=== PATIENT | male | born 1955 | race Caucasian/White ===

== ENCOUNTER 2022-04-21 16:40 | Inpatient (IN) | payer BC, SELFPAY ==
--- NOTE | 2022-04-21 | ECG_ITS ---
Test Reason : MED CLEARANCE Blood Pressure : / mmHG Vent. Rate : 074 BPM Atrial Rate : 074 BPM P-R Int : 168 ms QRS Dur : 128 ms QT Int : 386 ms P-R-T Axes : 016 -28 -36 degrees QTc Int : 428 ms Normal sinus rhythm Right bundle branch block Minimal voltage criteria for LVH, may be normal variant ( R in aVL ) Inferior infarct , age undetermined T wave abnormality, consider lateral ischemia Abnormal ECG No previous ECGs available Referred By: Dayan Dutta Electronically Signed By:LAURA HENRIQUEZ MD
[2022-04-21 16:56] VITALS: BP 140/90; PULSE 80
--- NOTE | 2022-04-21 16:56 | ED.PSYCH ---
HPI - Psych General Chief Complaint: Psychiatric Symptoms Stated Complaint: VOLUNTARY PSYCH EVAL Time Seen by Provider: 04/21/22 16:45 Source: patient Mode of arrival: EMS Limitations: no limitations History of Present Illness HPI Narrative: Patient is a 67 year old tapia with a H oh depression ,COVID and BPH, who presented to the ED with worsening depression associated with suicidal thoughts with no plans. He reports seeing a therapist in [facility].He was brought on by EMS to the ED for psychiatric evaluation. MD complaint: suicidal ideation and feels depressed Onset (ago): week(s) (couple) Duration: getting worse History of same: Yes Relieving factors: none Exacerbating factors: other (brought on by COVID worse with life stressors) Context: significant life stressor Associated psychiatric symptoms: depression and suicidal ideation Associated symptoms: denies other symptoms Treatments prior to arrival: none If self harm: admits thoughts of self harm Related Data Home Medications Medication Instructions Recorded Confirmed tamsulosin 0.4 mg capsule 1 cap PO DAILY 04/21/22 04/21/22 Allergies Allergy/AdvReac Type Severity Reaction Status Date / Time Penicillins Allergy Unknown Unknown Verified 04/21/22 16:56 Review of Systems Review of Systems: Constitutional : No Fever, No Chills ENT/Mouth : No Ear Pain, No Nasal Congestion, No sore throat Eyes: No Eye Pain, No Swelling, No Redness Cardiovascular : No Chest Pain, No SOB Respiratory : No Cough, No Sputum, No Dyspnea Gastrointestinal : No Nausea, No Vomiting, No Diarrhea, No Hematochezia, No Melena Genitourinary : No Dysuria, No Urinary Frequency, No Hematuria Musculoskeletal : No Myalgias Skin : No Skin Lesions, No rash Neuro : No Weakness, No Numbness, No Paresthesias, No Dizziness, No Headache Psych : positive Anxiety, positive Depression, positive SI no HI Heme/Lymph: No Lymphadenopathy Endocrine : No Polyuria, No Polydipsia All other systems reviewed and are negative [facility] Past Medical History Attestation statement: The following information was validated with the patient. Medical History BPH (benign prostatic hyperplasia) HTN (hypertension) Surgical History (Updated 04/21/22 @ 17:51 by Gilma Luevano) History of hernia repair Social History Social History (Updated 10/25/22 @ 17:09 by JAZMYN Holcomb Alcohol intake: never Patient Tobacco Use Status: Never used Tobacco Use of substances other than those prescribed or required for medical reasons: No Advance Directives: No Advance Directives Information Provided: No Guardian: No Physical Exam Vital Signs: Vital Signs: Last Vital Signs Temp 98.1 F 04/22/22 00:48 Pulse 74 04/22/22 00:48 Resp 16 04/22/22 00:48 BP 169/97 H 04/22/22 00:48 Pulse Ox 95 04/22/22 00:48 O2 Del Method 04/22/22 00:48 BMI result Body Mass Index 32.5 Appearance: Alert. Oriented X3. No acute distress. Calm and cooperative, walks with a cane Eyes: Pupils equal, round and reactive to light. ENT: Pharynx normal. Neck: Normal inspection. Neck supple. CVS: Normal heart rate and rhythm. Pulses normal. Respiratory: No respiratory distress. Breath sounds normal. Abdomen: Soft and nontender. Skin: Skin warm and dry. Normal skin color. Normal skin turgor. Extremities: No lower extremity edema. Neuro: Oriented X 3. No motor deficit. No sensory deficit. CN2-12 intact Course Course Course Narrative: Physician observation started at 551pm. Patient placed in physician observation because the patient needed more time for BHN to assess the need for psych admission. At the time observation was started the patient's vitals were stable, patient is alert and oriented, Neuro: nonfocal, CV RRR, Lungs clear reassess by CARE team in AM MDM - Psych MDM Narrative Medical decision making narrative: 67 yo male with hx of HTN, BPH, recent bout with COVID - life stressors now comes in voluntarily worsening depression and SI has no medical complaints requesting psychiatric evaluation. Labs and CARE consult ordered. Lab Data Result diagrams: 04/21/22 17:49 04/21/22 17:49 Labs: Lab Results 04/21/22 04/21/22 04/21/22 Range/Units 17:18 17:18 17:49 WBC 8.5 (4.8-10.8) X10*3/uL RBC 5.20 (4.60-5.80) X10*6/uL Hgb 16.1 (14.0-18.0) g/dl Hct 48.2 (42.0-52.0) % MCV 92.7 (80.0-98.0) fL MCH 31.0 (27.0-33.0) pg MCHC 33.4 (31.0-36.0) g/dl RDW 13.0 (11.0-16.0) % Plt Count 260 (160-400) X10*3/uL MPV 10.7 (9.4-12.4) fL Immature Gran % (Auto) 0.4 (0.0-0.4) % Neut % (Auto) 69.8 (45-73) % Lymph % (Auto) 20.0 (20-40) % [place] % (Auto) 8.5 (2-11) % Eos % (Auto) 0.8 (0-4) % Baso % (Auto) 0.5 (0-2) % Lymph # (Auto) 1.7 (1.2-4.9) X10*3/uL [place] # (Auto) 0.7 (0.1-1.2) X10*3/uL Eos # (Auto) 0.1 (0.0-0.4) X10*3/uL Baso # (Auto) 0.0 (0.0-0.2) X10*3/uL Abs Immat Gran (auto) 0.03 (0.00-0.03) X10*3/uL Absolute Neuts (auto) 6.0 (2.0-8.3) x10*3/uL Absolute Nucleated RBC 0.000 (0.0-0.012) X10*3/uL Nucleated RBC % (auto) 0.0 (0.0-0.2) /100WBC Sodium (135-145) mmol/L Potassium (3.3-5.1) mmol/L Chloride (96-108) mmol/L Carbon Dioxide (22-29) mmol/L Anion Gap (12-20) BUN (9-16) mg/dL Creatinine (0.5-1.4) mg/dL Estim Creat Clear Calc Estimated GFR Random Glucose (60-115) mg/dL Calcium (8.4-10.2) mg/dL Magnesium (1.6-2.6) mg/dL Total Bilirubin (0.0-1.0) mg/dL Direct Bilirubin (0.0-0.5) mg/dL AST (5-37) U/L ALT (0-40) U/L Alkaline Phosphatase (39-117) U/L Total Protein (6.5-8.0) g/dL Albumin (3.5-5.0) g/dL Urine Opiates Screen Not Detected (Not Detect) Urine Fentanyl Screen Not Detected (Not Detect) Ur Barbiturates Screen Not Detected (Not Detect) Ur Phencyclidine Scrn Not Detected (Not Detect) Ur Amphetamines Screen Not Detected (Not Detect) U Benzodiazepines Scrn Not Detected (Not Detect) Urine Cocaine Screen Not Detected (Not Detect) U Marijuana (THC) Screen Not Detected (Not Detect) Ethyl Alcohol mg/dL COVID-19 (JESSE) Negative (Negative) COVID-19 Clin Com See Note 04/21/22 Range/Units 17:49 WBC (4.8-10.8) X10*3/uL RBC (4.60-5.80) X10*6/uL Hgb (14.0-18.0) g/dl Hct (42.0-52.0) % MCV (80.0-98.0) fL MCH (27.0-33.0) pg MCHC (31.0-36.0) g/dl RDW (11.0-16.0) % Plt Count (160-400) X10*3/uL MPV (9.4-12.4) fL Immature Gran % (Auto) (0.0-0.4) % Neut % (Auto) (45-73) % Lymph % (Auto) (20-40) % [place] % (Auto) (2-11) % Eos % (Auto) (0-4) % Baso % (Auto) (0-2) % Lymph # (Auto) (1.2-4.9) X10*3/uL [place] # (Auto) (0.1-1.2) X10*3/uL Eos # (Auto) (0.0-0.4) X10*3/uL Baso # (Auto) (0.0-0.2) X10*3/uL Abs Immat Gran (auto) (0.00-0.03) X10*3/uL Absolute Neuts (auto) (2.0-8.3) x10*3/uL Absolute Nucleated RBC (0.0-0.012) X10*3/uL Nucleated RBC % (auto) (0.0-0.2) /100WBC Sodium 142 (135-145) mmol/L Potassium 3.9 (3.3-5.1) mmol/L Chloride 107 (96-108) mmol/L Carbon Dioxide 22 (22-29) mmol/L Anion Gap 17 (12-20) BUN 18 H (9-16) mg/dL Creatinine 0.87 (0.5-1.4) mg/dL Estim Creat Clear Calc 93.3 Estimated GFR > 60 Random Glucose 122 H (60-115) mg/dL Calcium 9.5 (8.4-10.2) mg/dL Magnesium 2.2 (1.6-2.6) mg/dL Total Bilirubin 0.9 (0.0-1.0) mg/dL Direct Bilirubin 0.4 (0.0-0.5) mg/dL AST 24 (5-37) U/L ALT 22 (0-40) U/L Alkaline Phosphatase 53 (39-117) U/L Total Protein 7.8 (6.5-8.0) g/dL Albumin 4.3 (3.5-5.0) g/dL Urine Opiates Screen (Not Detect) Urine Fentanyl Screen (Not Detect) Ur Barbiturates Screen (Not Detect) Ur Phencyclidine Scrn (Not Detect) Ur Amphetamines Screen (Not Detect) U Benzodiazepines Scrn (Not Detect) Urine Cocaine Screen (Not Detect) U Marijuana (THC) Screen (Not Detect) Ethyl Alcohol < 10 mg/dL COVID-19 (JESSE) (Negative) COVID-19 Clin Com Discharge Plan Discharge Clinical Impression: Depression Qualifiers: Depression Type: unspecified Qualified Code(s): F32.A - Depression, unspecified Patient Disposition: Still a Patient Prescriptions: No Action tamsulosin 0.4 mg capsule 1 cap PO DAILY
[2022-04-21 17:41] LABS: COVID-19 Test Negative (Negative); IDNOW Serial# 16C4AD1C
[2022-04-21 17:44] VITALS: BP 185/107; PULSE 78; RESP 18; TEMP 36.3; O2SAT 95; BMI 32.5
[2022-04-21 17:49] VITALS: RESP 18
[2022-04-21 17:50] LABS: Amphetamine Screen Urine Not Detected (Not Detect); Barbiturates, Urine Not Detected (Not Detect); Benzodiazepines Screen Urine Not Detected (Not Detect); Cannabinoid Screen Urine Not Detected (Not Detect); Cocaine Screen Urine Not Detected (Not Detect); Fentanyl, urine Not Detected (Not Detect); Opiate Screen Urine Not Detected (Not Detect); Phencyclidine Screen Urine Not Detected (Not Detect)
[2022-04-21 17:54] LABS: MANUAL DIFF FLAG NO
[2022-04-21 18:04] VITALS: BP 142/86; PULSE 86; O2SAT 96
[2022-04-21 18:13] LABS: Alanine Aminotransferase 22 U/L (0-40); Albumin Level 4.3 g/dL (3.5-5.0); Alkaline Phosphatase 53 U/L (39-117); Anion Gap 17 (12-20); Aspartate Amino Transferase 24 U/L (5-37); Bilirubin Direct 0.4 mg/dL (0.0-0.5); Bilirubin Total 0.9 mg/dL (0.0-1.0); Blood Urea Nitrogen 18 mg/dL (9-16); Calcium 9.5 mg/dL (8.4-10.2); Carbon Dioxide 22 mmol/L (22-29); Chloride 107 mmol/L (96-108); Creatinine Clr Calc Pharmacy 93.3; Estimated Glomerular Filt Rate > 60; Ethanol < 10 mg/dL; Glucose Random 122 mg/dL (60-115); Magnesium 2.2 mg/dL (1.6-2.6); Potassium 3.9 mmol/L (3.3-5.1); Sodium 142 mmol/L (135-145); Total Protein 7.8 g/dL (6.5-8.0)
[2022-04-21 18:14] LABS: Basophils Percent Auto 0.5 % (0-2); Eosinophils Absolute Auto 0.1 X10*3/uL (0.0-0.4); Eosinophils Percent Auto 0.8 % (0-4); Hematocrit 48.2 % (42.0-52.0); Hemoglobin 16.1 g/dl (14.0-18.0); Imm Gran Abs Auto 0.03 X10*3/uL (0.00-0.03); Imm Gran Pct Auto 0.4 % (0.0-0.4); Lymphocytes Absolute Auto 1.7 X10*3/uL (1.2-4.9); Mean Corpuscular HGB Conc 33.4 g/dl (31.0-36.0); Mean Corpuscular Volume 92.7 fL (80.0-98.0); Mean Platelet Volume 10.7 fL (9.4-12.4); Monocytes Absolute Auto 0.7 X10*3/uL (0.1-1.2); Monocytes Percent Auto 8.5 % (2-11); Neutrophils Percent Auto 69.8 % (45-73); Platelet Count 260 X10*3/uL (160-400); White Blood Count 8.5 X10*3/uL (4.8-10.8)
--- OUTSIDE RECORDS SUMMARY | 2022-04-21 21:47 | XMS_ITS | Continuity of Care Document ---
:1955 Author Organization [facility] Address [address] [place] [address]- Care Team Providers Name Role Phone Jude Lam MD Primary Care Physician Unavailable Encounter [facility] [place] Date(s): 12/17/20 - 02/02/[address] [address]- Attending Physician: Cesario Correa MD Admitting Physician: Cesario Correa MD Referring Physician: Cesario Correa MD Allergies, Adverse Reactions, Alerts Substance Reaction Severity Status penicillin Active Hay Active Medications Flomax 0.4 mg oral capsule 0.4 mg, 1, capsule, By Mouth, Daily, Refills 0, Maintenance, 12/09/20 14:41:00 EDT, Partial fill upon patient request if the prescription is for a schedule II opioid drug. Start Date: 12/09/20 Status: OrderedVitamin B12 1000 mcg oral tablet 1 tablet = 1,000 mcg, By Mouth, Daily, 0 Refills, Maintenance, 12/09/20 14:41:00 EDT, Partial fill upon patient request if the prescription is for a schedule II opioid drug. Start Date: 12/09/20 Status: Ordered Social History Social History Type Response Smoking Status Never (less than 100 in life time) entered on: 12/09/20 Sex
--- OUTSIDE RECORDS SUMMARY | 2022-04-21 21:47 | XMS_ITS | Continuity of Care Document ---
:1955 Author Organization [facility] Address [address] [place] [id number]- Care Team Providers Name Role Phone Genaro MARY, Jude Primary Care Physician Unavailable Encounter [facility] Date(s): 12/10/20 - 01/09/[address] [place] [id number] Allergies, Adverse Reactions, Alerts Substance Reaction Severity [...]
--- OUTSIDE RECORDS SUMMARY | 2022-04-21 21:47 | XMS_ITS | Continuity of Care Document ---
:1955 Author Organization [facility] Address Unavailable , Care Team Providers Name Role Phone Genaro MARY, Jude Primary Care Physician Unavailable Encounter [facility] [place] Date(s): 02/04/21 - 03/06/21 [facility] Allergies, Adverse Reactions, Alerts Substance Reaction Severity [...]
--- OUTSIDE RECORDS SUMMARY | 2022-04-21 21:47 | XMS_ITS | Continuity of Care Document ---
:1955 Author Organization [facility] Address [address] [place] [address]- Care Team Providers Name Role Phone Jude Lam MD Primary Care Physician Unavailable Encounter [facility] [place] Date(s): 02/08/21 - 04/01/[address] [address]- Attending Physician: Cesario Correa MD Admitting Physician: [...]
--- OUTSIDE RECORDS SUMMARY | 2022-04-21 21:47 | XMS_ITS | Continuity of Care Document ---
:1955 Author Organization [facility] Address [address] [place] [address] Drive [address] [place] [address]- Care Team Providers Name Role Phone Genaro MARY, Jude Primary Care Physician Unavailable Encounter [facility] [place] Date(s): 12/09/20 - 12/16/[address] [place] [id number] Attending Physician: Cesario Correa MD Referring Physician: Kinza Truong Allergies, Adverse Reactions, Alerts Substance Reaction Severity [...] opioid drug. Start Date: 12/09/20 Status: Ordered Vital Signs Most recent to oldest [Reference Range]: 1 Height 180 cm (12/09/20 2:34 PM) Weight 103.2 kg (12/09/20 2:34 PM) Pulse Rate [55-90 bpm] 76 bpm (12/09/20 2:34 PM) Body Mass Index [18.5-24.99] 31.85 *>HHI* (12/09/20 2:34 PM) Blood Pressure [90-138/55-84 mm Hg] 164/101 mm Hg *H* (12/09/20 2:34 PM) Temperature [96.8-100.4 DegF] 98.4 DegF (12/09/20 2:34 PM) Blood pressure sites Arm, left (12/09/20 2:34 PM) Temperature Route Temporal (12/09/20 2:34 PM) Dry Weight 103.2 kg (12/09/20 2:34 PM) Weight Obtained Via Standing scale (12/09/20 2:34 PM) Social History Social History Type Response Smoking Status Never (less than 100 in life time) entered on: 12/09/20 Sex
--- OUTSIDE RECORDS SUMMARY | 2022-04-21 21:47 | XMS_ITS | Continuity of Care Document ---
:1955 Author Organization [facility] Address [address] [place] [address]- Care Team Providers Name Role Phone Genaro MARY, Jude Primary Care Physician Unavailable Encounter [facility] Date(s): 12/09/20 - 01/08/[address] [place] [id number]- Attending Physician: Negra Kirkland Admitting Physician: Negra Kirkland Referring Physician: Negra Kirkland Allergies, Adverse Reactions, Alerts Substance Reaction Severity [...]
--- OUTSIDE RECORDS SUMMARY | 2022-04-21 21:47 | XMS_ITS | Continuity of Care Document ---
:1955 Author Organization [facility] Address [address], [address] [place] [address]- Care Team Providers Name Role Phone Jude Lam MD Primary Care Physician Unavailable Encounter 01/07/21 - 01/23/21 [facility] [address], [address] [place] [address]- Attending Physician: Cesario Correa MD Admitting Physician: [...]
--- NOTE | 2022-04-21 22:03 | MHC.CARE ---
CARE team completed evaluation. Plan is for inpt psychiatric admission. Section 12a is in chart. Psychiatry will need to see pt in the morning to determine if he is a candidate for an involuntary admission.
[2022-04-22 00:48] VITALS: BP 169/97; PULSE 74; RESP 16; TEMP 36.7; O2SAT 95
[2022-04-22] MEDS: Melatonin 3 MG TABLET 6 MG PO (02:05)
[2022-04-22] MEDS: LORazepam 1 MG TABLET 2 MG PO (04:45)
--- NOTE | 2022-04-22 06:19 | PC.NURSE ---
Patient is resting quietly but did not whole overnight shift, Melatonin 6 mg PO at 0245 and Ativan 2 mg PO at 0445 administered as ordered with little to no effect, disposition per care team section 12 inpatient bed search, pending psych consult, medication compliant, behavior appropriate and non concerning, will continue to monitor.
[2022-04-22] MEDS: Tamsulosin HCL 0.4 MG CAPSULE PO (08:33)
--- NOTE | 2022-04-22 13:02 | HO.PSYADMNOT ---
HPI Date of Service: 04/22/22 Chief Complaint: Mood Sources of Information: patient interviewed, chart reviewed and crisis/core team assessment reviewed HPI Subjective Notes: Rodriguez Warning (given and understood.) and Conditional Voluntary Narrative: Mr. Saeed is a 67 year old male with hx of MDD versus Bipolar type 2 Disorder. Pt called 911 and was brought to [facility] due to reports of suicidal ideation with varying plans including praying that God stops my heart, freezing in cold ren. Utox is negative. On the unit, pt reports he has been depressed since December of this year after UTI. Pt endorses symptoms of anhedonia, low energy, waking up every morning feels like a huge task. 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 Pt denied any intent to hurt himself but did feel hopeless. He denies hx of VH/AH. He reports last episode of depression was in 2018. He has one previous inpatient admission for depression in 2000. He denies hx of suicide attempts. He reports some increase in energy, no hx of grandiose delusions. Some hx of impulsive buying expensive art. He reports differential dx has been bipolar 2 versus unipolar depression. He reports in the past he has been on combination of effexor and lithium with good effects. He reports he stopped lithium due to tremors. Past Psychiatric History: Inpt: 2000 [facility] OP: none Past trials: wellbutrin (activating), lithium (tremors but effective), effexor Medical Evaluation Reviewed: Yes [facility] Medical History (Updated 04/24/22 @ 12:08 by Shannan Perkins) BPH (benign prostatic hyperplasia) HTN (hypertension) Surgical History (Updated 04/21/22 @ 17:51 by Gilma Luevano) History of hernia repair Family History: none Social History: Lives alone. since 2000. 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 Has 2 adult children not in the area. Substance History: none Trauma History: denies Diagnostics Vital Signs (24Hr): Vital Signs - 24 hr 04/21/22 17:44 04/21/22 17:49 04/21/22 18:04 Temperature 97.3 F Pulse Rate 78 86 Respiratory Rate 18 18 Blood Pressure 185/107 H 142/86 H Pulse Oximetry 95 96 Oxygen Delivery Method Room Air Room Air 04/22/22 00:48 Temperature 98.1 F Pulse Rate 74 Respiratory Rate 16 Blood Pressure 169/97 H Pulse Oximetry 95 Oxygen Delivery Method Room Air BMI result Body Mass Index 32.5 Labs Results: 04/21/22 17:49 04/23/22 07:58 Labs: Laboratory Results - last 48 hr 04/21/22 04/21/22 04/21/22 17:18 17:18 17:49 WBC 8.5 RBC 5.20 Hgb 16.1 Hct 48.2 MCV 92.7 MCH 31.0 MCHC 33.4 RDW 13.0 Plt Count 260 MPV 10.7 Immature Gran % (Auto) 0.4 Neut % (Auto) 69.8 Lymph % (Auto) 20.0 [place] % (Auto) 8.5 Eos % (Auto) 0.8 Baso % (Auto) 0.5 Lymph # (Auto) 1.7 [place] # (Auto) 0.7 Eos # (Auto) 0.1 Baso # (Auto) 0.0 Abs Immat Gran (auto) 0.03 Absolute Neuts (auto) 6.0 Absolute Nucleated RBC 0.000 Nucleated RBC % (auto) 0.0 Sodium Potassium Chloride Carbon Dioxide Anion Gap BUN Creatinine Estim Creat Clear Calc Estimated GFR Random Glucose Calcium Magnesium Total Bilirubin Direct Bilirubin AST ALT Alkaline Phosphatase Total Protein Albumin Urine Opiates Screen Not Detected Urine Fentanyl Screen Not Detected Ur Barbiturates Screen Not Detected Ur Phencyclidine Scrn Not Detected Ur Amphetamines Screen Not Detected U Benzodiazepines Scrn Not Detected Urine Cocaine Screen Not Detected U Marijuana (THC) Screen Not Detected Ethyl Alcohol COVID-19 (JESSE) Negative COVID-19 Clin Com See Note 04/21/22 17:49 WBC RBC Hgb Hct MCV MCH MCHC RDW Plt Count MPV Immature Gran % (Auto) Neut % (Auto) Lymph % (Auto) [place] % (Auto) Eos % (Auto) Baso % (Auto) Lymph # (Auto) [place] # (Auto) Eos # (Auto) Baso # (Auto) Abs Immat Gran (auto) Absolute Neuts (auto) Absolute Nucleated RBC Nucleated RBC % (auto) Sodium 142 Potassium 3.9 Chloride 107 Carbon Dioxide 22 Anion Gap 17 BUN 18 H Creatinine 0.87 Estim Creat Clear Calc 93.3 Estimated GFR > 60 Random Glucose 122 H Calcium 9.5 Magnesium 2.2 Total Bilirubin 0.9 Direct Bilirubin 0.4 AST 24 ALT 22 Alkaline Phosphatase 53 Total Protein 7.8 Albumin 4.3 Urine Opiates Screen Urine Fentanyl Screen Ur Barbiturates Screen Ur Phencyclidine Scrn Ur Amphetamines Screen U Benzodiazepines Scrn Urine Cocaine Screen U Marijuana (THC) Screen Ethyl Alcohol < 10 COVID-19 (JESSE) COVID-19 Clin Com Meds/Allergies Meds Home Medications Medication Instructions Recorded Confirmed Type tamsulosin 0.4 mg capsule 1 cap PO DAILY 04/21/22 04/21/22 History Allergies Allergies Allergy/AdvReac Type Severity Reaction Status Date / Time Penicillins Allergy Unknown Unknown Verified 04/21/22 16:56 Mental Status Exam Mental Status Exam Narrative: Appearance: casually groomed, fair hygiene in NAD Behavior:cooperative psychomotor: no retardation or agitation noted Speech:clear, normal rate/rhythm/volume, spontaneous Thought process: linear Thought content: no s/s of psychosis, no energy or motivation Mood: numbed Affect: blunted SI:passive HI:none VH/AH:none Delusions: none Insight/judgment:fair x 2. Memory/cog: alert, oriented x 3. grossly intact to conversational testing but not formally tested. Assessment & Plan Assessment & Plan (1) Bipolar II disorder major depressive with melancholic features: Status: Acute Code(s): F31.81 - Bipolar II disorder Plan Mr. Saeed is a 67 year-old male with hx of MDD versus Bipolar type 2. Self presented to [facility] ED due to increase depression, consisting of anhedonia, low enery, poor sleep, poor appetite. passive SI. Not currently in psychiatric treatment but hx of good response to effexor and lithium. We discussed risks, benefits and alternative treatment options. PLAN 1. Admit to S1, 15 minutes checks. CV 2. Start lithium 150mg po qhs, effexor 37.5mg po daily 3. obtain collaterla information 4. aftercare planning. Patient educated on: diagnosis Reason for continued inpatient stay Substantial Risk for: harm to self
[2022-04-22] MEDS: Venlafaxine HCl ER 37.5 MG CAP.ER.24H PO (13:36)
--- NOTE | 2022-04-22 15:46 | PC.NURSE ---
nurse to nurse given to s1 nurse
[2022-04-22 16:53] VITALS: BMI 34.4
--- NOTE | 2022-04-22 17:28 | PC.ADMIT ---
Patient admitted to unit from ED via at 1615 on CV with diagnosis of Major Depressive Disorder with HX of suicidal ideation and planning but no attempts. Prior psych admissions in 2000 and 2017. Current episode started in December 2021 and has worsened since testing positive for Covid April 03, 2022. Patient has been experiencing suicidal ideation, fatigue, insomnia, accompanied by feelings of helplessness, hopelessness and worthlessness. Froylan HI/AVH.Endorses anxiety/Depression 12/05. Patient presents as pleasant and cooperative. Patient engaged in admission process. Patient has PMH of BPH controlled with medication. Patient oriented to unit. 3 day notice signed.
[2022-04-22 18:00] VITALS: BP 136/77; PULSE 95; RESP 18; TEMP 36.3; O2SAT 93
[2022-04-22] MEDS: Lithium Carbonate 300 MG TABLET 150 MG PO (20:07)
[2022-04-22] MEDS: traZODone HCL 50 MG TABLET PO (21:09)
[2022-04-23 07:00] VITALS: BMI 34.6
[2022-04-23 08:26] VITALS: BP 148/79; PULSE 70; RESP 14; TEMP 36.3; O2SAT 93
[2022-04-23] MEDS: Venlafaxine HCl ER 37.5 MG CAP.ER.24H PO (08:27)
[2022-04-23] MEDS: Tamsulosin HCL 0.4 MG CAPSULE PO (08:27)
[2022-04-23 08:29] LABS: Alanine Aminotransferase 22 U/L (0-40); Alkaline Phosphatase 50 U/L (39-117); Anion Gap 17 (12-20); Aspartate Amino Transferase 22 U/L (5-37); Bilirubin Total 0.9 mg/dL (0.0-1.0); Blood Urea Nitrogen 27 mg/dL (9-16); Calcium 9.7 mg/dL (8.4-10.2); Carbon Dioxide 23 mmol/L (22-29); Chloride 106 mmol/L (96-108); Cholesterol 182 mg/dL; Creatinine Clr Calc Pharmacy 82.7; Estimated Glomerular Filt Rate > 60; Glucose Fasting 101 mg/dL (60-99); HDL Cholesterol 40 mg/dL; LDL Cholesterol Calculated 115 mg/dl; Sodium 142 mmol/L (135-145); Total Protein 7.3 g/dL (6.5-8.0); Triglycerides 136 mg/dL
--- NOTE | 2022-04-23 12:29 | P.PNPSI_ITS ---
Subjective Subjective Date of Service: 04/23/22 Reason For Visit: Mood Subjective Notes: Conditional Voluntary Interim History: Pt reports feeling less overwhelmed, less passive SI. However, describes mood as numbed. He denies any intent to harm himself. He is worried about being out of work for too long. 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 He reports good sleep. Feels unit is too quiet. No VH/AH. Tolerating medications. Medication Compliance: Yes Side effects from medications: No Review of Systems Review of Systems Constitutional : No Fever, No Chills ENT/Mouth : No Ear Pain, No Nasal Congestion, No sore throat Eyes: No Eye Pain, No Swelling, No Redness Cardiovascular : No Chest Pain, No SOB Respiratory : No Cough, No Sputum, No Dyspnea Gastrointestinal : No Nausea, No Vomiting, No Diarrhea, No Hematochezia, No Melena Genitourinary : No Dysuria, No Urinary Frequency, No Hematuria Musculoskeletal : No Myalgias Skin : No Skin Lesions, No rash Neuro : No Weakness, No Numbness, No Paresthesias, No Dizziness, No Headache Psych : positive Anxiety, positive Depression, positive SI no HI Heme/Lymph: No Lymphadenopathy Endocrine : No Polyuria, No Polydipsia All other systems reviewed and are negative Yes all other systems are reviewed and are negative Mental Status Exam Mental Status Exam Narrative: Appearance: casually groomed, fair hygiene in NAD Behavior:cooperative psychomotor: no retardation or agitation noted Speech:clear, normal rate/rhythm/volume, spontaneous Thought process: linear Thought content: no s/s of psychosis, no energy or motivation Mood: numbed Affect: blunted SI:passive HI:none VH/AH:none Delusions: none Insight/judgment:fair x 2. Memory/cog: alert, oriented x 3. grossly intact to conversational testing but not formally tested. Diagnostics Vital Signs (24Hr): Vital Signs - 24 hr 04/23/22 20:00 04/24/22 08:00 Temperature 97.9 F 97.5 F Pulse Rate 87 71 Respiratory Rate 16 18 Blood Pressure 137/75 150/84 H Pulse Oximetry 93 94 Oxygen Delivery Method Room Air Room Air BMI result Body Mass Index 34.6 Labs Results: 04/21/22 17:49 04/23/22 07:58 Labs: Laboratory Results - last 48 hr 04/23/22 07:58 Sodium 142 Potassium 4.0 Chloride 106 Carbon Dioxide 23 Anion Gap 17 BUN 27 H Creatinine 1.01 Estim Creat Clear Calc 82.7 Estimated GFR > 60 Fasting Glucose 101 H Calcium 9.7 Total Bilirubin 0.9 AST 22 ALT 22 Alkaline Phosphatase 50 Total Protein 7.3 Albumin 4.0 Triglycerides 136 Cholesterol 182 LDL Cholesterol, Calc 115 HDL Cholesterol 40 Medications Medications Current Medications Acetaminophen (Acetaminophen 325 Mg Tablet) 650 mg PO Q6H PRN PRN Reason: Headache/Pain Mild Scale (1-3) Al Hydroxide/Mg Hydroxide (Magnesium Hydrox/Alum Hydrox 30 Ml Oral.Susp) 30 ml PO Q6H PRN PRN Reason: Heartburn/Nausea Hydroxyzine HCl (Hydroxyzine Hcl 25 Mg Tablet) 25 mg PO Q6H PRN PRN Reason: Anxiety [place] Carbonate ([place] Carbonate 300 Mg Tablet) 150 mg PO BEDTIME [facility] Last Admin: 04/23/22 20:01 Dose: 150 mg Magnesium Hydroxide (Milk Of Magnesia 30 Ml Oral.Susp) 30 ml PO DAILY PRN PRN Reason: Constipation Tamsulosin HCl (Tamsulosin Hcl 0.4 Mg Capsule) 0.4 mg PO DAILY [facility] Last Admin: 04/24/22 08:03 Dose: 0.4 mg Trazodone HCl (Trazodone Hcl 50 Mg Tablet) 50 mg PO BEDTIME PRN PRN Reason: Insomnia Last Admin: 04/23/22 19:48 Dose: 50 mg Venlafaxine HCl (Venlafaxine Hcl Er 75 Mg Cap.Er.24h) 75 mg PO DAILY [facility] Last Admin: 04/24/22 08:03 Dose: 75 mg Allergies Allergies Allergy/AdvReac Type Severity Reaction Status Date / Time Penicillins Allergy Unknown Unknown Verified 04/21/22 16:56 Assessment & Plan Assessment & Plan (1) Bipolar II disorder major depressive with melancholic features: Status: Acute Code(s): F31.81 - Bipolar II disorder Plan Mr. Saeed is a 67 year-old male with hx of MDD versus Bipolar type 2. Self presented to [facility] due to increase depression, consisting of anhedonia, low enery, poor sleep, poor appetite. passive SI. Not currently in psychiatric treat ment but hx of good response to effexor and lithium. We discussed risks, benefits and alternative treatment options. PLAN 1. Admit to S1, 15 minutes checks. CV 2. Start lithium 150mg po qhs, effexor 37.5mg po daily 3. obtain collaterla information 4. aftercare planning. 04/23 increase effexor in 2 days to 75mg po daily. continue lithium I spent minutes with the patient and/or on the patient floor today, greater than?50% of which was spent counseling/coordinating care. Reason for contiued inpatient stay Substantial Risk for: harm to self
[2022-04-23] MEDS: traZODone HCL 50 MG TABLET PO (19:48)
[2022-04-23 20:00] VITALS: BP 137/75; PULSE 87; RESP 16; TEMP 36.6; O2SAT 93
[2022-04-23] MEDS: Lithium Carbonate 300 MG TABLET 150 MG PO (20:01)
[2022-04-24 08:00] VITALS: BP 150/84; PULSE 71; RESP 18; TEMP 36.4; O2SAT 94
[2022-04-24] MEDS: Venlafaxine HCl ER 75 MG CAP.ER.24H PO (08:03)
[2022-04-24] MEDS: Tamsulosin HCL 0.4 MG CAPSULE PO (08:03)
--- NOTE | 2022-04-24 15:05 | P.PNPSI_ITS ---
Subjective Subjective Date of Service: 04/24/22 Reason For Visit: Mood Subjective Notes: Conditional Voluntary and 3 Day Interim History: Pt reports feeling anxious, less intermittent suicidal thoughts but continues to have them. He reports last night feeling very restless and ruminative, affecting his ability to fall asleep. He reports eating well. He has been visible on the unit and has attended some groups. No side effects with medications, we discussed starting low dose clonazepam for anxiety. 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 Medication Compliance: Yes Side effects from medications: No Review of Systems Review of Systems Constitutional : No Fever, No Chills ENT/Mouth : No Ear Pain, No Nasal Congestion, No sore throat Eyes: No Eye Pain, No Swelling, No Redness Cardiovascular : No Chest Pain, No SOB Respiratory : No Cough, No Sputum, No Dyspnea Gastrointestinal : No Nausea, No Vomiting, No Diarrhea, No Hematochezia, No Melena Genitourinary : No Dysuria, No Urinary Frequency, No Hematuria Musculoskeletal : No Myalgias Skin : No Skin Lesions, No rash Neuro : No Weakness, No Numbness, No Paresthesias, No Dizziness, No Headache Psych : positive Anxiety, positive Depression, positive SI no HI Heme/Lymph: No Lymphadenopathy Endocrine : No Polyuria, No Polydipsia All other systems reviewed and are negative Yes all other systems are reviewed and are negative Mental Status Exam Mental Status Exam Narrative: Appearance: casually groomed, fair hygiene in NAD Behavior:cooperative psychomotor: no retardation or agitation noted Speech:clear, normal rate/rhythm/volume, spontaneous Thought process: linear Thought content: no s/s of psychosis, no energy or motivation Mood: numbed Affect: blunted SI:passive HI:none VH/AH:none Delusions: none Insight/judgment:fair x 2. Memory/cog: alert, oriented x 3. grossly intact to conversational testing but not formally tested. Diagnostics Vital Signs (24Hr): Vital Signs - 24 hr 04/23/22 20:00 04/24/22 08:00 Temperature 97.9 F 97.5 F Pulse Rate 87 71 Respiratory Rate 16 18 Blood Pressure 137/75 150/84 H Pulse Oximetry 93 94 Oxygen Delivery Method Room Air Room Air BMI result Body Mass Index 34.6 Labs Results: 04/21/22 17:49 04/25/22 17:31 Labs: Laboratory Results - last 48 hr 04/23/22 07:58 Sodium 142 Potassium 4.0 Chloride 106 Carbon Dioxide 23 Anion Gap 17 BUN 27 H Creatinine 1.01 Estim Creat Clear Calc 82.7 Estimated GFR > 60 Fasting Glucose 101 H Calcium 9.7 Total Bilirubin 0.9 AST 22 ALT 22 Alkaline Phosphatase 50 Total Protein 7.3 Albumin 4.0 Triglycerides 136 Cholesterol 182 LDL Cholesterol, Calc 115 HDL Cholesterol 40 Medications Medications Current Medications Acetaminophen (Acetaminophen 325 Mg Tablet) 650 mg PO Q6H PRN PRN Reason: Headache/Pain Mild Scale (1-3) Al Hydroxide/Mg Hydroxide (Magnesium Hydrox/Alum Hydrox 30 Ml Oral.Susp) 30 ml PO Q6H PRN PRN Reason: Heartburn/Nausea Clonazepam (Clonazepam 0.5 Mg Tablet) 0.5 mg PO BID [facility] Clonazepam (Clonazepam 0.5 Mg Tablet) 0.5 mg PO ONCE ONE Stop: 04/24/22 15:01 Hydroxyzine HCl (Hydroxyzine Hcl 25 Mg Tablet) 25 mg PO Q6H PRN PRN Reason: Anxiety [place] Carbonate (Imbler Carbonate 300 Mg Tablet) 150 mg PO BEDTIME [facility] Last Admin: 04/23/22 20:01 Dose: 150 mg Magnesium Hydroxide (Milk Of Magnesia 30 Ml Oral.Susp) 30 ml PO DAILY PRN PRN Reason: Constipation Tamsulosin HCl (Tamsulosin Hcl 0.4 Mg Capsule) 0.4 mg PO DAILY [facility] Last Admin: 04/24/22 08:03 Dose: 0.4 mg Trazodone HCl (Trazodone Hcl 50 Mg Tablet) 50 mg PO BEDTIME PRN PRN Reason: Insomnia Last Admin: 04/23/22 19:48 Dose: 50 mg Venlafaxine HCl (Venlafaxine Hcl Er 75 Mg Cap.Er.24h) 75 mg PO DAILY [facility] Last Admin: 04/24/22 08:03 Dose: 75 mg Allergies Allergies Allergy/AdvReac Type Severity Reaction Status Date / Time Penicillins Allergy Unknown Unknown Verified 04/21/22 16:56 Assessment & Plan Assessment & Plan (1) Bipolar II disorder major depressive with melancholic features: Status: Acute Code(s): F31.81 - Bipolar II disorder Plan Mr. Saeed is a 67 year-old male with hx of MDD versus Bipolar type 2. Self presented to [facility] due to increase depression, consisting of anhedonia, low enery, poor sleep, poor appetite. passive SI. Not currently in psychiatric treatment but hx of good response to effexor and lithium. We discussed risks, benefits and alternative treatment options. PLAN 1. Admit to S1, 15 minutes checks. CV 2. Start lithium 150mg po qhs, effexor 37.5mg po daily 3. obtain collaterla information 4. aftercare planning. 04/23 increase effexor in 2 days to 75mg po daily. continue lithium 04/24 continue effexor 75mg po daily, lithium 150mg po qhs. add clonazepam 0.5mg po BID. I spent minutes with the patient and/or on the patient floor today, greater than?50% of which was spent counseling/coordinating care. Reason for contiued inpatient stay Substantial Risk for: harm to self
[2022-04-24 20:00] VITALS: BP 180/94; PULSE 76; RESP 16; TEMP 36.1; O2SAT 96
[2022-04-24] MEDS: traZODone HCL 50 MG TABLET PO (20:32)
[2022-04-24] MEDS: clonazePAM 0.5 MG TABLET PO (20:32)
[2022-04-24] MEDS: Lithium Carbonate 300 MG TABLET 150 MG PO (20:32)
[2022-04-25 06:00] VITALS: BP 131/60; PULSE 65; RESP 17; TEMP 36.8; O2SAT 96
[2022-04-25] MEDS: Venlafaxine HCl ER 75 MG CAP.ER.24H PO (08:40)
[2022-04-25] MEDS: Tamsulosin HCL 0.4 MG CAPSULE PO (08:40)
[2022-04-25] MEDS: clonazePAM 0.5 MG TABLET PO ×2 (08:41→20:35)
--- NOTE | 2022-04-25 12:18 | P.PNPSI_ITS ---
Subjective Subjective Date of Service: 04/25/22 Reason For Visit: Mood Subjective Notes: Conditional Voluntary Interim History: Pt focused on discharge tomorrow. Pt reports less intermittent suicidal thoughts but continues to have them. Pt reports he slept better last night with clonazepam. Pt denies any plan or intent to harm himself and thinks he is ready for discharge tomorrow. Denies any side effects with medications. Medication Compliance: Yes Review of Systems Review of Systems Constitutional : No Fever, No Chills ENT/Mouth : No Ear Pain, No Nasal Congestion, No sore throat Eyes: No Eye Pain, No Swelling, No Redness Cardiovascular : No Chest Pain, No SOB Respiratory : No Cough, No Sputum, No Dyspnea Gastrointestinal : No Nausea, No Vomiting, No Diarrhea, No Hematochezia, No Melena Genitourinary : No Dysuria, No Urinary Frequency, No Hematuria Musculoskeletal : No Myalgias Skin : No Skin Lesions, No rash Neuro : No Weakness, No Numbness, No Paresthesias, No Dizziness, No Headache Psych : positive Anxiety, positive Depression, positive SI no HI Heme/Lymph: No Lymphadenopathy Endocrine : No Polyuria, No Polydipsia All other systems reviewed and are negative Yes all other systems are reviewed and are negative Mental Status Exam Mental Status Exam Narrative: Appearance: casually groomed, fair hygiene in NAD Behavior:cooperative psychomotor: no retardation or agitation noted Speech:clear, normal rate/rhythm/volume, spontaneous Thought process: linear Thought content: no s/s of psychosis, no energy or motivation Mood: numbed Affect: blunted SI:passive HI:none VH/AH:none Delusions: none Insight/judgment:fair x 2. Memory/cog: alert, oriented x 3. grossly intact to conversational testing but not formally tested. Diagnostics Vital Signs (24Hr): Vital Signs - 24 hr 04/25/22 20:00 Temperature 97.5 F Pulse Rate 70 Respiratory Rate 16 Blood Pressure 125/61 Pulse Oximetry 96 Oxygen Delivery Method Room Air BMI result Body Mass Index 34.6 Labs Results: 04/21/22 17:49 04/25/22 17:31 Labs: Laboratory Results - last 48 hr 04/25/22 04/25/22 17:31 17:31 Sodium 140 Potassium 4.1 Chloride 104 Carbon Dioxide 22 Anion Gap 18 BUN 25 H Creatinine 0.95 Estim Creat Clear Calc 88.2 Estimated GFR > 60 Random Glucose 124 H Calcium 9.9 TSH 1.13 Pegram 0.08 L Medications Medications Current Medications Acetaminophen (Acetaminophen 325 Mg Tablet) 650 mg PO Q6H PRN PRN Reason: Headache/Pain Mild Scale (1-3) Al Hydroxide/Mg Hydroxide (Magnesium Hydrox/Alum Hydrox 30 Ml Oral.Susp) 30 ml PO Q6H PRN PRN Reason: Heartburn/Nausea Clonazepam (Clonazepam 0.5 Mg Tablet) 0.5 mg PO BID [facility] Last Admin: 04/26/22 08:55 Dose: 0.5 mg Hydroxyzine HCl (Hydroxyzine Hcl 25 Mg Tablet) 25 mg PO Q6H PRN PRN Reason: Anxiety [place] Carbonate ([place] Carbonate 300 Mg Tablet) 150 mg PO BEDTIME [facility] Last Admin: 04/25/22 20:35 Dose: 150 mg Magnesium Hydroxide (Milk Of Magnesia 30 Ml Oral.Susp) 30 ml PO DAILY PRN PRN Reason: Constipation Tamsulosin HCl (Tamsulosin Hcl 0.4 Mg Capsule) 0.4 mg PO DAILY [facility] Last Admin: 04/26/22 08:55 Dose: 0.4 mg Trazodone HCl (Trazodone Hcl 50 Mg Tablet) 50 mg PO BEDTIME PRN PRN Reason: Insomnia Last Admin: 04/25/22 20:35 Dose: 50 mg Venlafaxine HCl (Venlafaxine Hcl Er 75 Mg Cap.Er.24h) 75 mg PO DAILY [facility] Last Admin: 04/26/22 08:55 Dose: 75 mg Allergies Allergies Allergy/AdvReac Type Severity Reaction Status Date / Time Penicillins Allergy Unknown Unknown Verified 04/21/22 16:56 Assessment & Plan Assessment & Plan (1) Bipolar II disorder major depressive with melancholic features: Status: Acute Code(s): F31.81 - Bipolar II disorder Plan Mr. Saeed is a 67 year-old male with hx of MDD versus Bipolar type 2. Self presented to [facility] ED due to increase depression, consisting of anhedonia, low enery, poor sleep, poor appetite. passive SI. Not currently in psychiatric treatment but hx of good response to effexor and lithium. We discussed risks, benefits and alternative treatment options. PLAN 1. Admit to S1, 15 minutes checks. CV 2. Start lithium 150mg po qhs, effexor 37.5mg po daily 3. obtain collaterla information 4. aftercare planning. 04/23 increase effexor in 2 days to 75mg po daily. continue lithium 04/24 continue effexor 75mg po daily, lithium 150mg po qhs. add clonazepam 0.5mg po BID. 04/25 continue tx. I spent minutes with the patient and/or on the patient floor today, greater than?50% of which was spent counseling/coordinating care. Reason for contiued inpatient stay Substantial Risk for: harm to self
[2022-04-25 17:49] LABS: Lithium 0.08 mmol/L (0.60-1.20)
[2022-04-25 17:55] LABS: Anion Gap 18 (12-20); Blood Urea Nitrogen 25 mg/dL (9-16); Calcium 9.9 mg/dL (8.4-10.2); Carbon Dioxide 22 mmol/L (22-29); Chloride 104 mmol/L (96-108); Creatinine Clr Calc Pharmacy 88.2; Estimated Glomerular Filt Rate > 60; Glucose Random 124 mg/dL (60-115); Potassium 4.1 mmol/L (3.3-5.1); Sodium 140 mmol/L (135-145)
[2022-04-25 18:17] LABS: TSH reflex Free T4 1.13 uIU/mL (0.32-4.0)
[2022-04-25 20:00] VITALS: BP 125/61; PULSE 70; RESP 16; TEMP 36.4; O2SAT 96
[2022-04-25] MEDS: Lithium Carbonate 300 MG TABLET 150 MG PO (20:35)
[2022-04-25] MEDS: traZODone HCL 50 MG TABLET PO (20:35)
[2022-04-26 06:00] VITALS: BP 135/69; PULSE 62; RESP 16; TEMP 36.5; O2SAT 93
[2022-04-26] MEDS: Tamsulosin HCL 0.4 MG CAPSULE PO (08:55)
[2022-04-26] MEDS: Venlafaxine HCl ER 75 MG CAP.ER.24H PO (08:55)
[2022-04-26] MEDS: clonazePAM 0.5 MG TABLET PO ×2 (08:55→20:53)
--- NOTE | 2022-04-26 10:23 | P.PNPSI_ITS ---
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 Pt reports I'm not a good person, he refers to guilt related to sexual thoughts but he does not elaborate. He reports he does not want to talk with anyone. He reports he feels like a failure and that his depression is his fault. He reports suicidal ideation. This sign writer letterer or painter discussed with pt that he is not ready to be discharged and that risk of harm to self is high and concerning at this point. He has several risk facts- some modifiable others not- including being older white male, feeling of guilt, failure, severe depression, suicidal ideation. Review of Systems Review of Systems Constitutional : No Fever, No Chills ENT/Mouth : No Ear Pain, No Nasal Congestion, No sore throat Eyes: No Eye Pain, No Swelling, No Redness Cardiovascular : No Chest Pain, No SOB Respiratory : No Cough, No Sputum, No Dyspnea Gastrointestinal : No Nausea, No Vomiting, No Diarrhea, No Hematochezia, No Melena Genitourinary : No Dysuria, No Urinary Frequency, No Hematuria Musculoskeletal : No Myalgias Skin : No Skin Lesions, No rash Neuro : No Weakness, No Numbness, No Paresthesias, No Dizziness, No Headache Psych : positive Anxiety, positive Depression, positive SI no HI Heme/Lymph: No Lymphadenopathy Endocrine : No Polyuria, No Polydipsia All other systems reviewed and are negative Yes all other systems are reviewed and are negative Mental Status Exam Mental Status Exam Narrative: Appearance: casually groomed, fair hygiene in NAD Behavior:cooperative psychomotor: no retardation or agitation noted Speech:clear, normal rate/rhythm/volume, spontaneous Thought process: linear Thought content: no s/s of psychosis, no energy or motivation Mood: numbed Affect: blunted SI:passive HI:none VH/AH:none Delusions: none Insight/judgment:fair x 2. Memory/cog: alert, oriented x 3. grossly intact to conversational testing but not formally tested. Diagnostics Vital Signs (24Hr): Vital Signs - 24 hr 04/26/22 18:00 Temperature 98.6 F Pulse Rate 64 Respiratory Rate 18 Blood Pressure 134/76 Pulse Oximetry 96 Oxygen Delivery Method Room Air BMI result Body Mass Index 34.6 Labs Results: 04/21/22 17:49 04/25/22 17:31 Labs: Laboratory Results - last 48 hr 04/25/22 04/25/22 17:31 17:31 Sodium 140 Potassium 4.1 Chloride 104 Carbon Dioxide 22 Anion Gap 18 BUN 25 H Creatinine 0.95 Estim Creat Clear Calc 88.2 Estimated GFR > 60 Random Glucose 124 H Calcium 9.9 TSH 1.13 [place] 0.08 L Medications Medications Current Medications Acetaminophen (Acetaminophen 325 Mg Tablet) 650 mg PO Q6H PRN PRN Reason: Headache/Pain Mild Scale (1-3) Al Hydroxide/Mg Hydroxide (Magnesium Hydrox/Alum Hydrox 30 Ml Oral.Susp) 30 ml PO Q6H PRN PRN Reason: Heartburn/Nausea Clonazepam (Clonazepam 0.5 Mg Tablet) 0.5 mg PO BID [facility] Last Admin: 04/26/22 20:53 Dose: 0.5 mg Hydroxyzine HCl (Hydroxyzine Hcl 25 Mg Tablet) 25 mg PO Q6H PRN PRN Reason: Anxiety [place] Carbonate ([place] Carbonate 300 Mg Tablet) 300 mg PO BEDTIME [facility] Last Admin: 04/26/22 20:53 Dose: 300 mg Magnesium Hydroxide (Milk Of Magnesia 30 Ml Oral.Susp) 30 ml PO DAILY PRN PRN Reason: Constipation Last Admin: 04/26/22 15:35 Dose: 30 ml Tamsulosin HCl (Tamsulosin Hcl 0.4 Mg Capsule) 0.4 mg PO DAILY [facility] Last Admin: 04/26/22 08:55 Dose: 0.4 mg Trazodone HCl (Trazodone Hcl 50 Mg Tablet) 50 mg PO BEDTIME PRN PRN Reason: Insomnia Last Admin: 04/26/22 20:53 Dose: 50 mg Venlafaxine HCl (Venlafaxine Hcl Er 75 Mg Cap.Er.24h) 75 mg PO DAILY [facility] Last Admin: 04/26/22 08:55 Dose: 75 mg Allergies Allergies Allergy/AdvReac Type Severity Reaction Status Date / Time Penicillins Allergy Unknown Unknown Verified 04/21/22 16:56 Assessment & Plan Assessment & Plan (1) Bipolar II disorder major depressive with melancholic features: Status: Acute Code(s): F31.81 - Bipolar II disorder Plan Mr. Saeed is a 67 year-old male with hx of MDD versus Bipolar type 2. Self presented to [facility] ED due to increase depression, consisting of anhedonia, low enery, poor sleep, poor appetite. passive SI. Not currently in psychiatric treatment but hx of good response to effexor and lithium. We discussed risks, benefits and alternative treatment options. PLAN 1. Admit to S1, 15 minutes checks. CV 2. Start lithium 150mg po qhs, effexor 37.5mg po daily 3. obtain collaterla information 4. aftercare planning. 04/23 increase effexor in 2 days to 75mg po daily. continue lithium 04/24 continue effexor 75mg po daily, lithium 150mg po qhs. add clonazepam 0.5mg po BID. 04/25 continue tx. 04/26 continue tx. pt at high risk of harm to self if discharge today. Do not think he will be ready for discharge tomorrow when 3 day is up and do worry about high risk of suicide if discharge tomorrow. will discuss with pt tomorrow but pt if he is not willing to retract 3 day, may file for commitment. I spent _25 minutes with the patient and/or on the patient floor today, greater than?50% of which was spent counseling/coordinating care. Reason for contiued inpatient stay Substantial Risk for: harm to self
[2022-04-26] MEDS: Milk of Magnesia 30 ML ORAL.SUSP PO (15:35)
[2022-04-26 18:00] VITALS: BP 134/76; PULSE 64; RESP 18; TEMP 37; O2SAT 96
[2022-04-26] MEDS: Lithium Carbonate 300 MG TABLET PO (20:53)
[2022-04-26] MEDS: traZODone HCL 50 MG TABLET PO (20:53)
[2022-04-27 06:00] VITALS: BP 126/68; PULSE 70; RESP 16; TEMP 36.4; O2SAT 94
[2022-04-27] MEDS: clonazePAM 0.5 MG TABLET PO ×2 (11:04→20:31)
[2022-04-27] MEDS: Venlafaxine HCl ER 75 MG CAP.ER.24H PO (11:05)
[2022-04-27] MEDS: Tamsulosin HCL 0.4 MG CAPSULE PO (11:05)
--- NOTE | 2022-04-27 14:43 | HO.PSYCHPN ---
Subjective Subjective Date of Service: 04/27/22 Reason For Visit: Mood Subjective Notes: Conditional Voluntary Interim History: Pt reports feeling a little bit better. He states he took shower and talked with friend and adult children. Pt continues to report that he feels like a failure, difficulty starting his day, overwhelmed by what is waiting for him at work. Pt talks about failures in past relationships and sense of loneliness. Pt continues to endorse suicidal ideation. Per nursing, more visible today, reading on his own. Medication Compliance: Yes Side effects from medications: No Review of Systems Review of Systems Constitutional : No Fever, No Chills ENT/Mouth : No Ear Pain, No Nasal Congestion, No sore throat Eyes: No Eye Pain, No Swelling, No Redness Cardiovascular : No Chest Pain, No SOB Respiratory : No Cough, No Sputum, No Dyspnea Gastrointestinal : No Nausea, No Vomiting, No Diarrhea, No Hematochezia, No Melena Genitourinary : No Dysuria, No Urinary Frequency, No Hematuria Musculoskeletal : No Myalgias Skin : No Skin Lesions, No rash Neuro : No Weakness, No Numbness, No Paresthesias, No Dizziness, No Headache Psych : positive Anxiety, positive Depression, positive SI no HI Heme/Lymph: No Lymphadenopathy Endocrine : No Polyuria, No Polydipsia All other systems reviewed and are negative Yes all other systems are reviewed and are negative Mental Status Exam Mental Status Exam Narrative: Appearance: casually groomed, fair hygiene in NAD Behavior:cooperative psychomotor: no retardation or agitation noted Speech:clear, normal rate/rhythm/volume, spontaneous Thought process: linear Thought content: no s/s of psychosis, no energy or motivation Mood: numbed Affect: blunted SI:passive HI:none VH/AH:none Delusions: none Insight/judgment:fair x 2. Memory/cog: alert, oriented x 3. grossly intact to conversational testing but not formally tested. Diagnostics Vital Signs (24Hr): Vital Signs - 24 hr 04/27/22 20:00 Temperature 97.5 F Pulse Rate 75 Respiratory Rate 18 Blood Pressure 124/66 Pulse Oximetry 93 Oxygen Delivery Method Room Air BMI result Body Mass Index 34.6 Labs Results: 04/21/22 17:49 04/25/22 17:31 Medications Medications Current Medications Acetaminophen (Acetaminophen 325 Mg Tablet) 650 mg PO Q6H PRN PRN Reason: Headache/Pain Mild Scale (1-3) Al Hydroxide/Mg Hydroxide (Magnesium Hydrox/Alum Hydrox 30 Ml Oral.Susp) 30 ml PO Q6H PRN PRN Reason: Heartburn/Nausea Clonazepam (Clonazepam 0.5 Mg Tablet) 0.5 mg PO BID [facility] Last Admin: 04/27/22 20:31 Dose: 0.5 mg Hydroxyzine HCl (Hydroxyzine Hcl 25 Mg Tablet) 25 mg PO Q6H PRN PRN Reason: Anxiety [place] Carbonate ([place] Carbonate 300 Mg Tablet) 300 mg PO BEDTIME [facility] Last Admin: 04/27/22 20:31 Dose: 300 mg Magnesium Hydroxide (Milk Of Magnesia 30 Ml Oral.Susp) 30 ml PO DAILY PRN PRN Reason: Constipation Last Admin: 04/26/22 15:35 Dose: 30 ml Tamsulosin HCl (Tamsulosin Hcl 0.4 Mg Capsule) 0.4 mg PO DAILY [facility] Last Admin: 04/27/22 11:05 Dose: 0.4 mg Trazodone HCl (Trazodone Hcl 50 Mg Tablet) 50 mg PO BEDTIME PRN PRN Reason: Insomnia Last Admin: 04/27/22 20:31 Dose: 50 mg Venlafaxine HCl (Venlafaxine Hcl Er 75 Mg Cap.Er.24h) 75 mg PO DAILY [facility] Last Admin: 04/27/22 11:05 Dose: 75 mg Allergies Allergies Allergy/AdvReac Type Severity Reaction Status Date / Time Penicillins Allergy Unknown Unknown Verified 04/21/22 16:56 Assessment & Plan Assessment & Plan (1) Bipolar II disorder major depressive with melancholic features: Status: Acute Code(s): F31.81 - Bipolar II disorder Plan Mr. Saeed is a 67 year-old male with hx of MDD versus Bipolar type 2. Self presented to [facility] ED due to increase depression, consisting of anhedonia, low enery, poor sleep, poor appetite. passive SI. Not currently in psychiatric treatment but hx of good response to effexor and lithium. We discussed risks, benefits and alternative treatment options. PLAN 1. Admit to S1, 15 minutes checks. CV 2. Start lithium 150mg po qhs, effexor 37.5mg po daily 3. obtain [facility] information 4. aftercare planning. 04/23 increase effexor in 2 days to 75mg po daily. continue lithium 04/24 continue effexor 75mg po daily, lithium 150mg po qhs. add clonazepam 0.5mg po BID. 04/25 continue tx. 04/26 continue tx. pt at high risk of harm to self if discharge today. Do not think he will be ready for discharge tomorrow when 3 day is up and do worry about high risk of suicide if discharge tomorrow. will discuss with pt tomorrow but pt if he is not willing to retract 3 day, may file for commitment. 04/27 pt retract 3 day, still hesitant about receiving treatment and whether he will get better but states family and friends are encouraging to stay until feeling better. Multiple risk factors, white, older male, , may lose job, hopeless, significant feelings of guilt, failure, anhedonia. I spent minutes with the patient and/or on the patient floor today, greater than?50% of which was spent counseling/coordinating care. Reason for contiued inpatient stay Substantial Risk for: harm to self
[2022-04-27 20:00] VITALS: BP 124/66; PULSE 75; RESP 18; TEMP 36.4; O2SAT 93
[2022-04-27] MEDS: traZODone HCL 50 MG TABLET PO (20:31)
[2022-04-27] MEDS: Lithium Carbonate 300 MG TABLET PO (20:31)
[2022-04-28] MEDS: Tamsulosin HCL 0.4 MG CAPSULE PO (08:56)
[2022-04-28] MEDS: clonazePAM 0.5 MG TABLET PO ×2 (08:56→21:42)
[2022-04-28] MEDS: Venlafaxine HCl ER 75 MG CAP.ER.24H PO (08:56)
--- NOTE | 2022-04-28 15:20 | HO.PSYCHPN ---
Subjective Subjective Date of Service: 04/28/22 Reason For Visit: Mood Subjective Notes: Conditional Voluntary Interim History: Pt although reports increase energy, continues to report feeling like a failure, guilt, overwhelmed by idea of potentially losing his job. All signs of profound depression. He continues to report suicidal ideation, not convinced that there is much left for him to live for. He feels lonely, isolated, fooling others about about his true identity, feeling like a bad person. not worth of sympathy or love. Medication Compliance: Yes Side effects from medications: No Review of Systems Review of Systems Constitutional : No Fever, No Chills ENT/Mouth : No Ear Pain, No Nasal Congestion, No sore throat Eyes: No Eye Pain, No Swelling, No Redness Cardiovascular : No Chest Pain, No SOB Respiratory : No Cough, No Sputum, No Dyspnea Gastrointestinal : No Nausea, No Vomiting, No Diarrhea, No Hematochezia, No Melena Genitourinary : No Dysuria, No Urinary Frequency, No Hematuria Musculoskeletal : No Myalgias Skin : No Skin Lesions, No rash Neuro : No Weakness, No Numbness, No Paresthesias, No Dizziness, No Headache Psych : positive Anxiety, positive Depression, positive SI no HI Heme/Lymph: No Lymphadenopathy Endocrine : No Polyuria, No Polydipsia All other systems reviewed and are negative Yes all other systems are reviewed and are negative Mental Status Exam Mental Status Exam Narrative: Appearance: casually groomed, fair hygiene in NAD Behavior:cooperative psychomotor: no retardation or agitation noted Speech:clear, normal rate/rhythm/volume, spontaneous Thought process: linear Thought content: no s/s of psychosis, no energy or motivation Mood: numbed Affect: blunted SI:passive HI:none VH/AH:none Delusions: none Insight/judgment:fair x 2. Memory/cog: alert, oriented x 3. grossly intact to conversational testing but not formally tested. Diagnostics Vital Signs (24Hr): Vital Signs - 24 hr 04/28/22 18:00 04/28/22 23:07 Temperature 97.6 F 97.7 F Pulse Rate 63 67 Respiratory Rate 16 17 Blood Pressure 137/82 122/63 Pulse Oximetry 92 92 Oxygen Delivery Method Room Air Room Air BMI result Body Mass Index 34.6 Labs Results: 04/21/22 17:49 04/25/22 17:31 Medications Medications Current Medications Acetaminophen (Acetaminophen 325 Mg Tablet) 650 mg PO Q6H PRN PRN Reason: Headache/Pain Mild Scale (1-3) Al Hydroxide/Mg Hydroxide (Magnesium Hydrox/Alum Hydrox 30 Ml Oral.Susp) 30 ml PO Q6H PRN PRN Reason: Heartburn/Nausea Clonazepam (Clonazepam 0.5 Mg Tablet) 0.5 mg PO BID [facility] Last Admin: 04/28/22 21:42 Dose: 0.5 mg Hydroxyzine HCl (Hydroxyzine Hcl 25 Mg Tablet) 25 mg PO Q6H PRN PRN Reason: Anxiety [place] Carbonate ([place] Carbonate 300 Mg Tablet) 300 mg PO BEDTIME [facility] Last Admin: 04/28/22 21:42 Dose: 300 mg Magnesium Hydroxide (Milk Of Magnesia 30 Ml Oral.Susp) 30 ml PO DAILY PRN PRN Reason: Constipation Last Admin: 04/26/22 15:35 Dose: 30 ml Tamsulosin HCl (Tamsulosin Hcl 0.4 Mg Capsule) 0.4 mg PO DAILY [facility] Last Admin: 04/28/22 08:56 Dose: 0.4 mg Trazodone HCl (Trazodone Hcl 50 Mg Tablet) 50 mg PO BEDTIME PRN PRN Reason: Insomnia Last Admin: 04/27/22 20:31 Dose: 50 mg Venlafaxine HCl (Venlafaxine Hcl Er 75 Mg Cap.Er.24h) 75 mg PO DAILY [facility] Last Admin: 04/28/22 08:56 Dose: 75 mg Allergies Allergies Allergy/AdvReac Type Severity Reaction Status Date / Time Penicillins Allergy Unknown Unknown Verified 04/21/22 16:56 Assessment & Plan Assessment & Plan (1) Bipolar II disorder major depressive with melancholic features: Status: Acute Code(s): F31.81 - Bipolar II disorder Plan Mr. Saeed is a 67 year-old male with hx of MDD versus Bipolar type 2. Self presented to [facility] due to increase depression, consisting of anhedonia, low enery, poor sleep, poor appetite. passive SI. Not currently in psychiatric treatment but hx of good response to effexor and lithium. We discussed risks, benefits and alternative treatment options. PLAN 1. Admit to S1, 15 minutes checks. CV 2. Start lithium 150mg po qhs, effexor 37.5mg po daily 3. obtain [facility] information 4. aftercare planning. 04/23 increase effexor in 2 days to 75mg po daily. continue lithium 04/24 continue effexor 75mg po daily, lithium 150mg po qhs. add clonazepam 0.5mg po BID. 04/25 continue tx. 04/26 continue tx. pt at high risk of harm to self if discharge today. Do not think he will be ready for discharge tomorrow when 3 day is up and do worry about high risk of suicide if discharge tomorrow. will discuss with pt tomorrow but pt if he is not willing to retract 3 day, may file for commitment. 04/27 pt retract 3 day, still hesitant about receiving treatment and whether he will get better but states family and friends are encouraging to stay until feeling better. Multiple risk factors, white, older male, , may lose job, hopeless, significant feelings of guilt, failure, anhedonia. 04/28 continue current meds, will continue to titrate lithium. I spent minutes with the patient and/or on the patient floor today, greater than?50% of which was spent counseling/coordinating care. Reason for contiued inpatient stay Substantial Risk for: harm to self
[2022-04-28 18:00] VITALS: BP 137/82; PULSE 63; RESP 16; TEMP 36.4; O2SAT 92
[2022-04-28] MEDS: Lithium Carbonate 300 MG TABLET PO (21:42)
[2022-04-28 23:07] VITALS: BP 122/63; PULSE 67; RESP 17; TEMP 36.5; O2SAT 92
[2022-04-29 06:00] VITALS: BP 142/80; PULSE 74; RESP 16; TEMP 36.7; O2SAT 94
[2022-04-29] MEDS: clonazePAM 0.5 MG TABLET PO (08:55)
[2022-04-29] MEDS: Tamsulosin HCL 0.4 MG CAPSULE PO (08:55)
[2022-04-29] MEDS: Venlafaxine HCl ER 75 MG CAP.ER.24H PO (08:55)
--- NOTE | 2022-04-29 10:32 | P.PNPSI_ITS ---
Subjective Subjective Date of Service: 04/29/22 Reason For Visit: Mood Subjective Notes: Conditional Voluntary Interim History: Pt reports having racing thoughts. 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 Pt endorses feeling guilt, shame, feeling of worthlessness. Pt reports less interm ittent suicidal ideation as he comes to realization he can't keep secrets anymore. Per nursing, pt slept through the night. He has attended some groups. Medication Compliance: Yes Side effects from medications: No Attending Groups: Intermittent Review of Systems Review of Systems Constitutional : No Fever, No Chills ENT/Mouth : No Ear Pain, No Nasal Congestion, No sore throat Eyes: No Eye Pain, No Swelling, No Redness Cardiovascular : No Chest Pain, No SOB Respiratory : No Cough, No Sputum, No Dyspnea Gastrointestinal : No Nausea, No Vomiting, No Diarrhea, No Hematochezia, No Melena Genitourinary : No Dysuria, No Urinary Frequency, No Hematuria Musculoskeletal : No Myalgias Skin : No Skin Lesions, No rash Neuro : No Weakness, No Numbness, No Paresthesias, No Dizziness, No Headache Psych : positive Anxiety, positive Depression, positive SI no HI Heme/Lymph: No Lymphadenopathy Endocrine : No Polyuria, No Polydipsia All other systems reviewed and are negative Yes all other systems are reviewed and are negative Mental Status Exam Mental Status Exam Narrative: Appearance: casually groomed, fair hygiene in NAD Behavior:cooperative psychomotor: no retardation or agitation noted Speech:clear, normal rate/rhythm/volume, spontaneous Thought process: linear Thought content: no s/s of psychosis, no energy or motivation Mood: numbed Affect: blunted SI:passive HI:none VH/AH:none Delusions: none Insight/judgment:fair x 2. Memory/cog: alert, oriented x 3. grossly intact to conversational testing but not formally tested. Diagnostics Vital Signs (24Hr): Vital Signs - 24 hr 04/30/22 06:00 04/30/22 18:00 Temperature 97.2 F 98.2 F Pulse Rate 81 71 Respiratory Rate 15 18 Blood Pressure 167/92 H 123/63 Pulse Oximetry 93 94 Oxygen Delivery Method Room Air Room Air BMI result Body Mass Index 35.0 Labs Results: 04/21/22 17:49 04/25/22 17:31 Medications Medications Current Medications Acetaminophen (Acetaminophen 325 Mg Tablet) 650 mg PO Q6H PRN PRN Reason: Headache/Pain Mild Scale (1-3) Al Hydroxide/Mg Hydroxide (Magnesium Hydrox/Alum Hydrox 30 Ml Oral.Susp) 30 ml PO Q6H PRN PRN Reason: Heartburn/Nausea Clonazepam (Clonazepam 0.5 Mg Tablet) 0.5 mg PO BEDTIME [facility] Last Admin: 04/30/22 20:28 Dose: 0.5 mg Hydroxyzine HCl (Hydroxyzine Hcl 25 Mg Tablet) 25 mg PO Q6H PRN PRN Reason: Anxiety [place] Carbonate ([place] Carbonate 300 Mg Tablet) 300 mg PO BID [facility] Last Admin: 04/30/22 20:29 Dose: 300 mg Magnesium Hydroxide (Milk Of Magnesia 30 Ml Oral.Susp) 30 ml PO DAILY PRN PRN Reason: Constipation Last Admin: 04/29/22 21:32 Dose: 30 ml Senna/Docusate Sodium (Sennosides/Docusate Sodium Tablet) 2 tab PO BEDTIME [facility] Last Admin: 04/30/22 20:29 Dose: 2 tab Tamsulosin HCl (Tamsulosin Hcl 0.4 Mg Capsule) 0.4 mg PO DAILY [facility] Last Admin: 04/30/22 09:08 Dose: 0.4 mg Trazodone HCl (Trazodone Hcl 50 Mg Tablet) 50 mg PO BEDTIME PRN PRN Reason: Insomnia Last Admin: 04/29/22 21:32 Dose: 50 mg Venlafaxine HCl (Venlafaxine Hcl Er 37.5 Mg Cap.Er.24h) 112.5 mg PO DAILY [facility] Allergies Allergies Allergy/AdvReac Type Severity Reaction Status Date / Time Penicillins Allergy Unknown Unknown Verified 04/21/22 16:56 Assessment & Plan Assessment & Plan (1) Bipolar II disorder major depressive with melancholic features: Status: Acute Code(s): F31.81 - Bipolar II disorder Plan Mr. Saeed is a 67 year-old male with hx of MDD versus Bipolar type 2. Self presented to [facility] due to increase depression, consisting of anhedonia, low enery, poor sleep, poor appetite. passive SI. Not currently in psychiatric treatment but hx of good response to effexor and lithium. We discussed risks, benefits and alternative treatment options. PLAN 1. Admit to S1, 15 minutes checks. CV 2. Start lithium 150mg po qhs, effexor 37.5mg po daily [facility]. [facility] 4. aftercare planning. 04/23 increase effexor in 2 days to 75mg po daily. continue lithium 04/24 continue effexor 75mg po daily, lithium 150mg po qhs. add clonazepam 0.5mg po BID. 04/25 continue tx. 04/26 continue tx. pt at high risk of harm to self if discharge today. Do not think he will be ready for discharge tomorrow when 3 day is up and do worry about high risk of suicide if discharge tomorrow. will discuss with pt tomorrow but pt if he is not willing to retract 3 day, may file for commitment. 04/27 pt retract 3 day, still hesitant about receiving treatment and whether he will get better but states family and friends are encouraging to stay until feeling better. Multiple risk factors, white, older male, , may lose job, hopeless, significant feelings of guilt, failure, anhedonia. 04/28 continue current meds, will continue to titrate lithium. 04/29 continue tx. I spent minutes with the patient and/or on the patient floor today, greater than?50% of which was spent counseling/coordinating care. Reason for contiued inpatient stay Substantial Risk for: harm to self and inability to function
[2022-04-29 18:00] VITALS: BP 124/55; PULSE 66; RESP 18; TEMP 36.6; O2SAT 95
[2022-04-29] MEDS: Lithium Carbonate 300 MG TABLET PO (21:23)
[2022-04-29] MEDS: traZODone HCL 50 MG TABLET PO (21:32)
[2022-04-29] MEDS: Milk of Magnesia 30 ML ORAL.SUSP PO (21:32)
--- NOTE | 2022-04-30 04:54 | PC.NURSE ---
Klonopin 0.5 mg not given pt. already sound asleep.
[2022-04-30 06:00] VITALS: BP 167/92; PULSE 81; RESP 15; TEMP 36.2; O2SAT 93
[2022-04-30 07:00] VITALS: BMI 35.0
[2022-04-30] MEDS: Tamsulosin HCL 0.4 MG CAPSULE PO (09:08)
[2022-04-30] MEDS: Venlafaxine HCl ER 75 MG CAP.ER.24H PO (09:08)
--- NOTE | 2022-04-30 13:37 | P.PNPSI_ITS ---
Subjective Subjective Date of Service: 04/30/22 Reason For Visit: Mood Subjective Notes: Conditional Voluntary Interim History: Pt reports feeling a little bit better, less restless but still ambivalent about being discharge and not completely feeling overwhelmed by daily tasks, which is what happens when severely depressed. He reports intermittent suicidal ideation, less than prior day. He reports sleeping well. No behavioral concerns. Pt visible on the unit, social with select peers. Medication Compliance: Yes Side effects from medications: No Review of Systems Review of Systems Constitutional : No Fever, No Chills ENT/Mouth : No Ear Pain, No Nasal Congestion, No sore throat Eyes: No Eye Pain, No Swelling, No Redness Cardiovascular : No Chest Pain, No SOB Respiratory : No Cough, No Sputum, No Dyspnea Gastrointestinal : No Nausea, No Vomiting, No Diarrhea, No Hematochezia, No Melena Genitourinary : No Dysuria, No Urinary Frequency, No Hematuria Musculoskeletal : No Myalgias Skin : No Skin Lesions, No rash Neuro : No Weakness, No Numbness, No Paresthesias, No Dizziness, No Headache Psych : positive Anxiety, positive Depression, positive SI no HI Heme/Lymph: No Lymphadenopathy Endocrine : No Polyuria, No Polydipsia All other systems reviewed and are negative Yes all other systems are reviewed and are negative Mental Status Exam Mental Status Exam Narrative: Appearance: casually groomed, fair hygiene in NAD Behavior:cooperative psychomotor: no retardation or agitation noted Speech:clear, normal rate/rhythm/volume, spontaneous Thought process: linear Thought content: no s/s of psychosis, no energy or motivation, some shame Mood: a little bit better Affect: blunted SI:passive HI:none VH/AH:none Delusions: none Insight/judgment:fair x 2. Memory/cog: alert, oriented x 3. grossly intact to conversational testing but not formally tested. Diagnostics Vital Signs (24Hr): Vital Signs - 24 hr 04/30/22 06:00 04/30/22 18:00 Temperature 97.2 F 98.2 F Pulse Rate 81 71 Respiratory Rate 15 18 Blood Pressure 167/92 H 123/63 Pulse Oximetry 93 94 Oxygen Delivery Method Room Air Room Air BMI result Body Mass Index 35.0 Labs Results: 04/21/22 17:49 04/25/22 17:31 Medications Medications Current Medications Acetaminophen (Acetaminophen 325 Mg Tablet) 650 mg PO Q6H PRN PRN Reason: Headache/Pain Mild Scale (1-3) Al Hydroxide/Mg Hydroxide (Magnesium Hydrox/Alum Hydrox 30 Ml Oral.Susp) 30 ml PO Q6H PRN PRN Reason: Heartburn/Nausea Clonazepam (Clonazepam 0.5 Mg Tablet) 0.5 mg PO BEDTIME [facility] Last Admin: 04/30/22 20:28 Dose: 0.5 mg Hydroxyzine HCl (Hydroxyzine Hcl 25 Mg Tablet) 25 mg PO Q6H PRN PRN Reason: Anxiety [place] Carbonate ([place] Carbonate 300 Mg Tablet) 300 mg PO BID [facility] Last Admin: 04/30/22 20:29 Dose: 300 mg Magnesium Hydroxide (Milk Of Magnesia 30 Ml Oral.Susp) 30 ml PO DAILY PRN PRN Reason: Constipation Last Admin: 04/29/22 21:32 Dose: 30 ml Senna/Docusate Sodium (Sennosides/Docusate Sodium Tablet) 2 tab PO BEDTIME [facility] Last Admin: 04/30/22 20:29 Dose: 2 tab Tamsulosin HCl (Tamsulosin Hcl 0.4 Mg Capsule) 0.4 mg PO DAILY [facility] Last Admin: 04/30/22 09:08 Dose: 0.4 mg Trazodone HCl (Trazodone Hcl 50 Mg Tablet) 50 mg PO BEDTIME PRN PRN Reason: Insomnia Last Admin: 04/29/22 21:32 Dose: 50 mg Venlafaxine HCl (Venlafaxine Hcl Er 37.5 Mg Cap.Er.24h) 112.5 mg PO DAILY [facility] Allergies Allergies Allergy/AdvReac Type Severity Reaction Status Date / Time Penicillins Allergy Unknown Unknown Verified 04/21/22 16:56 Assessment & Plan Assessment & Plan (1) Bipolar II disorder major depressive with melancholic features: Status: Acute Code(s): F31.81 - Bipolar II disorder Plan Mr. Saeed is a 67 year-old male with hx of MDD versus Bipolar type 2. Self presented to [facility] due to increase depression, consisting of anhedonia, low enery, poor sleep, poor appetite. passive SI. Not currently in psychiatric treatment but hx of good response to effexor and lithium. We discussed risks, benefits and alternative treatment options. PLAN 1. Admit to S1, 15 minutes checks. CV 2. Start lithium 150mg po qhs, effexor 37.5mg po daily 3. obtain [facility] information 4. aftercare planning. 04/23 increase effexor in 2 days to 75mg po daily. continue lithium 04/24 continue effexor 75mg po daily, lithium 150mg po qhs. add clonazepam 0.5mg po BID. 04/25 continue tx. 04/26 continue tx. pt at high risk of harm to self if discharge today. Do not think he will be ready for discharge tomorrow when 3 day is up and do worry about high risk of suicide if discharge tomorrow. will discuss with pt tomorrow but pt if he is not willing to retract 3 day, may file for commitment. 04/27 pt retract 3 day, still hesitant about receiving treatment and whether he will get better but states family and friends are encouraging to stay until feeling better. Multiple risk factors, white, older male, , may lose job, hopeless, significant feelings of guilt, failure, anhedonia. 04/28 continue current meds, will continue to titrate lithium. 04/29 continue tx. 04/30 Increase lithium to 300mg po BID, increase Effexor 112.5mg po daily. I spent minutes with the patient and/or on the patient floor today, greater than?50% of which was spent counseling/coordinating care. Reason for contiued inpatient stay Substantial Risk for: harm to self
[2022-04-30 18:00] VITALS: BP 123/63; PULSE 71; RESP 18; TEMP 36.8; O2SAT 94
[2022-04-30] MEDS: clonazePAM 0.5 MG TABLET PO (20:28)
[2022-04-30] MEDS: Sennosides/Docusate Sodium TABLET 2 TAB PO (20:29)
[2022-04-30] MEDS: Lithium Carbonate 300 MG TABLET PO (20:29)
[2022-05-01 08:00] VITALS: BP 165/96; PULSE 75; RESP 16; O2SAT 93
[2022-05-01] MEDS: Lithium Carbonate 300 MG TABLET PO ×2 (08:41→20:23)
[2022-05-01] MEDS: Tamsulosin HCL 0.4 MG CAPSULE PO (08:41)
[2022-05-01] MEDS: Venlafaxine HCl ER 37.5 MG CAP.ER.24H 112.5 MG PO (08:41)
--- NOTE | 2022-05-01 13:27 | HO.PSYCHPN ---
Subjective Subjective Date of Service: 05/01/22 Reason For Visit: Mood Subjective Notes: Conditional Voluntary Interim History: The nursing staff reported the patient has stated that he is not anxious or depressed. He slept 8 hours even though that he claims that he is not depressed he has seeing with hypoactivity, flat affect and he looks detached. On interview, he stated he is doing much better. Yesterday Effexor was increased. His affect is brighter and he advocated for a faster discharge. We will continue with same treatment Mental Status Exam Mental Status Exam Patient Appearance: Well Grooomed Patient Orientation: Person and Situation Level of Consciousness: Awake Patient Behavior: Cooperative Mood Description: Withdrawn Affect Description: Depressed Patient Cognition Impaired: No Ability to Follow Directions: Good Speech Pattern: Clear Hallucinations: None Delusions: Not Present Thought Process: Linear and Evasive Thought Content: positive for Ward Judgement: Fair Diagnostics Vital Signs (24Hr): Vital Signs - 24 hr 04/30/22 18:00 05/01/22 08:00 Temperature 98.2 F Pulse Rate 71 75 Respiratory Rate 18 16 Blood Pressure 123/63 165/96 H Pulse Oximetry 94 93 Oxygen Delivery Method Room Air Room Air BMI result Body Mass Index 35.0 Labs Results: 04/21/22 17:49 04/25/22 17:31 Medications Medications Current Medications Acetaminophen (Acetaminophen 325 Mg Tablet) 650 mg PO Q6H PRN PRN Reason: Headache/Pain Mild Scale (1-3) Al Hydroxide/Mg Hydroxide (Magnesium Hydrox/Alum Hydrox 30 Ml Oral.Susp) 30 ml PO Q6H PRN PRN Reason: Heartburn/Nausea Clonazepam (Clonazepam 0.5 Mg Tablet) 0.5 mg PO BEDTIME REPLACED BY [facility] Last Admin: 04/30/22 20:28 Dose: 0.5 mg Hydroxyzine HCl (Hydroxyzine Hcl 25 Mg Tablet) 25 mg PO Q6H PRN PRN Reason: Anxiety [place] Carbonate ([place] Carbonate 300 Mg Tablet) 300 mg PO BID REPLACED BY [facility] Last Admin: 05/01/22 08:41 Dose: 300 mg Magnesium Hydroxide (Milk Of Magnesia 30 Ml Oral.Susp) 30 ml PO DAILY PRN PRN Reason: Constipation Last Admin: 04/29/22 21:32 Dose: 30 ml Senna/Docusate Sodium (Sennosides/Docusate Sodium Tablet) 2 tab PO BEDTIME REPLACED BY [facility] Last Admin: 04/30/22 20:29 Dose: 2 tab Tamsulosin HCl (Tamsulosin Hcl 0.4 Mg Capsule) 0.4 mg PO DAILY REPLACED BY [facility] Last Admin: 05/01/22 08:41 Dose: 0.4 mg Trazodone HCl (Trazodone Hcl 50 Mg Tablet) 50 mg PO BEDTIME PRN PRN Reason: Insomnia Last Admin: 04/29/22 21:32 Dose: 50 mg Venlafaxine HCl (Venlafaxine Hcl Er 37.5 Mg Cap.Er.24h) 112.5 mg PO DAILY REPLACED BY [facility] Last Admin: 05/01/22 08:41 Dose: 112.5 mg Allergies Allergies Allergy/AdvReac Type Severity Reaction Status Date / Time Penicillins Allergy Unknown Unknown Verified 04/21/22 16:56 Assessment & Plan Assessment & Plan (1) Bipolar II disorder major depressive with melancholic features: Status: Acute Code(s): F31.81 - Bipolar II disorder Plan Mr. Saeed is a 67 year-old male with hx of MDD versus Bipolar type 2. Self presented to [facility] ED due to increase depression, consisting of anhedonia, low enery, poor sleep, poor appetite. passive SI. Not currently in psychiatric treatment but hx of good response to effexor and lithium. We discussed risks, benefits and alternative treatment options. PLAN 1. Admit to S1, 15 minutes checks. CV 2. Start lithium 150mg po qhs, effexor 37.5mg po daily 3. obtain collaterla information 4. aftercare planning. 04/23 increase effexor in 2 days to 75mg po daily. continue lithium 04/24 continue effexor 75mg po daily, lithium 150mg po qhs. add clonazepam 0.5mg po BID. 04/25 continue tx. 04/26 continue tx. pt at high risk of harm to self if discharge today. Do not think he will be ready for discharge tomorrow when 3 day is up and do worry about high risk of suicide if discharge tomorrow. will discuss with pt tomorrow but pt if he is not willing to retract 3 day, may file for commitment. 04/27 pt retract 3 day, still hesitant about receiving treatment and whether he will get better but states family and friends are encouraging to stay until feeling better. Multiple risk factors, white, older male, , may lose job, hopeless, significant feelings of guilt, failure, anhedonia. 04/28 continue current meds, will continue to titrate lithium. 04/29 continue tx. 04/30 Increase lithium to 300mg po BID, increase Effexor 112.5mg po daily. 05/01 continue with same treatment LITH ordered for Wednesday I spent ___20___ minutes with the patient and/or on the patient floor today, greater than?50% of which was spent counseling/coordinating care. Reason for contiued inpatient stay Substantial Risk for: inability to function, rapid decompensation and med/psych decompensation
[2022-05-01 18:00] VITALS: BP 135/62; PULSE 70; RESP 18; TEMP 36.7; O2SAT 93
[2022-05-01] MEDS: Sennosides/Docusate Sodium TABLET 2 TAB PO (20:23)
[2022-05-01] MEDS: clonazePAM 0.5 MG TABLET PO (20:23)
[2022-05-02 06:00] VITALS: BP 134/66; PULSE 62; RESP 14; TEMP 36.2; O2SAT 95
[2022-05-02] MEDS: Tamsulosin HCL 0.4 MG CAPSULE PO (08:26)
[2022-05-02] MEDS: Venlafaxine HCl ER 37.5 MG CAP.ER.24H 112.5 MG PO (08:26)
[2022-05-02] MEDS: Lithium Carbonate 300 MG TABLET PO ×2 (08:26→19:43)
--- NOTE | 2022-05-02 11:49 | P.PNPSI_ITS ---
Subjective Subjective Date of Service: 05/02/22 Reason For Visit: Mood Interim History: The nursing staff reported the patient has stated that he is not anxious or depressed. He slept 8 hours. He continues to present with depressed mood and hypoactivity, flat affect and he looks detached. On interview, he stated he is doing much better. Tolerating the Effexor increase. His affect is brighter and he advocates for a faster discharge. Medication Compliance: Yes Side effects from medications: No Review of Systems Acute medical concerns: No Medical Review of Systems: unchanged Review of Systems Review of Systems Constitutional : No Fever, No Chills ENT/Mouth : No Ear Pain, No Nasal Congestion, No sore throat Eyes: No Eye Pain, No Swelling, No Redness Cardiovascular : No Chest Pain, No SOB Respiratory : No Cough, No Sputum, No Dyspnea Gastrointestinal : No Nausea, No Vomiting, No Diarrhea, No Hematochezia, No Melena Genitourinary : No Dysuria, No Urinary Frequency, No Hematuria Musculoskeletal : No Myalgias Skin : No Skin Lesions, No rash Neuro : No Weakness, No Numbness, No Paresthesias, No Dizziness, No Headache Psych : positive Anxiety, positive Depression, positive SI no HI Heme/Lymph: No Lymphadenopathy Endocrine : No Polyuria, No Polydipsia All other systems reviewed and are negative Yes all other systems are reviewed and are negative Mental Status Exam Mental Status Exam Narrative: Appearance: casually groomed, fair hygiene in NAD Behavior:cooperative psychomotor: no retardation or agitation noted Speech:clear, normal rate/rhythm/volume, spontaneous Thought process: linear Thought content: no s/s of psychosis, no energy or motivation, some shame Mood: a little bit better Affect: blunted SI:passive HI:none VH/AH:none Delusions: none Insight/judgment:fair x 2. Memory/cog: alert, oriented x 3. grossly intact to conversational testing but not formally tested. Patient Appearance: Well Grooomed Patient Orientation: Person and Situation Level of Consciousness: Awake Patient Behavior: Cooperative Mood Description: Withdrawn Affect Description: Depressed Patient Cognition Impaired: No Ability to Follow Directions: Good Speech Pattern: Clear Diagnostics Vital Signs (24Hr): Vital Signs - 24 hr 05/01/22 18:00 05/02/22 06:00 Temperature 98.1 F 97.1 F Pulse Rate 70 62 Respiratory Rate 18 14 Blood Pressure 135/62 134/66 Pulse Oximetry 93 95 Oxygen Delivery Method Room Air Room Air BMI result Body Mass Index 35.0 Labs Results: 04/21/22 17:49 04/25/22 17:31 Medications Medications Current Medications Acetaminophen (Acetaminophen 325 Mg Tablet) 650 mg PO Q6H PRN PRN Reason: Headache/Pain Mild Scale (1-3) Al Hydroxide/Mg Hydroxide (Magnesium Hydrox/Alum Hydrox 30 Ml Oral.Susp) 30 ml PO Q6H PRN PRN Reason: Heartburn/Nausea Clonazepam (Clonazepam 0.5 Mg Tablet) 0.5 mg PO BEDTIME [facility] Last Admin: 05/01/22 20:23 Dose: 0.5 mg Hydroxyzine HCl (Hydroxyzine Hcl 25 Mg Tablet) 25 mg PO Q6H PRN PRN Reason: Anxiety [place] Carbonate ([place] Carbonate 300 Mg Tablet) 300 mg PO BID [facility] Last Admin: 05/02/22 08:26 Dose: 300 mg Magnesium Hydroxide (Milk Of Magnesia 30 Ml Oral.Susp) 30 ml PO DAILY PRN PRN Reason: Constipation Last Admin: 04/29/22 21:32 Dose: 30 ml Senna/Docusate Sodium (Sennosides/Docusate Sodium Tablet) 2 tab PO BEDTIME [facility] Last Admin: 05/01/22 20:23 Dose: 2 tab Tamsulosin HCl (Tamsulosin Hcl 0.4 Mg Capsule) 0.4 mg PO DAILY [facility] Last Admin: 05/02/22 08:26 Dose: 0.4 mg Trazodone HCl (Trazodone Hcl 50 Mg Tablet) 50 mg PO BEDTIME PRN PRN Reason: Insomnia Last Admin: 04/29/22 21:32 Dose: 50 mg Venlafaxine HCl (Venlafaxine Hcl Er 37.5 Mg Cap.Er.24h) 112.5 mg PO DAILY [facility] Last Admin: 05/02/22 08:26 Dose: 112.5 mg Allergies Allergies Allergy/AdvReac Type Severity Reaction Status Date / Time Penicillins Allergy Unknown Unknown Verified 04/21/22 16:56 Assessment & Plan Assessment & Plan (1) Bipolar II disorder major depressive with melancholic features: Status: Acute Code(s): F31.81 - Bipolar II disorder Plan Mr. Saeed is a 67 year-old male with hx of MDD versus Bipolar type 2. Self presented to [facility] ED due to increase depression, consisting of anhedonia, low enery, poor sleep, poor appetite. passive SI. Not currently in psychiatric treatment but hx of good response to effexor and lithium. We discussed risks, benefits and alternative treatment options. PLAN 1. Admit to S1, 15 minutes checks. CV 2. Start lithium 150mg po qhs, effexor 37.5mg po daily 3. obtain collaterla information 4. aftercare planning. 04/23 increase effexor in 2 days to 75mg po daily. continue lithium 04/24 continue effexor 75mg po daily, lithium 150mg po qhs. add clonazepam 0.5mg po BID. 04/25 continue tx. 04/26 continue tx. pt at high risk of harm to self if discharge today. Do not think he will be ready for discharge tomorrow when 3 day is up and do worry about high risk of suicide if discharge tomorrow. will discuss with pt tomorrow but pt if he is not willing to retract 3 day, may file for commitment. 04/27 pt retract 3 day, still hesitant about receiving treatment and whether he will get better but states family and friends are encouraging to stay until feeling better. Multiple risk factors, white, older male, , may lose job, hopeless, significant feelings of guilt, failure, anhedonia. 04/28 continue current meds, will continue to titrate lithium. 04/29 continue tx. 04/30 Increase lithium to 300mg po BID, increase Effexor 112.5mg po daily. 05/01 continue with same treatment LITH ordered for Wednesday 05/02 Continue with current treatment plan I spent _10 minutes with the patient and/or on the patient floor today, greater than?50% of which was spent counseling/coordinating care. Reason for contiued inpatient stay Substantial Risk for: harm to self, inability to function and rapid decompensation
[2022-05-02 18:00] VITALS: BP 128/71; PULSE 86; RESP 16; TEMP 36.8; O2SAT 92
[2022-05-02] MEDS: Sennosides/Docusate Sodium TABLET 2 TAB PO (19:43)
[2022-05-02] MEDS: clonazePAM 0.5 MG TABLET PO (19:43)
[2022-05-03 06:00] VITALS: BP 144/90; PULSE 77; RESP 18; TEMP 36.9; O2SAT 94
[2022-05-03] MEDS: Lithium Carbonate 300 MG TABLET PO ×2 (08:25→20:10)
[2022-05-03] MEDS: Venlafaxine HCl ER 37.5 MG CAP.ER.24H 112.5 MG PO (08:25)
[2022-05-03] MEDS: Tamsulosin HCL 0.4 MG CAPSULE PO (08:25)
--- NOTE | 2022-05-03 16:09 | P.PNPSI_ITS ---
Subjective Subjective Date of Service: 05/03/22 Reason For Visit: Mood Interim History: patient denies depressed mood and denies anxiety. He slept 8 hours. He continues to present with depressed depression, low energy, flat affect and he looks detached. States he is feeling better. His friends are calling him on phone and being supportive. He is reading in his room. he advocates for a faster discharge. Medication Compliance: Yes Side effects from medications: No Attending Groups: Yes Review of Systems Acute medical concerns: No Medical Review of Systems: unchanged Review of Systems Review of Systems Constitutional : No Fever, No Chills ENT/Mouth : No Ear Pain, No Nasal Congestion, No sore throat Eyes: No Eye Pain, No Swelling, No Redness Cardiovascular : No Chest Pain, No SOB Respiratory : No Cough, No Sputum, No Dyspnea Gastrointestinal : No Nausea, No Vomiting, No Diarrhea, No Hematochezia, No Melena Genitourinary : No Dysuria, No Urinary Frequency, No Hematuria Musculoskeletal : No Myalgias Skin : No Skin Lesions, No rash Neuro : No Weakness, No Numbness, No Paresthesias, No Dizziness, No Headache Psych : positive Anxiety, positive Depression, positive SI no HI Heme/Lymph: No Lymphadenopathy Endocrine : No Polyuria, No Polydipsia All other systems reviewed and are negative Yes all other systems are reviewed and are negative Mental Status Exam Mental Status Exam Narrative: Appearance: casually groomed, fair hygiene in NAD Behavior:cooperative psychomotor: no retardation or agitation noted Speech:clear, normal rate/rhythm/volume, spontaneous Thought process: linear Thought content: no s/s of psychosis, no energy or motivation, some shame Mood: a little bit better Affect: blunted SI:passive HI:none VH/AH:none Delusions: none Insight/judgment:fair x 2. Memory/cog: alert, oriented x 3. grossly intact to conversational testing but not formally tested. Patient Appearance: Well Grooomed Patient Orientation: Person and Situation Level of Consciousness: Awake Patient Behavior: Cooperative Mood Description: Withdrawn Affect Description: Depressed Patient Cognition Impaired: No Ability to Follow Directions: Good Speech Pattern: Clear Diagnostics Vital Signs (24Hr): Vital Signs - 24 hr 05/02/22 18:00 05/03/22 06:00 Temperature 98.3 F 98.4 F Pulse Rate 86 77 Respiratory Rate 16 18 Blood Pressure 128/71 144/90 H Pulse Oximetry 92 94 Oxygen Delivery Method Room Air Room Air BMI result Body Mass Index 35.0 Labs Results: 04/21/22 17:49 04/25/22 17:31 Medications Medications Current Medications Acetaminophen (Acetaminophen 325 Mg Tablet) 650 mg PO Q6H PRN PRN Reason: Headache/Pain Mild Scale (1-3) Al Hydroxide/Mg Hydroxide (Magnesium Hydrox/Alum Hydrox 30 Ml Oral.Susp) 30 ml PO Q6H PRN PRN Reason: Heartburn/Nausea Clonazepam (Clonazepam 0.5 Mg Tablet) 0.5 mg PO BEDTIME [facility] Last Admin: 05/02/22 19:43 Dose: 0.5 mg Hydroxyzine HCl (Hydroxyzine Hcl 25 Mg Tablet) 25 mg PO Q6H PRN PRN Reason: Anxiety [place] Carbonate ([place] Carbonate 300 Mg Tablet) 300 mg PO BID [facility] Last Admin: 05/03/22 08:25 Dose: 300 mg Magnesium Hydroxide (Milk Of Magnesia 30 Ml Oral.Susp) 30 ml PO DAILY PRN PRN Reason: Constipation Last Admin: 04/29/22 21:32 Dose: 30 ml Senna/Docusate Sodium (Sennosides/Docusate Sodium Tablet) 2 tab PO BEDTIME [facility] Last Admin: 05/02/22 19:43 Dose: 2 tab Tamsulosin HCl (Tamsulosin Hcl 0.4 Mg Capsule) 0.4 mg PO DAILY [facility] Last Admin: 05/03/22 08:25 Dose: 0.4 mg Trazodone HCl (Trazodone Hcl 50 Mg Tablet) 50 mg PO BEDTIME PRN PRN Reason: Insomnia Last Admin: 04/29/22 21:32 Dose: 50 mg Venlafaxine HCl (Venlafaxine Hcl Er 37.5 Mg Cap.Er.24h) 112.5 mg PO DAILY [facility] Last Admin: 05/03/22 08:25 Dose: 112.5 mg Allergies Allergies Allergy/AdvReac Type Severity Reaction Status Date / Time Penicillins Allergy Unknown Unknown Verified 04/21/22 16:56 Assessment & Plan Assessment & Plan (1) Bipolar II disorder major depressive with melancholic features: Status: Acute Code(s): F31.81 - Bipolar II disorder Plan Mr. Saeed is a 67 year-old male with hx of MDD versus Bipolar type 2. Self presented to [facility] due to increase depression, consisting of anhedonia, low enery, poor sleep, poor appetite. passive SI. Not currently in psychiatric tr eatment but hx of good response to effexor and lithium. We discussed risks, benefits and alternative treatment options. PLAN 1. Admit to S1, 15 minutes checks. CV 2. Start lithium 150mg po qhs, effexor 37.5mg po daily 3. obtain collaterla information 4. aftercare planning. 04/23 increase effexor in 2 days to 75mg po daily. continue lithium 04/24 continue effexor 75mg po daily, lithium 150mg po qhs. add clonazepam 0.5mg po BID. 04/25 continue tx. 04/26 continue tx. pt at high risk of harm to self if discharge today. Do not think he will be ready for discharge tomorrow when 3 day is up and do worry about high risk of suicide if discharge tomorrow. will discuss with pt tomorrow but pt if he is not willing to retract 3 day, may file for commitment. 04/27 pt retract 3 day, still hesitant about receiving treatment and whether he will get better but states family and friends are encouraging to stay until feeling better. Multiple risk factors, white, older male, , may lose job, hopeless, significant feelings of guilt, failure, anhedonia. 04/28 continue current meds, will continue to titrate lithium. 04/29 continue tx. 04/30 Increase lithium to 300mg po BID, increase Effexor 112.5mg po daily. 05/01 continue with same treatment LITH ordered for Wednesday 05/02 Continue with current treatment plan 05/03 Continue with current treatment plan I spent ____10__ minutes with the patient and/or on the patient floor today, greater than?50% of which was spent counseling/coordinating care. Reason for contiued inpatient stay Substantial Risk for: harm to self and rapid decompensation
[2022-05-03 18:00] VITALS: BP 122/60; PULSE 84; RESP 16; TEMP 36.4; O2SAT 94
[2022-05-03] MEDS: clonazePAM 0.5 MG TABLET PO (20:11)
[2022-05-03] MEDS: Sennosides/Docusate Sodium TABLET 2 TAB PO (20:11)
[2022-05-04 06:00] VITALS: BP 130/68; PULSE 82; RESP 14; TEMP 36.8; O2SAT 96
[2022-05-04] MEDS: Venlafaxine HCl ER 37.5 MG CAP.ER.24H 112.5 MG PO (08:41)
[2022-05-04] MEDS: Tamsulosin HCL 0.4 MG CAPSULE PO (08:42)
[2022-05-04] MEDS: Lithium Carbonate 300 MG TABLET PO ×2 (08:42→20:30)
[2022-05-04 08:57] LABS: Anion Gap 15 (12-20); Blood Urea Nitrogen 19 mg/dL (9-16); Calcium 9.5 mg/dL (8.4-10.2); Carbon Dioxide 23 mmol/L (22-29); Chloride 104 mmol/L (96-108); Creatinine Clr Calc Pharmacy 95.8; Estimated Glomerular Filt Rate > 60; Glucose Random 101 mg/dL (60-115); Potassium 4.2 mmol/L (3.3-5.1); Sodium 138 mmol/L (135-145)
[2022-05-04 09:19] LABS: TSH reflex Free T4 2.04 uIU/mL (0.32-4.0)
--- NOTE | 2022-05-04 11:25 | P.PNPSI_ITS ---
Subjective Subjective Date of Service: 05/04/22 Reason For Visit: Mood Subjective Notes: Conditional Voluntary Interim History: The nursing staff reported the patient has been pleasant, cooperative cheerful at times, he states that he is safe in the community and in the unit. He slept well. On interview the patient denies side effects with increased of Effexor he feels able to be in the community safely no suicidal ideation. His lithium level is 0.4 today. We discussed discharge planning and he agreed to be discharged tomorrow. Mental Status Exam Mental Status Exam Patient Appearance: Well Grooomed Patient Orientation: Person and Situation Level of Consciousness: Awake Patient Behavior: Cooperative Mood Description: Appropriate Affect Description: Constricted Patient Cognition Impaired: No Ability to Follow Directions: Good Speech Pattern: Clear Hallucinations: None Delusions: Not Present Thought Process: Linear Thought Content: positive for Circumstantial Judgement: Fair Diagnostics Vital Signs (24Hr): Vital Signs - 24 hr 05/03/22 18:00 Temperature 97.5 F Pulse Rate 84 Respiratory Rate 16 Blood Pressure 122/60 Pulse Oximetry 94 Oxygen Delivery Method Room Air BMI result Body Mass Index 35.0 Labs Results: 04/21/22 17:49 05/04/22 08:25 Labs: Laboratory Results - last 48 hr 05/04/22 05/04/22 05/04/22 08:25 08:25 08:25 Sodium 138 Potassium 4.2 Chloride 104 Carbon Dioxide 23 Anion Gap 15 BUN 19 H Creatinine 0.88 Estim Creat Clear Calc 95.8 Estimated GFR > 60 Random Glucose 101 Calcium 9.5 TSH Cancelled 2.04 [place] 0.40 L Medications Medications Current Medications Acetaminophen (Acetaminophen 325 Mg Tablet) 650 mg PO Q6H PRN PRN Reason: Headache/Pain Mild Scale (1-3) Al Hydroxide/Mg Hydroxide (Magnesium Hydrox/Alum Hydrox 30 Ml Oral.Susp) 30 ml PO Q6H PRN PRN Reason: Heartburn/Nausea Clonazepam (Clonazepam 0.5 Mg Tablet) 0.5 mg PO BEDTIME [facility] Last Admin: 05/03/22 20:11 Dose: 0.5 mg Hydroxyzine HCl (Hydroxyzine Hcl 25 Mg Tablet) 25 mg PO Q6H PRN PRN Reason: Anxiety [place] Carbonate ([place] Carbonate 300 Mg Tablet) 300 mg PO BID [facility] Last Admin: 05/04/22 08:42 Dose: 300 mg Magnesium Hydroxide (Milk Of Magnesia 30 Ml Oral.Susp) 30 ml PO DAILY PRN PRN Reason: Constipation Last Admin: 04/29/22 21:32 Dose: 30 ml Senna/Docusate Sodium (Sennosides/Docusate Sodium Tablet) 2 tab PO BEDTIME [facility] Last Admin: 05/03/22 20:11 Dose: 2 tab Tamsulosin HCl (Tamsulosin Hcl 0.4 Mg Capsule) 0.4 mg PO DAILY [facility] Last Admin: 05/04/22 08:42 Dose: 0.4 mg Trazodone HCl (Trazodone Hcl 50 Mg Tablet) 50 mg PO BEDTIME PRN PRN Reason: Insomnia Last Admin: 04/29/22 21:32 Dose: 50 mg Venlafaxine HCl (Venlafaxine Hcl Er 37.5 Mg Cap.Er.24h) 112.5 mg PO DAILY [facility] Last Admin: 05/04/22 08:41 Dose: 112.5 mg Allergies Allergies Allergy/AdvReac Type Severity Reaction Status Date / Time Penicillins Allergy Unknown Unknown Verified 04/21/22 16:56 Assessment & Plan Assessment & Plan (1) Bipolar II disorder major depressive with melancholic features: Status: Acute Code(s): F31.81 - Bipolar II disorder Plan Mr. Saeed is a 67 year-old male with hx of MDD versus Bipolar type 2. Self presented to [facility] due to increase depression, consisting of anhedonia, low e felicia, poor sleep, poor appetite. passive SI. Not currently in psychiatric treatment but hx of good response to effexor and lithium. We discussed risks, benefits and alternative treatment options. PLAN 1. Continue with same treatment. 2. Start discharge planning for tomorrow. I spent __20____ minutes with the patient and/or on the patient floor today, greater than?50% of which was spent counseling/coordinating care. Reason for contiued inpatient stay Substantial Risk for: inability to function, rapid decompensation and med/psych decompensation
[2022-05-04 20:00] VITALS: BP 107/62; PULSE 65; RESP 16; TEMP 36.6; O2SAT 95
[2022-05-04] MEDS: Sennosides/Docusate Sodium TABLET 2 TAB PO (20:29)
[2022-05-04] MEDS: traZODone HCL 50 MG TABLET PO (20:29)
[2022-05-04] MEDS: clonazePAM 0.5 MG TABLET PO (20:30)
--- NOTE | 2022-05-05 08:19 | PM.PSYDC ---
DS: Providers Provider Date of Service: 05/05/22 Date of admission: 04/22/22 15:29 Date of discharge: 05/05/22 Primary care physician: DIMITRI Duckworth DS: Diagnosis Discharge Diagnosis (1) Bipolar II disorder major depressive with melancholic features: Status: Acute DS: Medications Discharge Medications Home Medications: Home Medications Medication Instructions Recorded Confirmed tamsulosin 0.4 mg capsule 1 cap PO DAILY 04/21/22 04/21/22 Mental Status Exam Mental Status Exam Patient Appearance: Well Grooomed and Appropriate Patient Orientation: Person, Place, Time and Situation Level of Consciousness: Awake Patient Behavior: Cooperative Mood Description: Calm Affect Description: Constricted Patient Cognition Impaired: No Ability to Follow Directions: Good Speech Pattern: Clear Memory Description: Intact Hallucinations: None Delusions: Not Present Thought Process: Goal Oriented and Linear Thought Content: positive for Intact Judgement: Fair Data Data Completed and Pending Completed studies during hospitalization [Text1]: 05/04/22 05/04/22 05/04/22 08:25 08:25 08:25 Sodium 138 Potassium 4.2 Chloride 104 Carbon Dioxide 23 Anion Gap 15 BUN 19 H Creatinine 0.88 Estim Creat Clear Calc 95.8 Estimated GFR > 60 Random Glucose 101 Calcium 9.5 TSH Cancelled 2.04 [place] 0.40 L DS: Summary Hospital Course Hospital Course: The patient is a 67 year old male with a past history of bipolar type II who presented himself to the ED for exacerbation of depressive symptoms since December that worsened to the point that he had suicidal thoughts. See HPI of the admission note for further details. He was initially admitted for psychiatric stabilization. He initially signed a CV and a 3 day letter that later was recanted. He was re-started on [place] titrated up to 600 mg a day and a slow titration of Effexor was started up to 117.mg/day. Initially, the patient was very dysphoric with lack of energy, anhedonia and passive suicidal thoughts. But slowly, his mood improved. He was able to participate on groups, he was future oriented and he was able to contract for safety. Since there were no safety concerns, discharge planning was discussed. Time spent discussing smoking cessation with patient: 3 to 10 minutes Status at Discharge Functional status at discharge: independent ambulation Overall status at discharge: patient is back to baseline Time Spent with Patient Time attestation: Total time spent providing and/or coordinating discharge services: Time spent: Less than 30 minutes Discharge Plan Discharge Anticipated Discharge Date/Time: 05/05/22 08:24 Patient Disposition: Home, Self-Care Discharge Diagnosis: Bipolar type II Referrals: Alfonso Lee [facility] @ [facility] [Other] - 05/09/22 8:00 am (In home visit scheduled for ) Joanshaunna Salguero [facility] [Other] - 05/12/22 11:00 am (Appointment scheduled for Thursday, May 12, 2022 @ 11 AM. IN-HOME visit. ) Kinza Fierro PA [Primary Care Provider] - 05/14/22 8:30 am (Appointment scheduled with Dr. Keaton Hickey on , 05/14/22 @ 8:30 AM.) Discharge Medications: New venlafaxine 37.5 mg Capsule,Extended Release 24hr 112.5 mg PO DAILY 30 Days Qty: 90 0RF trazodone 50 mg Tablet 50 mg PO BEDTIME PRN (Reason: Insomnia) 30 Days Qty: 30 0RF clonazepam 0.5 mg Tablet 0.5 mg PO BEDTIME 30 Days Qty: 30 0RF sennosides-docusate sodium [Senna Plus] 8.6-50 mg Tablet 2 tab PO BEDTIME 30 Days Qty: 60 0RF lithium carbonate 300 mg Tablet 300 mg PO BID 30 Days Qty: 60 0RF Continued tamsulosin 0.4 mg capsule 1 cap PO DAILY 30 Days Qty: 30 0RF Discharge Orders: Discharge Order (Routine); Ordered 05/05/22 Ordered By: Oren Charles Diet: Advance to usual diet Activity on Discharge: As tolerated Stand Alone Forms: Patient Portal Discharge page Care Plan Goals: Care Plan goals achieved in this admission. Health Concerns: Continue treatment by primary care physician as an outpatient Plan of Treatment: Continue treatment as an outpatient Assessment: Elderly male With a past history of bipolar type 2 who was admitted for exacerbation of depression with suicidal ideation. Restarted on lithium and added Effexor titrated up to 117.5 mg to target depression with for improvement. At this moment the patient is safe to be discharged in the facility since he is able to contract for safety and his depression has improved
[2022-05-05] MEDS: Tamsulosin HCL 0.4 MG CAPSULE PO (08:35)
[2022-05-05] MEDS: Lithium Carbonate 300 MG TABLET PO (08:35)
[2022-05-05] MEDS: Venlafaxine HCl ER 37.5 MG CAP.ER.24H 112.5 MG PO (08:35)
--- NOTE | 2022-05-05 11:32 | PC.NURSE ---
Pt reported he is ready for discharge, denies SI; HI; AH;VH. Pt states he feels safe with discharge plan. Pt walked off the unit with all belongings. Discharge paperwork reviewed with patient. Pt left unit at 11:11am.
== END 2022-05-05 11:11 | disposition home or self-care (01) | DRG 753 ==
LOC: HO.ED 21:45 → HO.PGERI 04-22 15:34
PROVIDERS: Social Worker; Admitting Provider Psychiatry & Neurology Psychiatry; Emergency Provider Emergency Medicine; PCP Physician Assistant; Visit Provider Psychiatry & Neurology Psychiatry
DX: F31.81 Bipolar II disorder (principal); R45.851 Suicidal ideations; I10 Essential (primary) hypertension; N40.0 Benign prostatic hyperplasia without lower urinary tract symptoms; Z20.822 Contact with and (suspected) exposure to COVID-19; Z23 Encounter for immunization; Z88.0 Allergy status to penicillin; Z79.899 Other long term (current) drug therapy
CPT/HCPCS: 36415; 80048; 80053; 80061; 80076; 80178; 80307; 82077; 83735; 84443; 85025; 87635; 90686; 93005; 99285

== ENCOUNTER 2022-11-03 18:19 | Inpatient (IN) | payer BC, SELFPAY ==
[2022-11-03] VITALS (8 sets, daily range): BP systolic 95–141; BP diastolic 50–70; PULSE 96–161; RESP 25–30; TEMP 37.1–37.6; O2SAT 91–98; BMI 37.3
--- NOTE | ~2022-11-03 | US_ITS ---
EXAMINATION: US RETROPERITONEAL LIMITED (RENAL ONLY) CLINICAL INFORMATION: Acute kidney injury. COMPARISON: None available. TECHNIQUE: Renal ultrasound FINDINGS: RIGHT KIDNEY: 12.8 x 6.3 x 7.6 cm (SAG x AP x TRV). The kidney is normal in size, contour, and echogenicity. Renal cortical thickness is normal. No calculi or focal solid parenchymal lesions. There is fullness of the right upper collecting system/possible mild hydronephrosis. There is a simple appearing 1.7 x 1.1 x 1.6 cm lateral mid pole cyst for which follow-up is not recommended. LEFT KIDNEY: 12.1 x 7.2 x 6.4 cm (SAG x AP x TRV). Within the upper pole there is an exophytic simple appearing cyst measuring 5.1 x 2.5 x 2.6 cm in size. Within the lateral midpole there is a simple appearing cyst measuring 2.2 x 2.2 x 1.8 cm in size. No follow-up is recommended for the cysts. Renal cortical thickness is normal. Within the upper to midpole there is a 1.1 x 0.5 x 0.4 cm nonobstructing calculus. No hydronephrosis. US/US renal BI IMPRESSION: Appearance of mild right hydronephrosis and obstructive uropathy cannot be excluded on the right. Bilateral simple appearing renal cysts Left nephrolithiasis.
--- NOTE | ~2022-11-03 | XR_ITS ---
EXAMINATION: XR CHEST CLINICAL INFORMATION: Hypoxia COMPARISON: 11/05/2022 TECHNIQUE: Frontal view of the chest was obtained. FINDINGS: Normal symmetric lung volumes. No parenchymal consolidation. No pleural effusion. No pneumothorax. Cardiomediastinal silhouette and pulmonary vascularity are within normal limits. No acute osseous abnormalities. XR/XR chest 1V IMPRESSION: No acute findings.
--- NOTE | ~2022-11-03 | CT_ITS ---
EXAMINATION: CT HEAD WITHOUT CONTRAST (STROKE PROTOCOL) CLINICAL INFORMATION: Stroke protocol. Left-sided weakness. History of atrial fibrillation. COMPARISON: None available. TECHNIQUE: Contiguous axial imaging was performed from the skull base to vertex without intravenous administration of contrast. This CT examination was performed using dose optimization techniques as appropriate, variously including the following: *Automated exposure control *Adjustment of mA and/or kV according to patient size (this includes techniques or standardized protocols for targeted exams where dose is matched to indication/reason for exam; i.e. extremities or head) *Use of iterative reconstruction technique DLP: 877 mGy-cm FINDINGS: Exam is limited due to motion artifact, particularly in the posterior fossa. There is no evidence for an extra-axial collection. There is no evidence for intra-axial or extra-axial hemorrhage. The ventricles and extra-axial CSF spaces are appropriate. There is nonspecific periventricular white matter disease. There may be a small bilateral basal ganglia lacunar infarcts. No old exams are available for comparison and these are age indeterminate. Findings could be better evaluated with MRI if clinically indicated. No mass or mass effect. Review of bone windows is normal. Visualized paranasal sinuses, mastoid air cells and middle ears are clear. CT/CT head for stroke IMPRESSION: Limited exam due to motion artifact. Nonspecific periventricular white matter disease. Question bilateral basal ganglia lacunar infarcts. No old exams available for comparison and these are age indeterminate. This could be better evaluated with MRI if clinically indicated. This critical result was discussed with Dr. Aguillon at 1856 hours on 11/03/2022. It was ascertained that the content and urgency of the report was understood at the time of direct communication.
--- NOTE | ~2022-11-03 | CT_ITS ---
EXAMINATION: CT ANGIOGRAM HEAD CT ANGIOGRAM NECK CLINICAL INFORMATION: Reason for Exam l sided weakness with at fib COMPARISON: Earlier same day noncontrast head CT TECHNIQUE: Initial noncontrast assembler wet wash imaging of the head and neck was performed. Comparison is made with noncontrast head CT from earlier today. Test bolus sequences followed by intravenous administration 70 mL of Omnipaque 350. Helical imaging was performed in the axial plane from the aortic arch to the skull vertex. Delayed postcontrast imaging of the head was also performed. The data was processed at the senior cytotechnologist's workstation for generation of MIP sequences. Angled MIPs and volume rendered reformatted images were also generated at an offline 3D workstation. Stenoses are assessed in accordance with NASCET criteria unless otherwise indicated. DLP: 1854.87 mGy-cm This CT examination was performed using dose optimization techniques as appropriate, variously including the following: *Automated exposure control. *Adjustment of mA and/or kV according to patient size (this includes techniques or standardized protocols for targeted exams where dose is matched to indication/reason for exam; i.e. extremities or head). *Use of iterative reconstruction technique. FINDINGS: CT Head: There is no evidence of acute intracranial hemorrhage or edematous territorial infarction. Scattered hypoattenuation in the periventricular and deep white matter are consistent with moderate microangiopathy. Age-indeterminate hypodensities involving the basal ganglia. Olivarez-white matter differentiation is preserved. The ventricles are normal in size and configuration. No evidence for obstructive hydrocephalus. No abnormal mass effect or midline shift. No extra-axial fluid collections. No pathologic intra-axial enhancement or regional oligemia. No acute soft tissue or osseous abnormalities. The mastoid air cells and paranasal sinuses are clear. CT Neck: The thyroid gland and remaining cervical soft tissues are within normal limits. 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 Mild degenerative changes of the cervical spine. CT Upper Chest: The visualized lung apices and upper mediastinum are within normal limits. Coronary artery calcifications. Neck CTA: Aortic Arch: Normal contour and caliber. Classic 3 vessel branching pattern of the aortic arch. Great Vessel Origins: No significant stenosis of the branch origins. Right Common Carotid Artery: No focal stenosis or occlusion. Cervical Right Internal Carotid Artery: Mild calcific atherosclerotic disease of the carotid bulb and proximal internal carotid artery without flow-limiting stenosis. Left Common Carotid Artery: No focal stenosis or occlusion. Cervical Left Internal Carotid Artery: Calcific atherosclerotic disease of the carotid bulb and proximal internal carotid artery causing less than 50% stenosis. Cervical Right Vertebral Artery: No focal stenosis or occlusion. Cervical Left Vertebral Artery: Dominant. No focal stenosis or occlusion. Brain CTA: Intracranial Internal Carotid Arteries: Calcific atherosclerotic disease of the intracranial internal carotid arteries without occlusion or flow-limiting stenosis. Right Anterior Cerebral Artery: Normal A1 segment. Normal opacification of the distal XI segments. Left Anterior Cerebral Artery: Normal A1 segment. Normal opacification of the distal XI segments. Anterior Communicating Artery: Normal. Right Middle Cerebral Artery: Normal M1 segment of the MCA without focal stenosis or occlusion. Normal arborization of the distal segments. Left Middle Cerebral Artery: Normal M1 segment of the MCA without focal stenosis or occlusion. Normal arborization of the distal segments. Right Vertebral Artery: Normal V4 segment. Left Vertebral Artery: Normal V4 segment. Basilar Artery: Normal without focal stenosis or occlusion. Mild basilar artery dolichoectasia. Normal appearance of the proximal superior cerebellar arteries. Right Posterior Cerebral Artery: Normal P1 segment. Normal opacification of the distal TROUBLE CLERK segments. Left Posterior Cerebral Artery: Normal P1 segment. Normal opacification of the distal TROUBLE CLERK segments. Normal opacification of the superior sagittal, straight, transverse, and sigmoid sinuses. CT/CT angio head neck stroke IMPRESSION: No arterial high grade stenosis or large vessel occlusion in the head or neck. Above impression was communicated to Dr. Aguillon on 11/03/2022 7:26 PM
--- NOTE | ~2022-11-03 | XR_ITS ---
EXAMINATION: XR CHEST CLINICAL INFORMATION: CVA COMPARISON: None available. TECHNIQUE: Frontal view of the chest was obtained. FINDINGS: The lung volumes are low. The cardiac and mediastinal contours are normal. The lungs are clear. No pleural effusion or pneumothorax. There are degenerative changes of the spine. XR/XR chest 1V IMPRESSION: Low lung volumes. No evidence for acute disease in the chest.
--- NOTE | ~2022-11-03 | MR_ITS ---
EXAMINATION: MR LUMBAR SPINE WITHOUT AND WITH CONTRAST CLINICAL INFORMATION: Bacteremia, evaluate for discitis osteomyelitis COMPARISON: None. TECHNIQUE: MRI of the lumbar spine was obtained using routine sequences before and after intravenous administration of 10 mL Gadavist. FINDINGS: Motion degraded examination. Normal lumbar lordosis is preserved. No significant spondylolisthesis. Vertebral body heights are maintained. There is no suspicious enhancing osseous lesion. Multilevel intraosseous hemangiomas are seen. Multilevel disc desiccation with mild lower thoracic disc height loss and scattered intervertebral disc mineralization. Multilevel anterior osteophytic spurring, notably at L1-L2 where there are mixed type I/II Modic endplate changes and marginal enhancement anteriorly associated with a right ventral disc osteophyte with likely degenerative/inflammatory enhancing edema-like signal in the adjacent right prevertebral soft tissues. No findings to suggest discitis-osteomyelitis. Level by level detail as follows: L1-L2: Broad-based right paracentral disc protrusion and mild bilateral facet arthrosis. No spinal canal or neural foraminal stenosis. L2-L3: Mild bilateral facet arthrosis. No spinal canal or neural foraminal stenosis. L3-L4: Trace annular disc bulge and mild bilateral facet arthrosis. No spinal canal or neural foraminal stenosis. L4-L5: Trace annular disc bulge with advanced hypertrophic facet arthrosis ligamentum flavum thickening, small left joint effusion, and degenerative/inflammatory synovial enhancement associated with the left facet joint. No spinal canal stenosis. Mild bilateral neural foraminal encroachment. L5-S1: Left eccentric osteophytic ridging and advanced bilateral facet arthrosis with osseous fusion across the right facet joint. No spinal canal stenosis. Mild bilateral neural foraminal stenosis with contact along the extraforaminal L5 nerve roots. The conus medullaris terminates at the level of L2. The distal spinal cord and cauda equina nerve roots appear normal. No abnormal intramedullary or leptomeningeal enhancement No epidural fluid collection, hematoma, or mass. There is mild fatty atrophy of the paraspinal musculature. Exophytic left upper pole renal cyst and nonspecific bilateral perinephric fat stranding. Degenerative osseous spurring ventral left greater than right sacroiliac joints. The abdominal aorta is normal in caliber. MR/MR lumbar spine wo/w con IMPRESSION: 1. No evidence of discitis-osteomyelitis or epidural abscess. 2. Mixed type I/II Modic endplate changes and marginal enhancement associated with a right ventral disc osteophyte anteriorly at L1-L2 with degenerative/inflammatory enhancing edema in the adjacent right prevertebral soft tissues. 3. Multilevel lumbar spondylosis without evidence of high-grade spinal canal or neural foraminal stenosis. Advanced facet arthrosis at L4-L5 and with associated degenerative/inflammatory synovial enhancement on the left at L4-L5.
--- NOTE | ~2022-11-03 | XR_ITS ---
EXAMINATION: XR CHEST CLINICAL INFORMATION: Shortness breath COMPARISON: 11/03/2022 TECHNIQUE: AP portable view of the chest was obtained. FINDINGS: The cardiopericardial silhouette appears be upper limits of normal in size. No airspace edema is identified. No definite interstitial edema is seen. No pneumothorax or pleural effusion. XR/XR chest 1V IMPRESSION: No acute disease.
--- NOTE | 2022-11-03 18:26 | ECG_ITS ---
Test Reason : TACHY Blood Pressure : / mmHG Vent. Rate : 165 BPM Atrial Rate : 000 BPM P-R Int : 000 ms QRS Dur : 094 ms QT Int : 306 ms P-R-T Axes : 000 012 102 degrees QTc Int : 506 ms Atrial fibrillation with rapid ventricular response with premature ventricular or aberrantly conducted complexes Incomplete right bundle branch block Inferior infarct (cited on or before 21-APR-2022) T wave abnormality, consider anterolateral ischemia Abnormal ECG When compared with ECG of 21-APR-2022 19:53, Atrial fibrillation has replaced Sinus rhythm Vent. rate has increased BY 91 BPM Referred By: Gerald Vasquez Electronically Signed By:GERRI ALCAZAR
--- NOTE | 2022-11-03 18:29 | ED.AMS ---
HPI - Altered Mental Status General Chief Complaint: Altered Mental Status Stated Complaint: AMS Time Seen by Provider: 11/03/22 18:26 Source: patient Mode of arrival: EMS History of Present Illness HPI narrative: Patient history of bipolar disorder was found on the ground last well-known time was 11:00. Patient was apparently in good health had few drinks 2 nights ago while watching TV went to bed felt nauseated vomited once and had low back went to sleep and he was doing well next day today as 11:00 o'clock he texted his friend to go to doctor's office for routine appointment. friend came found him on the floor patient complaining of chills earlier. Patient said that had a mechanical fall tripped and fell and having weakness in the legs was not able to get up from the floor, no loss of consciousness no vomiting No chest pain or palpitation no shortness of breath Related Data Home Medications Medication Instructions Recorded Confirmed lamotrigine 25 mg tablet 50 mg PO DAILY 11/03/22 11/03/22 venlafaxine 75 mg capsule,extended 225 mg PO DAILY 11/03/22 11/03/22 release 24 hr Allergies Allergy/AdvReac Type Severity Reaction Status Date / Time Penicillins Allergy Unknown Unknown Verified 04/21/22 16:56 Review of Systems Review of Systems: Yes all other systems are reviewed and are negative [facility] Past Medical History Medical History Bipolar II disorder major depressive with melancholic features BPH (benign prostatic hyperplasia) HTN (hypertension) Lacunar infarction Surgical History History of hernia repair Social History Social History Household Members: None Housing: Apartment Do you presently have visiting nurse or other home services: No Alcohol intake: never Patient Tobacco Use Status: Never used Tobacco Smoked in Last 30 Days: No Use of substances other than those prescribed or required for medical reasons: No Advance Directives: No Advance Directives Information Provided: Yes service: No Sexual orientation: Straight/Heterosexual Physical Exam ED Vital Signs: Vital Signs - 24 hr 11/03/22 19:14 11/03/22 19:36 11/03/22 20:02 Temperature 99.7 F Pulse Rate 161 H 140 H 125 H Respiratory Rate 30 H 26 H Blood Pressure 124/69 118/63 131/50 L Pulse Oximetry 91 L 92 Oxygen Delivery Method Room Air Room Air 11/03/22 20:17 Temperature Pulse Rate 118 H Respiratory Rate Blood Pressure 95/54 L Pulse Oximetry 92 Oxygen Delivery Method Room Air BMI result Body Mass Index 37.3 Appearance: Alert. Oriented X3. No acute distress. Eyes: PERRLA, No Nystagmus ENT: Pharynx normal. Oral Mucosa dry Neck: Normal inspection. Neck supple. CVS: Tachycardic heart rate in the 170s Pulses normal. Respiratory: No respiratory distress. Equal air entry bilateral, no wheezing/rales/rhonchi Abdomen: Soft and nontender. Bowel sounds are present, no mass palpable, no CVA tenderness Skin: Skin warm and dry. Normal skin color. Normal skin turgor. Extremities: No lower extremity edema. No calf tenderness Neuro: Oriented X 3. No motor deficit. No sensory deficit.No cerebellar signs , cranial nerves II-XII intact NIH Stroke Scale Internal: Initial- Upon Arrival Level of Consciousness: Alert Level of Consciousness Questions: Answers both questions correctly Level of Consciousness Commands: Performs both tasks correctly Best Gaze: Normal Visual: No visual loss Facial Palsy: Normal Motor Arm (Right): No drift Motor Arm (Left): No drift Motor Leg (Right): No drift Motor Leg (Left): No drift Limb Ataxia: Absent Sensory: Normal Best Language: No aphasia Dysarthia: Normal Extinction and Inattention: No abnormality Score: 0 Medications Administered Generic Name Dose Route Start Last Admin Trade Name Freq PRN Reason Stop Dose Admin Sodium Chloride 1,000 mls @ 80 mls/hr 11/03/22 22:30 11/04/22 00:15 Ns IVCONT 80 mls/hr .[id number] EFFIE Administration Sodium Chloride 3 ml 11/04/22 00:00 11/04/22 00:17 0.9 % Sodium Chloride Flush 3 Ml Syringe IVFLUSH Not Given QSHIFT EFFIE Discontinued Medications Generic Name Dose Route Start Last Admin Trade Name Freq PRN Reason Stop Dose Admin Diltiazem HCl 20 mg 11/03/22 19:20 11/03/22 19:24 Diltiazem Hcl 50 Mg/10 Ml Vial IVPUSH 11/03/22 19:21 20 mg STAT STA Administration Diltiazem HCl 20 mg 11/03/22 19:41 11/03/22 19:43 Diltiazem Hcl 50 Mg/10 Ml Vial IVPUSH 11/03/22 19:42 20 mg STAT STA Administration Diltiazem HCl 30 mg 11/03/22 22:29 11/03/22 23:02 Diltiazem Hcl 30 Mg Tablet PO 11/03/22 22:30 Not Given ONCE ONE Protocol Sodium Chloride 1,000 mls @ 999 mls/hr 11/03/22 19:09 11/04/22 00:00 Ns IV 11/03/22 20:09 Infused .Q1H1M ONE Infusion Sodium Chloride 1,000 mls @ 999 mls/hr 11/03/22 19:33 11/03/22 23:02 Ns IV 11/03/22 20:33 Infused .Q1H1M ONE Infusion Sodium Chloride 1,000 mls @ 999 mls/hr 11/03/22 20:20 11/03/22 23:02 Ns IV 11/03/22 21:20 Infused .Q1H1M ONE Infusion Ceftriaxone Sodium 1 gm/ 50 mls @ 100 mls/hr 11/03/22 20:43 11/03/22 21:30 Sodium Chloride IV 11/03/22 21:12 Infused ONCE ONE Infusion Iohexol 100 ml 11/03/22 19:08 11/03/22 19:08 Iohexol 350 Mg/Ml 100 Ml Infus..Btl IV 11/03/22 19:09 70 ml ONCE ONE Administration Potassium Bicarbonate 25 meq 11/03/22 20:50 11/03/22 21:05 Potassium Bicarbonate/Cit Ac 25 Meq Tablet.Eff PO 11/03/22 20:51 25 meq ONCE ONE Administration Potassium Chloride 40 meq 11/03/22 21:46 11/03/22 23:00 Potassium Chloride Packet 20 Meq Packet PO 11/03/22 21:47 40 meq ONCE ONE Administration Sodium Bicarbonate 50 meq 11/03/22 20:44 11/03/22 20:52 Sodium Bicarbonate 8.4% 50 Meq/50 Ml Syringe IVPUSH 11/03/22 20:45 50 meq ONCE ONE Administration Medical Decision Making Medical Decision Making MDM Narrative: Patient 67 years old history of bipolar disorder came with increased weakness new onset atrial fibrillation noticed to have rhabdomyolysis and VINEET also noticed to have bandemia with UTI patient received IV fluids, IV Rocephin IV Cardizem heart rate control patient to medical service Differential Diagnosis Acute CVA/VINEET/acute OR/atrial fibrillation Consult Healthcare Provider Management of the patient was discussed with: Hospitalist Lab Data [facility] Lab Attestation statement: I reviewed the patient's lab results. 11/03/22 19:30 11/03/22 19:30 Labs: Lab Results 11/03/22 11/03/22 11/03/22 Range/Units 19:18 19:19 19:30 WBC 8.7 (4.8-10.8) X10*3/uL RBC 4.81 (4.60-5.80) X10*6/uL Hgb 15.2 (14.0-18.0) g/dl Hct 43.8 (42.0-52.0) % MCV 91.1 (80.0-98.0) fL MCH 31.6 (27.0-33.0) pg MCHC 34.7 (31.0-36.0) g/dl RDW 13.3 (11.0-16.0) % Plt Count 93 L D (160-400) X10*3/uL MPV 11.3 (9.4-12.4) fL Immature Gran % (Auto) Cancelled Neut % (Auto) Cancelled Lymph % (Auto) Cancelled [place] % (Auto) Cancelled Eos % (Auto) Cancelled Baso % (Auto) Cancelled Lymph # (Auto) Cancelled [place] # (Auto) Cancelled Eos # (Auto) Cancelled Baso # (Auto) Cancelled Abs Immat Gran (auto) Cancelled Absolute Neuts (auto) Cancelled Absolute Nucleated RBC 0.000 (0.0-0.012) X10*3/uL Nucleated RBC % (auto) 0.0 (0.0-0.2) /100WBC Neutrophils % (Manual) 77 H (45-73) % Band Neutrophils % 16 H (3-5) % Lymphocytes % (Manual) 4 L (20-40) % Monocytes % (Manual) 3 (2-11) % Abs Neuts (Manual) 8.1 (2.0-8.3) X10*3/uL Lymphocytes # (Manual) 0.3 L (1.2-4.9) X10*3/uL Monocytes # (Manual) 0.3 (0.1-1.2) X10*3/uL Toxic Vacuolation PRESENT Platelet Estimate DECREASED (NORMAL) Plt Morphology Comment NOTED RBC Morphology NOTED Acanthocytes (Spur) 1+ (0-2) /OIF PT (10.0-13.1) SEC Whole Blood PT 11.8 (11.1-13.5) sec INR (0.9-1.1) Whole Blood INR 1.0 (0.9-1.1) APTT (26.0-36.4) SEC Sodium (135-145) mmol/L Potassium (3.3-5.1) mmol/L Chloride (96-108) mmol/L Carbon Dioxide (22-29) mmol/L Anion Gap (12-20) BUN (9-16) mg/dL Creatinine (0.5-1.4) mg/dL Estim Creat Clear Calc Estimated GFR POC Glucose 112 (60-115) mg/dL Random Glucose (60-115) mg/dL Lactic Acid (0.5-2.0) mmol/L Calcium (8.4-10.2) mg/dL Magnesium (1.6-2.6) mg/dL Total Bilirubin (0.0-1.0) mg/dL Direct Bilirubin (0.0-0.5) mg/dL AST (5-37) U/L ALT (0-40) U/L Alkaline Phosphatase (39-117) U/L Total Creatine Kinase (38-174) U/L Troponin I High Sens (<3.5-35.0) ng/L B-Natriuretic Peptide (<100) pg/mL Total Protein (6.5-8.0) g/dL Albumin (3.5-5.0) g/dL Lipase (8-78) U/L TSH (0.32-4.0) uIU/mL Ethyl Alcohol mg/dL 11/03/22 11/03/22 11/03/22 Range/Units 19:30 19:30 19:30 WBC (4.8-10.8) X10*3/uL RBC (4.60-5.80) X10*6/uL Hgb (14.0-18.0) g/dl Hct (42.0-52.0) % MCV (80.0-98.0) fL MCH (27.0-33.0) pg MCHC (31.0-36.0) g/dl RDW (11.0-16.0) % Plt Count (160-400) X10*3/uL MPV (9.4-12.4) fL Immature Gran % (Auto) Neut % (Auto) Lymph % (Auto) [place] % (Auto) Eos % (Auto) Baso % (Auto) Lymph # (Auto) [place] # (Auto) Eos # (Auto) Baso # (Auto) Abs Immat Gran (auto) Absolute Neuts (auto) Absolute Nucleated RBC (0.0-0.012) X10*3/uL Nucleated RBC % (auto) (0.0-0.2) /100WBC Neutrophils % (Manual) (45-73) % Band Neutrophils % (3-5) % Lymphocytes % (Manual) (20-40) % Monocytes % (Manual) (2-11) % Abs Neuts (Manual) (2.0-8.3) X10*3/uL Lymphocytes # (Manual) (1.2-4.9) X10*3/uL Monocytes # (Manual) (0.1-1.2) X10*3/uL Toxic Vacuolation Platelet Estimate (NORMAL) Plt Morphology Comment RBC Morphology Acanthocytes (Spur) /OIF PT 11.4 (10.0-13.1) SEC Whole Blood PT (11.1-13.5) sec INR 1.0 (0.9-1.1) Whole Blood INR (0.9-1.1) APTT 26.8 (26.0-36.4) SEC Sodium 136 (135-145) mmol/L Potassium 3.1 L D (3.3-5.1) mmol/L Chloride 109 H (96-108) mmol/L Carbon Dioxide 15 L (22-29) mmol/L Anion Gap 15 (12-20) BUN 70 H (9-16) mg/dL Creatinine 3.51 H (0.5-1.4) mg/dL Estim Creat Clear Calc 25.5 Estimated GFR 17 POC Glucose (60-115) mg/dL Random Glucose 89 (60-115) mg/dL Lactic Acid (0.5-2.0) mmol/L Calcium 8.6 D (8.4-10.2) mg/dL Magnesium 2.1 (1.6-2.6) mg/dL Total Bilirubin 1.6 H (0.0-1.0) mg/dL Direct Bilirubin 0.6 H (0.0-0.5) mg/dL AST 303 H (5-37) U/L ALT 87 H (0-40) U/L Alkaline Phosphatase 43 (39-117) U/L Total Creatine Kinase 23709 H (38-174) U/L Troponin I High Sens 103.8 H* (<3.5-35.0) ng/L B-Natriuretic Peptide (<100) pg/mL Total Protein 5.9 L (6.5-8.0) g/dL Albumin 3.0 L (3.5-5.0) g/dL Lipase 13 (8-78) U/L TSH 1.14 (0.32-4.0) uIU/mL Ethyl Alcohol < 10 mg/dL 11/03/22 11/03/22 Range/Units 19:30 19:30 WBC (4.8-10.8) X10*3/uL RBC (4.60-5.80) X10*6/uL Hgb (14.0-18.0) g/dl Hct (42.0-52.0) % MCV (80.0-98.0) fL MCH (27.0-33.0) pg MCHC (31.0-36.0) g/dl RDW (11.0-16.0) % Plt Count (160-400) X10*3/uL MPV (9.4-12.4) fL Immature Gran % (Auto) Neut % (Auto) Lymph % (Auto) [place] % (Auto) Eos % (Auto) Baso % (Auto) Lymph # (Auto) [place] # (Auto) Eos # (Auto) Baso # (Auto) Abs Immat Gran (auto) Absolute Neuts (auto) Absolute Nucleated RBC (0.0-0.012) X10*3/uL Nucleated RBC % (auto) (0.0-0.2) /100WBC Neutrophils % (Manual) (45-73) % Band Neutrophils % (3-5) % Lymphocytes % (Manual) (20-40) % Monocytes % (Manual) (2-11) % Abs Neuts (Manual) (2.0-8.3) X10*3/uL Lymphocytes # (Manual) (1.2-4.9) X10*3/uL Monocytes # (Manual) (0.1-1.2) X10*3/uL Toxic Vacuolation Platelet Estimate (NORMAL) Plt Morphology Comment RBC Morphology Acanthocytes (Spur) /OIF PT (10.0-13.1) SEC Whole Blood PT (11.1-13.5) sec INR (0.9-1.1) Whole Blood INR (0.9-1.1) APTT (26.0-36.4) SEC Sodium (135-145) mmol/L Potassium (3.3-5.1) mmol/L Chloride (96-108) mmol/L Carbon Dioxide (22-29) mmol/L Anion Gap (12-20) BUN (9-16) mg/dL Creatinine (0.5-1.4) mg/dL Estim Creat Clear Calc Estimated GFR POC Glucose (60-115) mg/dL Random Glucose (60-115) mg/dL Lactic Acid 1.7 (0.5-2.0) mmol/L Calcium (8.4-10.2) mg/dL Magnesium (1.6-2.6) mg/dL Total Bilirubin (0.0-1.0) mg/dL Direct Bilirubin (0.0-0.5) mg/dL AST (5-37) U/L ALT (0-40) U/L Alkaline Phosphatase (39-117) U/L Total Creatine Kinase (38-174) U/L Troponin I High Sens (<3.5-35.0) ng/L B-Natriuretic Peptide 191 H (<100) pg/mL Total Protein (6.5-8.0) g/dL Albumin (3.5-5.0) g/dL Lipase (8-78) U/L TSH (0.32-4.0) uIU/mL Ethyl Alcohol mg/dL Independent Interpretation I performed an independent interpretation of an: EKG Interpretation: Atrial fibrillation with ventricular rate 160 with right bundle-branch block no acute ischemic changes Critical Care Time Critical Care Time Critical Care Time: Yes Total Critical Care Time: 55 Attestation: The patient was critically ill with a high probability of imminent or life threatening deterioration. I spent greater than 60 minutes of discontinuous time evaluating the patient,delivering critical care at the bedside, discussing and evaluating pertinent data with consultants. Critical care time does not include time spent performing separately billable procedures or teaching. Total time spent performing critical care was 55 minutes. Discharge Plan Discharge Clinical Impression: Atrial fibrillation with RVR, Rhabdomyolysis, VINEET (acute kidney injury), Altered mental status Patient Disposition: Admitted As Inpatient Interventions: Admission Worksheet (ED) Last Done: 11/04/22 00:25 Discharge Date/Time: 11/04/22 00:26
[2022-11-03] MEDS: iohexoL 350 MG/ML 100 ML INFUS..BTL IV (19:08)
[2022-11-03] MEDS: 0.9 % Sodium Chloride 1,000 ML 999 ML IV ×3 (19:23→20:32)
[2022-11-03] MEDS: dilTIAZem HCL 50 MG/10 ML VIAL 20 MG IVPUSH ×2 (19:24→19:43)
[2022-11-03 19:27] LABS: Glucose, Whole Blood 112 mg/dL (60-115)
[2022-11-03 19:27] LABS: Prothrombin Time Whole Bld POC 11.8 sec (11.1-13.5)
[2022-11-03 19:48] LABS: Prothrombin Time 11.4 SEC (10.0-13.1)
[2022-11-03 19:50] LABS: Hematocrit 43.8 % (42.0-52.0); Hemoglobin 15.2 g/dl (14.0-18.0); Mean Corpuscular HGB Conc 34.7 g/dl (31.0-36.0); Mean Corpuscular Hemoglobin 31.6 pg (27.0-33.0); Mean Corpuscular Volume 91.1 fL (80.0-98.0); Mean Platelet Volume 11.3 fL (9.4-12.4); Red Blood Count 4.81 X10*6/uL (4.60-5.80); Red Cell Distribution Width 13.3 % (11.0-16.0); White Blood Count 8.7 X10*3/uL (4.8-10.8)
[2022-11-03 19:51] LABS: Partial Thromboplastin Time 26.8 SEC (26.0-36.4)
[2022-11-03 19:53] LABS: Platelet Count 93 X10*3/uL (160-400)
[2022-11-03 19:56] LABS: Lactic Acid 1.7 mmol/L (0.5-2.0)
--- NOTE | 2022-11-03 20:00 | PC.NURSE ---
this rn assumed care of pt @ 1900. pt brought to bed from CTplaced on dry8gyul monitor found to have HR in 160s . dr vasquez made aware. 20 G iv placed in R AC as well as L hand. dr vasquez at bedside. blood work obtained and sent down to lab. ekg obtained. pt changed out of soiled clothing. pt medicated according to aug.
[2022-11-03 20:09] LABS: Anion Gap 15 (12-20); Blood Urea Nitrogen 70 mg/dL (9-16); Calcium 8.6 mg/dL (8.4-10.2); Carbon Dioxide 15 mmol/L (22-29); Chloride 109 mmol/L (96-108); Creatinine Clr Calc Pharmacy 25.5; Estimated Glomerular Filt Rate 17; Glucose Random 89 mg/dL (60-115); Magnesium 2.1 mg/dL (1.6-2.6); Potassium 3.1 mmol/L (3.3-5.1); Sodium 136 mmol/L (135-145); Troponin-I High Sensitivity 103.8 ng/L (<3.5-35.0)
[2022-11-03 20:20] LABS: Alanine Aminotransferase 87 U/L (0-40); Alkaline Phosphatase 43 U/L (39-117); Aspartate Amino Transferase 303 U/L (5-37); Bilirubin Direct 0.6 mg/dL (0.0-0.5); Bilirubin Total 1.6 mg/dL (0.0-1.0); Ethanol < 10 mg/dL; Lipase 13 U/L (8-78); Total Protein 5.9 g/dL (6.5-8.0)
[2022-11-03 20:26] LABS: Neutrophils Percent Manual 77 % (45-73)
[2022-11-03 20:29] LABS: Acanthocytes 1+ (0-2) /OIF; Lymphocytes Absolute Manual 0.3 X10*3/uL (1.2-4.9); Lymphocytes Percent Manual 4 % (20-40); Monocytes Absolute Manual 0.3 X10*3/uL (0.1-1.2); Monocytes Percent Manual 3 % (2-11); Neutrophils Absolute Manual 8.1 X10*3/uL (2.0-8.3)
[2022-11-03 20:30] LABS: Platelet Estimate DECREASED (NORMAL); RBC Morphology NOTED
[2022-11-03 20:32] LABS: Platelet Morphology Comment NOTED
[2022-11-03 20:33] LABS: Thyroid Stimulating Hormone 1.14 uIU/mL (0.32-4.0)
[2022-11-03 20:34] LABS: Stroke Lab Use COMPLETE; Toxic Vacuolation PRESENT
[2022-11-03 20:39] LABS: Band Neutrophils Percent 16 % (3-5)
[2022-11-03 20:42] LABS: B Type Natriuretic Peptide 191 pg/mL (<100)
[2022-11-03] MEDS: Sodium Bicarbonate 8.4% 50 MEQ/50 ML SYRINGE IVPUSH (20:52)
[2022-11-03] MEDS: cefTRIAXone sodium 1 GM in 0.9 % Sodium Chloride 50 ML IV (20:52)
[2022-11-03] MEDS: Potassium Bicarbonate/Cit AC 25 MEQ TABLET.EFF PO (21:05)
--- NOTE | 2022-11-03 21:36 | PHA.MEDREC ---
Pharmacy Consult ? Medication Reconciliation Pharmacy has completed the medication reconciliation.
--- NOTE | 2022-11-03 21:46 | PC.NURSE ---
this rn at pt bedside. pt noted to have Bilateral expitory wheezing. jennifer mays made aware at this time. no new orders placed
--- NOTE | 2022-11-03 21:53 | PM.IMHP ---
History of Present Illness Date of Service: 11/03/22 <DIMITRI Ron - Last Filed: 11/03/22 22:52> Attending physician on admission: Anson Rodriguez <DIMITRI Ron - Last Filed: 11/03/22 22:52> Chief Complaint: fall <DIMITRI Ron - Last Filed: 11/03/22 22:52> 67-year-old male with history of bipolar disorder and borderline hypertension presents to the ED via EMS after sustaining a mechanical fall earlier today. The patient is A&Ox3, but does seem somewhat tangential at times. The patient states that he tripped and fell to the ground and denies any head strike or loss of consciousness. His states that he was experiencing bilateral lower extremity weakness and was unable to raise himself from the ground so he remained on the floor for about 4 hours. He states he was conscious the whole time. His friend arrived at his apartment to take him to a doctor's appointment and found him on the ground and called EMS. The patient denies any prodrome leading up to the fall including palpitations, lightheadedness, chest pain. He has had shortness of breath ongoing for several days. No fevers, chills, cough, sore throat, sick contacts, abd pain, n/v/d, lightheadedness, palpitations, or chest pain. On arrival, patient tachycardic to 161, tachypneic to 30, temperature 99.7 degrees, oximetry 91%. Blood pressure is soft but no hypotension. Patient received 2 pushes 20mg IV diltiazem with improvement in HR to 118. EKG shows AFib with RVR and PVCs or aberrantly conducted complexes, rate [address] segment changes. No leukocytosis, but with 16% bandemia. PLT 93. Creatinine 3.51, BUN 70. Sodium 136, potassium 3.1, chloride 109, CO2 15, anion gap 15. Total bilirubin 1.6, direct bilirubin 0.6, AST 303, ALT 87, [place] [address]. Initial troponin 103.8, repeat pending. BNP 191. Head CT limited due to motion artifact but showing nonspecific periventricular white matter disease and questionable bilateral basal ganglia lacunar infarcts, age indeterminate. Head/neck CTA negative for any LVO. CXR negative for any acute cardiopulmonary abnormality. In the ED, treated with 1 amp of sodium bicarb, diltiazem as above, 1 g IV ceftriaxone, and 3 L IV NS. <DIMITRI Ron - Last Filed: 11/03/22 22:52> Review of Systems Review of Systems: General: No fevers, malaise, unintentional weight loss HEENT: No blurred vision, diplopia. No sore throat, nasal congestion, rhinorrhea, sinus pain, ear pain Cardiovascular: No chest pain, palpitations, or leg edema Respiratory: +sob. No wheezing, cough GI: No abdominal pain, nausea, vomiting, diarrhea, constipation, melena, hematochezia : No dysuria, hematuria, increased urinary frequency, decreased urinary output MSK: No myalgia, back pain. +bilateral leg pain Neuro: No headaches, paresthesias. +ble weakness Skin: No rashes or lesions <DIMITRI Ron - Last Filed: 11/03/22 22:52> [facility] Medical History: Medical History Bipolar II disorder major depressive with melancholic features BPH (benign prostatic hyperplasia) HTN (hypertension) Lacunar infarction <DIMITRI Ron - Last Filed: 11/03/22 22:52> Surgical History: Surgical History History of hernia repair <DIMITRI Ron - Last Filed: 11/03/22 22:52> Social History: Social History Household Members: None Housing: Apartment Do you presently have visiting nurse or other home services: No Alcohol intake: never Patient Tobacco Use Status: Never used Tobacco Smoked in Last 30 Days: No Use of substances other than those prescribed or required for medical reasons: No Advance Directives: No Advance Directives Information Provided: Yes service: No Sexual orientation: Straight/Heterosexual <DIMITRI Ron Last Filed: 11/03/22 22:52> Meds Allergies/Adverse reactions: Allergies Allergy/AdvReac Type Severity Reaction Status Date / Time Penicillins Allergy Unknown Unknown Verified 04/21/22 16:56 <DIMITRI Ron - Last Filed: 11/03/22 22:52> Active Medications: Current Medications Acetaminophen (Acetaminophen 325 Mg Tablet) 650 mg PO Q6H PRN PRN Reason: Pain, Mild (Pain Scale 1-3) Enoxaparin Sodium (Enoxaparin Sodium 30 Mg/0.3 Ml Syringe) 30 mg SUBCUT Q24H EFFIE Levalbuterol HCl (Levalbuterol Hcl 1.25 Mg/3 Ml Vial.Neb) 1.25 mg INHALE Q3H PRN PRN Reason: Wheezing Melatonin (Melatonin 3 Mg Tablet) 6 mg PO BEDTIME PRN PRN Reason: Insomnia Ondansetron HCl (Ondansetron Hcl 4 Mg/2 Ml Vial) 4 mg IVPUSH Q8H PRN PRN Reason: Nausea and Vomiting Sodium Chloride (0.9 % Sodium Chloride Flush 3 Ml Syringe) 3 ml IVFLUSH QSHIFT EFFIE <DIMITRI Ron Last Filed: 11/03/22 22:52> Home medications: Home Medications Medication Instructions Recorded Confirmed Last Taken Type lamotrigine 25 mg tablet 50 mg PO DAILY 11/03/22 11/03/22 11/03/22 History venlafaxine 75 mg capsule,extended 225 mg PO DAILY 11/03/22 11/03/22 11/03/22 History release 24 hr <DIMITRI Ron - Last Filed: 11/03/22 22:52> Physical Exam Vital Signs and Narrative: Vital Signs: Last Vital Signs Temp 99.7 F 11/03/22 19:14 Pulse 118 H 11/03/22 20:17 Resp 26 H 11/03/22 20:02 BP 95/54 L 11/03/22 20:17 Pulse Ox 92 11/03/22 20:17 O2 Del Method Room Air 11/03/22 20:17 BMI result Body Mass Index 37.3 <DIMITRI Ron Last Filed: 11/03/22 22:52> Constitutional - Awake and Alert, No apparent distress Eyes - PERRLA, EOMI Cardiovascular - S1S2, irregularly irregular tachycardic, No edema Respiratory - Normal lung expansion, Normal respiratory effort, No respiratory distress, CTA bilaterally Gastrointestinal - NT / ND; +BS; No rebound or guarding Extremities - no calf tenderness bilaterally, no swelling Musculoskeletal - Normal inspection, normal ROM. Extremities nontender to palpation Skin - Warm/Dry Neurological - Alert & oriented x3, CN II-XII in tact, 5/5 strength BUE and BLE Psychological - Appropriate affect <DIMITRI Ron - Last Filed: 11/03/22 22:52> Results Labs CBC and Chem 7: 11/03/22 19:30 11/03/22 19:30 <DIMITRI Ron - Last Filed: 11/03/22 22:52> Labs: Laboratory Results - last 24 hr 11/03/22 11/03/22 11/03/22 19:18 19:19 19:30 MCV 91.1 MCH 31.6 MCHC 34.7 RDW 13.3 Plt Count 93 L D MPV 11.3 Immature Gran % (Auto) Cancelled Neut % (Auto) Cancelled Lymph % (Auto) Cancelled [place] % (Auto) Cancelled Eos % (Auto) Cancelled Baso % (Auto) Cancelled Lymph # (Auto) Cancelled [place] # (Auto) Cancelled Eos # (Auto) Cancelled Baso # (Auto) Cancelled Abs Immat Gran (auto) Cancelled Absolute Neuts (auto) Cancelled Absolute Nucleated RBC 0.000 Nucleated RBC % (auto) 0.0 Neutrophils % (Manual) 77 H Band Neutrophils % 16 H Lymphocytes % (Manual) 4 L Monocytes % (Manual) 3 Abs Neuts (Manual) 8.1 Lymphocytes # (Manual) 0.3 L Monocytes # (Manual) 0.3 Toxic Vacuolation PRESENT Platelet Estimate DECREASED Plt Morphology Comment NOTED RBC Morphology NOTED Acanthocytes (Spur) 1+ (0-2) PT Whole Blood PT 11.8 INR Whole Blood INR 1.0 APTT Anion Gap Estim Creat Clear Calc Estimated GFR POC Glucose 112 Random Glucose Lactic Acid Calcium Magnesium Total Bilirubin Direct Bilirubin AST ALT Alkaline Phosphatase Total Creatine Kinase Troponin I High Sens B-Natriuretic Peptide Total Protein Albumin Lipase TSH Ethyl Alcohol 11/03/22 11/03/22 11/03/22 19:30 19:30 19:30 MCV MCH MCHC RDW Plt Count MPV Immature Gran % (Auto) Neut % (Auto) Lymph % (Auto) [place] % (Auto) Eos % (Auto) Baso % (Auto) Lymph # (Auto) [place] # (Auto) Eos # (Auto) Baso # (Auto) Abs Immat Gran (auto) Absolute Neuts (auto) Absolute Nucleated RBC Nucleated RBC % (auto) Neutrophils % (Manual) Band Neutrophils % Lymphocytes % (Manual) Monocytes % (Manual) Abs Neuts (Manual) Lymphocytes # (Manual) Monocytes # (Manual) Toxic Vacuolation Platelet Estimate Plt Morphology Comment RBC Morphology Acanthocytes (Spur) PT 11.4 Whole Blood PT INR 1.0 Whole Blood INR APTT 26.8 Anion Gap 15 Estim Creat Clear Calc 25.5 Estimated GFR 17 POC Glucose Random Glucose 89 Lactic Acid Calcium 8.6 D Magnesium 2.1 Total Bilirubin 1.6 H Direct Bilirubin 0.6 H AST 303 H ALT 87 H Alkaline Phosphatase 43 Total Creatine Kinase 17885 H Troponin I High Sens 103.8 H* B-Natriuretic Peptide Total Protein 5.9 L Albumin 3.0 L Lipase 13 TSH 1.14 Ethyl Alcohol < 10 11/03/22 11/03/22 19:30 19:30 MCV MCH MCHC RDW Plt Count MPV Immature Gran % (Auto) Neut % (Auto) Lymph % (Auto) [place] % (Auto) Eos % (Auto) Baso % (Auto) Lymph # (Auto) [place] # (Auto) Eos # (Auto) Baso # (Auto) Abs Immat Gran (auto) Absolute Neuts (auto) Absolute Nucleated RBC Nucleated RBC % (auto) Neutrophils % (Manual) Band Neutrophils % Lymphocytes % (Manual) Monocytes % (Manual) Abs Neuts (Manual) Lymphocytes # (Manual) Monocytes # (Manual) Toxic Vacuolation Platelet Estimate Plt Morphology Comment RBC Morphology Acanthocytes (Spur) PT Whole Blood PT INR Whole Blood INR APTT Anion Gap Estim Creat Clear Calc Estimated GFR POC Glucose Random Glucose Lactic Acid 1.7 Calcium Magnesium Total Bilirubin Direct Bilirubin AST ALT Alkaline Phosphatase Total Creatine Kinase Troponin I High Sens B-Natriuretic Peptide 191 H Total Protein Albumin Lipase TSH Ethyl Alcohol <DIMITRI Ron - Last Filed: 11/03/22 22:52> Imaging Radiologist's Impressions: Impressions Head CT 11/03/22 18:42 IMPRESSION: Limited exam due to motion artifact. Nonspecific periventricular white matter disease. Question bilateral basal ganglia lacunar infarcts. No old exams available for comparison and these are age indeterminate. This could be better evaluated with MRI if clinically indicated. This critical result was discussed with Dr. Aguillon at 1856 hours on 11/03/2022. It was ascertained that the content and urgency of the report was understood at the time of direct communication. Head/Neck CTA 11/03/22 19:11 IMPRESSION: No arterial high grade stenosis or large vessel occlusion in the head or neck. Above impression was communicated to Dr. Aguillon on 11/03/2022 7:26 PM Chest X-Ray 11/03/22 19:44 IMPRESSION: Low lung volumes. No evidence for acute disease in the chest. <DIMITRI Ron - Last Filed: 11/03/22 22:52> Assessment and Plan (1) Rhabdomyolysis: Status: Acute <DIMITRI Ron - Last Filed: 11/03/22 22:52> (2) Atrial fibrillation: Status: Acute <DIMITRI Ron - Last Filed: 11/03/22 22:52> (3) VINEET (acute kidney injury): Status: Acute <DIMITRI Ron - Last Filed: 11/03/22 22:52> 67-year-old male with history of bipolar disorder and borderline hypertension admitted for rhabdomyolysis with VINEET, new onset atrial fibrillation with RVR, and UTI with bandemia # acute rhabdomyolysis -following mechanical fall without head injury or loss of consciousness. Patient on the floor for 4 hours unable to get up due to bilateral lower extremity weakness -CK >37485 -Given 3L IVF in ED. Continue gentle IVF given new onset afib with RVR -Follow CK #Acute UTI with severe sepsis -with bandemia, tachypneic, tachycardic, VINEET, thombocytopenia. Lactic acid normal. No hypotension -IV ceftriaxone x 5 days (initiated 11/03) -Follow UC, BC #New onset atrial fibrillation with RVR -likely related to acut UTI -Given 2 pushes IV dilt in ED -Discussed with Dr. Rodriguez. diltiazem 30mg PO x1 ordered -apprecaite cardiology assistance -echo ordered -[id number] score 3. Hold on eliquis at this time given thrombocytopenia. Defer to cardiology -Cardiac diet -Admit to telemetry #VINEET -related to rhabdomyolysis/hypovolemia -continue IVF -Follow BMP #Acute metabolic acidosis -due to above -Continue IVF #elevated trop w st segment changes -no chest pain -Initial trop 103, repeat pending -likely related to demand ischemia -Initial EKG with ST segment changes with motion artifact. Discussed with Dr. Rodriguez. Repeat EKG am -Echo pending -Appreciate cardiology assistance #Hypokalemia- due to hypovolemia -K3.1 -Give 1 amp potassium bicarb in ED. Addl 40mew PO KCl given -Follow BMP #acute thombocytopenia -in the setting of infection -follow plt's #Elevated LFTs -likely related to infection #Lacunar infarcts, age indeterminate- noted on head ct -low suspicion for acute CVA, no focal deficits -hold on antiplatelet therapy in the setting of above -MRI brain outpt #bipolar disorder -continue lamictal, hold venlafaxine in setting of transaminitis DVT prophylaxis- scp's full code Patient requires inpatient stay at least 2 midnights for management acute rhabdomyolysis with VINEET, UTI, and new onset atrial fibrillation with RVR requiring IV fluid resuscitation, IV antibiotics, close cardiac monitoring, and expert consultation <DIMITRI Ron - Last Filed: 11/03/22 22:52> 67-year-old male with history of bipolar disorder and borderline hypertension admitted for rhabdomyolysis with VINEET, new onset atrial fibrillation with RVR, and UTI with bandemia # acute rhabdomyolysis -following mechanical fall without head injury or loss of consciousness. Patient on the floor for 4 hours unable to get up due to bilateral lower extremity weakness -CK >91635 -Given 3L IVF in ED. Continue IVF -Follow CK #Acute UTI with severe sepsis -with bandemia, tachypneic, tachycardic, VINEET, thombocytopenia. Lactic acid normal. No hypotension -IV ceftriaxone x 5 days (initiated 11/03) -Follow UC, BC #New onset atrial fibrillation with RVR -likely related to acut UTI -Given 2 pushes IV dilt in ED -Diltiazem 30mg PO x1 ordered -apprecaite cardiology assistance -echo ordered -[id number] score 3. Defer to cardiology -Cardiac diet -Admit to telemetry #VINEET -related to rhabdomyolysis/hypovolemia -continue IVF -Follow BMP #Acute metabolic acidosis -due to above -Continue IVF #elevated trop w st segment changes -no chest pain -Initial trop 103, repeat pending -likely related to demand ischemia -Initial EKG with ST segment changes with motion artifact. Discussed with Dr. Rodriguez. Repeat EKG am -Echo pending -Appreciate cardiology assistance #Hypokalemia- due to hypovolemia -K3.1 -Give 1 amp potassium bicarb in ED. Addl 40mew PO KCl given -Follow BMP #acute thombocytopenia -in the setting of infection -follow plt's #Elevated LFTs -likely related to infection #Lacunar infarcts, age indeterminate- noted on head ct -low suspicion for acute CVA, no focal deficits -hold on antiplatelet therapy in the setting of above -MRI brain outpt #bipolar disorder -continue lamictal, hold venlafaxine in setting of transaminitis DVT prophylaxis- scp's full code Patient requires inpatient stay at least 2 midnights for management acute rhabdomyolysis with VINEET, UTI, and new onset atrial fibrillation with RVR requiring IV fluid resuscitation, IV antibiotics, close cardiac monitoring, and expert consultation <Anson Rodriguez MD - Last Filed: 11/04/22 01:32> Time Spent With Patient Time: Total time managing care of this patient today ____ minutes. <DIMITRI Ron - Last Filed: 11/03/22 22:52> Quality Stroke Does the patient have a stroke diagnosis?: No <DIMITRI Ron - Last Filed: 11/03/22 22:52> VTE Prior VTE?: No <DIMITRI Ron - Last Filed: 11/03/22 22:52> VTE Risk Level:: Medical - moderate - high <DIMITRI Rno - Last Filed: 11/03/22 22:52> VTE Device Contraindication: Treatment Not Indicated <DIMITRI Ron - Last Filed: 11/03/22 22:52> VTE Drug Contraindication: N/A - Med Ordered <DIMITRI Ron - Last Filed: 11/03/22 22:52>
--- NOTE | 2022-11-03 22:22 | PC.NURSE ---
straight catheter placed according to JUAN orders. pt tolerated well. 125 output immediately. urine sample obtained and sent down to lab. straight catheter removed. pt tolerated well
[2022-11-03 22:30] LABS: Appearance Urine Turbid; Color Urine Dark Yellow; Glucose Urine UA Negative (Negative); Leukocyte Esterase Urine Moderate (2+) (Negative); Nitrite Urine Negative (Negative); PH 5.5 (5.0-9.0); Specific Gravity - Urine >= 1.030 (1.005-1.025); UMIC TRIGGER UACC YES; Urine Blood Large (3+) (Negative); Urine Ketones Trace mg/dL (Negative); Urine Protein 100 (2+) mg/dL (Neg-Trace)
[2022-11-03 22:43] LABS: Amphetamine Screen Urine Not Detected (Not Detect); Barbiturates, Urine Not Detected (Not Detect); Benzodiazepines Screen Urine Not Detected (Not Detect); Cannabinoid Screen Urine Not Detected (Not Detect); Cocaine Screen Urine Not Detected (Not Detect); Fentanyl, urine Not Detected (Not Detect); Opiate Screen Urine Not Detected (Not Detect); Phencyclidine Screen Urine Not Detected (Not Detect)
[2022-11-03 22:44] LABS: Bacteria Urine 1+ (None Seen); Hyaline Casts Urine >20 /LPF (0-2); RBC Urine >20 /HPF (0-2); UACC Culture Trigger YES; WBC Urine 21-50 /HPF (0-5)
[2022-11-03 22:52] LABS: Troponin-I High Sensitivity 109.3 ng/L (<3.5-35.0)
--- NOTE | 2022-11-03 22:56 | PC.NURSE ---
this rn attempted to medicate pt according to aug. HR 127 BP 100/57. this rn made dr griffith aware. per dr griffith hold po diltiazem at this time.
[2022-11-03] MEDS: Potassium Chloride Packet 20 MEQ PACKET 40 MEQ PO (23:00)
[2022-11-04] VITALS (9 sets, daily range): BP systolic 97–184; BP diastolic 60–83; PULSE 89–120; RESP 18–25; TEMP 36.6–37.3; O2SAT 91–97; BMI 37.6
[2022-11-04] MEDS: 0.9 % Sodium Chloride 1,000 ML 80 ML IVCONT (00:15)
[2022-11-04] MEDS: levalbuterol HCL 1.25 MG/3 ML VIAL.NEB INHALE (02:18)
[2022-11-04] MEDS: dilTIAZem HCL 30 MG TABLET PO (02:45)
[2022-11-04 03:24] LABS: Glucose, Whole Blood 102 mg/dL (60-115)
[2022-11-04] MEDS: dilTIAZem HCL 50 MG/10 ML VIAL 20 MG IVPUSH (03:59)
[2022-11-04] MEDS: Metoprolol Tartrate 5 MG/5 ML VIAL IVPUSH (05:16)
--- NOTE | 2022-11-04 07:00 | CA_ITS ---
Transthoracic Echocardiogram Patient (Last, First, Middle): Prateek Saeed, Gender: Male Date of : 1955 Age: 67 Procedure Date: 11/04/2022 Procedure Type: Transthoracic Echocardiogram Location: [facility] [place] Height: 177.8 cm Weight: 118.84 kg BSA: 2.34 m2 Heart Rate: 107 bpm BP: 97 / 67 mmHg Truck Sales Representative: [email or web address] Referring MD: Marito Puckett MD Symptoms: Afib Study Quality: Fair/Contrast ECG Rhythm: Atrial Fibrillation Conclusions: - The left ventricular systolic function is normal. The visually estimated ejection fraction is between 55-60%. - No obvious valvular pathology seen on this study. Findings Procedure Information Contrast agent, definity, is being given per protocol without apparent complications. Left Ventricle Normal left ventricular cavity size. There is mildly increased left ventricular wall thickness. The left ventricular systolic function is normal. The visually estimated ejection fraction is between 55-60%. There is no evidence of regional wall motion abnormalities. Diastolic function is indeterminate on the basis of available data. Right Ventricle Normal right ventricular cavity size. There is mildly decreased right ventricular systolic function. Atria The left atrium is mildly dilated. The right atrium is normal in size. Aortic Valve There is a normal trileaflet aortic valve. There is no aortic valve stenosis. There is no aortic valve regurgitation. Mitral Valve The mitral valve appears normal. There is trace mitral valve regurgitation. There is no mitral valve stenosis. Pulmonic Valve The pulmonic valve is likely normal. Tricuspid Valve There is trace tricuspid valve regurgitation. There is no evidence of pulmonary hypertension. Great Vessels The asc aorta is normal in size. Venous The inferior vena cava was not well visualized. The inferior vena cava is normal in size. Pericardium/Pleural There is no evidence of pericardial effusion. Prior Study Comparison No prior study available for comparison. Recommendations, Care & Conclusions No obvious valvular pathology seen on this study. Measurements 2D Linear Measurements IVSd: 1.21 0.6-0.9/0.6-1.0 cm LVIDd: 4.63 3.9-5.3/4.2-5.9 cm LVIDd Index: 1.98 2.4-3.2/2.2-3.1 cm/m2 LVIDs: 3.07 2.0-3.6 cm LVPWd: 1.16 0.7-1.1 cm LA Diam: 4.30 2.7-3.8/3.0-4.0 cm LAIDs Index: 1.84 1.5-2.3 cm/m2 LV Mass: 253.50 67-162/88-224 g LV Mass Index: 108.33 43-95/49-115 g/m2 LVOT Diam: 2.10 3.0+(-)1.3 cm 2D Systolic Function EF 4C: 49.80 >55% EF 2C: 66.20 >55% EF BiP: 58.10 >55% Mitral Valve MV Pk E: 0.88 MV Decel Time: 154.00 E'Lateral: 13.10 E'Medial: 9.46 E/E' Med: 9.30 E/E' Lat: 6.70 PHT: 45.00 MVA PHT: 4.89 Decel Glenn: 5.81 Aortic Valve AoV Pk Lucas: 1.19 AoV Mn Lucas: 0.92 AoV VTI: 0.20 AoV Pk Grad: 6.00 Aov Mn Grad: 4.00 JIM Cont.VTI: 2.05 LVOT LVOT Pk Lucas: 0.70 LVOT Mn Lucas: 0.51 LVOT VTI: 0.12 LVOT Pk Grad: 2.00 LVOT Mn Grad: 1.00 LVOT Diam: 2.10 LVOT Area: 3.46 Diastolic Function MV Pk E: 0.88 E'Medial: 9.46 E/E' Med: 9.30 E' Laterial: 13.10 E/E' Lat: 6.70 Right Ventricle TAPSE (mm): 13.50 TVS' Lucas: 10.00 Tricuspid Valve TR Pk Lucas: 1.72 TR Pk Grad: 12.00 Great Vessels Aorta Sinus of Valsalva: 4.20 2.0-3.5 cm Ao Asc: 3.60 2.1-3.4 cm Pulmonary Valve PV Pk Lucas: 0.69 Peak PV Grad: 2.00 Updated in Other Vendor System with Status of Final Zack Castillo MD electronically signed on 11/04/2022 3:13:07 PM with status of Final
[2022-11-04 07:08] LABS: Hematocrit 42.3 % (42.0-52.0); Hemoglobin 14.5 g/dl (14.0-18.0); Mean Corpuscular HGB Conc 34.3 g/dl (31.0-36.0); Mean Corpuscular Hemoglobin 30.8 pg (27.0-33.0); Mean Corpuscular Volume 89.8 fL (80.0-98.0); Mean Platelet Volume 12.3 fL (9.4-12.4); Red Blood Count 4.71 X10*6/uL (4.60-5.80); Red Cell Distribution Width 13.6 % (11.0-16.0)
[2022-11-04 07:19] LABS: Platelet Count 91 X10*3/uL (160-400)
[2022-11-04 07:29] LABS: B Type Natriuretic Peptide 260 pg/mL (<100); Troponin-I High Sensitivity 85.2 ng/L (<3.5-35.0)
[2022-11-04 07:43] LABS: Alanine Aminotransferase 87 U/L (0-40); Albumin Level 2.9 g/dL (3.5-5.0); Alkaline Phosphatase 41 U/L (39-117); Anion Gap 15 (12-20); Aspartate Amino Transferase 257 U/L (5-37); Bilirubin Direct 0.6 mg/dL (0.0-0.5); Bilirubin Total 1.4 mg/dL (0.0-1.0); Blood Urea Nitrogen 76 mg/dL (9-16); Calcium 8.3 mg/dL (8.4-10.2); Carbon Dioxide 17 mmol/L (22-29); Chloride 111 mmol/L (96-108); Creatinine Clr Calc Pharmacy 22.5; Estimated Glomerular Filt Rate 15; Glucose Random 118 mg/dL (60-115); Potassium 3.9 mmol/L (3.3-5.1); Sodium 139 mmol/L (135-145); Total Protein 5.8 g/dL (6.5-8.0)
[2022-11-04 08:42] LABS: Magnesium 1.9 mg/dL (1.6-2.6)
[2022-11-04 08:43] LABS: Band Neutrophils Percent 22 % (3-5); Lymphocytes Absolute Manual 0.4 X10*3/uL (1.2-4.9); Lymphocytes Percent Manual 4 % (20-40); Monocytes Absolute Manual 0.7 X10*3/uL (0.1-1.2); Monocytes Percent Manual 7 % (2-11); Neutrophils Absolute Manual 8.9 X10*3/uL (2.0-8.3); Neutrophils Percent Manual 67 % (45-73)
[2022-11-04 08:44] LABS: Burr Cells 1+ (0-2) /OIF; Platelet Estimate DECREASED (NORMAL); Platelet Morphology Comment NORMAL; RBC Morphology NOTED
[2022-11-04 08:45] LABS: Dohle Bodies PRESENT
--- NOTE | 2022-11-04 08:55 | MHC.CM.PN ---
CM met with Patient at bedside. Patient lives alone in an apartment and uses a cane to assist with mobility. Patient has a visiting technical sales advisor/Joan Salguero (once/month)and a Therapist in [facility]; home/resume said services is the goal and CM has initiated and will follow for dc planning.Patient has received Pfizer/CovPBC Lasers vax x4 and his PCP/PA is Kinza Fierro.
[2022-11-04] MEDS: lamoTRIgine 25 MG TABLET 50 MG PO (08:57)
[2022-11-04] MEDS: 0.9 % Sodium Chloride Flush 3 ML SYRINGE IVFLUSH ×2 (08:57→20:00)
[2022-11-04] MEDS: dilTIAZem HCL 125 MG in 0.9 % Sodium Chloride 100 ML 10 MG IVCONT (09:03)
--- NOTE | 2022-11-04 09:10 | PHA.PROG ---
Admission Date/Time: November 03, 2022 21:46 Indication: BACTEREMIA Weight in k kg Adjusted body weight in Kg: [place] body weight in Kg: Obesity Dosing Indication % IBW: Serum Creatinine - Last 168 Hours 11/03/22 11/04/22 19:30 06:30 Creatinine 3.51 H 4.00 H* Estimated CrCl and GFR - Last 168 Hours 11/03/22 11/04/22 19:30 06:30 Estim Creat Clear Calc 25.5 22.5 Estimated GFR 17 15 Vancomycin Loading Dose: 1500 MG Current Vancomycin Dosing Regimen: 500 MG Q24H Vancomycin Monitoring using AUC goal of 400 - 600 range with trough as surrogate marker: AUC 512, TROUGH 17.8 Date and Time for next Vancomycin Level to be drawn 11/06 @0800: Pharmacist Comments on Vancomycin Plan: Vancomycin dosing will take advantage of [employer] as a clinical decision support tool that uses Bayesian modeling to calculate individual patient's pharmacokinetic parameters and forecast the patient's drug concentration time course with the target goal AUC 24 range of 400 - 600 mg/L/hr.
--- NOTE | 2022-11-04 09:38 | P.CONCA_ITS ---
History of Present Illness History of Present Illness Date of Service: 11/04/22 Chief complaint: Altered menation Narrative: This is a cardiology consultation regarding atrial fibrillation. Seen and examined patient and also reviewed the documentation. Patient listed to have bipolar disorder, borderline hypertension. Apparently he has been feeling very weak and somehow went down on the floor. He thinks he probably fell. However, could not get up. Then remained on the floor for a few hours. Then a friend arrived and it seems that patient was then discovered leading to being brought up to the ER and admitted. In this context, found to be in atrial fibrillation rapid rate. Patient himself does not feel any clear palpitations. He denies any previous history of cardiac problems like coronary disease myocardial infarction. Main complaint is just generally weak and tired. Review of Systems Review of Systems: Yes all other systems are reviewed and are negative Constitutional: Constitutional: Reports as per HPI, Reports no additional c onstitutional complaints, Reports fatigue and Reports lethargy Eyes: Eyes: Reports as per HPI and Denies no additional eye complaints ENT: Denies system reviewed and no additional complaints, except as documented and Reports as per HPI Cardiovascular: Cardiovascular: Reports as per HPI, Reports no additional cardiovascular complaints, Denies acrocyanosis, Denies cool extremities, Denies chest pain, Denies leg edema, Denies lightheadedness, Denies palpitations and Denies dyspnea Respiratory: Respiratory: Reports as per HPI, Denies no additional respiratory complaints and Denies dyspnea Gastrointestinal: Gastrointestinal: Reports as per HPI and Denies no additional gastrointestinal complaints Genitourinary: Genitourinary: Reports no additional male genitourinary complaints and Reports as per HPI Musculoskeletal: Musculoskeletal: Reports no additional musculoskeletal complaints and Reports as per HPI Integumentary/Breasts: Skin/Breast: Reports system reviewed and no additional complaints, except as docu Neurologic: Reports system reviewed and no additional complaints, except as documented and Reports as per HPI Psychiatric: Psychiatric: Reports no additional psychiatric complaints and Reports as per HPI Endocrine: Endocrine: Reports no additional endocrine complaints, Reports as per HPI, Reports fatigue and Denies palpitations Hematologic/Lymphatic: Hematologic/Lymphatic: Reports no additional hematologic/lymphatic complaints and Reports as per HPI Allergic/Immunologic: Allergic/Immunologic: Reports no additional allergic/i mmunologic complaints and Reports as per HPI [facility] Past Medical History Medical History Bipolar II disorder major depressive with melancholic features BPH (benign prostatic hyperplasia) HTN (hypertension) Lacunar infarction Family History Pertinent family history: No significant family history pertinent to the current admission. Surgical History Surgical History History of hernia repair Social History Social History Household Members: None Housing: Apartment Do you presently have visiting nurse or other home services: Yes Alcohol intake: never Patient Tobacco Use Status: Never used Tobacco Smoked in Last 30 Days: No e-Cigarette/Vaping Use: Never Used Second Hand Smoke Exposure: No Use of substances other than those prescribed or required for medical reasons: No Have you been hit, kicked, punched, or otherwise hurt by someone within the past year? If so, by whom?: No Do you feel safe in your current relationship?: No Current Relationship Is there a partner from a previous relationship who is making you feel unsafe no w?: No Are you made to feel afraid or neglected: No Advance Directives: No Advance Directives Information Provided: Yes Do you have thoughts of harming others: None Do you have a plan to hurt others: No Plan Recently lost weight without trying: No Nutrition Risks: No Nutritional Risk service: No Current occupational status: other Sexual orientation: Straight/Heterosexual Meds Allergies Allergy/AdvReac Type Severity Reaction Status Date / Time Penicillins Allergy Unknown Unknown Verified 04/21/22 16:56 Active Medications: Current Medications Acetaminophen (Acetaminophen 325 Mg Tablet) 650 mg PO Q6H PRN PRN Reason: Pain, Mild (Pain Scale 1-3) Sodium Chloride (Ns) 1,000 mls @ 150 mls/hr IVCONT .Q6H40M EFFIE Last Infusion: 11/04/22 09:29 Dose: 150 mls/hr Ceftriaxone Sodium 1 gm/ (Sodium Chloride) 50 mls @ 100 mls/hr IV Q24H EFFIE Diltiazem HCl 125 mg/ Sodium (Chloride) 125 mls @ 0 mls/hr IVCONT .Q0M EFFIE; Protocol Last Admin: 11/04/22 09:03 Dose: 10 mg/hr, 10 mls/hr Vancomycin HCl 1,500 mg/ (Sodium Chloride) 500 mls @ 333.333 mls/hr IV ONCE ONE Stop: 11/04/22 11:29 Vancomycin HCl 500 mg/ Sodium (Chloride) 110 mls @ 110 mls/hr IV Q24H [facility] Lamotrigine (Lamotrigine 25 Mg Tablet) 50 mg PO DAILY [facility] Last Admin: 11/04/22 08:57 Dose: 50 mg Levalbuterol HCl (Levalbuterol Hcl 1.25 Mg/3 Ml Vial.Neb) 1.25 mg INHALE Q3H PRN PRN Reason: Wheezing Last Admin: 11/04/22 02:18 Dose: 1.25 mg Melatonin (Melatonin 3 Mg Tablet) 6 mg PO BEDTIME PRN PRN Reason: Insomnia Ondansetron HCl (Ondansetron Hcl 4 Mg/2 Ml Vial) 4 mg IVPUSH Q8H PRN PRN Reason: Nausea and Vomiting Pharmacy Consult (Consult Rx Vancomycin Dosing) 1 each MISCELLANE DAILY PRN PRN Reason: Consult order Sodium Chloride (0.9 % Sodium Chloride Flush 3 Ml Syringe) [facility] Last Admin: 11/04/22 08:57 Dose: 3 ml Home Medications Medication Instructions Recorded Confirmed Last Taken Type lamotrigine 25 mg tablet 50 mg PO DAILY 11/03/22 11/03/22 11/03/22 History venlafaxine 75 mg capsule,extended 225 mg PO DAILY 11/03/22 11/03/22 11/03/22 History release 24 hr Physical Exam Vital Signs: Vital Signs: Last Vital Signs Temp 98.2 F 11/04/22 07:34 Pulse 104 H 11/04/22 07:34 Resp 20 11/04/22 07:34 BP 97/67 11/04/22 07:34 Pulse Ox 91 L 11/04/22 07:34 O2 Del Method Room Air 11/04/22 07:34 BMI result Body Mass Index 37.6 Const: General: comfortable and no acute distress Orientation/consciousness: patient oriented x3 HEENT: Other: Unremarkable Head: Yes normal to inspection Neck: Neck: Yes normal visual inspection Chest: Chest palpation & inspection: normal inspection of the chest Resp: Auscultation: rales Cardio: Palpation: normal PMI Heart sounds: S1 normal heart sound present, S2 normal heart sound present, no gallops, no murmurs and no rubs GI: Palpation (GI): Soft to palpation Back/Spine/Pelvis: Other: unremarkable Skin: General skin exam: no rashes or lesions noted Neuro: General: patient oriented x3 Extrem: General: Yes normal to inspection Psych: Mental Status: mental status grossly normal Objective Labs and Meds 11/04/22 06:30 11/04/22 06:30 Lab results: Laboratory Results - last 24 hr 11/03/22 11/03/22 11/03/22 19:18 19:19 19:30 WBC 8.7 RBC 4.81 Hgb 15.2 Hct 43.8 MCV 91.1 MCH 31.6 MCHC 34.7 RDW 13.3 Plt Count 93 L D MPV 11.3 Immature Gran % (Auto) Cancelled Neut % (Auto) Cancelled Lymph % (Auto) Cancelled [place] % (Auto) Cancelled Eos % (Auto) Cancelled Baso % (Auto) Cancelled Lymph # (Auto) Cancelled [place] # (Auto) Cancelled Eos # (Auto) Cancelled Baso # (Auto) Cancelled Abs Immat Gran (auto) Cancelled Absolute Neuts (auto) Cancelled Absolute Nucleated RBC 0.000 Nucleated RBC % (auto) 0.0 Neutrophils % (Manual) 77 H Band Neutrophils % 16 H Lymphocytes % (Manual) 4 L Monocytes % (Manual) 3 Abs Neuts (Manual) 8.1 Lymphocytes # (Manual) 0.3 L Monocytes # (Manual) 0.3 Toxic Vacuolation PRESENT Dohle Bodies Platelet Estimate DECREASED Plt Morphology Comment NOTED RBC Morphology NOTED [place] Cells Acanthocytes (Spur) 1+ (0-2) PT Whole Blood PT 11.8 INR Whole Blood INR 1.0 APTT Sodium Potassium Chloride Carbon Dioxide Anion Gap BUN Creatinine Estim Creat Clear Calc Estimated GFR POC Glucose 112 Random Glucose Lactic Acid Calcium Magnesium Total Bilirubin Direct Bilirubin AST ALT Alkaline Phosphatase Total Creatine Kinase Troponin I High Sens B-Natriuretic Peptide Total Protein Albumin Lipase TSH Urine Color Urine Appearance Urine pH Ur Specific [place] Urine Protein Urine Glucose (UA) Urine Ketones Urine Blood Urine Nitrite Ur Leukocyte Esterase Urine RBC Urine WBC Ur Squamous Epith Cells Urine Bacteria Hyaline Casts Urine Opiates Screen Urine Fentanyl Screen Ur Barbiturates Screen Ur Phencyclidine Scrn Ur Amphetamines Screen U Benzodiazepines Scrn Urine Cocaine Screen U Marijuana (THC) Screen Ethyl Alcohol 11/03/22 11/03/22 11/03/22 19:30 19:30 19:30 WBC RBC Hgb Hct MCV MCH MCHC RDW Plt Count MPV Immature Gran % (Auto) Neut % (Auto) Lymph % (Auto) [place] % (Auto) Eos % (Auto) Baso % (Auto) Lymph # (Auto) Mill[place] # (Auto) Eos # (Auto) Baso # (Auto) Abs Immat Gran (auto) Absolute Neuts (auto) Absolute Nucleated RBC Nucleated RBC % (auto) Neutrophils % (Manual) Band Neutrophils % Lymphocytes % (Manual) Monocytes % (Manual) Abs Neuts (Manual) Lymphocytes # (Manual) Monocytes # (Manual) Toxic Vacuolation Dohle Bodies Platelet Estimate Plt Morphology Comment RBC Morphology Chyna Cells Acanthocytes (Spur) PT 11.4 Whole Blood PT INR 1.0 Whole Blood INR APTT 26.8 Sodium 136 Potassium 3.1 L D Chloride 109 H Carbon Dioxide 15 L Anion Gap 15 BUN 70 H Creatinine 3.51 H Estim Creat Clear Calc 25.5 Estimated GFR 17 POC Glucose Random Glucose 89 Lactic Acid Calcium 8.6 D Magnesium 2.1 Total Bilirubin 1.6 H Direct Bilirubin 0.6 H AST 303 H ALT 87 H Alkaline Phosphatase 43 Total Creatine Kinase 41298 H Troponin I High Sens 103.8 H* B-Natriuretic Peptide Total Protein 5.9 L Albumin 3.0 L Lipase 13 TSH 1.14 Urine Color Urine Appearance Urine pH Ur Specific [place] Urine Protein Urine Glucose (UA) Urine Ketones Urine Blood Urine Nitrite Ur Leukocyte Esterase Urine RBC Urine WBC Ur Squamous Epith Cells Urine Bacteria Hyaline Casts Urine Opiates Screen Urine Fentanyl Screen Ur Barbiturates Screen Ur Phencyclidine Scrn Ur Amphetamines Screen U Benzodiazepines Scrn Urine Cocaine Screen U Marijuana (THC) Screen Ethyl Alcohol < 10 11/03/22 11/03/22 11/03/22 19:30 19:30 22:22 WBC RBC Hgb Hct MCV MCH MCHC RDW Plt Count MPV Immature Gran % (Auto) Neut % (Auto) Lymph % (Auto) [place] % (Auto) Eos % (Auto) Baso % (Auto) Lymph # (Auto) Millard # (Auto) Eos # (Auto) Baso # (Auto) Abs Immat Gran (auto) Absolute Neuts (auto) Absolute Nucleated RBC Nucleated RBC % (auto) Neutrophils % (Manual) Band Neutrophils % Lymphocytes % (Manual) Monocytes % (Manual) Abs Neuts (Manual) Lymphocytes # (Manual) Monocytes # (Manual) Toxic Vacuolation Dohle Bodies Platelet Estimate Plt Morphology Comment RBC Morphology [place] Cells Acanthocytes (Spur) PT Whole Blood PT INR Whole Blood INR APTT Sodium Potassium Chloride Carbon Dioxide Anion Gap BUN Creatinine Estim Creat Clear Calc Estimated GFR POC Glucose Random Glucose Lactic Acid 1.7 Calcium Magnesium Total Bilirubin Direct Bilirubin AST ALT Alkaline Phosphatase Total Creatine Kinase Troponin I High Sens B-Natriuretic Peptide 191 H Total Protein Albumin Lipase TSH Urine Color Dark Yellow Urine Appearance Turbid Urine pH 5.5 Ur Specific [place] >= 1.030 H Urine Protein 100 (2+) H Urine Glucose (UA) Negative Urine Ketones Trace Urine Blood Large (3+) H Urine Nitrite Negative Ur Leukocyte Esterase Moderate (2+) H Urine RBC >20 H Urine WBC 21-50 H Ur Squamous Epith Cells 11-20 Urine Bacteria 1+ Hyaline Casts >20 Urine Opiates Screen Urine Fentanyl Screen Ur Barbiturates Screen Ur Phencyclidine Scrn Ur Amphetamines Screen U Benzodiazepines Scrn Urine Cocaine Screen U Marijuana (THC) Screen Ethyl Alcohol 11/03/22 11/03/22 11/04/22 22:22 22:25 03:20 WBC RBC Hgb Hct MCV MCH MCHC RDW Plt Count MPV Immature Gran % (Auto) Neut % (Auto) Lymph % (Auto) [place] % (Auto) Eos % (Auto) Baso % (Auto) Lymph # (Auto) Mill[place] # (Auto) Eos # (Auto) Baso # (Auto) Abs Immat Gran (auto) Absolute Neuts (auto) Absolute Nucleated RBC Nucleated RBC % (auto) Neutrophils % (Manual) Band Neutrophils % Lymphocytes % (Manual) Monocytes % (Manual) Abs Neuts (Manual) Lymphocytes # (Manual) Monocytes # (Manual) Toxic Vacuolation Dohle Bodies Platelet Estimate Plt Morphology Comment RBC Morphology Chyna Cells Acanthocytes (Spur) PT Whole Blood PT INR Whole Blood INR APTT Sodium Potassium Chloride Carbon Dioxide Anion Gap BUN Creatinine Estim Creat Clear Calc Estimated GFR POC Glucose 102 Random Glucose Lactic Acid Calcium Magnesium Total Bilirubin Direct Bilirubin AST ALT Alkaline Phosphatase Total Creatine Kinase Troponin I High Sens 109.3 H* B-Natriuretic Peptide Total Protein Albumin Lipase TSH Urine Color Urine Appearance Urine pH Ur Specific [place] Urine Protein Urine Glucose (UA) Urine Ketones Urine Blood Urine Nitrite Ur Leukocyte Esterase Urine RBC Urine WBC Ur Squamous Epith Cells Urine Bacteria Hyaline Casts Urine Opiates Screen Not Detected Urine Fentanyl Screen Not Detected Ur Barbiturates Screen Not Detected Ur Phencyclidine Scrn Not Detected Ur Amphetamines Screen Not Detected U Benzodiazepines Scrn Not Detected Urine Cocaine Screen Not Detected U Marijuana (THC) Screen Not Detected Ethyl Alcohol 11/04/22 11/04/22 11/04/22 06:30 06:30 06:30 WBC 10.0 RBC 4.71 Hgb 14.5 Hct 42.3 MCV 89.8 MCH 30.8 MCHC 34.3 RDW 13.6 Plt Count 91 L MPV 12.3 Immature Gran % (Auto) Cancelled Neut % (Auto) Cancelled Lymph % (Auto) Cancelled [place] % (Auto) Cancelled Eos % (Auto) Cancelled Baso % (Auto) Cancelled Lymph # (Auto) Cancelled Millard # (Auto) Cancelled Eos # (Auto) Cancelled Baso # (Auto) Cancelled Abs Immat Gran (auto) Cancelled Absolute Neuts (auto) Cancelled Absolute Nucleated RBC 0.000 Nucleated RBC % (auto) 0.0 Neutrophils % (Manual) 67 Band Neutrophils % 22 H Lymphocytes % (Manual) 4 L Monocytes % (Manual) 7 Abs Neuts (Manual) 8.9 H Lymphocytes # (Manual) 0.4 L Monocytes # (Manual) 0.7 Toxic Vacuolation Dohle Bodies PRESENT Platelet Estimate DECREASED Plt Morphology Comment NORMAL RBC Morphology NOTED [place] Cells 1+ (0-2) Acanthocytes (Spur) PT Whole Blood PT INR Whole Blood INR APTT Sodium 139 Potassium 3.9 D Chloride 111 H Carbon Dioxide 17 L Anion Gap 15 BUN 76 H Creatinine 4.00 H* Estim Creat Clear Calc 22.5 Estimated GFR 15 POC Glucose Random Glucose 118 H Lactic Acid Calcium 8.3 L Magnesium 1.9 Total Bilirubin 1.4 H Direct Bilirubin 0.6 H AST 257 H ALT 87 H Alkaline Phosphatase 41 Total Creatine Kinase 7722 H Troponin I High Sens 85.2 H B-Natriuretic Peptide Total Protein 5.8 L Albumin 2.9 L Lipase TSH Urine Color Urine Appearance Urine pH Ur Specific [place] Urine Protein Urine Glucose (UA) Urine Ketones Urine Blood Urine Nitrite Ur Leukocyte Esterase Urine RBC Urine WBC Ur Squamous Epith Cells Urine Bacteria Hyaline Casts Urine Opiates Screen Urine Fentanyl Screen Ur Barbiturates Screen Ur Phencyclidine Scrn Ur Amphetamines Screen U Benzodiazepines Scrn Urine Cocaine Screen U Marijuana (THC) Screen Ethyl Alcohol 11/04/22 06:30 WBC RBC Hgb Hct MCV MCH MCHC RDW Plt Count MPV Immature Gran % (Auto) Neut % (Auto) Lymph % (Auto) [place] % (Auto) Eos % (Auto) Baso % (Auto) Lymph # (Auto) [place] # (Auto) Eos # (Auto) Baso # (Auto) Abs Immat Gran (auto) Absolute Neuts (auto) Absolute Nucleated RBC Nucleated RBC % (auto) Neutrophils % (Manual) Band Neutrophils % Lymphocytes % (Manual) Monocytes % (Manual) Abs Neuts (Manual) Lymphocytes # (Manual) Monocytes # (Manual) Toxic Vacuolation Dohle Bodies Platelet Estimate Plt Morphology Comment RBC Morphology Chyna Cells Acanthocytes (Spur) PT Whole Blood PT INR Whole Blood INR APTT Sodium Potassium Chloride Carbon Dioxide Anion Gap BUN Creatinine Estim Creat Clear Calc Estimated GFR POC Glucose Random Glucose Lactic Acid Calcium Magnesium Total Bilirubin Direct Bilirubin AST ALT Alkaline Phosphatase Total Creatine Kinase Troponin I High Sens B-Natriuretic Peptide 260 H Total Protein Albumin Lipase TSH Urine Color Urine Appearance Urine pH Ur Specific [place] Urine Protein Urine Glucose (UA) Urine Ketones Urine Blood Urine Nitrite Ur Leukocyte Esterase Urine RBC Urine WBC Ur Squamous Epith Cells Urine Bacteria Hyaline Casts Urine Opiates Screen Urine Fentanyl Screen Ur Barbiturates Screen Ur Phencyclidine Scrn Ur Amphetamines Screen U Benzodiazepines Scrn Urine Cocaine Screen U Marijuana (THC) Screen Ethyl Alcohol ECG Interpretation: EKG is baseline artifact. Rate is around 160s. Right bundle-branch block john day. Cannot exclude inferior infarct. On telemetry, rate is lower in the 120s. Imaging Radiologist's impression: Impressions Head CT 11/03/22 18:42 IMPRESSION: Limited exam due to motion artifact. Nonspecific periventricular white matter disease. Question bilateral basal ganglia lacunar infarcts. No old exams available for comparison and these are age indeterminate. This could be better evaluated with MRI if clinically indicated. This critical result was discussed with Dr. Aguillon at 1856 hours on 11/03/2022. It was ascertained that the content and urgency of the report was understood at the time of direct communication. Head/Neck CTA 11/03/22 19:11 IMPRESSION: No arterial high grade stenosis or large vessel occlusion in the head or neck. Above impression was communicated to Dr. Aguillon on 11/03/2022 7:26 PM Chest X-Ray 11/03/22 19:44 IMPRESSION: Low lung volumes. No evidence for acute disease in the chest. Assessment and Plan (1) Atrial fibrillation with RVR: Status: Acute (2) VINEET (acute kidney injury): Status: Acute (3) Rhabdomyolysis: Status: Acute Plan Labs reviewed. Markedly high creatinine kinase. Slight increase in high sensitivity troponin. Cardiac BNP slightly high. Overall, rhabdomyolysis possibly triggering renal failure as well as atrial fibrillation rapid rate. It is also possible that he had atrial fibrillation leading to weakness but not clear. We can start him on some metoprolol 25 mg Q 6 hourly PO. Start anticoagulation with Eliquis. Once rates are improved, we can get an echocardiogram. IV fluid hydration. Follow up with you. Discussed with Dr. Puckett. Time Spent With Patient Time: Total time managing care of this patient today ____ minutes. Procedures Date of Service Date of Service: 11/04/22
--- NOTE | 2022-11-04 10:25 | PM.PNNEP ---
Subjective Subjective Date of Service: 11/04/22 Principal diagnosis: VINEET Interval history: Full Renal Consult Dictated VINEET with Rhabdo and GPC bacteremia in psych PT ? on [place] REC: stat Li level ordered other recs as noted in dictaion and orders will follow manda with team Physical Exam Vital Signs: Vital Signs: Last Vital Signs Temp 98.2 F 11/04/22 07:34 Pulse 104 H 11/04/22 07:34 Resp 20 11/04/22 07:34 BP 97/67 11/04/22 07:34 Pulse Ox 91 L 11/04/22 07:34 O2 Del Method Room Air 11/04/22 07:34 BMI result Body Mass Index 37.6 Objective Data Labs 11/04/22 06:30 11/04/22 06:30 Labs: Laboratory Results - last 24 hr 11/03/22 11/03/22 11/03/22 19:18 19:19 19:30 WBC 8.7 RBC 4.81 Hgb 15.2 Hct 43.8 MCV 91.1 MCH 31.6 MCHC 34.7 RDW 13.3 Plt Count 93 L D MPV 11.3 Immature Gran % (Auto) Cancelled Neut % (Auto) Cancelled Lymph % (Auto) Cancelled [place] % (Auto) Cancelled Eos % (Auto) Cancelled Baso % (Auto) Cancelled Lymph # (Auto) Cancelled [place] # (Auto) Cancelled Eos # (Auto) Cancelled Baso # (Auto) Cancelled Abs Immat Gran (auto) Cancelled Absolute Neuts (auto) Cancelled Absolute Nucleated RBC 0.000 Nucleated RBC % (auto) 0.0 Neutrophils % (Manual) 77 H Band Neutrophils % 16 H Lymphocytes % (Manual) 4 L Monocytes % (Manual) 3 Abs Neuts (Manual) 8.1 Lymphocytes # (Manual) 0.3 L Monocytes # (Manual) 0.3 Toxic Vacuolation PRESENT Dohle Bodies Platelet Estimate DECREASED Plt Morphology Comment NOTED RBC Morphology NOTED [place] Cells Acanthocytes (Spur) 1+ (0-2) PT Whole Blood PT 11.8 INR Whole Blood INR 1.0 APTT Sodium Potassium Chloride Carbon Dioxide Anion Gap BUN Creatinine Estim Creat Clear Calc Estimated GFR POC Glucose 112 Random Glucose Lactic Acid Calcium Magnesium Total Bilirubin Direct Bilirubin AST ALT Alkaline Phosphatase Total Creatine Kinase Troponin I High Sens B-Natriuretic Peptide Total Protein Albumin Lipase TSH Urine Color Urine Appearance Urine pH Ur Specific [place] Urine Protein Urine Glucose (UA) Urine Ketones Urine Blood Urine Nitrite Ur Leukocyte Esterase Urine RBC Urine WBC Ur Squamous Epith Cells Urine Bacteria Hyaline Casts Urine Opiates Screen Urine Fentanyl Screen Ur Barbiturates Screen Ur Phencyclidine Scrn Ur Amphetamines Screen U Benzodiazepines Scrn Urine Cocaine Screen U Marijuana (THC) Screen Ethyl Alcohol 11/03/22 11/03/22 11/03/22 19:30 19:30 19:30 WBC RBC Hgb Hct MCV MCH MCHC RDW Plt Count MPV Immature Gran % (Auto) Neut % (Auto) Lymph % (Auto) [place] % (Auto) Eos % (Auto) Baso % (Auto) Lymph # (Auto) [place] # (Auto) Eos # (Auto) Baso # (Auto) Abs Immat Gran (auto) Absolute Neuts (auto) Absolute Nucleated RBC Nucleated RBC % (auto) Neutrophils % (Manual) Band Neutrophils % Lymphocytes % (Manual) Monocytes % (Manual) Abs Neuts (Manual) Lymphocytes # (Manual) Monocytes # (Manual) Toxic Vacuolation Dohle Bodies Platelet Estimate Plt Morphology Comment RBC Morphology [place] Cells Acanthocytes (Spur) PT 11.4 Whole Blood PT INR 1.0 Whole Blood INR APTT 26.8 Sodium 136 Potassium 3.1 L D Chloride 109 H Carbon Dioxide 15 L Anion Gap 15 BUN 70 H Creatinine 3.51 H Estim Creat Clear Calc 25.5 Estimated GFR 17 POC Glucose Random Glucose 89 Lactic Acid Calcium 8.6 D Magnesium 2.1 Total Bilirubin 1.6 H Direct Bilirubin 0.6 H AST 303 H ALT 87 H Alkaline Phosphatase 43 Total Creatine Kinase 53693 H Troponin I High Sens 103.8 H* B-Natriuretic Peptide Total Protein 5.9 L Albumin 3.0 L Lipase 13 TSH 1.14 Urine Color Urine Appearance Urine pH Ur Specific [place] Urine Protein Urine Glucose (UA) Urine Ketones Urine Blood Urine Nitrite Ur Leukocyte Esterase Urine RBC Urine WBC Ur Squamous Epith Cells Urine Bacteria Hyaline Casts Urine Opiates Screen Urine Fentanyl Screen Ur Barbiturates Screen Ur Phencyclidine Scrn Ur Amphetamines Screen U Benzodiazepines Scrn Urine Cocaine Screen U Marijuana (THC) Screen Ethyl Alcohol < 10 11/03/22 11/03/22 11/03/22 19:30 19:30 22:22 WBC RBC Hgb Hct MCV MCH MCHC RDW Plt Count MPV Immature Gran % (Auto) Neut % (Auto) Lymph % (Auto) [place] % (Auto) Eos % (Auto) Baso % (Auto) Lymph # (Auto) [place] # (Auto) Eos # (Auto) Baso # (Auto) Abs Immat Gran (auto) Absolute Neuts (auto) Absolute Nucleated RBC Nucleated RBC % (auto) Neutrophils % (Manual) Band Neutrophils % Lymphocytes % (Manual) Monocytes % (Manual) Abs Neuts (Manual) Lymphocytes # (Manual) Monocytes # (Manual) Toxic Vacuolation Dohle Bodies Platelet Estimate Plt Morphology Comment RBC Morphology [place] Cells Acanthocytes (Spur) PT Whole Blood PT INR Whole Blood INR APTT Sodium Potassium Chloride Carbon Dioxide Anion Gap BUN Creatinine Estim Creat Clear Calc Estimated GFR POC Glucose Random Glucose Lactic Acid 1.7 Calcium Magnesium Total Bilirubin Direct Bilirubin AST ALT Alkaline Phosphatase Total Creatine Kinase Troponin I High Sens B-Natriuretic Peptide 191 H Total Protein Albumin Lipase TSH Urine Color Dark Yellow Urine Appearance Turbid Urine pH 5.5 Ur Specific [place] >= 1.030 H Urine Protein 100 (2+) H Urine Glucose (UA) Negative Urine Ketones Trace Urine Blood Large (3+) H Urine Nitrite Negative Ur Leukocyte Esterase Moderate (2+) H Urine RBC >20 H Urine WBC 21-50 H Ur Squamous Epith Cells 11-20 Urine Bacteria 1+ Hyaline Casts >20 Urine Opiates Screen Urine Fentanyl Screen Ur Barbiturates Screen Ur Phencyclidine Scrn Ur Amphetamines Screen U Benzodiazepines Scrn Urine Cocaine Screen U Marijuana (THC) Screen Ethyl Alcohol 11/03/22 11/03/22 11/04/22 22:22 22:25 03:20 WBC RBC Hgb Hct MCV MCH MCHC RDW Plt Count MPV Immature Gran % (Auto) Neut % (Auto) Lymph % (Auto) [place] % (Auto) Eos % (Auto) Baso % (Auto) Lymph # (Auto) [place] # (Auto) Eos # (Auto) Baso # (Auto) Abs Immat Gran (auto) Absolute Neuts (auto) Absolute Nucleated RBC Nucleated RBC % (auto) Neutrophils % (Manual) Band Neutrophils % Lymphocytes % (Manual) Monocytes % (Manual) Abs Neuts (Manual) Lymphocytes # (Manual) Monocytes # (Manual) Toxic Vacuolation Dohle Bodies Platelet Estimate Plt Morphology Comment RBC Morphology [place] Cells Acanthocytes (Spur) PT Whole Blood PT INR Whole Blood INR APTT Sodium Potassium Chloride Carbon Dioxide Anion Gap BUN Creatinine Estim Creat Clear Calc Estimated GFR POC Glucose 102 Random Glucose Lactic Acid Calcium Magnesium Total Bilirubin Direct Bilirubin AST ALT Alkaline Phosphatase Total Creatine Kinase Troponin I High Sens 109.3 H* B-Natriuretic Peptide Total Protein Albumin Lipase TSH Urine Color Urine Appearance Urine pH Ur Specific [place] Urine Protein Urine Glucose (UA) Urine Ketones Urine Blood Urine Nitrite Ur Leukocyte Esterase Urine RBC Urine WBC Ur Squamous Epith Cells Urine Bacteria Hyaline Casts Urine Opiates Screen Not Detected Urine Fentanyl Screen Not Detected Ur Barbiturates Screen Not Detected Ur Phencyclidine Scrn Not Detected Ur Amphetamines Screen Not Detected U Benzodiazepines Scrn Not Detected Urine Cocaine Screen Not Detected U Marijuana (THC) Screen Not Detected Ethyl Alcohol 11/04/22 11/04/22 11/04/22 06:30 06:30 06:30 WBC 10.0 RBC 4.71 Hgb 14.5 Hct 42.3 MCV 89.8 MCH 30.8 MCHC 34.3 RDW 13.6 Plt Count 91 L MPV 12.3 Immature Gran % (Auto) Cancelled Neut % (Auto) Cancelled Lymph % (Auto) Cancelled [place] % (Auto) Cancelled Eos % (Auto) Cancelled Baso % (Auto) Cancelled Lymph # (Auto) Cancelled [place] # (Auto) Cancelled Eos # (Auto) Cancelled Baso # (Auto) Cancelled Abs Immat Gran (auto) Cancelled Absolute Neuts (auto) Cancelled Absolute Nucleated RBC 0.000 Nucleated RBC % (auto) 0.0 Neutrophils % (Manual) 67 Band Neutrophils % 22 H Lymphocytes % (Manual) 4 L Monocytes % (Manual) 7 Abs Neuts (Manual) 8.9 H Lymphocytes # (Manual) 0.4 L Monocytes # (Manual) 0.7 Toxic Vacuolation Dohle Bodies PRESENT Platelet Estimate DECREASED Plt Morphology Comment NORMAL RBC Morphology NOTED [place] Cells 1+ (0-2) Acanthocytes (Spur) PT Whole Blood PT INR Whole Blood INR APTT Sodium 139 Potassium 3.9 D Chloride 111 H Carbon Dioxide 17 L Anion Gap 15 BUN 76 H Creatinine 4.00 H* Estim Creat Clear Calc 22.5 Estimated GFR 15 POC Glucose Random Glucose 118 H Lactic Acid Calcium 8.3 L Magnesium 1.9 Total Bilirubin 1.4 H Direct Bilirubin 0.6 H AST 257 H ALT 87 H Alkaline Phosphatase 41 Total Creatine Kinase 7722 H Troponin I High Sens 85.2 H B-Natriuretic Peptide Total Protein 5.8 L Albumin 2.9 L Lipase TSH Urine Color Urine Appearance Urine pH Ur Specific [place] Urine Protein Urine Glucose (UA) Urine Ketones Urine Blood Urine Nitrite Ur Leukocyte Esterase Urine RBC Urine WBC Ur Squamous Epith Cells Urine Bacteria Hyaline Casts Urine Opiates Screen Urine Fentanyl Screen Ur Barbiturates Screen Ur Phencyclidine Scrn Ur Amphetamines Screen U Benzodiazepines Scrn Urine Cocaine Screen U Marijuana (THC) Screen Ethyl Alcohol 11/04/22 06:30 WBC RBC Hgb Hct MCV MCH MCHC RDW Plt Count MPV Immature Gran % (Auto) Neut % (Auto) Lymph % (Auto) [place] % (Auto) Eos % (Auto) Baso % (Auto) Lymph # (Auto) [place] # (Auto) Eos # (Auto) Baso # (Auto) Abs Immat Gran (auto) Absolute Neuts (auto) Absolute Nucleated RBC Nucleated RBC % (auto) Neutrophils % (Manual) Band Neutrophils % Lymphocytes % (Manual) Monocytes % (Manual) Abs Neuts (Manual) Lymphocytes # (Manual) Monocytes # (Manual) Toxic Vacuolation Dohle Bodies Platelet Estimate Plt Morphology Comment RBC Morphology [place] Cells Acanthocytes (Spur) PT Whole Blood PT INR Whole Blood INR APTT Sodium Potassium Chloride Carbon Dioxide Anion Gap BUN Creatinine Estim Creat Clear Calc Estimated GFR POC Glucose Random Glucose Lactic Acid Calcium Magnesium Total Bilirubin Direct Bilirubin AST ALT Alkaline Phosphatase Total Creatine Kinase Troponin I High Sens B-Natriuretic Peptide 260 H Total Protein Albumin Lipase TSH Urine Color Urine Appearance Urine pH Ur Specific [place] Urine Protein Urine Glucose (UA) Urine Ketones Urine Blood Urine Nitrite Ur Leukocyte Esterase Urine RBC Urine WBC Ur Squamous Epith Cells Urine Bacteria Hyaline Casts Urine Opiates Screen Urine Fentanyl Screen Ur Barbiturates Screen Ur Phencyclidine Scrn Ur Amphetamines Screen U Benzodiazepines Scrn Urine Cocaine Screen U Marijuana (THC) Screen Ethyl Alcohol Microbiology Microbiology Results: Microbiology 11/03/22 19:31 Blood - Venous Blood Culture - Preliminary Prelim: GPC Gram Stain only 11/03/22 19:30 Blood - Venous Blood Culture - Preliminary Prelim: GPC Gram Stain only Procedures Date of Service Date of Service: 11/04/22 Assessment & Plan Time Spent With Patient Time: Total time managing care of this patient today ____ minutes. Progress Note: Quality Stroke Does the patient have a stroke diagnosis?: No
[2022-11-04] MEDS: vancomycin HCL 1,500 MG in 0.9 % Sodium Chloride 500 ML 333.33 MG IV (11:09)
[2022-11-04 11:40] LABS: Lithium < 0.10 mmol/L (0.60-1.20)
[2022-11-04 11:46] LABS: Lactate Dehydrogenase 405 U/L (118-273)
--- NOTE | 2022-11-04 12:19 | HO.PM.IMPN ---
Subjective Subjective Date of Service: 11/04/22 Interval History: Lives alone Feels weak and short of breath In AF, rate 120s Called by micro: 2 sets of BCx pos for GPCs in clusters <24hr No fever, no prior bacteremia. Review of Systems Review of Systems: Yes all other systems are reviewed and are negative Physical Exam Vital Signs: Vital Signs: Last Vital Signs Temp 99.1 F 11/04/22 11:54 Pulse 101 H 11/04/22 11:54 Resp 20 11/04/22 11:54 BP 97/67 11/04/22 07:34 Pulse Ox 91 L 11/04/22 07:34 O2 Del Method Room Air 11/04/22 07:34 BMI result Body Mass Index 37.6 Gen: in no acute distress, generalized weakness HEENT: sclera anicteric, moist mucus membranes Neck: supple Lungs: clear to auscultation bilaterally Heart: rapid, irrregularly irregular, no murmurs Abd: soft, non-tender, non-distended Ext: no edema Skin: warm/well-perfused Neuro: alert and oriented x3, no focal findings Psych: appropriate affect Objective Data Active Medications Acetaminophen (Acetaminophen 325 Mg Tablet) 650 mg PO Q6H PRN PRN Reason: Pain, Mild (Pain Scale 1-3) Apixaban (Apixaban 5 Mg Tablet) 5 mg PO BID [facility] Sodium Chloride (Ns) 1,000 mls @ 150 mls/hr IVCONT .Q6H40M [facility] Last Admin: 11/04/22 11:10 Dose: Not Given Documented By: TEDDY Non-Admin Reason: previous bag not done Ceftriaxone Sodium 1 gm/ (Sodium Chloride) 50 mls @ 100 mls/hr IV Q24H [facility] Diltiazem HCl 125 mg/ Sodium (Chloride) 125 mls @ 0 mls/hr IVCONT .Q0M [facility]; Protocol Last Admin: 11/04/22 09:03 Dose: 10 mg/hr, 10 mls/hr Documented By: TEDDY Vancomycin HCl 500 mg/ Sodium (Chloride) 110 mls @ 110 mls/hr IV Q24H [facility] Lamotrigine (Lamotrigine 25 Mg Tablet) 50 mg PO DAILY [facility] Last Admin: 11/04/22 08:57 Dose: 50 mg Documented By: TEDDY Levalbuterol HCl (Levalbuterol Hcl 1.25 Mg/3 Ml Vial.Neb) 1.25 mg INHALE Q3H PRN PRN Reason: Wheezing Last Admin: 11/04/22 02:18 Dose: 1.25 mg Documented By: SAMMI Melatonin (Melatonin 3 Mg Tablet) 6 mg PO BEDTIME PRN PRN Reason: Insomnia Metoprolol Tartrate (Metoprolol Tartrate 25 Mg Tablet) 25 mg PO QID [facility]; Protocol Ondansetron HCl (Ondansetron Hcl 4 Mg/2 Ml Vial) 4 mg IVPUSH Q8H PRN PRN Reason: Nausea and Vomiting Pharmacy Consult (Consult Rx Vancomycin Dosing) 1 each MISCELLANE DAILY PRN PRN Reason: Consult order Sodium Chloride (0.9 % Sodium Chloride Flush 3 Ml Syringe) 3 ml IVFLUSH QSHIFT [facility] Last Admin: 11/04/22 08:57 Dose: 3 ml Documented By: CTORRZ Labs 11/04/22 06:30 11/04/22 06:30 Labs: Laboratory Results - last 24 hr 11/03/22 11/03/22 11/03/22 19:18 19:19 19:30 MCV 91.1 MCH 31.6 MCHC 34.7 RDW 13.3 Plt Count 93 L D MPV 11.3 Immature Gran % (Auto) Cancelled Neut % (Auto) Cancelled Lymph % (Auto) Cancelled Hardy % (Auto) Cancelled Eos % (Auto) Cancelled Baso % (Auto) Cancelled Lymph # (Auto) Cancelled Hardy # (Auto) Cancelled Eos # (Auto) Cancelled Baso # (Auto) Cancelled Abs Immat Gran (auto) Cancelled Absolute Neuts (auto) Cancelled Absolute Nucleated RBC 0.000 Nucleated RBC % (auto) 0.0 Neutrophils % (Manual) 77 H Band Neutrophils % 16 H Lymphocytes % (Manual) 4 L Monocytes % (Manual) 3 Abs Neuts (Manual) 8.1 Lymphocytes # (Manual) 0.3 L Monocytes # (Manual) 0.3 Toxic Vacuolation PRESENT Dohle Bodies Platelet Estimate DECREASED Plt Morphology Comment NOTED RBC Morphology NOTED Chyna Cells Acanthocytes (Spur) 1+ (0-2) PT Whole Blood PT 11.8 INR Whole Blood INR 1.0 APTT Anion Gap Estim Creat Clear Calc Estimated GFR POC Glucose 112 Random Glucose Lactic Acid Calcium Magnesium Total Bilirubin Direct Bilirubin AST ALT Alkaline Phosphatase Lactate Dehydrogenase Total Creatine Kinase Troponin I High Sens B-Natriuretic Peptide Total Protein Albumin Lipase TSH Urine Color Urine Appearance Urine pH Ur Specific [place] Urine Protein Urine Glucose (UA) Urine Ketones Urine Blood Urine Nitrite Ur Leukocyte Esterase Urine RBC Urine WBC Ur Squamous Epith Cells Urine Bacteria Hyaline Casts Urine Opiates Screen Urine Fentanyl Screen Ur Barbiturates Screen Ur Phencyclidine Scrn Ur Amphetamines Screen U Benzodiazepines Scrn [place] Urine Cocaine Screen U Marijuana (THC) Screen Ethyl Alcohol 11/03/22 11/03/22 11/03/22 19:30 19:30 19:30 MCV MCH MCHC RDW Plt Count MPV Immature Gran % (Auto) Neut % (Auto) Lymph % (Auto) Hardy % (Auto) Eos % (Auto) Baso % (Auto) Lymph # (Auto) Hardy # (Auto) Eos # (Auto) Baso # (Auto) Abs Immat Gran (auto) Absolute Neuts (auto) Absolute Nucleated RBC Nucleated RBC % (auto) Neutrophils % (Manual) Band Neutrophils % Lymphocytes % (Manual) Monocytes % (Manual) Abs Neuts (Manual) Lymphocytes # (Manual) Monocytes # (Manual) Toxic Vacuolation Dohle Bodies Platelet Estimate Plt Morphology Comment RBC Morphology [place] Cells Acanthocytes (Spur) PT 11.4 Whole Blood PT INR 1.0 Whole Blood INR APTT 26.8 Anion Gap 15 Estim Creat Clear Calc 25.5 Estimated GFR 17 POC Glucose Random Glucose 89 Lactic Acid Calcium 8.6 D Magnesium 2.1 Total Bilirubin 1.6 H Direct Bilirubin 0.6 H AST 303 H ALT 87 H Alkaline Phosphatase 43 Lactate Dehydrogenase Total Creatine Kinase 29094 H Troponin I High Sens 103.8 H* B-Natriuretic Peptide Total Protein 5.9 L Albumin 3.0 L Lipase 13 TSH 1.14 Urine Color Urine Appearance Urine pH Ur Specific [place] Urine Protein Urine Glucose (UA) Urine Ketones Urine Blood Urine Nitrite Ur Leukocyte Esterase Urine RBC Urine WBC Ur Squamous Epith Cells Urine Bacteria Hyaline Casts Urine Opiates Screen Urine Fentanyl Screen Ur Barbiturates Screen Ur Phencyclidine Scrn Ur Amphetamines Screen U Benzodiazepines Scrn [place] Urine Cocaine Screen U Marijuana (THC) Screen Ethyl Alcohol < 10 11/03/22 11/03/22 11/03/22 19:30 19:30 22:22 MCV MCH MCHC RDW Plt Count MPV Immature Gran % (Auto) Neut % (Auto) Lymph % (Auto) Hardy % (Auto) Eos % (Auto) Baso % (Auto) Lymph # (Auto) Hardy # (Auto) Eos # (Auto) Baso # (Auto) Abs Immat Gran (auto) Absolute Neuts (auto) Absolute Nucleated RBC Nucleated RBC % (auto) Neutrophils % (Manual) Band Neutrophils % Lymphocytes % (Manual) Monocytes % (Manual) Abs Neuts (Manual) Lymphocytes # (Manual) Monocytes # (Manual) Toxic Vacuolation Dohle Bodies Platelet Estimate Plt Morphology Comment RBC Morphology Chyna Cells Acanthocytes (Spur) PT Whole Blood PT INR Whole Blood INR APTT Anion Gap Estim Creat Clear Calc Estimated GFR POC Glucose Random Glucose Lactic Acid 1.7 Calcium Magnesium Total Bilirubin Direct Bilirubin AST ALT Alkaline Phosphatase Lactate Dehydrogenase Total Creatine Kinase Troponin I High Sens B-Natriuretic Peptide 191 H Total Protein Albumin Lipase TSH Urine Color Dark Yellow Urine Appearance Turbid Urine pH 5.5 Ur Specific [place] >= 1.030 H Urine Protein 100 (2+) H Urine Glucose (UA) Negative Urine Ketones Trace Urine Blood Large (3+) H Urine Nitrite Negative Ur Leukocyte Esterase Moderate (2+) H Urine RBC >20 H Urine WBC 21-50 H Ur Squamous Epith Cells 11-20 Urine Bacteria 1+ Hyaline Casts >20 Urine Opiates Screen Urine Fentanyl Screen Ur Barbiturates Screen Ur Phencyclidine Scrn Ur Amphetamines Screen U Benzodiazepines Scrn [place] Urine Cocaine Screen U Marijuana (THC) Screen Ethyl Alcohol 11/03/22 11/03/22 11/04/22 22:22 22:25 03:20 MCV MCH MCHC RDW Plt Count MPV Immature Gran % (Auto) Neut % (Auto) Lymph % (Auto) Hardy % (Auto) Eos % (Auto) Baso % (Auto) Lymph # (Auto) Hardy # (Auto) Eos # (Auto) Baso # (Auto) Abs Immat Gran (auto) Absolute Neuts (auto) Absolute Nucleated RBC Nucleated RBC % (auto) Neutrophils % (Manual) Band Neutrophils % Lymphocytes % (Manual) Monocytes % (Manual) Abs Neuts (Manual) Lymphocytes # (Manual) Monocytes # (Manual) Toxic Vacuolation Dohle Bodies Platelet Estimate Plt Morphology Comment RBC Morphology [place] Cells Acanthocytes (Spur) PT Whole Blood PT INR Whole Blood INR APTT Anion Gap Estim Creat Clear Calc Estimated GFR POC Glucose 102 Random Glucose Lactic Acid Calcium Magnesium Total Bilirubin Direct Bilirubin AST ALT Alkaline Phosphatase Lactate Dehydrogenase Total Creatine Kinase Troponin I High Sens 109.3 H* B-Natriuretic Peptide Total Protein Albumin Lipase TSH Urine Color Urine Appearance Urine pH Ur Specific [place] Urine Protein Urine Glucose (UA) Urine Ketones Urine Blood Urine Nitrite Ur Leukocyte Esterase Urine RBC Urine WBC Ur Squamous Epith Cells Urine Bacteria Hyaline Casts Urine Opiates Screen Not Detected Urine Fentanyl Screen Not Detected Ur Barbiturates Screen Not Detected Ur Phencyclidine Scrn Not Detected Ur Amphetamines Screen Not Detected U Benzodiazepines Scrn Not Detected [place] Urine Cocaine Screen Not Detected U Marijuana (THC) Screen Not Detected Ethyl Alcohol 11/04/22 11/04/22 11/04/22 06:30 06:30 06:30 MCV 89.8 MCH 30.8 MCHC 34.3 RDW 13.6 Plt Count 91 L MPV 12.3 Immature Gran % (Auto) Cancelled Neut % (Auto) Cancelled Lymph % (Auto) Cancelled Hardy % (Auto) Cancelled Eos % (Auto) Cancelled Baso % (Auto) Cancelled Lymph # (Auto) Cancelled Hardy # (Auto) Cancelled Eos # (Auto) Cancelled Baso # (Auto) Cancelled Abs Immat Gran (auto) Cancelled Absolute Neuts (auto) Cancelled Absolute Nucleated RBC 0.000 Nucleated RBC % (auto) 0.0 Neutrophils % (Manual) 67 Band Neutrophils % 22 H Lymphocytes % (Manual) 4 L Monocytes % (Manual) 7 Abs Neuts (Manual) 8.9 H Lymphocytes # (Manual) 0.4 L Monocytes # (Manual) 0.7 Toxic Vacuolation Dohle Bodies PRESENT Platelet Estimate DECREASED Plt Morphology Comment NORMAL RBC Morphology NOTED Chyna Cells 1+ (0-2) Acanthocytes (Spur) PT Whole Blood PT INR Whole Blood INR APTT Anion Gap 15 Estim Creat Clear Calc 22.5 Estimated GFR 15 POC Glucose Random Glucose 118 H Lactic Acid Calcium 8.3 L Magnesium 1.9 Total Bilirubin 1.4 H Direct Bilirubin 0.6 H AST 257 H ALT 87 H Alkaline Phosphatase 41 Lactate Dehydrogenase Total Creatine Kinase 7722 H Troponin I High Sens 85.2 H B-Natriuretic Peptide Total Protein 5.8 L Albumin 2.9 L Lipase TSH Urine Color Urine Appearance Urine pH Ur Specific [place] Urine Protein Urine Glucose (UA) Urine Ketones Urine Blood Urine Nitrite Ur Leukocyte Esterase Urine RBC Urine WBC Ur Squamous Epith Cells Urine Bacteria Hyaline Casts Urine Opiates Screen Urine Fentanyl Screen Ur Barbiturates Screen Ur Phencyclidine Scrn Ur Amphetamines Screen U Benzodiazepines Scrn [place] Urine Cocaine Screen U Marijuana (THC) Screen Ethyl Alcohol 11/04/22 11/04/22 11/04/22 06:30 10:55 10:55 MCV MCH MCHC RDW Plt Count MPV Immature Gran % (Auto) Neut % (Auto) Lymph % (Auto) Hardy % (Auto) Eos % (Auto) Baso % (Auto) Lymph # (Auto) Hardy # (Auto) Eos # (Auto) Baso # (Auto) Abs Immat Gran (auto) Absolute Neuts (auto) Absolute Nucleated RBC Nucleated RBC % (auto) Neutrophils % (Manual) Band Neutrophils % Lymphocytes % (Manual) Monocytes % (Manual) Abs Neuts (Manual) Lymphocytes # (Manual) Monocytes # (Manual) Toxic Vacuolation Dohle Bodies Platelet Estimate Plt Morphology Comment RBC Morphology [place] Cells Acanthocytes (Spur) PT Whole Blood PT INR Whole Blood INR APTT Anion Gap Estim Creat Clear Calc Estimated GFR POC Glucose Random Glucose Lactic Acid Calcium Magnesium Total Bilirubin Direct Bilirubin AST ALT Alkaline Phosphatase Lactate Dehydrogenase 405 H Total Creatine Kinase Troponin I High Sens B-Natriuretic Peptide 260 H Total Protein Albumin Lipase TSH Urine Color Urine Appearance Urine pH Ur Specific [place] Urine Protein Urine Glucose (UA) Urine Ketones Urine Blood Urine Nitrite Ur Leukocyte Esterase Urine RBC Urine WBC Ur Squamous Epith Cells Urine Bacteria Hyaline Casts Urine Opiates Screen Urine Fentanyl Screen Ur Barbiturates Screen Ur Phencyclidine Scrn Ur Amphetamines Screen U Benzodiazepines Scrn [place] < 0.10 L Urine Cocaine Screen U Marijuana (THC) Screen Ethyl Alcohol Microbiology Microbiology Results: Microbiology 11/03/22 Unknown Urine Culture - Preliminary Urine Catheterized - Straight Catheter Culture in progress. 11/03/22 19:31 Blood Culture - Preliminary Blood - Venous Prelim: GPC Gram Stain only 11/03/22 19:30 Blood Culture - Preliminary Blood - Venous Prelim: GPC Gram Stain only Assessment and Plan (1) Atrial fibrillation with RVR: Status: Acute (2) Rhabdomyolysis: Status: Acute (3) VINEET (acute kidney injury): Status: Acute Plan d#2 67yo M with bipolar depression presenting after fall without LOC or head injury, down on the ground 4 hr due to LE weakness admitted for rhabdomyolysis with VINEET, new-onset AF/RVR, UTI with severe sepsis BCx 2 of 2 sets positive for GPCs in clusters # GPC bacteremia - ID consult, TTE, surveillance BCx in AM, follow speciation/sensitivities, start renally dosed vancomycin # rhabdomyolysis - trend CPK, give normal saline to force diuresis # VINEET with metabolic acidosis - Nephrology consultation, serologies pending, continue IV fluids and treating rhabdomyolysis. [place] level <0.10 # AF/RVR, new-onset - diltiazem gtt -> PO metoprolol - TTE - started apixaban - Cardiology following - Tn-I elevation due to AF/RVR-related demand, unlikely ACS # UTI - continue ceftriaxone 11/03-, follow BCx+UCx # hypoK - repleted # thrombocytopenia - mild, monitor, likely due to sepsis # age-indeterminate lacunar infarcts on CTH - low suspicion for acute CVA, no focal deficits - consider outpt MRI brain # bipolar depression - continue lamotrigine, hold venlafaxine due to transaminasemia [though latter likely due to rhabdo- continue to monitor LFTs] # VTE ppx: apixaban # dispo: TBD, will likely need STR In my clinical judgment, the patient requires continued inpatient hospitalization for the following reasons: IV fluids, IV antibiotics, rate control Time Spent With Patient Time: Total time managing care of this patient today __55__ minutes. Quality Stroke Does the patient have a stroke diagnosis?: No VTE Prior VTE?: No VTE Risk Level:: Medical - moderate - high VTE Device Contraindication: Treatment Not Indicated VTE Drug Contraindication: N/A - Med Ordered
[2022-11-04] MEDS: Apixaban 5 MG TABLET PO ×2 (12:57→22:13)
[2022-11-04] MEDS: Metoprolol Tartrate 25 MG TABLET PO ×3 (12:57→21:00)
--- NOTE | 2022-11-04 15:33 | P.CNID_ITS ---
History of Present Illness Data of Consult Service Date: 11/04/22 Requesting physician: Marito Puckett Primary Care Provider: DIMITRI Duckworth [facility] Reason for consult: encephalopathy He presents with confusion and renal insufficiency with creatinine of 4. He has rhabdomyolysis He has back pain and leg weakness. He has gram positive cocci blood. He denies grafts or joint replacements. Review of Systems Review of Systems: Yes all other systems are reviewed and are negative PMFSH Past Medical History Medical History (Updated 11/04/22 @ 15:39 by Rowena Yadav MD) Bipolar II disorder major depressive with melancholic features BPH (benign prostatic hyperplasia) Gram-positive bacteremia HTN (hypertension) Lacunar infarction Family History Family history: reviewed and not pertinent Surgical History Surgical History History of hernia repair Social History Social History Household Members: None Housing: Apartment Do you presently have visiting nurse or other home services: Yes Alcohol intake: never Patient Tobacco Use Status: Never used Tobacco Smoked in Last 30 Days: No e-Cigarette/Vaping Use: Never Used Second Hand Smoke Exposure: No Use of substances other than those prescribed or required for medical reasons: No Currently Displaying Signs/Symptoms of Drug Intoxication Withdrawal: No Have you been hit, kicked, punched, or otherwise hurt by someone within the past year? If so, by whom?: No Do you feel safe in your current relationship?: No Current Relationship Is there a partner from a previous relationship who is making you feel unsafe now?: No Are you made to feel afraid or neglected: No Advance Directives: No Advance Directives Information Provided: Yes Do you have thoughts of harming others: None Do you have a plan to hurt others: No Plan Recently lost weight without trying: No Nutrition Risks: No Nutritional Risk service: No Current occupational status: other Sexual orientation: Straight/Heterosexual Meds Allergies Allergy/AdvReac Type Severity Reaction Status Date / Time Penicillins Allergy Unknown Unknown Verified 04/21/22 16:56 Active Medications: Current Medications Acetaminophen (Acetaminophen 325 Mg Tablet) 650 mg PO Q6H PRN PRN Reason: Pain, Mild (Pain Scale 1-3) Apixaban (Apixaban 5 Mg Tablet) 5 mg PO BID [facility] Last Admin: 11/04/22 12:57 Dose: 5 mg Sodium Chloride (Ns) 1,000 mls @ 150 mls/hr IVCONT .Q6H40M [facility] Last Admin: 11/04/22 11:10 Dose: Not Given Ceftriaxone Sodium 1 gm/ (Sodium Chloride) 50 mls @ 100 mls/hr IV Q24H [facility] Diltiazem HCl 125 mg/ Sodium (Chloride) 125 mls @ 0 mls/hr IVCONT .Q0M [facility]; Protocol Last Titration: 11/04/22 12:59 Dose: 5 mg/hr, 5 mls/hr Vancomycin HCl 500 mg/ Sodium (Chloride) 110 mls @ 110 mls/hr IV Q24H [facility] Lamotrigine (Lamotrigine 25 Mg Tablet) 50 mg PO DAILY [facility] Last Admin: 11/04/22 08:57 Dose: 50 mg Levalbuterol HCl (Levalbuterol Hcl 1.25 Mg/3 Ml Vial.Neb) 1.25 mg INHALE Q3H PRN PRN Reason: Wheezing Last Admin: 11/04/22 02:18 Dose: 1.25 mg Melatonin (Melatonin 3 Mg Tablet) 6 mg PO BEDTIME PRN PRN Reason: Insomnia Metoprolol Tartrate (Metoprolol Tartrate 25 Mg Tablet) 25 mg PO QID [facility]; Protocol Last Admin: 11/04/22 12:57 Dose: 25 mg Ondansetron HCl (Ondansetron Hcl 4 Mg/2 Ml Vial) 4 mg IVPUSH Q8H PRN PRN Reason: Nausea and Vomiting Pharmacy Consult (Consult Rx Vancomycin Dosing) 1 each MISCELLANE DAILY PRN PRN Reason: Consult order Sodium Chloride (0.9 % Sodium Chloride Flush 3 Ml Syringe) 3 ml IVFLUSH QSHIFT [facility] Last Admin: 11/04/22 08:57 Dose: 3 ml Home Medications Medication Instructions Recorded Confirmed Last Taken Type lamotrigine 25 mg tablet 50 mg PO DAILY 11/03/22 11/03/22 11/03/22 History venlafaxine 75 mg capsule,extended 225 mg PO DAILY 11/03/22 11/03/22 11/03/22 History release 24 hr Physical Exam Vital Signs: Vital Signs: Last Vital Signs Temp 98.0 F 11/04/22 15:28 Pulse 89 11/04/22 15:28 Resp 18 11/04/22 15:28 BP 108/64 11/04/22 15:28 Pulse Ox 97 11/04/22 15:28 O2 Del Method Room Air 11/04/22 15:28 BMI result Body Mass Index 37.6 Const: General: cooperative HEENT: Head: Yes normal to inspection Face and sinus: Yes normal facial exam Mouth: Normal oral and palatal mucosa present Teeth and gingiva: dentition normal Eyes: General: appearance normal, both eyes and all related structures Pupils: Equal, round and reactive pupils present Resp: Effort & Inspection: normal respiratory effort Cardio: Rate: regular rate Rhythm: regular rhythm GI: Palpation (GI): Soft to palpation and nontender : General: Yes no CVA tenderness Back/Spine/Pelvis: Back: no CVA tenderness Skin: General skin exam: no rashes or lesions noted Neuro: General: moves all extremities Cranial nerves: Yes Equal, round and reactive pupils present Extrem: General: Yes normal to inspection Psych: Appearance: grossly normal Results Labs 11/04/22 06:30 11/04/22 06:30 Labs: Short CBC 11/03/22 11/04/22 Range/Units 19:30 06:30 WBC 8.7 10.0 (4.8-10.8) X10*3/uL Hgb 15.2 14.5 (14.0-18.0) g/dl Hct 43.8 42.3 (42.0-52.0) % Plt Count 93 L D 91 L (160-400) X10*3/uL BMP 11/03/22 11/04/22 19:30 06:30 Sodium 136 139 Potassium 3.1 L D 3.9 D Chloride 109 H 111 H Carbon Dioxide 15 L 17 L BUN 70 H 76 H Creatinine 3.51 H 4.00 H* Calcium 8.6 D 8.3 L Cardiac Enzymes 11/03/22 11/04/22 Range/Units 19:30 06:30 Total Creatine Kinase 07032 H 7722 H (38-174) U/L Liver Function 11/03/22 11/04/22 Range/Units 19:30 06:30 Total Bilirubin 1.6 H 1.4 H (0.0-1.0) mg/dL Direct Bilirubin 0.6 H 0.6 H (0.0-0.5) mg/dL AST 303 H 257 H (5-37) U/L ALT 87 H 87 H (0-40) U/L Alkaline Phosphatase 43 41 (39-117) U/L Albumin 3.0 L 2.9 L (3.5-5.0) g/dL Urine 11/03/22 Range/Units 22:22 Urine Color Dark Yellow Urine Appearance Turbid Urine pH 5.5 (5.0-9.0) Ur Specific [place] >= 1.030 H (1.005-1.025) Urine Protein 100 (2+) H (Neg-Trace) mg/dL Urine Glucose (UA) Negative (Negative) mg/dL Microbiology Microbiology Results: Microbiology 11/03/22 Unknown Urine Catheterized - Straight Catheter Urine Culture - Preliminary Culture in progress. 11/03/22 19:31 Blood - Venous Blood Culture - Preliminary Prelim: GPC Gram Stain only 11/03/22 19:30 Blood - Venous Blood Culture - Preliminary Prelim: GPC Gram Stain only Assessment and Plan (1) Atrial fibrillation with RVR: Status: Acute (2) Altered mental status: Status: Acute (3) Rhabdomyolysis: Status: Acute (4) Gram-positive bacteremia: Status: Acute There is possible gram positive bacteremia related to idiopathic bacteremia. There is also possible spinal abscess There is possible endocarditis. Renal insufficiency may be related to bacterial infecition Plan Would continue Vancomycin as Daptomycin can cause elevated CPK Check echo Check LS spine evaluate osteomyelitis. Time Spent With Patient Time: Total time managing care of this patient today ____ minutes.
[2022-11-04] MEDS: 0.9 % Sodium Chloride 1,000 ML 150 ML IVCONT (17:17)
--- NOTE | 2022-11-04 17:43 | P.CNUR_ITS ---
History of Present Illness Consult details Consult date: 11/04/22 Narrative: Consulting complaint: Question of right hydro nephrosis 67-year-old male Admitted with septicemia Complicated by rhabdomyolysis with acute kidney injury and disordered blood chemistries Noted to have fever for 2-3 days prior to admission States background BPH on tamsulosin - does describe having voiding difficulty in time frame prior to admission Start doxazosin 4 mg Currently with [place] catheter PVR shows adequate bladder emptying Mild hydronephrosis unlikely to contribute to current VINEET Will follow daily labs Review of Systems Constitutional: Constitutional: Reports as per HPI and Reports no additional constitutional complaints Cardiovascular: Cardiovascular: Reports as per HPI and Reports no additional cardiovascular complaints Respiratory: Respiratory: Reports as per HPI and Reports no additional respiratory complaints Gastrointestinal: Gastrointestinal: Reports as per HPI and Reports no additional gastrointestinal complaints Genitourinary: Genitourinary: Reports as per HPI Musculoskeletal: Musculoskeletal: Reports no additional musculoskeletal complaints and Reports as per HPI Neurologic: Reports system reviewed and no additional complaints, except as documented and Reports as per HPI PMFSH Past Medical History Medical History (Updated 11/04/22 @ 17:46 by Bunny Akins MD) Bipolar II disorder major depressive with melancholic features BPH (benign prostatic hyperplasia) Gram-positive bacteremia HTN (hypertension) Lacunar infarction Family History Family history: reviewed and not pertinent Surgical History Surgical History History of hernia repair Social History Social History Household Members: None Housing: Apartment Do you presently have visiting nurse or other home services: Yes Alcohol intake: never Patient Tobacco Use Status: Never used Tobacco Smoked in Last 30 Days: No e-Cigarette/Vaping Use: Never Used Second Hand Smoke Exposure: No Use of substances other than those prescribed or required for medical reasons: No Currently Displaying Signs/Symptoms of Drug Intoxication Withdrawal: No Have you been hit, kicked, punched, or otherwise hurt by someone within the past year? If so, by whom?: No Do you feel safe in your current relationship?: No Current Relationship Is there a partner from a previous relationship who is making you feel unsafe now?: No Are you made to feel afraid or neglected: No Advance Directives: No Advance Directives Information Provided: Yes Do you have thoughts of harming others: None Do you have a plan to hurt others: No Plan Recently lost weight without trying: No Nutrition Risks: No Nutritional Risk service: No Current occupational status: other Sexual orientation: Straight/Heterosexual Meds Allergies Allergy/AdvReac Type Severity Reaction Status Date / Time Penicillins Allergy Unknown Unknown Verified 04/21/22 16:56 Active Medications: Current Medications Acetaminophen (Acetaminophen 325 Mg Tablet) 650 mg PO Q6H PRN PRN Reason: Pain, Mild (Pain Scale 1-3) Apixaban (Apixaban 5 Mg Tablet) 5 mg PO BID [facility] Last Admin: 11/04/22 12:57 Dose: 5 mg Sodium Chloride (Ns) 1,000 mls @ 150 mls/hr IVCONT .Q6H40M [facility] Last Admin: 11/04/22 17:17 Dose: 150 mls/hr Ceftriaxone Sodium 1 gm/ (Sodium Chloride) 50 mls @ 100 mls/hr IV Q24H EFFIE Diltiazem HCl 125 mg/ Sodium (Chloride) 125 mls @ 0 mls/hr IVCONT .Q0M [facility]; Protocol Last Titration: 11/04/22 15:36 Dose: 0 mg/hr, 0 mls/hr Vancomycin HCl 500 mg/ Sodium (Chloride) 110 mls @ 110 mls/hr IV Q24H EFFIE Lamotrigine (Lamotrigine 25 Mg Tablet) 50 mg PO DAILY [facility] Last Admin: 11/04/22 08:57 Dose: 50 mg Levalbuterol HCl (Levalbuterol Hcl 1.25 Mg/3 Ml Vial.Neb) 1.25 mg INHALE Q3H PRN PRN Reason: Wheezing Last Admin: 11/04/22 02:18 Dose: 1.25 mg Melatonin (Melatonin 3 Mg Tablet) 6 mg PO BEDTIME PRN PRN Reason: Insomnia Metoprolol Tartrate (Metoprolol Tartrate 25 Mg Tablet) 25 mg PO QID [facility]; Protocol Last Admin: 11/04/22 17:19 Dose: 25 mg Ondansetron HCl (Ondansetron Hcl 4 Mg/2 Ml Vial) 4 mg IVPUSH Q8H PRN PRN Reason: Nausea and Vomiting Pharmacy Consult (Consult Rx Vancomycin Dosing) 1 each MISCELLANE DAILY PRN PRN Reason: Consult order Sodium Chloride (0.9 % Sodium Chloride Flush 3 Ml Syringe) 3 ml IVFLUSH QSHIFT EFFIE Last Admin: 11/04/22 17:02 Dose: Not Given Home Medications Medication Instructions Recorded Confirmed Last Taken Type lamotrigine 25 mg tablet 50 mg PO DAILY 11/03/22 11/03/22 11/03/22 History venlafaxine 75 mg capsule,extended 225 mg PO DAILY 11/03/22 11/03/22 11/03/22 History release 24 hr Physical Exam Vital Signs: Vital Signs: Last Vital Signs Temp 98.0 F 11/04/22 15:28 Pulse 89 11/04/22 15:28 Resp 18 11/04/22 15:28 BP 108/64 11/04/22 15:28 Pulse Ox 97 11/04/22 15:28 O2 Del Method Room Air 11/04/22 15:28 BMI result Body Mass Index 37.6 Const: General: cooperative, healthy appearing, comfortable and no acute distress Orientation/consciousness: patient oriented x3 HEENT: Face and sinus: Yes normal facial exam Mouth: moist mucous membranes Neck: Neck: Yes normal visual inspection, Yes full ROM and Yes trachea midline Chest: Chest palpation & inspection: normal inspection of the chest Resp: Effort & Inspection: normal respiratory effort, able to speak in complete sentences and no respiratory distress GI: Inspection: Yes normal to inspection Back/Spine/Pelvis: Cervical Spine: normal cervical lordosis Thoracic/Lumbar Spine: thoracic and lumbar spine normal to inspection Skin: General skin exam: no rashes or lesions noted Neuro: General: patient oriented x3, tone normal and moves all extremities Extrem: General: Yes normal to inspection and Yes capillary refill normal Results Labs 11/04/22 06:30 11/04/22 06:30 Labs: Abnormal lab results 11/03/22 11/03/22 11/03/22 Range/Units 19:30 19:30 19:30 Plt Count 93 L D (160-400) X10*3/uL Neutrophils % (Manual) 77 H (45-73) % Band Neutrophils % 16 H (3-5) % Lymphocytes % (Manual) 4 L (20-40) % Abs Neuts (Manual) (2.0-8.3) X10*3/uL Lymphocytes # (Manual) 0.3 L (1.2-4.9) X10*3/uL Potassium 3.1 L D (3.3-5.1) mmol/L Chloride 109 H (96-108) mmol/L Carbon Dioxide 15 L (22-29) mmol/L BUN 70 H (9-16) mg/dL Creatinine 3.51 H (0.5-1.4) mg/dL Random Glucose (60-115) mg/dL Calcium (8.4-10.2) mg/dL Total Bilirubin 1.6 H (0.0-1.0) mg/dL Direct Bilirubin 0.6 H (0.0-0.5) mg/dL AST 303 H (5-37) U/L ALT 87 H (0-40) U/L Lactate Dehydrogenase (118-273) U/L Total Creatine Kinase 82212 H (38-174) U/L Troponin I High Sens 103.8 H* (<3.5-35.0) ng/L B-Natriuretic Peptide (<100) pg/mL Total Protein 5.9 L (6.5-8.0) g/dL Albumin 3.0 L (3.5-5.0) g/dL Ur Specific [place] (1.005-1.025) Urine Protein (Neg-Trace) mg/dL Urine Blood (Negative) Ur Leukocyte Esterase (Negative) Urine RBC (0-2) /HPF Urine WBC (0-5) /HPF [place] (0.60-1.20) mmol/L 11/03/22 11/03/22 11/03/22 Range/Units 19:30 22:22 22:25 Plt Count (160-400) X10*3/uL Neutrophils % (Manual) (45-73) % Band Neutrophils % (3-5) % Lymphocytes % (Manual) (20-40) % Abs Neuts (Manual) (2.0-8.3) X10*3/uL Lymphocytes # (Manual) (1.2-4.9) X10*3/uL Potassium (3.3-5.1) mmol/L Chloride (96-108) mmol/L Carbon Dioxide (22-29) mmol/L BUN (9-16) mg/dL Creatinine (0.5-1.4) mg/dL Random Glucose (60-115) mg/dL Calcium (8.4-10.2) mg/dL Total Bilirubin (0.0-1.0) mg/dL Direct Bilirubin (0.0-0.5) mg/dL AST (5-37) U/L ALT (0-40) U/L Lactate Dehydrogenase (118-273) U/L Total Creatine Kinase (38-174) U/L Troponin I High Sens 109.3 H* (<3.5-35.0) ng/L B-Natriuretic Peptide 191 H (<100) pg/mL Total Protein (6.5-8.0) g/dL Albumin (3.5-5.0) g/dL Ur Specific [place] >= 1.030 H (1.005-1.025) Urine Protein 100 (2+) H (Neg-Trace) mg/dL Urine Blood Large (3+) H (Negative) Ur Leukocyte Esterase Moderate (2+) H (Negative) Urine RBC >20 H (0-2) /HPF Urine WBC 21-50 H (0-5) /HPF [place] (0.60-1.20) mmol/L 11/04/22 11/04/22 11/04/22 Range/Units 06:30 06:30 06:30 Plt Count 91 L (160-400) X10*3/uL Neutrophils % (Manual) (45-73) % Band Neutrophils % 22 H (3-5) % Lymphocytes % (Manual) 4 L (20-40) % Abs Neuts (Manual) 8.9 H (2.0-8.3) X10*3/uL Lymphocytes # (Manual) 0.4 L (1.2-4.9) X10*3/uL Potassium (3.3-5.1) mmol/L Chloride 111 H (96-108) mmol/L Carbon Dioxide 17 L (22-29) mmol/L BUN 76 H (9-16) mg/dL Creatinine 4.00 H* (0.5-1.4) mg/dL Random Glucose 118 H (60-115) mg/dL Calcium 8.3 L (8.4-10.2) mg/dL Total Bilirubin 1.4 H (0.0-1.0) mg/dL Direct Bilirubin 0.6 H (0.0-0.5) mg/dL AST 257 H (5-37) U/L ALT 87 H (0-40) U/L Lactate Dehydrogenase (118-273) U/L Total Creatine Kinase 7722 H (38-174) U/L Troponin I High Sens 85.2 H (<3.5-35.0) ng/L B-Natriuretic Peptide (<100) pg/mL Total Protein 5.8 L (6.5-8.0) g/dL Albumin 2.9 L (3.5-5.0) g/dL Ur Specific [place] (1.005-1.025) Urine Protein (Neg-Trace) mg/dL Urine Blood (Negative) Ur Leukocyte Esterase (Negative) Urine RBC (0-2) /HPF Urine WBC (0-5) /HPF [place] (0.60-1.20) mmol/L 11/04/22 11/04/22 11/04/22 Range/Units 06:30 10:55 10:55 Plt Count (160-400) X10*3/uL Neutrophils % (Manual) (45-73) % Band Neutrophils % (3-5) % Lymphocytes % (Manual) (20-40) % Abs Neuts (Manual) (2.0-8.3) X10*3/uL Lymphocytes # (Manual) (1.2-4.9) X10*3/uL Potassium (3.3-5.1) mmol/L Chloride (96-108) mmol/L Carbon Dioxide (22-29) mmol/L BUN (9-16) mg/dL Creatinine (0.5-1.4) mg/dL Random Glucose (60-115) mg/dL Calcium (8.4-10.2) mg/dL Total Bilirubin (0.0-1.0) mg/dL Direct Bilirubin (0.0-0.5) mg/dL AST (5-37) U/L ALT (0-40) U/L Lactate Dehydrogenase 405 H (118-273) U/L Total Creatine Kinase (38-174) U/L Troponin I High Sens (<3.5-35.0) ng/L B-Natriuretic Peptide 260 H (<100) pg/mL Total Protein (6.5-8.0) g/dL Albumin (3.5-5.0) g/dL Ur Specific [place] (1.005-1.025) Urine Protein (Neg-Trace) mg/dL Urine Blood (Negative) Ur Leukocyte Esterase (Negative) Urine RBC (0-2) /HPF Urine WBC (0-5) /HPF [place] < 0.10 L (0.60-1.20) mmol/L Short CBC 11/03/22 11/04/22 Range/Units 19:30 06:30 WBC 8.7 10.0 (4.8-10.8) X10*3/uL Hgb 15.2 14.5 (14.0-18.0) g/dl Hct 43.8 42.3 (42.0-52.0) % Plt Count 93 L D 91 L (160-400) X10*3/uL BMP 11/03/22 11/04/22 19:30 06:30 Sodium 136 139 Potassium 3.1 L D 3.9 D Chloride 109 H 111 H Carbon Dioxide 15 L 17 L BUN 70 H 76 H Creatinine 3.51 H 4.00 H* Calcium 8.6 D 8.3 L Cardiac Enzymes 11/03/22 11/04/22 Range/Units 19:30 06:30 Total Creatine Kinase 08962 H 7722 H (38-174) U/L Liver Function 11/03/22 11/04/22 Range/Units 19:30 06:30 Total Bilirubin 1.6 H 1.4 H (0.0-1.0) mg/dL Direct Bilirubin 0.6 H 0.6 H (0.0-0.5) mg/dL AST 303 H 257 H (5-37) U/L ALT 87 H 87 H (0-40) U/L Alkaline Phosphatase 43 41 (39-117) U/L Albumin 3.0 L 2.9 L (3.5-5.0) g/dL Urine 11/03/22 Range/Units 22:22 Urine Color Dark Yellow Urine Appearance Turbid Urine pH 5.5 (5.0-9.0) Ur Specific [place] >= 1.030 H (1.005-1.025) Urine Protein 100 (2+) H (Neg-Trace) mg/dL Urine Glucose (UA) Negative (Negative) mg/dL All other labs normal. Assessment and Plan (1) Gram-positive bacteremia: Status: Acute (2) Weak urinary stream: Status: Acute Plan Doxazosin Follow creatinine Would consider stent placement if creatinine does not resolve with medical management Time Spent With Patient Time: Total time managing care of this patient today ____ minutes. Procedures Date of Service Date of Service: 11/04/22
[2022-11-04] MEDS: cefTRIAXone sodium 1 GM in 0.9 % Sodium Chloride 50 ML IV (20:00)
[2022-11-04] MEDS: Doxazosin Mesylate 2 MG TABLET 4 MG PO (21:00)
--- NOTE | 2022-11-04 22:13 | CONS_ITS ---
DATE OF SERVICE: 11/04/2022 This is an urgent consultation. REASON FOR CONSULTATION: I was asked to see patient to assist in evaluation and management of patient's acute kidney injury as reflected by creatinine of 4.0 today. Yesterday, at admission was 3.5 and back in April 2022 was 0.88. He was noted to have rhabdomyolysis with CPK that was 11,000 yesterday on admission, now down to 7700. HISTORY OF PRESENT ILLNESS: In summary, the patient is a poor historian who presented to the hospital yesterday after having a mechanical fall. He has been vague about the details of his fall, so he has been achy in his legs. The patient is unclear about how much urine output he has had. He does have a Bull in place and I have asked the nurses to tell me how much urine he has had to try and track this down. I am told now that he has positive blood cultures as can be getting vancomycin because he cannot get daptomycin because of the rhabdomyolysis. He denies any fever, sweats, or chills. There is mention made that he has psychiatric history of bipolar disorder, but is not on lithium. PAST MEDICAL HISTORY: Bipolar disorder, BPH, hypertension, history of lacunar infarcts. MEDICATIONS: His medications on admission, list is including . His current medications are noted in the MAR. ALLERGIES: HE HAS ALLERGIES TO PENICILLIN. SOCIAL HISTORY: He is a nonsmoker and nondrinker. No illicit drug use. He denies taking nonsteroidal anti-inflammatory drugs. PHYSICAL EXAMINATION: VITAL SIGNS: Blood pressure of 120/70 with heart rate in the 70s. HEENT: Head is atraumatic and normocephalic. NECK: Supple. Mucous membranes are moist. He does look a bit disheveled. LUNGS: Breath sounds bilaterally. CARDIAC: Regular rate and rhythm. ABDOMEN: Soft and nontender. Good bowel sounds. No CVA tenderness. EXTREMITIES: No edema. LABORATORY DATA: From this morning show sodium 139, potassium 3.9, chloride 111, bicarb 17, BUN 76, creatinine 4.0, calcium 8.3. His SGPT and SGOT were 257 and 87 respectively. CPK this morning is 7722, was 11,300 when he got admitted. Albumin was 2.9. His creatinine on admission yesterday was 3.5 and going back in the past in April was 0.88. I do see a lithium level from April 2022 of 0.4, so we will definitely order repeat lithium level stat now. Hemoglobin 14.5, hematocrit 42.3, white count 10.0, platelet count 91,000, it was 260,000 back in March of 2022. Urine studies showed specific gravity 1.030, 2+ protein, and some red cells and white cells noted. He had a CT of the head and neck with IV contrast done yesterday. Apparently, there was concern of a stroke yesterday. IMPRESSION: 67-YEAR-OLD PSYCHIATRIC PATIENT ADMITTED WITH MECHANICAL FALL, RHABDOMYOLYSIS, AND ACUTE KIDNEY INJURY. 1. Acute kidney injury. This is most likely multifactorial with rhabdomyolysis associated acute tubular necrosis. Concern that he could have lithium toxicity and we will order a stat lithium level. He has also apparently gram-positive cocci positive concerning for bacteremia and this could be associated with acute kidney injury as well in the form of infectious associated glomerulonephritis. Obstructive uropathy seems to be unlikely. He has a [place] catheter, but needs to have an ultrasound to rule out obstruction and hydro. 2. Gram-positive bacteremia. He is having a further evaluation for this and had been started on vancomycin. 3. Rhabdomyolysis. Presumably due to his mechanical fall. He is getting IV fluids. We will monitor his urine output and we will see about alkalizing his urine depending on the repeat CPK and his renal function. His last bicarb was 17. RECOMMENDATIONS: At this time include the following, 1. Obtain a stat lithium level. 2. Monitor urine output and continue IV fluids. 3. We will look to switch his IV fluids to IV sodium bicarb. 4. Serologic studies including C3 and C4, which can be depressed with infectious associated glomerulonephritis. 5. Follow the patient closely. There is no indication for emergent dialysis at this time, but it could be that he needs dialysis depending on his clinical course. Certainly, if he has lithium toxicity based on the labs, he would need emergent dialysis. We will follow the patient closely with the team. MD BRENNA Jacobsen/ANTIONE / [id number]
[2022-11-04 22:33] LABS: Creatinine Urine 178.93 mg/dL; Sodium Urine Random < 20.0 mmol/L
[2022-11-05] VITALS (8 sets, daily range): BP systolic 100–132; BP diastolic 57–82; PULSE 76–93; RESP 18–22; TEMP 36.5–37.2; O2SAT 90–96
[2022-11-05] MEDS: 0.9 % Sodium Chloride 1,000 ML 150 ML IVCONT ×2 (00:18→05:44)
[2022-11-05 07:11] LABS: Hematocrit 36.2 % (42.0-52.0); Hemoglobin 12.7 g/dl (14.0-18.0); Mean Corpuscular HGB Conc 35.1 g/dl (31.0-36.0); Mean Corpuscular Hemoglobin 31.5 pg (27.0-33.0); Mean Corpuscular Volume 89.8 fL (80.0-98.0); Mean Platelet Volume 12.2 fL (9.4-12.4); Red Blood Count 4.03 X10*6/uL (4.60-5.80); Red Cell Distribution Width 14.1 % (11.0-16.0); White Blood Count 9.8 X10*3/uL (4.8-10.8)
[2022-11-05 07:17] LABS: Platelet Count 75 X10*3/uL (160-400)
[2022-11-05 07:46] LABS: Alanine Aminotransferase 67 U/L (0-40); Albumin Level 2.6 g/dL (3.5-5.0); Alkaline Phosphatase 32 U/L (39-117); Anion Gap 14 (12-20); Aspartate Amino Transferase 147 U/L (5-37); Blood Urea Nitrogen 93 mg/dL (9-16); Calcium 7.9 mg/dL (8.4-10.2); Carbon Dioxide 16 mmol/L (22-29); Chloride 110 mmol/L (96-108); Creatinine Clr Calc Pharmacy 19.1; Estimated Glomerular Filt Rate 12; Glucose Random 117 mg/dL (60-115); Magnesium 2.2 mg/dL (1.6-2.6); Potassium 3.7 mmol/L (3.3-5.1); Sodium 136 mmol/L (135-145); Total Protein 5.1 g/dL (6.5-8.0)
--- NOTE | 2022-11-05 09:22 | PM.PNCARD ---
Subjective Subjective Date of Service: 11/05/22 Principal diagnosis: VINEET Interval history: Patient states he feels okay. No clear cardiac complaints at this time. Review of Systems Review of Systems Yes all other systems are reviewed and are negative Constitutional: Reports as per HPI and Reports no additional constitutional complaints Eyes: Reports as per HPI and Denies no additional eye complaints Denies system reviewed and no additional complaints, except as documented and Reports as per HPI Cardiovascular: Reports as per HPI, Reports no additional cardiovascular complaints, Denies acrocyanosis, Denies cool extremities, Denies chest pain, Denies leg edema, Denies lightheadedness, Denies palpitations and Denies dyspnea Respiratory: Reports as per HPI, Denies no additional respiratory complaints and Denies dyspnea Gastrointestinal: Reports as per HPI and Denies no additional gastrointestinal complaints Genitourinary: Reports no additional male genitourinary complaints and Reports as per HPI Musculoskeletal: Reports no additional musculoskeletal complaints and Reports as per HPI Skin/Breast: Reports system reviewed and no additional complaints, except as docu Reports system reviewed and no additional complaints, except as documented and Reports as per HPI Psychiatric: Reports no additional psychiatric complaints and Reports as per HPI Endocrine: Reports no additional endocrine complaints, Reports as per HPI and Denies palpitations Hematologic/Lymphatic: Reports no additional hematologic/lymphatic complaints and Reports as per HPI Allergic/Immunologic: Reports no additional allergic/immunologic complaints and Reports as per HPI Physical Exam Vital Signs: Last Vital Signs Temp 98.8 F 11/05/22 07:44 Pulse 88 11/05/22 07:44 Resp 22 H 11/05/22 07:44 BP 107/70 11/05/22 07:44 Pulse Ox 91 L 11/05/22 07:44 O2 Del Method Room Air 11/05/22 07:44 BMI result Body Mass Index 37.6 Const General: comfortable and no acute distress Orientation/consciousness: patient oriented x3 HEENT Other: Unremarkable Head: Yes normal to inspection Neck Neck: Yes normal visual inspection Chest Chest palpation & inspection: normal inspection of the chest Resp Auscultation: rales Cardio Palpation: normal PMI Heart sounds: S1 normal heart sound present, S2 normal heart sound present, no gallops, no murmurs and no rubs GI Palpation (GI): Soft to palpation Back/Spine/Pelvis Other: unremarkable Skin General skin exam: no rashes or lesions noted Neuro General: patient oriented x3 Extrem General: Yes normal to inspection Psych Mental Status: mental status grossly normal Objective Labs and Meds 11/05/22 06:47 11/05/22 06:47 Lab results: Laboratory Results - last 24 hr 11/04/22 11/04/22 11/04/22 10:55 10:55 22:00 WBC RBC Hgb Hct MCV MCH MCHC RDW Plt Count MPV Absolute Nucleated RBC Nucleated RBC % (auto) Sodium Potassium Chloride Carbon Dioxide Anion Gap BUN Creatinine Estim Creat Clear Calc Estimated GFR Random Glucose Calcium Magnesium Total Bilirubin AST ALT Alkaline Phosphatase Lactate Dehydrogenase 405 H Total Creatine Kinase Total Protein Albumin Ur Random Sodium < 20.0 Urine Creatinine 178.93 [place] < 0.10 L 11/04/22 11/05/22 11/05/22 22:00 06:47 06:47 WBC 9.8 RBC 4.03 L Hgb 12.7 L Hct 36.2 L MCV 89.8 MCH 31.5 MCHC 35.1 RDW 14.1 Plt Count 75 L MPV 12.2 Absolute Nucleated RBC 0.000 Nucleated RBC % (auto) 0.0 Sodium 136 Potassium 3.7 Chloride 110 H Carbon Dioxide 16 L Anion Gap 14 BUN 93 H Creatinine 4.70 H* Estim Creat Clear Calc 19.1 Estimated GFR 12 Random Glucose 117 H Calcium 7.9 L Magnesium 2.2 Total Bilirubin 1.0 AST 147 H ALT 67 H Alkaline Phosphatase 32 L Lactate Dehydrogenase Total Creatine Kinase 2831 H Total Protein 5.1 L Albumin 2.6 L Ur Random Sodium Urine Creatinine Cancelled [place] [facility] Radiologist's impression: Impressions Renal Ultrasound 11/04/22 09:53 IMPRESSION: Appearance of mild right hydronephrosis and obstructive uropathy cannot be excluded on the right. Bilateral simple appearing renal cysts Left nephrolithiasis. Progress Note: A&P Assessment and plan (1) Atrial fibrillation with RVR: Status: Acute (2) VINEET (acute kidney injury): Status: Acute (3) Rhabdomyolysis: Status: Acute (4) Gram-positive bacteremia: Status: Acute Plan Overall, suspected atrial fibrillation with rapid rate secondary to acute medical issues including fall, rhabdomyolysis. He seems to be responding to beta-blockers. Rate is much better today. Still remains in atrial fibrillation. Otherwise unless there is any other medical contraindication, continue with anticoagulation. There is also positive blood culture for Staphylococcus. That can be treated appropriately. Echocardiogram with preserved LVEF at 55-60%. Discussed with DIMITRI Louise Time Spent With Patient Time: Total time managing care of this patient today ____ minutes. Progress Note: Quality Stroke Does the patient have a stroke diagnosis?: No Procedures Date of Service Date of Service: 11/05/22
[2022-11-05] MEDS: lamoTRIgine 25 MG TABLET 50 MG PO (09:33)
[2022-11-05] MEDS: Metoprolol Tartrate 25 MG TABLET PO ×4 (09:33→20:49)
[2022-11-05] MEDS: Apixaban 5 MG TABLET PO ×2 (09:33→20:49)
[2022-11-05] MEDS: vancomycin HCL 500 MG in 0.9 % Sodium Chloride 100 ML 110 MG IV (09:33)
--- NOTE | 2022-11-05 10:27 | P.PNNP_ITS ---
Subjective Subjective Date of Service: 11/05/22 Principal diagnosis: VINEET Interval history: Seen and examined, events noted Physical Exam Vital Signs: Vital Signs: Last Vital Signs Temp 98.8 F 11/05/22 07:44 Pulse 88 11/05/22 07:44 Resp 22 H 11/05/22 07:44 BP 107/70 11/05/22 07:44 Pulse Ox 91 L 11/05/22 07:44 O2 Del Method Room Air 11/05/22 07:44 BMI result Body Mass Index 37.6 Const: General: cooperative, healthy appearing, comfortable and no acute distress Orientation/consciousness: patient oriented x3 HEENT: Other: Unremarkable Head: Yes normal to inspection Face and sinus: Yes normal facial exam Mouth: Normal oral and palatal mucosa present and moist mucous membranes Teeth and gingiva: dentition normal Eyes: General: appearance normal, both eyes and all related structures Pupils: Equal, round and reactive pupils present Neck: Neck: Yes normal visual inspection, Yes full ROM and Yes trachea midline Chest: Chest palpation & inspection: normal inspection of the chest Resp: Effort & Inspection: normal respiratory effort, able to speak in compl ete sentences and no respiratory distress Auscultation: rales Cardio: Palpation: normal PMI Rate: regular rate Rhythm: regular rhythm Heart sounds: S1 normal heart sound present, S2 normal heart sound present, no gallops, no murmurs and no rubs GI: Inspection: Yes normal to inspection Palpation (GI): Soft to palpation and nontender : General: Yes no CVA tenderness Back/Spine/Pelvis: Other: unremarkable Back: no CVA tenderness Cervical Spine: normal cervical lordosis Thoracic/Lumbar Spine: thoracic and lumbar spine normal to inspection Skin: General skin exam: no rashes or lesions noted Neuro: General: patient oriented x3, tone normal and moves all extremities Cranial nerves: Yes Equal, round and reactive pupils present Extrem: General: Yes normal to inspection and Yes capillary refill normal Psych: Appearance: grossly normal Mental Status: mental status grossly normal Objective Data Labs 11/05/22 06:47 11/05/22 06:47 Labs: Laboratory Results - last 24 hr 11/04/22 11/04/22 11/04/22 10:55 10:55 22:00 WBC RBC Hgb Hct MCV MCH MCHC RDW Plt Count MPV Absolute Nucleated RBC Nucleated RBC % (auto) Sodium Potassium Chloride Carbon Dioxide Anion Gap BUN Creatinine Estim Creat Clear Calc Estimated GFR Random Glucose Calcium Magnesium Total Bilirubin AST ALT Alkaline Phosphatase Lactate Dehydrogenase 405 H Total Creatine Kinase Total Protein Albumin Ur Random Sodium < 20.0 Urine Creatinine 178.93 [place] < 0.10 L 11/04/22 11/05/22 11/05/22 22:00 06:47 06:47 WBC 9.8 RBC 4.03 L Hgb 12.7 L Hct 36.2 L MCV 89.8 MCH 31.5 MCHC 35.1 RDW 14.1 Plt Count 75 L MPV 12.2 Absolute Nucleated RBC 0.000 Nucleated RBC % (auto) 0.0 Sodium 136 Potassium 3.7 Chloride 110 H Carbon Dioxide 16 L Anion Gap 14 BUN 93 H Creatinine 4.70 H* Estim Creat Clear Calc 19.1 Estimated GFR 12 Random Glucose 117 H Calcium 7.9 L Magnesium 2.2 Total Bilirubin 1.0 AST 147 H ALT 67 H Alkaline Phosphatase 32 L Lactate Dehydrogenase Total Creatine Kinase 2831 H Total Protein 5.1 L Albumin 2.6 L Ur Random Sodium Urine Creatinine Cancelled [place] Microbiology Microbiology Results: Microbiology 11/03/22 Unknown Urine Catheterized - Straight Catheter Urine Culture - Preliminary Staphylococcus aureus 11/03/22 19:31 Blood - Venous Blood Culture - Preliminary Staphylococcus species 11/03/22 19:30 Blood - Venous Blood Culture - Preliminary Staphylococcus species Procedures Date of Service Date of Service: 11/05/22 Assessment & Plan Assessment and plan (1) Atrial fibrillation with RVR: Status: Acute (2) VINEET (acute kidney injury): Status: Acute (3) Rhabdomyolysis: Status: Acute (4) Gram-positive bacteremia: Status: Acute Plan - Non-Oliguric VINEET: w/u several potential contributing factors Rhabdo Bacteremia assoc AGN vs AIN IV C assoc ATN - Rhabdo: CPKs decr - NAGMA: vineet, and rhabdo--agree w IV NaHCO3 - Mild R [place]: ques signif REC: IV NaHCO3; sero as ordered; track UOP/renal func; if cont WRF may need kidn ey Bx to make definitive Dx/prognsosi; no indication for [employer] at this time Time Spent With Patient Time: Total time managing care of this patient today ____ minutes. Progress Note: Quality Stroke Does the patient have a stroke diagnosis?: No
[2022-11-05] MEDS: Sodium Bicarbonate 8.4% 50 MEQ in Dextrose 5 % 950 ML 150 MEQ IV ×2 (13:36→20:58)
--- NOTE | 2022-11-05 14:11 | MHC.CM.PN ---
PT is recommending STR; CM will follow.
--- NOTE | 2022-11-05 14:50 | HO.PM.IMPN ---
Subjective Subjective Date of Service: 11/05/22 Interval History: seen and examined this morning follow up for VINEET, bacteremia, UTI reporting some , no chest pain, no palpitations Review of Systems Review of Systems: Yes all other systems are reviewed and are negative Constitutional Constitutional: Denies chills and Denies fever(s) Cardiovascular Cardiovascular: Denies chest pain, Denies palpitations and Reports dyspnea on exertion Respiratory Respiratory: Denies cough and Reports dyspnea on exertion Gastrointestinal Gastrointestinal: Denies abdominal pain Endocrine Endocrine: Denies palpitations Physical Exam Vital Signs: Vital Signs: Last Vital Signs Temp 98.0 F 11/05/22 11:12 Pulse 84 11/05/22 13:21 Resp 22 H 11/05/22 11:12 BP 103/67 11/05/22 13:21 Pulse Ox 95 11/05/22 13:21 O2 Del Method Room Air 11/05/22 11:12 BMI result Body Mass Index 37.6 Const: General: cooperative, comfortable, alert and awake Nutritional Appearance: overweight Orientation/consciousness: patient oriented x3 Resp: Other: bibasilar rales Effort & Inspection: normal respiratory effort, able to speak in complete sentences, no respiratory distress and no use of accessory muscles Cardio: Rate: regular rate Heart sounds: S1 normal heart sound present and S2 normal heart sound present GI: Other: softly distended, no guarding, tenderness or rebound; +BS Neuro: General: patient oriented x3 and CN's II-XI intact bilaterally Objective Data Active Medications Acetaminophen (Acetaminophen 325 Mg Tablet) 650 mg PO Q6H PRN PRN Reason: Pain, Mild (Pain Scale 1-3) Apixaban (Apixaban 5 Mg Tablet) 5 mg PO BID REPLACED BY [facility] Last Admin: 11/05/22 09:33 Dose: 5 mg Documented By: TEDDY Doxazosin Mesylate (Doxazosin Mesylate 2 Mg Tablet) 4 mg PO BEDTIME REPLACED BY [facility]; Protocol Last Admin: 11/04/22 21:00 Dose: 4 mg Documented By: TEDDY Ceftriaxone Sodium 1 gm/ (Sodium Chloride) 50 mls @ 100 mls/hr IV Q24H REPLACED BY [facility] Last Infusion: 11/04/22 20:39 Dose: 0 mls/hr Documented By: TEDDY Diltiazem HCl 125 mg/ Sodium (Chloride) 125 mls @ 0 mls/hr IVCONT .Q0M REPLACED BY [facility]; Protocol Last Titration: 11/05/22 12:23 Dose: 0 mg/hr, 0 mls/hr Documented By: TEDDY Vancomycin HCl 500 mg/ Sodium (Chloride) 110 mls @ 110 mls/hr IV Q24H REPLACED BY [facility] Last Infusion: 11/05/22 10:57 Dose: 0 mls/hr Documented By: TEDDY Sodium Bicarbonate 50 meq/ (Dextrose) 1,000 mls @ 150 mls/hr IV .Q6H40M REPLACED BY [facility] Last Admin: 11/05/22 13:36 Dose: 150 mls/hr Documented By: TEDDY Lamotrigine (Lamotrigine 25 Mg Tablet) 50 mg PO DAILY REPLACED BY [facility] Last Admin: 11/05/22 09:33 Dose: 50 mg Documented By: TEDDY Levalbuterol HCl (Levalbuterol Hcl 1.25 Mg/3 Ml Vial.Neb) 1.25 mg INHALE Q3H PRN PRN Reason: Wheezing Last Admin: 11/04/22 02:18 Dose: 1.25 mg Documented By: SAMMI Melatonin (Melatonin 3 Mg Tablet) 6 mg PO BEDTIME PRN PRN Reason: Insomnia Metoprolol Tartrate (Metoprolol Tartrate 25 Mg Tablet) 25 mg PO QID REPLACED BY [facility]; Protocol Last Admin: 11/05/22 13:36 Dose: 25 mg Documented By: TEDDY Ondansetron HCl (Ondansetron Hcl 4 Mg/2 Ml Vial) 4 mg IVPUSH Q8H PRN PRN Reason: Nausea and Vomiting Pharmacy Consult (Consult Rx Vancomycin Dosing) 1 each MISCELLANE DAILY PRN PRN Reason: Consult order Sodium Chloride (0.9 % Sodium Chloride Flush 3 Ml Syringe) 3 ml IVFLUSH QSHIFT REPLACED BY [facility] Last Admin: 11/05/22 09:25 Dose: Not Given Documented By: TEDDY Non-Admin Reason: IV Running Labs 11/05/22 06:47 11/05/22 06:47 Labs: Laboratory Results - last 24 hr 11/04/22 11/04/22 11/05/22 22:00 22:00 06:47 MCV 89.8 MCH 31.5 MCHC 35.1 RDW 14.1 Plt Count 75 L MPV 12.2 Absolute Nucleated RBC 0.000 Nucleated RBC % (auto) 0.0 Anion Gap Estim Creat Clear Calc Estimated GFR Random Glucose Calcium Magnesium Total Bilirubin AST ALT Alkaline Phosphatase Total Creatine Kinase Total Protein Albumin Ur Random Sodium < 20.0 Urine Creatinine 178.93 Cancelled 11/05/22 06:47 MCV MCH MCHC RDW Plt Count MPV Absolute Nucleated RBC Nucleated RBC % (auto) Anion Gap 14 Estim Creat Clear Calc 19.1 Estimated GFR 12 Random Glucose 117 H Calcium 7.9 L Magnesium 2.2 Total Bilirubin 1.0 AST 147 H ALT 67 H Alkaline Phosphatase 32 L Total Creatine Kinase 2831 H Total Protein 5.1 L Albumin 2.6 L Ur Random Sodium Urine Creatinine Microbiology Microbiology Results: Microbiology 11/03/22 19:31 Blood Culture - Preliminary Blood - Venous Staphylococcus species 11/03/22 19:30 Blood Culture - Preliminary Blood - Venous Staphylococcus species 11/03/22 Unknown Urine Culture - Preliminary Urine Catheterized - Straight Catheter Staphylococcus aureus Assessment and Plan (1) Gram-positive bacteremia: Status: Acute (2) Atrial fibrillation with RVR: Status: Acute (3) Rhabdomyolysis: Status: Acute (4) VINEET (acute kidney injury): Status: Acute Plan 67yo M with bipolar depression presenting after fall without LOC or head injury, down on the ground 4 hr due to LE weakness admitted for rhabdomyolysis with VINEET, new-onset AF/RVR, UTI with severe sepsis BCx 2 of 2 sets positive for GPCs in clusters # GPC bacteremia BCx growing 2/2 staph species no obvious valvular pathology seen on echo seen by ID - rec lumbar spine MRI - ordered and pending surveillance BCx pending follow speciation/sensitivities continue renally dosed vancomycin # rhabdomyolysis - CPK trending down from 11,300 to 2,831 # VINEET with metabolic acidosis renal function continues to trend up seen by nephro, serologies pending - may be multifactorial -> rhabdo, bacteremia assoc AGN vs AIN, IV contrast ATN continue IV fluids, add bicarb [place] level <0.10 renal US with mild right hydro - seen by urology, less likely contributing to VINEET, started on dozazosin - consider stent placement if no improvement with medical management # AF/RVR, new-onset - diltiazem gtt -> PO metoprolol. HR improved. - echo with preserved EF, diastolic function indeterminate - started apixaban (platelets trending down, follow closely) - Cardiology following - Tn-I elevation due to AF/RVR-related demand, unlikely ACS # UTI urine culture growing staph aureus, follow final sensitivites - continue ceftriaxone, vanco 11/03-, follow BCx+UCx # hypoK - repleted # thrombocytopenia - likely due to sepsis - follow cbc # age-indeterminate lacunar infarcts on CTH - low suspicion for acute CVA, no focal deficits - consider outpt MRI brain # bipolar depression - continue lamotrigine, hold venlafaxine due to transaminasemia [though latter likely due to rhabdo- continue to monitor LFTs] #elevated LFTs likely r/t rhabdo trending down # VTE ppx: apixaban # dispo: TBD, will likely need STR attending - dr. tena In my clinical judgment, the patient requires continued inpatient hospitalization for the following reasons: IV fluids, IV antibiotics, rate control Time Spent With Patient Time: Total time managing care of this patient today ____ minutes. Quality Stroke Does the patient have a stroke diagnosis?: No VTE Prior VTE?: No VTE Risk Level:: Medical - moderate - high VTE Device Contraindication: Treatment Not Indicated VTE Drug Contraindication: N/A - Med Ordered
[2022-11-05 16:36] LABS: Anion Gap 14 (12-20); Blood Urea Nitrogen 95 mg/dL (9-16); Calcium 7.9 mg/dL (8.4-10.2); Carbon Dioxide 17 mmol/L (22-29); Chloride 108 mmol/L (96-108); Creatinine Clr Calc Pharmacy 20.5; Estimated Glomerular Filt Rate 13; Glucose Random 140 mg/dL (60-115); Potassium 3.8 mmol/L (3.3-5.1); Sodium 135 mmol/L (135-145)
[2022-11-05] MEDS: Docusate Sodium 100 MG CAPSULE PO (20:49)
[2022-11-05] MEDS: Doxazosin Mesylate 2 MG TABLET 4 MG PO (20:49)
[2022-11-05] MEDS: cefTRIAXone sodium 1 GM in 0.9 % Sodium Chloride 50 ML IV (20:50)
[2022-11-05] MEDS: 0.9 % Sodium Chloride Flush 3 ML SYRINGE IVFLUSH (22:43)
[2022-11-06] VITALS (9 sets, daily range): BP systolic 101–140; BP diastolic 62–75; PULSE 64–88; RESP 15–20; TEMP 36.3–37.4; O2SAT 91–93
[2022-11-06] MEDS: Sodium Bicarbonate 8.4% 50 MEQ in Dextrose 5 % 950 ML 150 MEQ IV ×2 (03:33→08:18)
[2022-11-06 08:05] LABS: Hemoglobin 12.5 g/dl (14.0-18.0); Mean Corpuscular HGB Conc 34.7 g/dl (31.0-36.0); Mean Corpuscular Hemoglobin 31.3 pg (27.0-33.0); Mean Corpuscular Volume 90.2 fL (80.0-98.0); Mean Platelet Volume 12.4 fL (9.4-12.4); Platelet Count 102 X10*3/uL (160-400); Red Blood Count 3.99 X10*6/uL (4.60-5.80); Red Cell Distribution Width 13.9 % (11.0-16.0)
[2022-11-06] MEDS: lamoTRIgine 25 MG TABLET 50 MG PO (08:18)
[2022-11-06] MEDS: 0.9 % Sodium Chloride Flush 3 ML SYRINGE IVFLUSH ×2 (08:18→16:35)
[2022-11-06] MEDS: Apixaban 5 MG TABLET PO ×2 (08:18→21:41)
[2022-11-06] MEDS: Metoprolol Tartrate 25 MG TABLET PO ×4 (08:18→21:41)
[2022-11-06 08:19] LABS: Vancomycin Random 11.8 mcg/mL (15-20)
[2022-11-06 08:22] LABS: Anion Gap 14 (12-20); Blood Urea Nitrogen 98 mg/dL (9-16); Calcium 7.9 mg/dL (8.4-10.2); Carbon Dioxide 17 mmol/L (22-29); Chloride 108 mmol/L (96-108); Creatinine Clr Calc Pharmacy 23.9; Estimated Glomerular Filt Rate 16; Glucose Random 109 mg/dL (60-115); Potassium 3.5 mmol/L (3.3-5.1); Sodium 135 mmol/L (135-145)
[2022-11-06] MEDS: vancomycin HCL 500 MG in 0.9 % Sodium Chloride 100 ML 110 MG IV (10:48)
--- NOTE | 2022-11-06 11:44 | HO.PM.IMPN ---
Subjective Subjective Date of Service: 11/06/22 Interval History: seen and examined this morning follow up for bacteremia, UTI awake and alert, reports feeling a little better; was able to get up and walk to recliner no fever, chills or abdominal pain Review of Systems Review of Systems: Yes all other systems are reviewed and are negative Constitutional Constitutional: Denies chills and Denies fever(s) Cardiovascular Cardiovascular: Denies chest pain and Denies palpitations Respiratory Respiratory: Denies cough Gastrointestinal Gastrointestinal: Denies abdominal pain, Denies nausea and Denies vomiting Endocrine Endocrine: Denies palpitations Physical Exam Vital Signs: Vital Signs: Last Vital Signs Temp 97.5 F 11/06/22 11:06 Pulse 64 11/06/22 11:06 Resp 20 11/06/22 11:06 BP 101/62 11/06/22 11:06 Pulse Ox 93 11/06/22 11:06 O2 Del Method Room Air 11/06/22 11:06 BMI result Body Mass Index 37.6 Const: General: cooperative, comfortable, alert and awake Nutritional Appearance: overweight Orientation/consciousness: patient oriented x3 Resp: Effort & Inspection: normal respiratory effort, able to speak in complete sentences, no respiratory distress and no use of accessory muscles Cardio: Rate: regular rate Heart sounds: S1 normal heart sound present and S2 normal heart sound present GI: Other: softly distended, no guarding, tenderness or rebound; +BS Neuro: General: patient oriented x3 and CN's II-XI intact bilaterally Objective Data Active Medications Acetaminophen (Acetaminophen 325 Mg Tablet) 650 mg PO Q6H PRN PRN Reason: Pain, Mild (Pain Scale 1-3) Apixaban (Apixaban 5 Mg Tablet) 5 mg PO BID [facility] Last Admin: 11/06/22 08:18 Dose: 5 mg Documented By: TEDDY Docusate Sodium (Docusate Sodium 100 Mg Capsule) 100 mg PO BEDTIME [facility] Last Admin: 11/05/22 20:49 Dose: 100 mg Documented By: LES Doxazosin Mesylate (Doxazosin Mesylate 2 Mg Tablet) 4 mg PO BEDTIME [facility]; Protocol Last Admin: 11/05/22 20:49 Dose: 4 mg Documented By: LES Ceftriaxone Sodium 1 gm/ (Sodium Chloride) 50 mls @ 100 mls/hr IV Q24H [facility] Last Infusion: 11/05/22 22:26 Dose: 0 mls/hr Documented By: LES Diltiazem HCl 125 mg/ Sodium (Chloride) 125 mls @ 0 mls/hr IVCONT .Q0M [facility]; Protocol Last Titration: 11/05/22 12:23 Dose: 0 mg/hr, 0 mls/hr Documented By: TEDDY Vancomycin HCl 500 mg/ Sodium (Chloride) 110 mls @ 110 mls/hr IV Q24H [facility] Last Admin: 11/06/22 10:48 Dose: 110 mls/hr Documented By: TEDDY Sodium Bicarbonate 50 meq/ (Dextrose) 1,000 mls @ 150 mls/hr IV .Q6H40M [facility] Last Infusion: 11/06/22 08:28 Dose: 0 mls/hr Documented By: TEDDY Lamotrigine (Lamotrigine 25 Mg Tablet) 50 mg PO DAILY [facility] Last Admin: 11/06/22 08:18 Dose: 50 mg Documented By: TEDDY Levalbuterol HCl (Levalbuterol Hcl 1.25 Mg/3 Ml Vial.Neb) 1.25 mg INHALE Q3H PRN PRN Reason: Wheezing Last Admin: 11/04/22 02:18 Dose: 1.25 mg Documented By: SAMMI Melatonin (Melatonin 3 Mg Tablet) 6 mg PO BEDTIME PRN PRN Reason: Insomnia Metoprolol Tartrate (Metoprolol Tartrate 25 Mg Tablet) 25 mg PO QID [facility]; Protocol Last Admin: 11/06/22 08:18 Dose: 25 mg Documented By: TEDDY Ondansetron HCl (Ondansetron Hcl 4 Mg/2 Ml Vial) 4 mg IVPUSH Q8H PRN PRN Reason: Nausea and Vomiting Pharmacy Consult (Consult Rx Vancomycin Dosing) 1 each MISCELLANE DAILY PRN PRN Reason: Consult order Polyethylene Glycol (Polyethylene Glycol 3350 17 Gm Powd.Pack) 17 gm PO DAILY PRN PRN Reason: Constipation Sodium Chloride (0.9 % Sodium Chloride Flush 3 Ml Syringe) 3 ml IVFLUSH QSHIFT [facility] Last Admin: 11/06/22 08:18 Dose: 3 ml Documented By: TEDDY Labs 11/06/22 07:38 11/06/22 07:38 Labs: Laboratory Results - last 24 hr 11/05/22 11/06/22 11/06/22 16:07 07:38 07:38 MCV MCH MCHC RDW Plt Count MPV Absolute Nucleated RBC Nucleated RBC % (auto) Anion Gap 14 14 Estim Creat Clear Calc 20.5 23.9 Estimated GFR 13 16 Random Glucose 140 H 109 Calcium 7.9 L 7.9 L Random Vancomycin 11.8 L 11/06/22 07:38 MCV 90.2 MCH 31.3 MCHC 34.7 RDW 13.9 Plt Count 102 L D MPV 12.4 Absolute Nucleated RBC 0.000 Nucleated RBC % (auto) 0.0 Anion Gap Estim Creat Clear Calc Estimated GFR Random Glucose Calcium Random Vancomycin Microbiology Microbiology Results: Microbiology 11/03/22 19:31 Blood Culture - Final Blood - Venous Staphylococcus aureus 11/03/22 19:30 Blood Culture - Final Blood - Venous Staphylococcus aureus 11/03/22 Unknown Urine Culture - Final Urine Catheterized - Straight Catheter Staphylococcus aureus 11/05/22 06:47 Blood Culture - Preliminary Blood - Venous No growth after 24 hours. 11/05/22 06:47 Blood Culture - Preliminary Blood - Venous Prelim: GPC Gram Stain only Assessment and Plan (1) Atrial fibrillation with RVR: Status: Acute (2) Gram-positive bacteremia: Status: Acute Plan 67yo M with bipolar depression presenting after fall without LOC or head injury, down on the ground 4 hr due to LE weakness admitted for rhabdomyolysis with VINEET, new-onset AF/RVR, UTI with severe sepsis BCx 2 of 2 sets positive for GPCs in clusters # MSSA bacteremia BCx growing 2/2 MSSA, surveillance BCx growing 1/2 GPC no obvious valvular pathology seen on echo lumbar spine MRI showing no evidence of discitis, osteomyelitis, or epidural abscess initially treated with IV vanco, will change to IV cefazolin, will need at least 14 days from first negative blood culture ID following will need repeat BCx in am # UTI urine culture growing MSSA initially treated with IV ceftriaxone, vanco 11/03, will change to cefazolin # rhabdomyolysis CPK trending down from 11,300 to 2,831 with IVF # VINEET with metabolic acidosis SCr down to 3.77 seen by nephro, serologies pending - may be multifactorial -> rhabdo, bacteremia assoc AGN vs AIN, IV contrast ATN continue IV fluids, add bicarb [place] level <0.10 renal US with mild right hydro - seen by urology, less likely contributing to VINEET, started on dozazosin - consider stent placement if no improvement with medical management # AF/RVR, new-onset - diltiazem gtt -> PO metoprolol. HR improved. - echo with preserved EF, diastolic function indeterminate - started apixaban - Cardiology following - Tn-I elevation due to AF/RVR-related demand, unlikely ACS # hypoK - repleted # thrombocytopenia - likely due to sepsis. improving # age-indeterminate lacunar infarcts on CTH - low suspicion for acute CVA, no focal deficits - consider outpt MRI brain # bipolar depression - continue lamotrigine, hold venlafaxine due to transaminasemia [though latter likely due to rhabdo- continue to monitor LFTs] #elevated LFTs likely r/t rhabdo trending down # VTE ppx: apixaban # dispo: seen by PT - STR attending - dr. tena In my clinical judgment, the patient requires continued inpatient hospitalization for the following reasons: IV fluids, IV antibiotics, rate control Time Spent With Patient Time: Total time managing care of this patient today ____ minutes. Quality Stroke Does the patient have a stroke diagnosis?: No VTE Prior VTE?: No VTE Risk Level:: Medical - moderate - high VTE Device Contraindication: Treatment Not Indicated VTE Drug Contraindication: N/A - Med Ordered
--- NOTE | 2022-11-06 12:16 | MHC.CM.PN ---
EMR REVIEWED AND PER MD ROUNDS, PT IS NOT MEDICALLY CLEARED FOR DC (IV fluids, IV antibiotics, rate control) STR THAT ARE FOLLOWING UPDATED. CM WILL CONTINUE TO FOLLOW FOR ANY CHANGE IN DC PLAN.
--- NOTE | 2022-11-06 12:50 | P.PNNP_ITS ---
Subjective Subjective Date of Service: 11/06/22 Principal diagnosis: VINEET Interval history: Events noted. Feels better today. Physical Exam Vital Signs: Vital Signs: Last Vital Signs Temp 97.5 F 11/06/22 11:06 Pulse 64 11/06/22 11:06 Resp 20 11/06/22 11:06 BP 101/62 11/06/22 11:06 Pulse Ox 93 11/06/22 11:06 O2 Del Method Room Air 11/06/22 11:06 BMI result Body Mass Index 37.6 Comfortable Neck is supple Lung: Air entry equal few scattered rhonchi Heart: S1,S2, normal. No rub Abd: Soft. BS + NS : Alert.No asterexis Ext: No edema Objective Data Labs 11/06/22 07:38 11/06/22 07:38 Labs: Laboratory Results - last 24 hr 11/05/22 11/06/22 11/06/22 16:07 07:38 07:38 WBC RBC Hgb Hct MCV MCH MCHC RDW Plt Count MPV Absolute Nucleated RBC Nucleated RBC % (auto) Sodium 135 135 Potassium 3.8 3.5 Chloride 108 108 Carbon Dioxide 17 L 17 L Anion Gap 14 14 BUN 95 H 98 H Creatinine 4.38 H* 3.77 H Estim Creat Clear Calc 20.5 23.9 Estimated GFR 13 16 Random Glucose 140 H 109 Calcium 7.9 L 7.9 L Random Vancomycin 11.8 L 11/06/22 07:38 WBC 10.0 RBC 3.99 L Hgb 12.5 L Hct 36.0 L MCV 90.2 MCH 31.3 MCHC 34.7 RDW 13.9 Plt Count 102 L D MPV 12.4 Absolute Nucleated RBC 0.000 Nucleated RBC % (auto) 0.0 Sodium Potassium Chloride Carbon Dioxide Anion Gap BUN Creatinine Estim Creat Clear Calc Estimated GFR Random Glucose Calcium Random Vancomycin Microbiology Microbiology Results: Microbiology 11/03/22 19:31 Blood - Venous Blood Culture - Final Staphylococcus aureus 11/03/22 19:30 Blood - Venous Blood Culture - Final Staphylococcus aureus 11/03/22 Unknown Urine Catheterized - Straight Catheter Urine Culture - Final Staphylococcus aureus 11/05/22 06:47 Blood - Venous Blood Culture - Preliminary No growth after 24 hours. 11/05/22 06:47 Blood - Venous Blood Culture - Preliminary Prelim: GPC Gram Stain only Procedures Date of Service Date of Service: 11/06/22 Assessment & Plan Assessment and plan (1) VINEET (acute kidney injury): Status: Acute Plan Non-Oliguric VINEET: w/u several potential contributing factors Rhabdomyolysis Bacteremia assoc AGN vs AIN ATN - Rhabdo: CPKs used to decrease. - NAGMA: vineet, and rhabdo - Mild R [place]: ques signif REC: DC IV fluids. PO NaHCO3; sero as ordered; track UOP/renal func; Absolute indication for kidney biopsy today no indication for [employer] at this time Time Spent With Patient Time: Total time managing care of this patient today ____ minutes. Progress Note: Quality Stroke Does the patient have a stroke diagnosis?: No
[2022-11-06 13:28] LABS: Haptoglobin 261 mg/dL (43-212)
[2022-11-06] MEDS: Acetaminophen 325 MG TABLET 650 MG PO (16:35)
[2022-11-06] MEDS: Albuterol/Iprat 2.5/0.5MG 3 ML AMPUL.NEB INHALE (17:00)
[2022-11-06 17:08] LABS: Complement C3 102 mg/dL (82-185)
[2022-11-06] MEDS: Furosemide 40 MG/4 ML VIAL IVPUSH (17:09)
--- NOTE | 2022-11-06 17:56 | PC.NURSE ---
[facility] notified Via tiger text at 1641 Pt appearing SOB, VS as follows: 97.7, RR 24, HR 83, 118/56, 91% on RA. Pt LS dim with crackles in bases. New orders for lasix IVP given as ordered, neb treatment ordered given by RT. Pt has [place] cath to monitor urine output. Will continue with plan of care. Pt resting in bed comfortable, RR 20, showing no signs of distress.
[2022-11-06 18:48] LABS: B Type Natriuretic Peptide 870 pg/mL (<100)
[2022-11-06 21:29] LABS: Myeloperoxidase Antibody <1.0 AI; Proteinase 3 PR3 Antibodies <1.0 AI
[2022-11-06] MEDS: Melatonin 3 MG TABLET 6 MG PO (21:41)
[2022-11-06] MEDS: Doxazosin Mesylate 2 MG TABLET 4 MG PO (21:42)
[2022-11-06] MEDS: Sodium Bicarbonate 650 MG TABLET PO (21:42)
[2022-11-07 03:59] VITALS: BP 117/81; PULSE 80; RESP 16; TEMP 36.7; O2SAT 96
[2022-11-07 07:51] VITALS: BP 144/78; PULSE 101; RESP 18; TEMP 37.1; O2SAT 100
[2022-11-07 08:46] LABS: Vancomycin Trough 10.6 mcg/mL (10.0-20.0)
[2022-11-07 08:51] LABS: Alanine Aminotransferase 58 U/L (0-40); Albumin Level 2.6 g/dL (3.5-5.0); Alkaline Phosphatase 40 U/L (39-117); Anion Gap 13 (12-20); Aspartate Amino Transferase 69 U/L (5-37); Bilirubin Direct 0.7 mg/dL (0.0-0.5); Bilirubin Total 1.8 mg/dL (0.0-1.0); Blood Urea Nitrogen 88 mg/dL (9-16); Calcium 8.2 mg/dL (8.4-10.2); Carbon Dioxide 21 mmol/L (22-29); Chloride 108 mmol/L (96-108); Creatinine Clr Calc Pharmacy 26.5; Estimated Glomerular Filt Rate 18; Glucose Random 117 mg/dL (60-115); Lactate Dehydrogenase 308 U/L (118-273); Potassium 3.3 mmol/L (3.3-5.1); Sodium 139 mmol/L (135-145); Total Protein 5.6 g/dL (6.5-8.0)
[2022-11-07] MEDS: lamoTRIgine 25 MG TABLET 50 MG PO (09:51)
[2022-11-07] MEDS: Sodium Bicarbonate 650 MG TABLET PO ×2 (09:51→21:25)
[2022-11-07] MEDS: Metoprolol Tartrate 25 MG TABLET PO ×4 (09:51→21:25)
[2022-11-07] MEDS: Apixaban 5 MG TABLET PO ×2 (09:51→21:25)
[2022-11-07] MEDS: 0.9 % Sodium Chloride Flush 3 ML SYRINGE IVFLUSH ×2 (09:51→17:19)
--- NOTE | 2022-11-07 11:39 | HO.PM.IMPN ---
Subjective Subjective Date of Service: 11/07/22 Interval History: seen and examined this morning follow up for bacteremia, UTI no fever, chills or abdominal pain Review of Systems Review of Systems: Yes all other systems are reviewed and are negative Constitutional Constitutional: Denies chills and Denies fever(s) Cardiovascular Cardiovascular: Denies chest pain and Denies palpitations Respiratory Respiratory: Denies cough Gastrointestinal Gastrointestinal: Denies abdominal pain, Denies nausea and Denies vomiting Endocrine Endocrine: Denies palpitations Physical Exam Vital Signs: Vital Signs: Last Vital Signs Temp 98.7 F 11/07/22 07:51 Pulse 101 H 11/07/22 07:51 Resp 18 11/07/22 07:51 BP 144/78 H 11/07/22 07:51 Pulse Ox 100 11/07/22 07:51 O2 Del Method Room Air 11/07/22 07:51 BMI result Body Mass Index 37.6 Appearing in no acute distress lung sounds are clear to auscultation heart regular rate rhythm, clear S1, S2 positive bowel sounds, abdomen is soft, nontender neuro patient is alert x3, no focal deficits Objective Data Active Medications Acetaminophen (Acetaminophen 325 Mg Tablet) 650 mg PO Q6H PRN PRN Reason: Pain, Mild (Pain Scale 1-3) Last Admin: 11/06/22 16:35 Dose: 650 mg Documented By: PRETTY Apixaban (Apixaban 5 Mg Tablet) 5 mg PO BID [facility] Last Admin: 11/07/22 09:51 Dose: 5 mg Documented By: KERI Docusate Sodium (Docusate Sodium 100 Mg Capsule) 100 mg PO BEDTIME [facility] Last Admin: 11/06/22 21:43 Dose: Not Given Documented By: MARIA ESTHER Non-Admin Reason: Patient Refused Doxazosin Mesylate (Doxazosin Mesylate 2 Mg Tablet) 4 mg PO BEDTIME [facility]; Protocol Last Admin: 11/06/22 21:42 Dose: 4 mg Documented By: MARIA ESTHER Cefazolin Sodium 1 gm/ Sodium (Chloride) 50 mls @ 100 mls/hr IV Q12H [facility] Last Infusion: 11/07/22 01:47 Dose: 0 mls/hr Documented By: MARIA ESTHER Lamotrigine (Lamotrigine 25 Mg Tablet) 50 mg PO DAILY [facility] Last Admin: 11/07/22 09:51 Dose: 50 mg Documented By: KERI Levalbuterol HCl (Levalbuterol Hcl 1.25 Mg/3 Ml Vial.Neb) 1.25 mg INHALE Q3H PRN PRN Reason: Wheezing Last Admin: 11/04/22 02:18 Dose: 1.25 mg Documented By: SAMMI Melatonin (Melatonin 3 Mg Tablet) 6 mg PO BEDTIME PRN PRN Reason: Insomnia Last Admin: 11/06/22 21:41 Dose: 6 mg Documented By: MARIA ESTHER Metoprolol Tartrate (Metoprolol Tartrate 25 Mg Tablet) 25 mg PO QID [facility]; Protocol Last Admin: 11/07/22 09:51 Dose: 25 mg Documented By: KERI Ondansetron HCl (Ondansetron Hcl 4 Mg/2 Ml Vial) 4 mg IVPUSH Q8H PRN PRN Reason: Nausea and Vomiting Polyethylene Glycol (Polyethylene Glycol 3350 17 Gm Powd.Pack) 17 gm PO DAILY PRN PRN Reason: Constipation Sodium Bicarbonate (Sodium Bicarbonate 650 Mg Tablet) 650 mg PO BID [facility] Last Admin: 11/07/22 09:51 Dose: 650 mg Documented By: KERI Sodium Chloride (0.9 % Sodium Chloride Flush 3 Ml Syringe) 3 ml IVFLUSH QSHIFT [facility] Last Admin: 11/07/22 09:51 Dose: 3 ml Documented By: KERI Labs 11/06/22 07:38 11/07/22 08:14 Labs: Laboratory Results - last 24 hr 11/04/22 11/04/22 11/06/22 10:55 10:55 18:22 Haptoglobin 261 H Anion Gap Estim Creat Clear Calc Estimated GFR Random Glucose Calcium Total Bilirubin Direct Bilirubin AST ALT Alkaline Phosphatase Lactate Dehydrogenase B-Natriuretic Peptide 870 H Total Protein Albumin Vancomycin Trough Proteinase 3 (PR3) Ab <1.0 Myeloperoxidase Ab <1.0 Complement C3 102 Complement C4 28 11/07/22 11/07/22 08:14 08:15 Haptoglobin Anion Gap 13 Estim Creat Clear Calc 26.5 Estimated GFR 18 Random Glucose 117 H Calcium 8.2 L Total Bilirubin 1.8 H Direct Bilirubin 0.7 H AST 69 H ALT 58 H Alkaline Phosphatase 40 Lactate Dehydrogenase 308 H B-Natriuretic Peptide Total Protein 5.6 L Albumin 2.6 L Vancomycin Trough 10.6 Proteinase 3 (PR3) Ab Myeloperoxidase Ab Complement C3 Complement C4 Microbiology Microbiology Results: Microbiology 11/05/22 06:47 Blood Culture - Preliminary Blood - Venous Prelim: GPC Gram Stain only 11/05/22 06:47 Blood Culture - Preliminary Blood - Venous Prelim: GPC Gram Stain only 11/03/22 19:31 Blood Culture - Final Blood - Venous Staphylococcus aureus 11/03/22 19:30 Blood Culture - Final Blood - Venous Staphylococcus aureus 11/03/22 Unknown Urine Culture - Final Urine Catheterized - Straight Catheter Staphylococcus aureus Assessment and Plan (1) Atrial fibrillation with RVR: Status: Acute (2) Gram-positive bacteremia: Status: Acute Plan 67yo M with bipolar depression presenting after fall without LOC or head injury, down on the ground 4 hr due to LE weakness admitted for rhabdomyolysis with VINEET, new-onset AF/RVR, UTI with severe sepsis BCx 2 of 2 sets positive for GPCs in clusters MSSA bacteremia BCx growing 2/2 MSSA, repeat BCx growing 2/2 GPC no obvious valvular pathology seen on echo lumbar spine MRI showing no evidence of discitis, osteomyelitis, or epidural abscess initially treated with IV vanco, will change to IV cefazolin, will need at least 14 days from first negative blood culture ID following will need repeat BCx in am likely midline placement will be needed UTI urine culture growing MSSA initially treated with IV ceftriaxone, vanco 11/03, will change to cefazolin rhabdomyolysis CPK trending down from 11,300 to 2,831 with IVF VINEET with metabolic acidosis SCr down to 3.77 seen by nephro, serologies pending - may be multifactorial -> rhabdo, bacteremia assoc AGN vs AIN, IV contrast ATN continue IV fluids, add bicarb [place] level <0.10 renal US with mild right hydro - seen by urology, less likely contributing to VINEET, started on dozazosin - consider stent placement if no improvement with medical management AF/RVR, new-onset diltiazem gtt -> PO metoprolol. HR improved. echo with preserved EF, diastolic function indeterminate started apixaban Cardiology following Tn-I elevation due to AF/RVR-related demand, unlikely ACS hypoK repleted thrombocytopenia likely due to sepsis. improving age-indeterminate lacunar infarcts on CTH low suspicion for acute CVA, no focal deficits consider outpt MRI brain bipolar depression continue lamotrigine, hold venlafaxine due to transaminasemia [though latter likely due to rhabdo- continue to monitor LFTs] elevated LFTs likely r/t rhabdo trending down VTE ppx: apixaban Attending Dr. Meredith dispo: seen by PT - STR In my clinical judgment, the patient requires continued inpatient hospitalization for the following reasons: IV fluids, IV antibiotics, rate control Time Spent With Patient Time: Total time managing care of this patient today ____ minutes. Quality Stroke Does the patient have a stroke diagnosis?: No VTE Prior VTE?: No VTE Risk Level:: Medical - moderate - high VTE Device Contraindication: Treatment Not Indicated VTE Drug Contraindication: N/A - Med Ordered
[2022-11-07 11:44] VITALS: BP 137/67; PULSE 77; RESP 18; TEMP 36.4; O2SAT 92
--- NOTE | 2022-11-07 12:59 | P.PNNP_ITS ---
Subjective Subjective Date of Service: 11/09/22 Principal diagnosis: VINEET Interval history: seen and examined this morning follow up for bacteremia, UTI no fever, chills or abdominal pain Physical Exam Vital Signs: Vital Signs: Last Vital Signs Temp 97.5 F 11/07/22 11:44 Pulse 77 11/07/22 11:44 Resp 18 11/07/22 11:44 BP 137/67 11/07/22 11:44 Pulse Ox 92 11/07/22 11:44 O2 Del Method Room Air 11/07/22 11:44 BMI result Body Mass Index 37.6 Comfortable Neck is supple Lung: Air entry equal Heart: S1,S2, normal. No rub Abd: Soft. BS + NS : Alert.No asterexis Ext: No edema Const: General: cooperative, healthy appearing, comfortable and no acute distress Orientation/consciousness: patient oriented x3 HEENT: Other: Unremarkable Head: Yes normal to inspection Face and sinus: Yes normal facial exam Mouth: Normal oral and palatal mucosa present and moist mucous membranes Teeth and gingiva: dentition normal Eyes: General: appearance normal, both eyes and all related structures Pupils: Equal, round and reactive pupils present Neck: Neck: Yes normal visual inspection, Yes full ROM and Yes trachea midline Chest: Chest palpation & inspection: normal inspection of the chest Resp: Effort & Inspection: normal respiratory effort, able to speak in complete sentences and no respiratory distress Auscultation: rales Cardio: Palpation: normal PMI Rate: regular rate Rhythm: regular rhythm Heart sounds: S1 normal heart sound present, S2 normal heart sound present, no gallops, no murmurs and no rubs GI: Inspection: Yes normal to inspection Palpation (GI): Soft to palpation and nontender : General: Yes no CVA tenderness Back/Spine/Pelvis: Other: unremarkable Back: no CVA tenderness Cervical Spine: normal cervical lordosis Thoraci c/Lumbar Spine: thoracic and lumbar spine normal to inspection Skin: General skin exam: no rashes or lesions noted Neuro: General: patient oriented x3, tone normal and moves all extremities Cranial nerves: Yes Equal, round and reactive pupils present Extrem: General: Yes normal to inspection and Yes capillary refill normal Psych: Appearance: grossly normal Mental Status: mental status grossly normal Objective Data Labs 11/06/22 07:38 11/07/22 08:14 Labs: Laboratory Results - last 24 hr 11/04/22 11/04/22 11/06/22 10:55 10:55 18:22 Haptoglobin 261 H Sodium Potassium Chloride Carbon Dioxide Anion Gap BUN Creatinine Estim Creat Clear Calc Estimated GFR Random Glucose Calcium Total Bilirubin Direct Bilirubin AST ALT Alkaline Phosphatase Lactate Dehydrogenase B-Natriuretic Peptide 870 H Total Protein Albumin Vancomycin Trough Proteinase 3 (PR3) Ab <1.0 Myeloperoxidase Ab <1.0 Complement C3 102 Complement C4 28 11/07/22 11/07/22 08:14 08:15 Haptoglobin Sodium 139 Potassium 3.3 Chloride 108 Carbon Dioxide 21 L Anion Gap 13 BUN 88 H Creatinine 3.40 H Estim Creat Clear Calc 26.5 Estimated GFR 18 Random Glucose 117 H Calcium 8.2 L Total Bilirubin 1.8 H Direct Bilirubin 0.7 H AST 69 H ALT 58 H Alkaline Phosphatase 40 Lactate Dehydrogenase 308 H B-Natriuretic Peptide Total Protein 5.6 L Albumin 2.6 L Vancomycin Trough 10.6 Proteinase 3 (PR3) Ab Myeloperoxidase Ab Complement C3 Complement C4 Microbiology Microbiology Results: Microbiology 11/05/22 06:47 Blood - Venous Blood Culture - Final Staphylococcus aureus 11/05/22 06:47 Blood - Venous Blood Culture - Final Staphylococcus aureus 11/03/22 19:31 Blood - Venous Blood Culture - Final Staphylococcus aureus 11/03/22 19:30 Blood - Venous Blood Culture - Final Staphylococcus aureus 11/03/22 Unknown Urine Catheterized - Straight Catheter Urine Culture - Final Staphylococcus aureus Procedures Date of Service Date of Service: 11/09/22 Assessment & Plan Assessment and plan (1) VINEET (acute kidney injury): Status: Acute Plan Non-Oliguric VINEET: w/u several potential contributing factors Rhabdomyolysis Bacteremia assoc AGN vs AIN ATN - Rhabdo: CPKs continues to decrease. - NAGMA: vineet, and rhabdo - Mild R [place]: ques signif REC: DC IV fluids. PO NaHCO3; sero as ordered; track UOP/renal func; NO Absolute indication for kidney biopsy no indication for [employer] at this time Time Spent With Patient Time: Total time managing care of this patient today ____ minutes. Progress Note: Quality Stroke Does the patient have a stroke diagnosis?: No
[2022-11-07 15:05] VITALS: BP 138/70; PULSE 85; RESP 17; TEMP 37; O2SAT 95
[2022-11-07 19:12] VITALS: BP 157/83; PULSE 84; RESP 18; TEMP 37.4; O2SAT 93
[2022-11-07] MEDS: Doxazosin Mesylate 2 MG TABLET 4 MG PO (21:24)
[2022-11-07] MEDS: Melatonin 3 MG TABLET 6 MG PO (21:25)
[2022-11-07] MEDS: Acetaminophen 325 MG TABLET 650 MG PO (21:27)
[2022-11-07] MEDS: Docusate Sodium 100 MG CAPSULE PO (21:27)
[2022-11-07 23:04] VITALS: BP 126/78; PULSE 88; RESP 18; TEMP 37.6; O2SAT 92
[2022-11-08] MEDS: 0.9 % Sodium Chloride Flush 3 ML SYRINGE IVFLUSH ×3 (00:26→21:00)
[2022-11-08 03:09] VITALS: BP 115/72; PULSE 78; RESP 18; TEMP 36.7; O2SAT 91
[2022-11-08 06:26] LABS: Creatinine Clr Calc Pharmacy 33.7; Estimated Glomerular Filt Rate 24
[2022-11-08] MEDS: Sodium Bicarbonate 650 MG TABLET PO ×2 (08:46→20:59)
[2022-11-08] MEDS: lamoTRIgine 25 MG TABLET 50 MG PO (08:46)
[2022-11-08] MEDS: Metoprolol Tartrate 25 MG TABLET PO ×4 (08:46→20:59)
[2022-11-08] MEDS: polyethylene glycoL 3350 17 GM POWD.PACK PO (08:46)
[2022-11-08] MEDS: Apixaban 5 MG TABLET PO ×2 (08:46→20:59)
--- NOTE | 2022-11-08 10:08 | HO.PM.IMPN ---
Subjective Subjective Date of Service: 11/08/22 Interval History: seen and examined this morning follow up for bacteremia, UTI no fever, chills or abdominal pain Review of Systems Review of Systems: Yes all other systems are reviewed and are negative Constitutional Constitutional: Denies chills and Denies fever(s) Cardiovascular Cardiovascular: Denies chest pain and Denies palpitations Respiratory Respiratory: Denies cough Gastrointestinal Gastrointestinal: Denies abdominal pain, Denies nausea and Denies vomiting Endocrine Endocrine: Denies palpitations Physical Exam Vital Signs: Vital Signs: Last Vital Signs Temp 98.0 F 11/08/22 03:09 Pulse 78 11/08/22 03:09 Resp 18 11/08/22 03:09 BP 115/72 11/08/22 03:09 Pulse Ox 91 L 11/08/22 03:09 O2 Del Method Room Air 11/08/22 03:09 BMI result Body Mass Index 37.6 Objective Data Active Medications Acetaminophen (Acetaminophen 325 Mg Tablet) 650 mg PO Q6H PRN PRN Reason: Pain, Mild (Pain Scale 1-3) Last Admin: 11/07/22 21:27 Dose: 650 mg Documented By: SAL Apixaban (Apixaban 5 Mg Tablet) 5 mg PO BID [facility] Last Admin: 11/08/22 08:46 Dose: 5 mg Documented By: CURT Docusate Sodium (Docusate Sodium 100 Mg Capsule) 100 mg PO BEDTIME [facility] Last Admin: 11/07/22 21:27 Dose: 100 mg Documented By: SAL Doxazosin Mesylate (Doxazosin Mesylate 2 Mg Tablet) 4 mg PO BEDTIME [facility]; Protocol Last Admin: 11/07/22 21:24 Dose: 4 mg Documented By: SAL Cefazolin Sodium 1 gm/ Sodium (Chloride) 50 mls @ 100 mls/hr IV Q12H [facility] Last Infusion: 11/08/22 01:11 Dose: 0 mls/hr Documented By: AMBROSIO Lamotrigine (Lamotrigine 25 Mg Tablet) 50 mg PO DAILY [facility] Last Admin: 11/08/22 08:46 Dose: 50 mg Documented By: CURT Levalbuterol HCl (Levalbuterol Hcl 1.25 Mg/3 Ml Vial.Neb) 1.25 mg INHALE Q3H PRN PRN Reason: Wheezing Last Admin: 11/04/22 02:18 Dose: 1.25 mg Documented By: SAMMI Melatonin (Melatonin 3 Mg Tablet) 6 mg PO BEDTIME PRN PRN Reason: Insomnia Last Admin: 11/07/22 21:25 Dose: 6 mg Documented By: SAL Metoprolol Tartrate (Metoprolol Tartrate 25 Mg Tablet) 25 mg PO QID [facility]; Protocol Last Admin: 11/08/22 08:46 Dose: 25 mg Documented By: CURT Ondansetron HCl (Ondansetron Hcl 4 Mg/2 Ml Vial) 4 mg IVPUSH Q8H PRN PRN Reason: Nausea and Vomiting Polyethylene Glycol (Polyethylene Glycol 3350 17 Gm Powd.Pack) 17 gm PO DAILY PRN PRN Reason: Constipation Last Admin: 11/08/22 08:46 Dose: 17 gm Documented By: CRUT Sodium Bicarbonate (Sodium Bicarbonate 650 Mg Tablet) 650 mg PO BID [facility] Last Admin: 11/08/22 08:46 Dose: 650 mg Documented By: CURT Sodium Chloride (0.9 % Sodium Chloride Flush 3 Ml Syringe) [facility] Last Admin: 11/08/22 08:47 Dose: 3 ml Documented By: CURT Labs 11/06/22 07:38 11/08/22 05:54 Labs: Laboratory Results - last 24 hr 11/08/22 05:54 Estim Creat Clear Calc 33.7 Estimated GFR 24 Microbiology Microbiology Results: Microbiology 11/05/22 06:47 Blood Culture - Final Blood - Venous Staphylococcus aureus 11/05/22 06:47 Blood Culture - Final Blood - Venous Staphylococcus aureus Assessment and Plan (1) Atrial fibrillation with RVR: Status: Acute (2) Gram-positive bacteremia: Status: Acute Plan 67yo M with bipolar depression presenting after fall without LOC or head injury, down on the ground 4 hr due to LE weakness admitted for rhabdomyolysis with VINEET, new-onset AF/RVR, UTI with severe sepsis BCx 2 of 2 sets positive for GPCs in clusters MSSA bacteremia BCx growing 2/2 MSSA, repeat BCx growing 2/2 GPC no obvious valvular pathology seen on echo lumbar spine MRI showing no evidence of discitis, osteomyelitis, or epidural abscess initially treated with IV vanco, will change to IV cefazolin, will need at least 14 days from first negative blood culture ID following repeat BCx midline placement after negative blood cx UTI urine culture growing MSSA initially treated with IV ceftriaxone, vanco 11/03, will change to cefazolin rhabdomyolysis CPK trending down from 11,300 to 2,831 with IVF VINEET with metabolic acidosis SCr down to 3.77 seen by nephro, serologies pending - may be multifactorial -> rhabdo, bacteremia assoc AGN vs AIN, IV contrast ATN continue IV fluids, add bicarb [place] level <0.10 renal US with mild right hydro - seen by urology, less likely contributing to VINEET, started on dozazosin - consider stent placement if no improvement with medical management AF/RVR, new-onset diltiazem gtt -> PO metoprolol. HR improved. echo with preserved EF, diastolic function indeterminate apixaban Cardiology following Tn-I elevation due to AF/RVR-related demand, unlikely ACS hypoK repleted thrombocytopenia likely due to sepsis. improving age-indeterminate lacunar infarcts on CTH low suspicion for acute CVA, no focal deficits consider outpt MRI brain bipolar depression continue lamotrigine, hold venlafaxine due to transaminasemia [though latter likely due to rhabdo- continue to monitor LFTs] elevated LFTs likely r/t rhabdo trending down VTE ppx: apixaban Attending Dr. Meredith dispo: seen by PT - STR In my clinical judgment, the patient requires continued inpatient hospitalization for the following reasons: IV fluids, IV antibiotics, rate control Time Spent With Patient Time: Total time managing care of this patient today ____ minutes. Quality Stroke Does the patient have a stroke diagnosis?: No VTE Prior VTE?: No VTE Risk Level:: Medical - moderate - high VTE Device Contraindication: Treatment Not Indicated VTE Drug Contraindication: N/A - Med Ordered
[2022-11-08 11:11] VITALS: BP 121/70; PULSE 84; RESP 20; TEMP 36.7; O2SAT 95
--- NOTE | 2022-11-08 13:46 | PM.PNNEP ---
Subjective Subjective Date of Service: 11/09/22 Principal diagnosis: VINEET Interval history: Events noted. Physical Exam Vital Signs: Vital Signs: Last Vital Signs Temp 98.0 F 11/08/22 11:11 Pulse 84 11/08/22 11:11 Resp 20 11/08/22 11:11 BP 121/70 11/08/22 11:11 Pulse Ox 95 11/08/22 11:11 O2 Del Method Room Air 11/08/22 11:11 BMI result Body Mass Index 37.6 Const: General: cooperative, healthy appearing, comfortable and no acute distress Orientation/consciousness: patient oriented x3 HEENT: Other: Unremarkable Head: Yes normal to inspection Face and sinus: Yes normal facial exam Mouth: Normal oral and palatal mucosa present and moist mucous membranes Teeth and gingiva: dentition normal Eyes: General: appearance normal, both eyes and all related structures Pupils: Equal, round and reactive pupils present Neck: Neck: Yes normal visual inspection, Yes full ROM and Yes trachea midline Chest: Chest palpation & inspection: normal inspection of the chest Resp: Effort & Inspection: normal respiratory effort, able to speak in complete sentences and no respiratory distress Auscultation: rales Cardio: Palpation: normal PMI Rate: regular rate Rhythm: regular rhythm Heart sounds: S1 normal heart sound present, S2 normal heart sound present, no gallops, no murmurs and no rubs GI: Inspection: Yes normal to inspection Palpation (GI): Soft to palpation and nontender : General: Yes no CVA tenderness Back/Spine/Pelvis: Other: unremarkable Back: no CVA tenderness Cervical Spine: normal cervical lordosis Thoracic/Lumbar Spine: thoracic and lumbar spine normal to inspection Skin: General skin exam: no rashes or lesions noted Neuro: General: patient oriented x3, tone normal and moves all extremities Cranial nerves: Yes Equal, round and reactive pupils present Extrem: General: Yes normal to inspection and Yes capillary refill normal Psych: Appearance: grossly normal Mental Status: mental status grossly normal Objective Data Labs 11/06/22 07:38 11/08/22 05:54 Labs: Laboratory Results - last 24 hr 11/08/22 05:54 Creatinine 2.67 H Estim Creat Clear Calc 33.7 Estimated GFR 24 Microbiology Microbiology Results: Microbiology 11/05/22 06:47 Blood - Venous Blood Culture - Final Staphylococcus aureus 11/05/22 06:47 Blood - Venous Blood Culture - Final Staphylococcus aureus 11/03/22 19:31 Blood - Venous Blood Culture - Final Staphylococcus aureus 11/03/22 19:30 Blood - Venous Blood Culture - Final Staphylococcus aureus 11/03/22 Unknown Urine Catheterized - Straight Catheter Urine Culture - Final Staphylococcus aureus Procedures Date of Service Date of Service: 11/09/22 Assessment & Plan Assessment and plan (1) VINEET (acute kidney injury): Status: Acute Plan Non-Oliguric VINEET: w/u several potential contributing factors Rhabdomyolysis Bacteremia assoc AGN vs AIN ATN - Rhabdo: CPKs continues to decrease. - NAGMA: vineet, and rhabdo - Mild R [place]: ques signif Creatinine is trending down REC: No need for IV fluids. PO NaHCO3; sero in progress track UOP/renal func; NO Absolute indication for kidney biopsy no indication for PATIENT ACCOUNT LIAISON at this time Time Spent With Patient Time: Total time managing care of this patient today ____ minutes. Progress Note: Quality Stroke Does the patient have a stroke diagnosis?: No
[2022-11-08 14:59] VITALS: BP 134/63; PULSE 84; RESP 20; TEMP 36.9; O2SAT 98
[2022-11-08 18:59] VITALS: BP 105/55; PULSE 68; RESP 20; TEMP 36.4; O2SAT 92
[2022-11-08 20:58] VITALS: PULSE 98
[2022-11-08] MEDS: Docusate Sodium 100 MG CAPSULE PO (20:59)
[2022-11-08] MEDS: Doxazosin Mesylate 2 MG TABLET 4 MG PO (20:59)
[2022-11-09] VITALS (9 sets, daily range): BP systolic 90–169; BP diastolic 56–83; PULSE 67–97; RESP 17–20; TEMP 36.4–38.6; O2SAT 88–95
[2022-11-09 07:11] LABS: Anion Gap 11 (12-20); Blood Urea Nitrogen 51 mg/dL (9-16); Calcium 7.9 mg/dL (8.4-10.2); Carbon Dioxide 23 mmol/L (22-29); Chloride 109 mmol/L (96-108); Creatinine Clr Calc Pharmacy 38.6; Creatinine Clr Calc Pharmacy 38.8; Estimated Glomerular Filt Rate 28; Glucose Random 108 mg/dL (60-115); Potassium 3.8 mmol/L (3.3-5.1); Sodium 139 mmol/L (135-145)
[2022-11-09] MEDS: lamoTRIgine 25 MG TABLET 50 MG PO (08:45)
[2022-11-09] MEDS: Metoprolol Tartrate 25 MG TABLET PO ×3 (08:45→21:09)
[2022-11-09] MEDS: Acetaminophen 325 MG TABLET 650 MG PO (08:46)
[2022-11-09] MEDS: 0.9 % Sodium Chloride Flush 3 ML SYRINGE IVFLUSH ×2 (08:46→17:44)
[2022-11-09] MEDS: Sodium Bicarbonate 650 MG TABLET PO ×2 (08:46→21:09)
[2022-11-09] MEDS: Apixaban 5 MG TABLET PO ×2 (08:46→21:08)
--- NOTE | 2022-11-09 10:20 | P.PNIM_ITS ---
Subjective Subjective Date of Service: 11/09/22 Interval History: seen and examined this morning follow up for bacteremia, UTI no fever, chills or abdominal pain Review of Systems Review of Systems: Yes all other systems are reviewed and are negative Constitutional Constitutional: Denies chills and Denies fever(s) Cardiovascular Cardiovascular: Denies chest pain and Denies palpitations Respiratory Respiratory: Denies cough Gastrointestinal Gastrointestinal: Denies abdominal pain, Denies nausea and Denies vomiting Endocrine Endocrine: Denies palpitations Physical Exam Vital Signs: Vital Signs: Last Vital Signs Temp 101.5 F H 11/09/22 08:00 Pulse 91 11/09/22 08:00 Resp 17 11/09/22 08:00 BP 169/83 H 11/09/22 08:00 Pulse Ox 91 L 11/09/22 08:00 O2 Del Method Room Air 11/09/22 08:00 BMI result Body Mass Index 37.6 Appearing in no acute distress lung sounds are clear to auscultation heart regular rate rhythm, clear S1, S2 positive bowel sounds, abdomen is soft, nontender neuro patient is alert x3, no focal deficits Objective Data Active Medications Acetaminophen (Acetaminophen 325 Mg Tablet) 650 mg PO Q6H PRN PRN Reason: Pain, Mild (Pain Scale 1-3) Last Admin: 11/09/22 08:46 Dose: 650 mg Documented By: BROEliu Apixaban (Apixaban 5 Mg Tablet) 5 mg PO BID [facility] Last Admin: 11/09/22 08:46 Dose: 5 mg Documented By: DOBROEliu Docusate Sodium (Docusate Sodium 100 Mg Capsule) 100 mg PO BEDTIME [facility] Last Admin: 11/08/22 20:59 Dose: 100 mg Documented By: YASMIN Doxazosin Mesylate (Doxazosin Mesylate 2 Mg Tablet) 4 mg PO BEDTIME [facility]; Protocol Last Admin: 11/08/22 20:59 Dose: 4 mg Documented By: YASMIN Cefazolin Sodium 1 gm/ Sodium (Chloride) 50 mls @ 100 mls/hr IV Q12H [facility] Last Infusion: 11/09/22 02:26 Dose: 0 mls/hr Documented By: YASMIN Lamotrigine (Lamotrigine 25 Mg Tablet) 50 mg PO DAILY [facility] Last Admin: 11/09/22 08:45 Dose: 50 mg Documented By: DARLYN Levalbuterol HCl (Levalbuterol Hcl 1.25 Mg/3 Ml Vial.Neb) 1.25 mg INHALE Q3H PRN PRN Reason: Wheezing Last Admin: 11/04/22 02:18 Dose: 1.25 mg Documented By: SAMMI Melatonin (Melatonin 3 Mg Tablet) 6 mg PO BEDTIME PRN PRN Reason: Insomnia Last Admin: 11/07/22 21:25 Dose: 6 mg Documented By: COTBUSTER Metoprolol Tartrate (Metoprolol Tartrate 25 Mg Tablet) 25 mg PO QID [facility]; Protocol Last Admin: 11/09/22 08:45 Dose: 25 mg Documented By: DARLYN Ondansetron HCl (Ondansetron Hcl 4 Mg/2 Ml Vial) 4 mg IVPUSH Q8H PRN PRN Reason: Nausea and Vomiting Polyethylene Glycol (Polyethylene Glycol 3350 17 Gm Powd.Pack) 17 gm PO DAILY PRN PRN Reason: Constipation Last Admin: 11/08/22 08:46 Dose: 17 gm Documented By: CURT Sodium Bicarbonate (Sodium Bicarbonate 650 Mg Tablet) 650 mg PO BID [facility] Last Admin: 11/09/22 08:46 Dose: 650 mg Documented By: DARLYN Sodium Chloride (0.9 % Sodium Chloride Flush 3 Ml Syringe) 3 ml IVFLUSH QSHI Last Admin: 11/09/22 08:46 Dose: 3 ml Documented By: DARLYN Labs 11/06/22 07:38 11/09/22 06:10 Labs: Laboratory Results - last 24 hr 11/09/22 11/09/22 06:10 06:10 Anion Gap 11 L Estim Creat Clear Calc 38.6 38.8 Estimated GFR 28 28 Random Glucose 108 Calcium 7.9 L Assessment and Plan (1) Atrial fibrillation with RVR: Status: Acute (2) Gram-positive bacteremia: Status: Acute Plan 67yo M with bipolar depression presenting after fall without LOC or head injury, down on the ground 4 hr due to LE weakness admitted for rhabdomyolysis with VINEET, new-onset AF/RVR, UTI with severe sepsis BCx 2 of 2 sets positive for GPCs in clusters MSSA bacteremia BCx growing 2/2 MSSA, repeat BCx growing 2/2 GPC no obvious valvular pathology seen on echo lumbar spine MRI showing no evidence of discitis, osteomyelitis, or epidural abscess initially treated with IV vanco, will change to IV cefazolin, will need at least 14 days from first negative blood culture ID following repeat BCx pending midline placement after negative blood cx UTI urine culture growing MSSA initially treated with IV ceftriaxone, vanco 11/03, change to cefazolin rhabdomyolysis CPK trended down from 11,300 to 2,831 with IVF VINEET with metabolic acidosis SCr down to 3.77 seen by nephro, serologies pending - may be multifactorial -> rhabdo, bacteremia assoc AGN vs AIN, IV contrast ATN continue IV fluids, add bicarb [place] level <0.10 renal US with mild right hydro - seen by urology, less likely contributing to VINEET, started on dozazosin - consider stent placement if no improvement with medical management AF/RVR, new-onset diltiazem gtt -> PO metoprolol. HR improved. echo with preserved EF, diastolic function indeterminate apixaban Cardiology following Tn-I elevation due to AF/RVR-related demand, unlikely ACS hypoK repleted thrombocytopenia likely due to sepsis. improving age-indeterminate lacunar infarcts on CTH low suspicion for acute CVA, no focal deficits consider outpt MRI brain bipolar depression continue lamotrigine, hold venlafaxine due to transaminasemia [though latter likely due to rhabdo- continue to monitor LFTs] elevated LFTs likely r/t rhabdo trending down VTE ppx: apixaban Attending Dr. Acevedo dispo: seen by PT - STR In my clinical judgment, the patient requires continued inpatient hospitalization for the following reasons: IV fluids, IV antibiotics, rate control Time Spent With Patient Time: Total time managing care of this patient today ____ minutes. Quality Stroke Does the patient have a stroke diagnosis?: No VTE Prior VTE?: No VTE Risk Level:: Medical - moderate - high VTE Device Contraindication: Treatment Not Indicated VTE Drug Contraindication: N/A - Med Ordered
--- NOTE | 2022-11-09 12:06 | MHC.CLN ---
NUTRITION CONSULT FOR SKIN INTEGRITY. PATIENT WITH STAGE I TO BUTTOCK. DIET=CARDIAC. INTAKE APPEARS GOOD. NO NEW NUTRITION INTERVENTIONS.
--- NOTE | 2022-11-09 12:13 | PM.PNNEP ---
Subjective Subjective Date of Service: 11/10/22 Principal diagnosis: VINEET Interval history: Feels better. Nonoliguric Physical Exam Vital Signs: Vital Signs: Last Vital Signs Temp 97.6 F 11/09/22 11:51 Pulse 85 11/09/22 11:51 Resp 20 11/09/22 11:51 BP 90/56 L 11/09/22 11:51 Pulse Ox 93 11/09/22 11:51 O2 Del Method Room Air 11/09/22 11:51 BMI result Body Mass Index 37.6 Const: General: cooperative, healthy appearing, comfortable and no acute distress Orientation/consciousness: patient oriented x3 HEENT: Other: Unremarkable Head: Yes normal to inspection Face and sinus: Yes normal facial exam Mouth: Normal oral and palatal mucosa present and moist mucous membranes Teeth and gingiva: dentition normal Eyes: General: appearance normal, both eyes and all related structures Pupils: Equal, round and reactive pupils present Neck: Neck: Yes normal visual inspection, Yes full ROM and Yes trachea midline Chest: Chest palpation & inspection: normal inspection of the chest Resp: Effort & Inspection: normal respiratory effort, able to speak in complete sentences and no respiratory distress Auscultation: rales Cardio: Palpation: normal PMI Rate: regular rate Rhythm: regular rhythm Heart sounds: S1 normal heart sound present, S2 normal heart sound present, no gallops, no murmurs and no rubs GI: Inspection: Yes normal to inspection Palpation (GI): Soft to palpation and nontender : General: Yes no CVA tenderness Back/Spine/Pelvis: Other: unremarkable Back: no CVA tenderness Cervical Spine: normal cervical lordosis Thoracic/Lumbar Spine: thoracic and lumbar spine normal to inspection Skin: General skin exam: no rashes or lesions noted Neuro: General: patient oriented x3, tone normal and moves all extremities Cranial nerves: Yes Equal, round and reactive pupils present Extrem: General: Yes normal to inspection and Yes capillary refill normal Psych: Appearance: grossly normal Mental Status: mental status grossly normal Objective Data Labs 11/06/22 07:38 11/09/22 06:10 Labs: Laboratory Results - last 24 hr 11/09/22 11/09/22 06:10 06:10 Sodium 139 Potassium 3.8 Chloride 109 H Carbon Dioxide 23 Anion Gap 11 L BUN 51 H Creatinine 2.33 H 2.32 H Estim Creat Clear Calc 38.6 38.8 Estimated GFR 28 28 Random Glucose 108 Calcium 7.9 L Microbiology Microbiology Results: Microbiology 11/08/22 10:05 Blood - Venous Blood Culture - Preliminary No growth after 24 hours. 11/08/22 10:05 Blood - Venous Blood Culture - Preliminary No growth after 24 hours. 11/05/22 06:47 Blood - Venous Blood Culture - Final Staphylococcus aureus 11/05/22 06:47 Blood - Venous Blood Culture - Final Staphylococcus aureus 11/03/22 19:31 Blood - Venous Blood Culture - Final Staphylococcus aureus 11/03/22 19:30 Blood - Venous Blood Culture - Final Staphylococcus aureus 11/03/22 Unknown Urine Catheterized - Straight Catheter Urine Culture - Final Staphylococcus aureus Procedures Date of Service Date of Service: 11/10/22 Assessment & Plan Assessment and plan (1) VINEET (acute kidney injury): Status: Acute Plan Non-Oliguric VINEET: w/u several potential contributing factors Rhabdomyolysis Bacteremia assoc AGN vs AIN ATN - Rhabdo: CPKs continues to decrease. - NAGMA: vineet, and rhabdo - Mild R [place]: ques signif Creatinine is trending down REC: No need for IV fluids. PO NaHCO3; track UOP/renal func; NO Absolute indication for kidney biopsy Follow blood cultures Time Spent With Patient Time: Total time managing care of this patient today ____ minutes. Progress Note: Quality Stroke Does the patient have a stroke diagnosis?: No
--- NOTE | 2022-11-09 12:28 | MHC.CM.PN ---
EMR reviewed and per MD rounds, pt not medically cleared for D/C at this time due to IV fluids, IV abx, and rate control. CM will continue to follow.
[2022-11-09] MEDS: Doxazosin Mesylate 2 MG TABLET 4 MG PO (21:08)
[2022-11-09] MEDS: Docusate Sodium 100 MG CAPSULE PO (21:08)
[2022-11-10] MEDS: 0.9 % Sodium Chloride Flush 3 ML SYRINGE IVFLUSH ×3 (02:00→15:34)
[2022-11-10] MEDS: Acetaminophen 325 MG TABLET 650 MG PO (04:08)
[2022-11-10] MEDS: Metoprolol Tartrate 5 MG/5 ML VIAL IVPUSH (04:24)
--- NOTE | 2022-11-10 06:06 | PC.NURSE ---
pt developed increased HR to 140's. He was found to be shivering, fever of 101.1 and flushed. O2 sats dipped to 86-88% on RA with pt mildly sob and tachypneic. APAP given and MD Negrete aware, IV Lopressor given , O2 applied and titrated up to 4L and chest xray complete, Sats now 93% with pt stating SOB resolved. HR 90's-low 100's and temp down to 99.2. Pt resting in NAD. Will CTM+T.....
[2022-11-10 06:55] LABS: Lactic Acid 1.2 mmol/L (0.5-2.0)
[2022-11-10 07:24] VITALS: BP 95/51; PULSE 95; RESP 20; TEMP 36.8; O2SAT 96
[2022-11-10 08:23] LABS: Glucose, Whole Blood 107 mg/dL (60-115)
[2022-11-10 08:29] VITALS: BP 95/51; PULSE 95; O2SAT 96
[2022-11-10] MEDS: Sodium Bicarbonate 650 MG TABLET PO ×2 (08:33→21:19)
[2022-11-10] MEDS: Apixaban 5 MG TABLET PO ×2 (08:33→21:19)
[2022-11-10] MEDS: lamoTRIgine 25 MG TABLET 50 MG PO (08:33)
[2022-11-10] MEDS: Metoprolol Tartrate 25 MG TABLET PO ×3 (08:34→21:18)
--- NOTE | 2022-11-10 09:25 | HO.PM.IMPN ---
Subjective Subjective Date of Service: 11/10/22 Interval History: seen and examined this morning follow up for bacteremia, UTI no fever, chills or abdominal pain Review of Systems Review of Systems: Yes all other systems are reviewed and are negative Constitutional Constitutional: Denies chills and Denies fever(s) Cardiovascular Cardiovascular: Denies chest pain and Denies palpitations Respiratory Respiratory: Denies cough Gastrointestinal Gastrointestinal: Denies abdominal pain, Denies nausea and Denies vomiting Endocrine Endocrine: Denies palpitations Physical Exam Vital Signs: Vital Signs: Last Vital Signs Temp 98.3 F 11/10/22 07:24 Pulse 95 11/10/22 08:29 Resp 20 11/10/22 07:24 BP 95/51 L 11/10/22 08:29 Pulse Ox 96 11/10/22 08:29 O2 Del Method Nasal Cannula 11/10/22 07:24 O2 Flow Rate 4 11/10/22 07:24 BMI result Body Mass Index 37.6 Appearing in no acute distress lung sounds are clear to auscultation heart regular rate rhythm, clear S1, S2 positive bowel sounds, abdomen is soft, nontender neuro patient is alert x3, no focal deficits Objective Data Active Medications Acetaminophen (Acetaminophen 325 Mg Tablet) 650 mg PO Q6H PRN PRN Reason: Pain, Mild (Pain Scale 1-3) Last Admin: 11/10/22 04:08 Dose: 650 mg Documented By: WAYNE Al Hydroxide/Mg Hydroxide (Magnesium Hydrox/Alum Hydrox 30 Ml Oral.Susp) 15 ml PO Q6H PRN PRN Reason: heartburn Apixaban (Apixaban 5 Mg Tablet) 5 mg PO BID [facility] Last Admin: 11/10/22 08:33 Dose: 5 mg Documented By: KERI Docusate Sodium (Docusate Sodium 100 Mg Capsule) 100 mg PO BEDTIME [facility] Last Admin: 11/09/22 21:08 Dose: 100 mg Documented By: EDDI Doxazosin Mesylate (Doxazosin Mesylate 2 Mg Tablet) 4 mg PO BEDTIME [facility]; Protocol Last Admin: 11/09/22 21:08 Dose: 4 mg Documented By: EDDI Cefazolin Sodium 1 gm/ Sodium (Chloride) 50 mls @ 100 mls/hr IV Q12H [facility] Last Infusion: 11/10/22 02:30 Dose: 0 mls/hr Documented By: WAYNE Lamotrigine (Lamotrigine 25 Mg Tablet) 50 mg PO DAILY [facility] Last Admin: 11/10/22 08:33 Dose: 50 mg Documented By: KERI Levalbuterol HCl (Levalbuterol Hcl 1.25 Mg/3 Ml Vial.Neb) 1.25 mg INHALE Q3H PRN PRN Reason: Wheezing Last Admin: 11/04/22 02:18 Dose: 1.25 mg Documented By: SAMMI Melatonin (Melatonin 3 Mg Tablet) 6 mg PO BEDTIME PRN PRN Reason: Insomnia Last Admin: 11/07/22 21:25 Dose: 6 mg Documented By: COTEMA Metoprolol Tartrate (Metoprolol Tartrate 25 Mg Tablet) 25 mg PO QID [facility]; Protocol Last Admin: 11/10/22 08:34 Dose: 25 mg Documented By: KERI Ondansetron HCl (Ondansetron Hcl 4 Mg/2 Ml Vial) 4 mg IVPUSH Q8H PRN PRN Reason: Nausea and Vomiting Polyethylene Glycol (Polyethylene Glycol 3350 17 Gm Powd.Pack) 17 gm PO DAILY PRN PRN Reason: Constipation Last Admin: 11/08/22 08:46 Dose: 17 gm Documented By: CURT Sodium Bicarbonate (Sodium Bicarbonate 650 Mg Tablet) 650 mg PO BID [facility] Last Admin: 11/10/22 08:33 Dose: 650 mg Documented By: KERI Sodium Chloride (0.9 % Sodium Chloride Flush 3 Ml Syringe) 3 ml IVFLUSH QSHIFT [facility] Last Admin: 11/10/22 08:34 Dose: 3 ml Documented By: KERI Labs 11/06/22 07:38 11/09/22 06:10 Labs: Laboratory Results - last 24 hr 11/10/22 11/10/22 06:29 07:03 POC Glucose 107 Lactic Acid 1.2 Microbiology Microbiology Results: Microbiology 11/08/22 10:05 Blood Culture - Preliminary Blood - Venous No growth after 24 hours. 11/08/22 10:05 Blood Culture - Preliminary Blood - Venous No growth after 24 hours. Assessment and Plan (1) Atrial fibrillation with RVR: Status: Acute (2) Gram-positive bacteremia: Status: Acute Plan 67yo M with bipolar depression presenting after fall without LOC or head injury, down on the ground 4 hr due to LE weakness admitted for rhabdomyolysis with VINEET, new-onset AF/RVR, UTI with severe sepsis BCx 2 of 2 sets positive for GPCs in clusters MSSA bacteremia BCx growing 2/2 MSSA, repeat BCx growing 2/2 GPC no obvious valvular pathology seen on echo lumbar spine MRI showing no evidence of discitis, osteomyelitis, or epidural abscess initially treated with IV vanco, changed to IV cefazolin, will need at least 14 days from first negative blood culture (11/22/22) ID following repeat BCx neg after 24 hours midline placement after negative blood cx UTI urine culture growing MSSA cefazolin rhabdomyolysis CPK trended down from 11,300 to 2,831 with IVF Non oliguric VINEET with metabolic acidosis secondary to rhabdo, bacteremia. Trending down SCr down to 3.77 seen by nephro, serologies neg- may be multifactorial -> rhabdo, bacteremia assoc AGN vs AIN, IV contrast ATN IV fluids stopped. continue Na bicarb [place] level <0.10 s/p renal US with mild right hydro - seen by urology, less likely contributing to VINEET, started on dozazosin - consider stent placement if no improvement with medical management AF/RVR, new-onset diltiazem gtt -> PO metoprolol. HR improved. echo with preserved EF, diastolic function indeterminate apixaban Cardiology following hypoK repleted thrombocytopenia likely due to sepsis. improving age-indeterminate lacunar infarcts on CTH low suspicion for acute CVA, no focal deficits consider outpt MRI brain bipolar depression continue home medications elevated LFTs. Trending down likely r/t rhabdo VTE ppx: apixaban Attending Dr. Acevedo dispo: seen by PT - plan for STR once midline placed In my clinical judgment, the patient requires continued inpatient hospitalization for the following reasons:IV antibiotics, rate control Time Spent With Patient Time: Total time managing care of this patient today ____ minutes. Quality Stroke Does the patient have a stroke diagnosis?: No VTE Prior VTE?: No VTE Risk Level:: Medical - moderate - high VTE Device Contraindication: Treatment Not Indicated VTE Drug Contraindication: N/A - Med Ordered
--- NOTE | 2022-11-10 09:47 | P.PNNP_ITS ---
Subjective Subjective Date of Service: 11/11/22 Principal diagnosis: VINEET Interval history: Events noted Physical Exam Vital Signs: Vital Signs: Last Vital Signs Temp 98.3 F 11/10/22 07:24 Pulse 95 11/10/22 08:29 Resp 20 11/10/22 07:24 BP 95/51 L 11/10/22 08:29 Pulse Ox 96 11/10/22 08:29 O2 Del Method Nasal Cannula 11/10/22 07:24 O2 Flow Rate 4 11/10/22 07:24 BMI result Body Mass Index 37.6 Const: General: cooperative, healthy appearing, comfortable and no acute distress Orientation/consciousness: patient oriented x3 HEENT: Other: Unremarkable Head: Yes normal to inspection Face and sinus: Yes normal facial exam Mouth: Normal oral and palatal mucosa present and moist mucous membranes Teeth and gingiva: dentition normal Eyes: General: appearance normal, both eyes and all related structures Pupils: Equal, round and reactive pupils present Neck: Neck: Yes normal visual inspection, Yes full ROM and Yes trachea midline Chest: Chest palpation & inspection: normal inspection of the chest Resp: Effort & Inspection: normal respiratory effort, able to speak in complete sentences and no respiratory distress Auscultation: rales Cardio: Palpation: normal PMI Rate: regular rate Rhythm: regular rhythm Heart sounds: S1 normal heart sound present, S2 normal heart sound present, no gallops, no murmurs and no rubs GI: Inspection: Yes normal to inspection Palpation (GI): Soft to palpation and nontender : General: Yes no CVA tenderness Back/Spine/Pelvis: Other: unremarkable Back: no CVA tenderness Cervical Spine: normal cervical lordosis Thoracic/Lumbar Spine: thoracic and lumbar spine normal to inspection Skin: General skin exam: no rashes or lesions noted Neuro: General: patient oriented x3, tone normal and moves all extremities Cranial nerves: Yes Equal, round and reactive pupils present Extrem: General: Yes normal to inspection and Yes capillary refill normal Psych: Appearance: grossly normal Mental Status: mental status grossly normal Objective Data Labs 11/06/22 07:38 11/09/22 06:10 Labs: Laboratory Results - last 24 hr 11/10/22 11/10/22 06:29 07:03 POC Glucose 107 Lactic Acid 1.2 Microbiology Microbiology Results: Microbiology 11/08/22 10:05 Blood - Venous Blood Culture - Preliminary No growth after 24 hours. 11/08/22 10:05 Blood - Venous Blood Culture - Preliminary No growth after 24 hours. 11/05/22 06:47 Blood - Venous Blood Culture - Final Staphylococcus aureus 11/05/22 06:47 Blood - Venous Blood Culture - Final Staphylococcus aureus 11/03/22 19:31 Blood - Venous Blood Culture - Final Staphylococcus aureus 11/03/22 19:30 Blood - Venous Blood Culture - Final Staphylococcus aureus 11/03/22 Unknown Urine Catheterized - Straight Catheter Urine Culture - Final Staphylococcus aureus Procedures Date of Service Date of Service: 11/11/22 Assessment & Plan Assessment and plan (1) VINEET (acute kidney injury): Status: Acute Plan Non-Oliguric VINEET: w/u several potential contributing factors Rhabdomyolysis Bacteremia assoc AGN vs AIN ATN - Rhabdo: CPKs continues to decrease. - NAGMA: vineet, and rhabdo - Mild R [place]: ques signif Creatinine is trending down REC: No need for IV fluids. PO NaHCO3; track UOP/renal func; NO Absolute indication for kidney biopsy Follow blood cultures Time Spent With Patient Time: Total time managing care of this patient today ____ minutes. Progress Note: Quality Stroke Does the patient have a stroke diagnosis?: No
[2022-11-10] MEDS: Venlafaxine HCl ER 75 MG CAP.ER.24H 225 MG PO (09:52)
[2022-11-10 11:10] VITALS: BP 93/52; PULSE 76; RESP 18; TEMP 37.1; O2SAT 96
[2022-11-10 15:21] VITALS: BP 109/65; PULSE 89; RESP 18; TEMP 37.1; O2SAT 98
[2022-11-10 19:08] VITALS: BP 118/64; PULSE 89; RESP 16; TEMP 37; O2SAT 95
[2022-11-10] MEDS: Doxazosin Mesylate 2 MG TABLET 4 MG PO (21:18)
[2022-11-10] MEDS: Docusate Sodium 100 MG CAPSULE PO (21:19)
[2022-11-11] VITALS (7 sets, daily range): BP systolic 90–141; BP diastolic 58–79; PULSE 75–93; RESP 20; TEMP 36.4–37.4; O2SAT 92–100
[2022-11-11] MEDS: 0.9 % Sodium Chloride Flush 3 ML SYRINGE IVFLUSH ×2 (00:17→09:27)
[2022-11-11 07:12] LABS: Anion Gap 10 (12-20); Blood Urea Nitrogen 30 mg/dL (9-16); Calcium 8.1 mg/dL (8.4-10.2); Carbon Dioxide 24 mmol/L (22-29); Chloride 109 mmol/L (96-108); Creatinine Clr Calc Pharmacy 68.2; Estimated Glomerular Filt Rate 54; Glucose Random 95 mg/dL (60-115); Potassium 4.3 mmol/L (3.3-5.1); Sodium 139 mmol/L (135-145)
[2022-11-11 09:01] LABS: Alanine Aminotransferase 22 U/L (0-40); Albumin Level 2.2 g/dL (3.5-5.0); Alkaline Phosphatase 43 U/L (39-117); Aspartate Amino Transferase 30 U/L (5-37); Bilirubin Direct 0.4 mg/dL (0.0-0.5); Bilirubin Total 1.1 mg/dL (0.0-1.0); Total Protein 5.6 g/dL (6.5-8.0)
[2022-11-11] MEDS: Apixaban 5 MG TABLET PO ×2 (09:25→20:39)
[2022-11-11] MEDS: Venlafaxine HCl ER 75 MG CAP.ER.24H 225 MG PO (09:25)
[2022-11-11] MEDS: lamoTRIgine 25 MG TABLET 50 MG PO (09:26)
[2022-11-11] MEDS: Sodium Bicarbonate 650 MG TABLET PO (09:26)
[2022-11-11] MEDS: Metoprolol Tartrate 25 MG TABLET PO (09:26)
--- NOTE | 2022-11-11 10:13 | P.PNNP_ITS ---
Subjective Subjective Date of Service: 11/12/22 Principal diagnosis: VINEET Interval history: Events noted Physical Exam Vital Signs: Vital Signs: Last Vital Signs Temp 98.9 F 11/11/22 07:39 Pulse 93 11/11/22 09:27 Resp 20 11/11/22 07:39 BP 141/79 H 11/11/22 09:27 Pulse Ox 100 11/11/22 09:27 O2 Del Method Nasal Cannula 11/11/22 07:39 O2 Flow Rate 2 11/11/22 07:39 BMI result Body Mass Index 37.6 Const: General: cooperative, healthy appearing, comfortable and no acute distress Orientation/consciousness: patient oriented x3 HEENT: Other: Unremarkable Head: Yes normal to inspection Face and sinus: Yes normal facial exam Mouth: Normal oral and palatal mucosa present and moist mucous membranes Teeth and gingiva: dentition normal Eyes: General: appearance normal, both eyes and all related structures Pupils: Equal, round and reactive pupils present Neck: Neck: Yes normal visual inspection, Yes full ROM and Yes trachea midline Chest: Chest palpation & inspection: normal inspection of the chest Resp: Effort & Inspection: normal respiratory effort, able to speak in complete sentences and no respiratory distress Auscultation: rales Cardio: Palpation: normal PMI Rate: regular rate Rhythm: regular rhythm Heart sounds: S1 normal heart sound present, S2 normal heart sound present, no gallops, no murmurs and no rubs GI: Inspection: Yes normal to inspection Palpation (GI): Soft to palpation and nontender : General: Yes no CVA tenderness Back/Spine/Pelvis: Other: unremarkable Back: no CVA tenderness Cervical Spine: normal cervical lordosis Thoracic/Lumbar Spine: thoracic and lumbar spine normal to inspection Skin: General skin exam: no rashes or lesions noted Neuro: General: patient oriented x3, tone normal and moves all extremities Cranial nerves: Yes Equal, round and reactive pupils present Extrem: General: Yes normal to inspection and Yes capillary refill normal Psych: Appearance: grossly normal Mental Status: mental status grossly normal Objective Data Labs 11/06/22 07:38 11/11/22 06:23 Labs: Laboratory Results - last 24 hr 11/11/22 06:23 Sodium 139 Potassium 4.3 Chloride 109 H Carbon Dioxide 24 Anion Gap 10 L BUN 30 H Creatinine 1.32 Estim Creat Clear Calc 68.2 Estimated GFR 54 Random Glucose 95 Calcium 8.1 L Total Bilirubin 1.1 H Direct Bilirubin 0.4 AST 30 ALT 22 Alkaline Phosphatase 43 Total Protein 5.6 L Albumin 2.2 L Microbiology Microbiology Results: Microbiology 11/10/22 06:35 Blood - Venous Blood Culture - Preliminary No growth after 24 hours. 11/10/22 06:35 Blood - Venous Blood Culture - Preliminary No growth after 24 hours. 11/08/22 10:05 Blood - Venous Blood Culture - Preliminary No growth after 48 hours. 11/08/22 10:05 Blood - Venous Blood Culture - Preliminary No growth after 48 hours. 11/05/22 06:47 Blood - Venous Blood Culture - Final Staphylococcus aureus 11/05/22 06:47 Blood - Venous Blood Culture - Final Staphylococcus aureus 11/03/22 19:31 Blood - Venous Blood Culture - Final Staphylococcus aureus 11/03/22 19:30 Blood - Venous Blood Culture - Final Staphylococcus aureus 11/03/22 Unknown Urine Catheterized - Straight Catheter Urine Culture - Final Staphylococcus aureus Procedures Date of Service Date of Service: 11/12/22 Assessment & Plan Assessment and plan (1) VINEET (acute kidney injury): Status: Acute Plan Non-Oliguric VINEET: w/u several potential contributing factors Rhabdomyolysis Bacteremia assoc AGN vs AIN ATN - Rhabdo: CPKs continues to decrease. - NAGMA: vineet, and rhabdo - Mild R [place]: ques signif Creatinine is trending down REC: No need for IV fluids. PO NaHCO3; Can decrease to 1 taba day and follow tCO2 NO Absolute indication for kidney biopsy Follow blood cultures Time Spent With Patient Time: Total time managing care of this patient today ____ minutes. Progress Note: Quality Stroke Does the patient have a stroke diagnosis?: No
--- NOTE | 2022-11-11 12:07 | PM.EVENT ---
Event Note Date of Service: 11/11/22 Event Note: done with IV Kefzol on 12/09 Time Spent With Patient Time: Total time managing care of this patient today ____ minutes.
--- NOTE | 2022-11-11 13:51 | MHC.CM.PN ---
EMR reviewed and per MD rounds, pt not medically cleared for D/C today, he is awaiting a mid line placement tomorrow. CM will continue to follow.
[2022-11-11] MEDS: Acetaminophen 325 MG TABLET 650 MG PO (14:01)
--- NOTE | 2022-11-11 15:37 | HO.PM.IMPN ---
Subjective Subjective Date of Service: 11/11/22 Interval History: awake alert sitting comfortably complaining of generalized tiredness otherwise offers no acute complaints, no nausea no vomiting no abdominal pain tolerating diet taking all medications no acute issues overnight, denies fever, no chills, renal function normalized vitals stable. Review of Systems Review of Systems: Yes all other systems are reviewed and are negative Physical Exam Vital Signs: Vital Signs: Last Vital Signs Temp 97.6 F 11/11/22 15:15 Pulse 75 11/11/22 15:15 Resp 20 11/11/22 15:15 BP 106/63 11/11/22 15:15 Pulse Ox 95 11/11/22 15:15 O2 Del Method Room Air 11/11/22 15:15 O2 Flow Rate 2 11/11/22 07:39 BMI result Body Mass Index 37.6 Const: Other: General Awake alert x3, resting comfortably in no acute distress. Neck supple no JVD. CVS regular rate rhythm, Respiratory lungs clear to auscultation, no respiratory distress, no wheeze, no rhonchi. Gastrointestinal abdomen soft, non tender, bowel sounds audible, no guarding , no rigidity. Extremities no edema. Neuro nonfocal Skin no rash psych appropriate affect Objective Data Active Medications Acetaminophen (Acetaminophen 325 Mg Tablet) 650 mg PO Q6H PRN PRN Reason: Pain, Mild (Pain Scale 1-3) Last Admin: 11/11/22 14:01 Dose: 650 mg Documented By: KERI Al Hydroxide/Mg Hydroxide (Magnesium Hydrox/Alum Hydrox 30 Ml Oral.Susp) 15 ml PO Q6H PRN PRN Reason: heartburn Apixaban (Apixaban 5 Mg Tablet) 5 mg PO BID [facility] Last Admin: 11/11/22 09:25 Dose: 5 mg Documented By: KERI Docusate Sodium (Docusate Sodium 100 Mg Capsule) 100 mg PO BEDTIME [facility] Last Admin: 11/10/22 21:19 Dose: 100 mg Documented By: EDDI Doxazosin Mesylate (Doxazosin Mesylate 2 Mg Tablet) 4 mg PO BEDTIME [facility]; Protocol Last Admin: 11/10/22 21:18 Dose: 4 mg Documented By: EDDI Cefazolin Sodium 1 gm/ Sodium (Chloride) 50 mls @ 100 mls/hr IV Q8H [facility] Stop: 11/22/22 09:27 Last Admin: 11/11/22 14:02 Dose: 100 mls/hr Documented By: KERI Lamotrigine (Lamotrigine 25 Mg Tablet) 50 mg PO DAILY [facility] Last Admin: 11/11/22 09:26 Dose: 50 mg Documented By: KERI Melatonin (Melatonin 3 Mg Tablet) 6 mg PO BEDTIME PRN PRN Reason: Insomnia Last Admin: 11/07/22 21:25 Dose: 6 mg Documented By: COTEMA Metoprolol Tartrate (Metoprolol Tartrate 25 Mg Tablet) 25 mg PO QID [facility]; Protocol Last Admin: 11/11/22 12:57 Dose: Not Given Documented By: KERI Non-Admin Reason: BP too low Ondansetron HCl (Ondansetron Hcl 4 Mg/2 Ml Vial) 4 mg IVPUSH Q8H PRN PRN Reason: Nausea and Vomiting Polyethylene Glycol (Polyethylene Glycol 3350 17 Gm Powd.Pack) 17 gm PO DAILY PRN PRN Reason: Constipation Last Admin: 11/08/22 08:46 Dose: 17 gm Documented By: CURT Sodium Bicarbonate (Sodium Bicarbonate 650 Mg Tablet) 650 mg PO BID [facility] Last Admin: 11/11/22 09:26 Dose: 650 mg Documented By: KERI Sodium Chloride (0.9 % Sodium Chloride Flush 3 Ml Syringe) [facility] Last Admin: 11/11/22 09:27 Dose: 3 ml Documented By: KERI Venlafaxine HCl (Venlafaxine Hcl Er 75 Mg Cap.Er.24h) 225 mg PO DAILY [facility] Last Admin: 11/11/22 09:25 Dose: 225 mg Documented By: KERI Labs 11/06/22 07:38 11/11/22 06:23 Labs: Laboratory Results - last 24 hr 11/11/22 06:23 Anion Gap 10 L Estim Creat Clear Calc 68.2 Estimated GFR 54 Random Glucose 95 Calcium 8.1 L Total Bilirubin 1.1 H Direct Bilirubin 0.4 AST 30 ALT 22 Alkaline Phosphatase 43 Total Protein 5.6 L Albumin 2.2 L Microbiology Microbiology Results: Microbiology 11/10/22 06:35 Blood Culture - Preliminary Blood - Venous No growth after 24 hours. 11/10/22 06:35 Blood Culture - Preliminary Blood - Venous No growth after 24 hours. 11/08/22 10:05 Blood Culture - Preliminary Blood - Venous No growth after 48 hours. 11/08/22 10:05 Blood Culture - Preliminary Blood - Venous No growth after 48 hours. Assessment and Plan (1) Atrial fibrillation with RVR: Status: Acute (2) Gram-positive bacteremia: Status: Acute Plan 67yo M with bipolar depression presenting after fall without LOC or head injury, down on the ground 4 hr due to LE weakness admitted for rhabdomyolysis with VINEET, new-onset AF/RVR, UTI with severe sepsis BCx 2 of 2 sets positive for GPCs in clusters MSSA bacteremia due to UTI BCx growing 2/2 MSSA, repeat BCx 11/05 grew 2/2 GPC no obvious valvular pathology seen on echo lumbar spine MRI showing no evidence of discitis, osteomyelitis, or epidural abscess initially treated with IV vanco, changed to IV cefazolin, id recommend 4 weeks of IV antibiotic from first negative blood culture repeat blood culture 514- times 48 hours, scheduled for midline placement 11/12 will change dose of IV cefazolin since renal function normalized rhabdomyolysis CPK trended down from 11,300 to 2,831 with IVF Non oliguric VINEET with metabolic acidosis secondary to rhabdo, bacteremia. seen by nephro, serologies neg- may be multifactorial -> rhabdo, bacteremia assoc AGN vs AIN, IV contrast ATN renal function normalized, will DC Na bicarb [place] level <0.10 s/p renal US with mild right hydro - seen by urology, less likely contributing to VINEET, on doxazosin AF/RVR, new-onset diltiazem gtt -> PO metoprolol. HR improved. will change to metoprolol 50 mg b.i.d. follow BP and heart rate. echo with preserved EF, diastolic function indeterminate apixaban hypoK repleted thrombocytopenia likely due to sepsis. improving age-indeterminate lacunar infarcts on CTH low suspicion for acute CVA, no focal deficits consider outpt MRI brain bipolar depression continue home medications elevated LFTs. repeat LFTs normalized likely due to infection/ rhabdo VTE ppx: apixaban dispo: seen by PT - plan for STR once midline placed In my clinical judgment, the patient requires continued inpatient hospitalization for the following reasons:IV antibiotics, placement for midline Time Spent With Patient Time: Total time managing care of this patient today ____ minutes. Quality Stroke Does the patient have a stroke diagnosis?: No VTE Prior VTE?: No VTE Risk Level:: Medical - moderate - high VTE Device Contraindication: Treatment Not Indicated VTE Drug Contraindication: N/A - Med Ordered
[2022-11-11] MEDS: Metoprolol Tartrate 50 MG TABLET PO (20:39)
[2022-11-11] MEDS: Docusate Sodium 100 MG CAPSULE PO (20:40)
[2022-11-11] MEDS: Doxazosin Mesylate 2 MG TABLET 4 MG PO (20:40)
[2022-11-12] VITALS (8 sets, daily range): BP systolic 106–133; BP diastolic 62–76; PULSE 73–97; RESP 14–20; TEMP 36.1–37.1; O2SAT 91–95
[2022-11-12] MEDS: Venlafaxine HCl ER 75 MG CAP.ER.24H 225 MG PO (09:12)
[2022-11-12] MEDS: Apixaban 5 MG TABLET PO ×2 (09:12→21:19)
[2022-11-12] MEDS: Metoprolol Tartrate 50 MG TABLET PO ×2 (09:12→21:19)
[2022-11-12] MEDS: lamoTRIgine 25 MG TABLET 50 MG PO (09:12)
[2022-11-12] MEDS: 0.9 % Sodium Chloride Flush 3 ML SYRINGE IVFLUSH (09:13)
--- NOTE | 2022-11-12 09:46 | P.PNNP_ITS ---
Subjective Subjective Date of Service: 11/12/22 Principal diagnosis: VINEET Interval history: Events noted. Doing better. Physical Exam Vital Signs: Vital Signs: Last Vital Signs Temp 98.7 F 11/12/22 07:44 Pulse 95 11/12/22 07:44 Resp 20 11/12/22 07:44 BP 128/76 11/12/22 07:44 Pulse Ox 93 11/12/22 07:44 O2 Del Method Room Air 11/12/22 07:44 O2 Flow Rate 2 11/11/22 07:39 BMI result Body Mass Index 37.6 Comfortable Neck is supple Lung: Air entry equal Heart: S1,S2, normal. No rub Abd: Soft. BS + NS : Alert.No asterexis Ext: No edema Objective Data Labs 11/06/22 07:38 11/11/22 06:23 Microbiology Microbiology Results: Microbiology 11/10/22 06:35 Blood - Venous Blood Culture - Preliminary No growth after 48 hours. 11/10/22 06:35 Blood - Venous Blood Culture - Preliminary No growth after 48 hours. 11/08/22 10:05 Blood - Venous Blood Culture - Preliminary No growth after 48 hours. 11/08/22 10:05 Blood - Venous Blood Culture - Preliminary No growth after 48 hours. 11/05/22 06:47 Blood - Venous Blood Culture - Final Staphylococcus aureus 11/05/22 06:47 Blood - Venous Blood Culture - Final Staphylococcus aureus 11/03/22 19:31 Blood - Venous Blood Culture - Final Staphylococcus aureus 11/03/22 19:30 Blood - Venous Blood Culture - Final Staphylococcus aureus 11/03/22 Unknown Urine Catheterized - Straight Catheter Urine Culture - Final Staphylococcus aureus Procedures Date of Service Date of Service: 11/12/22 Assessment & Plan Assessment and plan (1) VINEET (acute kidney injury): Status: Acute Plan Non-Oliguric IVNEET: w/u several potential contributing factors Rhabdomyolysis Bacteremia assoc AGN vs AIN ATN - Rhabdo: CPKs continues to decrease. - NAGMA: vineet, and rhabdo - Mild R [place]: ques signif Creatinine is trending down and close to baseline. REC: No need for IV fluids. Can discontinue sodium bicarbonate supplementation NO Absolute indication for kidney biopsy Follow blood cultures Await midline and discharge planning Time Spent With Patient Time: Total time managing care of this patient today ____ minutes. Progress Note: Quality Stroke Does the patient have a stroke diagnosis?: No
--- NOTE | 2022-11-12 13:42 | HO.MIDLINE_ITS ---
Midline Insertion MIDLINE INSERTION Diagnosis: Bacteremia Indication: skilled nursing antibiotics needed Pertinent Labs: reviewed Technique: Using sterile technique including cap and mask, glove and drape, the right arm was prepped and draped in the usual sterile fashion of full barrier technique with CHG. Using ultrasound guidance, right basilic vein access was obtained on second attempt. A 20G X 8CM Non-PASV ST Midline was positioned. The procedure was performed in S272. Ultrasound was used to document vein patency and for needle entry. A formal ultrasound picture was recorded. V[employer] Digital Technician has released the line for use and it is currently dressed with a StatLock, Tegaderm, and CHG disc. Verification has been performed for blood return and line patency. Arm Circumference: 30 CM Equipment: BARD PowerGlide ST Midline Catheter Type: 20G X 8CM Non-PASV ST Midline Lot #: [id number]
--- NOTE | 2022-11-12 14:02 | P.PNIM_ITS ---
Subjective Subjective Date of Service: 11/12/22 Interval History: being followed for bacteremia patient sitting comfortably in bed tolerating diet with no nausea, no vomiting ,no abdominal pain, no fever, chills, no confusion, is scheduled to undergo midline placement today, no recurrent episodes of tachyarrhythmia. Review of Systems Review of Systems: Yes all other systems are reviewed and are negative Physical Exam Vital Signs: Vital Signs: Last Vital Signs Temp 98.0 F 11/12/22 11:45 Pulse 97 11/12/22 11:45 Resp 20 11/12/22 11:45 BP 106/62 11/12/22 11:45 Pulse Ox 94 11/12/22 11:45 O2 Del Method Room Air 11/12/22 11:45 O2 Flow Rate 2 11/11/22 07:39 BMI result Body Mass Index 37.6 Const: Other: General ? Awake alert x3, resting comfortably in no acute distress.? Neck supple no JVD. CVS? regular rate rhythm, Respiratory lungs clear to auscultation, no respiratory distress, no wheeze, no rhonchi. Gastrointestinal abdomen soft, non tender, bowel sounds audible, no guarding , no rigidity. Extremities no edema. Neuro nonfocal Skin no rash psych appropriate affect Objective Data Active Medications Acetaminophen (Acetaminophen 325 Mg Tablet) 650 mg PO Q6H PRN PRN Reason: Pain, Mild (Pain Scale 1-3) Last Admin: 11/11/22 14:01 Dose: 650 mg Documented By: KERI Al Hydroxide/Mg Hydroxide (Magnesium Hydrox/Alum Hydrox 30 Ml Oral.Susp) 15 ml PO Q6H PRN PRN Reason: heartburn Apixaban (Apixaban 5 Mg Tablet) 5 mg PO BID [facility] Last Admin: 11/12/22 09:12 Dose: 5 mg Documented By: PRIMITIVO Docusate Sodium (Docusate Sodium 100 Mg Capsule) 100 mg PO BEDTIME [facility] Last Admin: 11/11/22 20:40 Dose: 100 mg Documented By: DAVIE Doxazosin Mesylate (Doxazosin Mesylate 2 Mg Tablet) 4 mg PO BEDTIME [facility]; Protocol Last Admin: 11/11/22 20:40 Dose: 4 mg Documented By: DAVIE Cefazolin Sodium 1 gm/ Sodium (Chloride) 50 mls @ 100 mls/hr IV Q8H [facility] Stop: 11/22/22 09:27 Last Infusion: 11/12/22 05:58 Dose: 0 mls/hr Documented By: DAVIE Lamotrigine (Lamotrigine 25 Mg Tablet) 50 mg PO DAILY [facility] Last Admin: 11/12/22 09:12 Dose: 50 mg Documented By: PRIMITIVO Melatonin (Melatonin 3 Mg Tablet) 6 mg PO BEDTIME PRN PRN Reason: Insomnia Last Admin: 11/07/22 21:25 Dose: 6 mg Documented By: SAL Metoprolol Tartrate (Metoprolol Tartrate 50 Mg Tablet) 50 mg PO BID [facility]; Protocol Last Admin: 11/12/22 09:12 Dose: 50 mg Documented By: PRIMITIVO Ondansetron HCl (Ondansetron Hcl 4 Mg/2 Ml Vial) 4 mg IVPUSH Q8H PRN PRN Reason: Nausea and Vomiting Polyethylene Glycol (Polyethylene Glycol 3350 17 Gm Powd.Pack) 17 gm PO DAILY PRN PRN Reason: Constipation Last Admin: 11/08/22 08:46 Dose: 17 gm Documented By: CURT Sodium Chloride (0.9 % Sodium Chloride Flush 3 Ml Syringe) 3 ml IVFLUSH QSHIFT [facility] Last Admin: 11/12/22 09:13 Dose: 3 ml Documented By: PRIMITIVO Venlafaxine HCl (Venlafaxine Hcl Er 75 Mg Cap.Er.24h) 225 mg PO DAILY [facility] Last Admin: 11/12/22 09:12 Dose: 225 mg Documented By: PRIMITIVO Labs 11/06/22 07:38 11/11/22 06:23 Microbiology Microbiology Results: Microbiology 11/10/22 06:35 Blood Culture - Preliminary Blood - Venous No growth after 48 hours. 11/10/22 06:35 Blood Culture - Preliminary Blood - Venous No growth after 48 hours. Assessment and Plan (1) Atrial fibrillation with RVR: Status: Acute (2) Gram-positive bacteremia: Status: Acute Plan 67yo M with bipolar depression presenting after fall without LOC or head injury, down on the ground 4 hr due to LE weakness admitted for rhabdomyolysis with VINEET, new-onset AF/RVR, UTI with severe sepsis BCx 2 of 2 sets positive for GPCs in clusters MSSA bacteremia due to UTI BCx growing 2/2 MSSA, repeat BCx 11/05 grew 2/2 GPC no obvious valvular pathology seen on echo lumbar spine MRI showing no evidence of discitis, osteomyelitis, or epidural ab scess , patient denies acute back pain initially treated with IV vanco, changed to IV cefazolin 1gm Q8H, id recommend 4 weeks of IV antibiotic from first negative blood culture , starting from 11/08 repeat blood culture 11/08 neg- times 48 hours, scheduled for midline placement today rhabdomyolysis CPK trended down from 11,300 to 2,831 s/p IVF Non oliguric VINEET with metabolic acidosis secondary to rhabdo, bacteremia. seen by nephro, serologies neg- may be multifactorial -> rhabdo, bacteremia assoc AGN vs AIN, IV contrast ATN renal function normalized [place] level <0.10 s/p renal US with mild right hydro - seen by urology, less likely contributing to VINEET, on doxazosin AF/RVR, new-onset diltiazem gtt -> PO metoprolol. HR improved. on metoprolol 50 mg b.i.d. soft BP and stable heart rate. echo with preserved EF, diastolic function indeterminate continue apixaban hypoK repleted thrombocytopenia likely due to sepsis. improving age-indeterminate lacunar infarcts on CTH low suspicion for acute CVA, no focal deficits, consider outpt MRI brain bipolar depression continue home medications elevated LFTs. repeat LFTs normalized likely due to infection/ rhabdo VTE ppx: apixaban dispo: seen by PT - plan for STR once midline placed In my clinical judgment, the patient requires continued inpatient hospitalization for the following reasons:IV antibiotics, placement for midline and safe disposition to rehab. Time Spent With Patient Time: Total time managing care of this patient today ____ minutes. Quality Stroke Does the patient have a stroke diagnosis?: No VTE Prior VTE?: No VTE Risk Level:: Medical - moderate - high VTE Device Contraindication: Treatment Not Indicated VTE Drug Contraindication: N/A - Med Ordered
--- NOTE | 2022-11-12 14:47 | MHC.CM.PN ---
Pt had midline placed today. Updated referrals on [facility]. Spoke with patient and his preference was [facility], referral updated to reflect pt preference. CM will continue to follow.
[2022-11-12] MEDS: Docusate Sodium 100 MG CAPSULE PO (21:19)
[2022-11-12] MEDS: Doxazosin Mesylate 2 MG TABLET 4 MG PO (21:19)
[2022-11-13] MEDS: 0.9 % Sodium Chloride Flush 3 ML SYRINGE IVFLUSH ×2 (00:06→08:45)
[2022-11-13 04:00] VITALS: BP 102/74; PULSE 82; RESP 19; TEMP 36.3; O2SAT 92
[2022-11-13 07:24] VITALS: BP 133/71; PULSE 74; RESP 20; TEMP 36.8; O2SAT 94
[2022-11-13] MEDS: Venlafaxine HCl ER 75 MG CAP.ER.24H 225 MG PO (08:44)
[2022-11-13] MEDS: Apixaban 5 MG TABLET PO ×2 (08:44→21:19)
[2022-11-13] MEDS: lamoTRIgine 25 MG TABLET 50 MG PO (08:45)
[2022-11-13] MEDS: Metoprolol Tartrate 50 MG TABLET PO ×2 (08:45→21:19)
[2022-11-13 09:26] LABS: Hematocrit 37.7 % (42.0-52.0); Hemoglobin 12.3 g/dl (14.0-18.0); Mean Corpuscular HGB Conc 32.6 g/dl (31.0-36.0); Mean Corpuscular Hemoglobin 31.2 pg (27.0-33.0); Mean Corpuscular Volume 95.7 fL (80.0-98.0); Mean Platelet Volume 10.1 fL (9.4-12.4); Platelet Count 360 X10*3/uL (160-400); Red Blood Count 3.94 X10*6/uL (4.60-5.80); White Blood Count 8.5 X10*3/uL (4.8-10.8)
[2022-11-13 09:43] LABS: Anion Gap 11 (12-20); Blood Urea Nitrogen 16 mg/dL (9-16); Calcium 8.1 mg/dL (8.4-10.2); Carbon Dioxide 23 mmol/L (22-29); Chloride 109 mmol/L (96-108); Creatinine Clr Calc Pharmacy 78.3; Estimated Glomerular Filt Rate > 60; Glucose Random 157 mg/dL (60-115); Sodium 139 mmol/L (135-145)
[2022-11-13 10:49] VITALS: BP 133/71; PULSE 74; O2SAT 94
[2022-11-13 11:18] VITALS: BP 103/60; PULSE 72; RESP 20; TEMP 36.8; O2SAT 95
--- NOTE | 2022-11-13 12:32 | MHC.CM.PN ---
Addendum entered by Cesia Coy 11/13/22 15:45: [facility] called and has auth, they can accept pt tomorrow 11/14/22 in am. [facility] booked for 10am. aware, and pt updated and in agreement with plan. Original Note: Pt medically cleared for D/C today. [facility] offered a bed for pt, and pt has accepted, awaiting auth now. HCP filled out with pt. Transport via [facility].
--- NOTE | 2022-11-13 14:40 | HO.PM.IMPN ---
Subjective Subjective Date of Service: 11/14/22 Interval History: being followed for bacteremia, offers no acute complaints of nausea, vomiting or abdominal pain, no fevers, no chills, tolerating diet, participating with physical therapy no acute events overnight. Review of Systems Review of Systems: Yes all other systems are reviewed and are negative Physical Exam Vital Signs: Vital Signs: Last Vital Signs Temp 98.2 F 11/13/22 11:18 Pulse 72 11/13/22 11:18 Resp 20 11/13/22 11:18 BP 103/60 11/13/22 11:18 Pulse Ox 95 11/13/22 11:18 O2 Del Method Room Air 11/13/22 11:18 O2 Flow Rate 2 11/11/22 07:39 BMI result Body Mass Index 37.6 Const: Other: General ? Awake alert x3, resting comfortably in no acute distress.? Neck supple no JVD. CVS? regular rate rhythm, Respiratory lungs clear to auscultation, no respiratory distress, no wheeze, no rhonchi. Gastrointestinal abdomen soft, non tender, bowel sounds audible, no guarding , no rigidity. Extremities no edema. Midline right upper extremity Neuro nonfocal Skin no rash psych appropriate affect Objective Data Active Medications Acetaminophen (Acetaminophen 325 Mg Tablet) 650 mg PO Q6H PRN PRN Reason: Pain, Mild (Pain Scale 1-3) Last Admin: 11/11/22 14:01 Dose: 650 mg Documented By: KERI Al Hydroxide/Mg Hydroxide (Magnesium Hydrox/Alum Hydrox 30 Ml Oral.Susp) 15 ml PO Q6H PRN PRN Reason: heartburn Apixaban (Apixaban 5 Mg Tablet) 5 mg PO BID [facility] Last Admin: 11/13/22 08:44 Dose: 5 mg Documented By: PRIMITIVO Docusate Sodium (Docusate Sodium 100 Mg Capsule) 100 mg PO BEDTIME [facility] Last Admin: 11/12/22 21:19 Dose: 100 mg Documented By: JERRELL Doxazosin Mesylate (Doxazosin Mesylate 2 Mg Tablet) 4 mg PO BEDTIME [facility]; Protocol Last Admin: 11/12/22 21:19 Dose: 4 mg Documented By: JERRELL Cefazolin Sodium 1 gm/ Sodium (Chloride) 50 mls @ 100 mls/hr IV Q8H [facility] Stop: 11/22/22 09:27 Last Infusion: 11/13/22 14:06 Dose: 0 mls/hr Documented By: PRIMITIVO Lamotrigine (Lamotrigine 25 Mg Tablet) 50 mg PO DAILY [facility] Last Admin: 11/13/22 08:45 Dose: 50 mg Documented By: PRIMITIVO Melatonin (Melatonin 3 Mg Tablet) 6 mg PO BEDTIME PRN PRN Reason: Insomnia Last Admin: 11/07/22 21:25 Dose: 6 mg Documented By: SAL Metoprolol Tartrate (Metoprolol Tartrate 50 Mg Tablet) 50 mg PO BID [facility]; Protocol Last Admin: 11/13/22 08:45 Dose: 50 mg Documented By: PRIMITIVO Ondansetron HCl (Ondansetron Hcl 4 Mg/2 Ml Vial) 4 mg IVPUSH Q8H PRN PRN Reason: Nausea and Vomiting Polyethylene Glycol (Polyethylene Glycol 3350 17 Gm Powd.Pack) 17 gm PO DAILY PRN PRN Reason: Constipation Last Admin: 11/08/22 08:46 Dose: 17 gm Documented By: CURT Sodium Chloride (0.9 % Sodium Chloride Flush 3 Ml Syringe) 3 ml IVFLUSH QSHIFT [facility] Last Admin: 11/13/22 08:45 Dose: 3 ml Documented By: PRIMITIVO Venlafaxine HCl (Venlafaxine Hcl Er 75 Mg Cap.Er.24h) 225 mg PO DAILY [facility] Last Admin: 11/13/22 08:44 Dose: 225 mg Documented By: PRIMITIVO Labs 11/13/22 09:13 11/13/22 09:13 Labs: Laboratory Results - last 24 hr 11/13/22 11/13/22 09:13 09:13 MCV 95.7 MCH 31.2 MCHC 32.6 RDW 14.0 Plt Count 360 D MPV 10.1 Absolute Nucleated RBC 0.000 Nucleated RBC % (auto) 0.0 Anion Gap 11 L Estim Creat Clear Calc 78.3 Estimated GFR > 60 Random Glucose 157 H Calcium 8.1 L Microbiology Microbiology Results: Microbiology 11/08/22 10:05 Blood Culture - Final Blood - Venous No growth after 5 days. 11/08/22 10:05 Blood Culture - Final Blood - Venous No growth after 5 days. Assessment and Plan (1) Atrial fibrillation with RVR: Status: Acute (2) Gram-positive bacteremia: Status: Acute Plan 67yo M with bipolar depression presenting after fall without LOC or head injury, down on the ground 4 hr due to LE weakness admitted for rhabdomyolysis with VINEET, new-onset AF/RVR, UTI with severe sepsis BCx 2 of 2 sets positive for GPCs in clusters MSSA bacteremia due to UTI BC positive for MSSA, repeat BCx 11/05 grew 2/2 GPC no obvious valvular pathology seen on echo lumbar spine MRI showing no evidence of discitis, osteomyelitis, or epidural abscess , patient denies acute back pain initially treated with IV vanco, changed to IV cefazolin 1gm Q8H, id recommend 4 weeks of IV antibiotic from first negative blood culture , starting from 11/08 repeat blood culture 11/08 neg- times 48 hours, s/p midline placement rhabdomyolysis CPK trended down from 11,300 to 2,831 s/p IVF Non oliguric VINEET with metabolic acidosis secondary to rhabdo, bacteremia. seen by nephro, serologies neg- may be multifactorial -> rhabdo, bacteremia assoc AGN vs AIN, IV contrast ATN renal function normalized [place] level <0.10 s/p renal US with mild right hydro - seen by urology, less likely contributing to VINEET, on doxazosin AF/RVR, new-onset diltiazem gtt -> PO metoprolol. HR improved. on metoprolol 50 mg b.i.d. soft BP and stable heart rate. echo with preserved EF, diastolic function indeterminate continue apixaban hypoK repleted thrombocytopenia likely due to sepsis. improving age-indeterminate lacunar infarcts on CTH low suspicion for acute CVA, no focal deficits, consider outpt MRI brain bipolar depression continue home medications elevated LFTs. repeat LFTs normalized likely due to infection/ rhabdo VTE ppx: apixaban dispo: seen by PT - plan for STR In my clinical judgment, the patient requires continued inpatient hospitalization for the following reasons:IV antibiotics, and safe disposition to rehab. Time Spent With Patient Time: Total time managing care of this patient today ____ minutes. Quality Stroke Does the patient have a stroke diagnosis?: No VTE Prior VTE?: No VTE Risk Level:: Medical - moderate - high VTE Device Contraindication: Treatment Not Indicated VTE Drug Contraindication: N/A - Med Ordered
[2022-11-13 15:10] VITALS: BP 102/56; PULSE 85; RESP 14; TEMP 36.8; O2SAT 93
[2022-11-13 19:35] VITALS: BP 116/71; PULSE 87; RESP 14; TEMP 36.4; O2SAT 93
[2022-11-13] MEDS: Doxazosin Mesylate 2 MG TABLET 4 MG PO (21:19)
[2022-11-14] VITALS: BP 107/69; PULSE 76; RESP 20; TEMP 36.8; O2SAT 93
[2022-11-14] MEDS: 0.9 % Sodium Chloride Flush 3 ML SYRINGE IVFLUSH (00:44)
[2022-11-14 04:00] VITALS: BP 134/69; PULSE 88; RESP 16; TEMP 36.8; O2SAT 94
[2022-11-14 07:22] VITALS: BP 125/79; PULSE 89; RESP 20; TEMP 37; O2SAT 95
--- NOTE | 2022-11-14 08:35 | P.DS_ITS ---
DS: Providers Provider Date of Service: 11/14/22 Date of admission: 11/03/22 21:46 Primary care physician: DIMITRI Duckworth Consults: 11/03/22 21:46 Consult to Cardiology Routine Consulting Provider: [facility] – [place] Cardiovascular Services Reason for consultation: Afib new onset Has provider been notified: Yes 11/04/22 08:01 Consult to Nephrology Routine Consulting Provider: Willie Juarez Reason for consultation: rhabdo/Vineet 11/04/22 08:46 Consult to Infectious Diseases Routine Consulting Provider: [facility] – [place] Infectious Disease Reason for consultation: GPC bafcteremia, rhabdomyolysis, VINEET 11/04/22 14:45 Consult to Urology Routine Consulting Provider: [facility] – [place] Urology Services Reason for consultation: mild right hydronephrosis and obstructive uropathy on right DS: Diagnosis Discharge Diagnosis (1) Atrial fibrillation with RVR: Status: Acute (2) Gram-positive bacteremia: Status: Acute DS: Summary Hospital Course Hospital Course: history of presenting illness: Date of Service: ? ? ? 11/03/22? Attending physician on admission: ? ? ? Anson Rodriguez? Chief Complaint: ? ? ? fall? 67-year-old male with history of bipolar disorder and borderline hypertension presents to the ED via EMS after sustaining a mechanical fall earlier today. The patient is A&Ox3, but does seem somewhat tangential at times. The patient states that he tripped and fell to the ground and denies any head strike or loss of consciousness.? His states that he was experiencing bilateral lower extremity weakness and was unable to raise himself from the ground so he remained on the floor for about 4 hours.? He states he was conscious the whole time.? His friend arrived at his apartment to take him to a doctor's appointment and found him on the ground and called EMS.? The patient denies any prodrome leading up to the fall including palpitations, lightheadedness, chest pain.? He has had shortness of breath ongoing for several days. No fevers, chills, cough, sore throat, sick contacts, abd pain, n/v/d, lightheadedness, palpitations, or chest pain.? On arrival, patient tachycardic to 161, tachypneic to 30, temperature 99.7 degrees, oximetry 91%.? Blood pressure is soft but no hypotension.? Patient received 2 pushes 20mg IV diltiazem with improvement in HR to 118.? EKG shows AFib with RVR and PVCs or aberrantly conducted complexes, rate [address] segment changes. No leukocytosis, but with 16% bandemia. PLT 93. Creatinine 3.51, BUN 70.? Sodium 136, potassium 3.1, chloride 109, CO2 15, anion gap 15.? Total bilirubin 1.6, direct bilirubin 0.6, AST 303, [place] 87[place] [address].? Initial troponin 103.8, repeat pending.? BNP 191.? Head CT limited due to motion artifact but showing nonspecific periventricular white matter disease and questionable bilateral bas al ganglia lacunar infarcts, age indeterminate.? Head/neck CTA negative for any LVO.? CXR negative for any acute cardiopulmonary abnormality. In the ED, treated with 1 amp of sodium bicarb, diltiazem as above, 1 g IV ceftriaxone, and 3 L IV NS. hospital course: 67yo M with bipolar depression presenting after fall without LOC or head injury, down on the ground 4 hr due to LE weakness admitted for rhabdomyolysis with VINEET, new-onset AF/RVR, UTI with severe sepsis BCx 2 of 2 sets positive for GPCs in clusters MSSA bacteremia due to UTI,BC? positive for MSSA, admitted to intermediate care unit treated with IV vancomycin,repeat BCx 11/05 also grew 2/2 GPC, no obvious valvular pathology seen on echo,lumbar spine MRI showed no evidence of discitis, osteomyelitis, or epidural abscess , patient denies acute back pain, subsequently antibiotics changed to IV cefazolin 1gm Q8H,? id recommend 4 weeks of IV antibiotic from first negative blood culture , repeat blood culture 11/08 neg- times 48 hours, s/p midline placement antibiotic end date 12/06/22. ? rhabdomyolysis CPK trended down from 11,300 to 2,831 s/p IVF. Non oliguric VINEET with metabolic acidosis secondary to likley rhabdo, bacteremia associated AGN versus AIN, IV contrast ATN, lithium level less than 0.10, renal ultrasound showed mild right hydro, seen by Urology ,hydro less likely contributing to VINEET, patient placed on doxazosin . AF/RVR, new-onset, admitted to telemetry unit initially treated with diltiazem gtt, heart rate improved now on metoprolol 50 mg b.i.d.?,echo with preserved EF, diastolic function indeterminate continue apixaban hypoK repleted, potassium normalized. thrombocytopenia likely due to sepsis. platelet count normalized. age-indeterminate lacunar infarcts on CTH low suspicion for acute CVA, no focal deficits, consider outpt MRI brain. bipolar depression continue home medications elevated LFTs.? repeat LFTs normalized likely due to? infection/ rhabdo. Time Spent with Patient Time attestation: Total time managing care of this patient today ____ minutes. Discharge coordination time: Greater than 30 minutes Quality: Safe Use of Opioids Does Pt have an Active Cancer Diagnosis on the Problem List?: No Quality: Stroke Does the patient have a stroke diagnosis?: No Physical Exam Vital Signs: Vital Signs: Last Vital Signs Temp 98.6 F 11/14/22 07:22 Pulse 89 11/14/22 07:22 Resp 20 11/14/22 07:22 BP 125/79 11/14/22 07:22 Pulse Ox 95 11/14/22 07:22 O2 Del Method Room Air 11/14/22 07:22 O2 Flow Rate 2 11/11/22 07:39 BMI result Body Mass Index 37.6 Const: Other: General ? Awake al ert x3, resting co mfortably in no ac ravi distress.? Nec k supple no JVD. C VS? regular rate r hythm, Respiratory lungs clear to au scultation, no res piratory distress, no wheeze, no rho nchi. Gastrointest inal abdomen soft, non tender, bowel sounds audible, n o guarding , no ri gidity. Extremitie s no edema. [place] e right upper extr emity Neuro nonfoc al Skin no rash ps ych appropriate af fect DS: Data Data Completed and Pending Labs on day of discharge: Laboratory Results - last 24 hr 11/13/22 11/13/22 09:13 09:13 WBC 8.5 RBC 3.94 L Hgb 12.3 L Hct 37.7 L MCV 95.7 MCH 31.2 MCHC 32.6 RDW 14.0 Plt Count 360 D MPV 10.1 Absolute Nucleated RBC 0.000 Nucleated RBC % (auto) 0.0 Sodium 139 Potassium 4.0 Chloride 109 H Carbon Dioxide 23 Anion Gap 11 L BUN 16 Creatinine 1.15 Estim Creat Clear Calc 78.3 Estimated GFR > 60 Random Glucose 157 H Calcium 8.1 L Preliminary micro results at discharge 11/10/22 06:35 Blood Culture - Preliminary Blood - Venous No growth after 48 hours. 11/10/22 06:35 Blood Culture - Preliminary Blood - Venous No growth after 48 hours. Discharge Plan Discharge Anticipated Discharge Date/Time: 11/14/22 08:28 Patient Disposition: Xfer SNF Discharge Diagnosis: MSSA bacteremia atrial fibrillation with RVR hypokalemia acute renal failure with metabolic acidosis Referrals: Kinza Fierro PA [Primary Care Provider] - 1 Week Discharge Medications: New Eliquis 5 mg Tablet 5 mg PO BID Qty: 30 0RF metoprolol tartrate 50 mg Tablet 50 mg PO BID Qty: 30 0RF Protocol: Hold for SBP/HR < HOLD for SBP < : 90 HOLD for HR < : 60 docusate sodium 100 mg Capsule 100 mg PO BEDTIME Qty: 30 0RF doxazosin 2 mg Tablet 4 mg PO BEDTIME Qty: 30 0RF Protocol: Hold for SBP< HOLD for SBP < : 90 Continued venlafaxine 75 mg capsule,extended release 24hr 225 mg PO DAILY lamotrigine 25 mg tablet 50 mg PO DAILY Discharge Orders: Discharge Order (Routine); Ordered 11/14/22 Ordered By: Pavel Escobar Diet: Low fat, low cholesterol Activity on Discharge: As tolerated Stand Alone Forms: Patient Portal Discharge page Care Plan Goals: Atrial fibrillation with RVR, continue metoprolol and Eliquis is stable ventricular rate MSSA bacteremia continue IV cefazolin 1 g Q 8 hours end date 12/06/22 Health Concerns: mood disorder Plan of Treatment: outpatient follow-up with primary care physician Assessment: as above
[2022-11-14] MEDS: lamoTRIgine 25 MG TABLET 50 MG PO (08:52)
[2022-11-14] MEDS: Apixaban 5 MG TABLET PO (08:52)
[2022-11-14] MEDS: Metoprolol Tartrate 50 MG TABLET PO (08:52)
[2022-11-14] MEDS: Venlafaxine HCl ER 75 MG CAP.ER.24H 225 MG PO (08:52)
--- NOTE | 2022-11-14 10:32 | PC.NURSE ---
pt informed of discharge. facility contacted and report was given. all belongings with pt.
== END 2022-11-14 11:54 | disposition skilled nursing facility (03) | DRG 720 ==
LOC: HO.ED 20:15 → HO.EDOVER 22:01 → HO.IMC 23:20
PROVIDERS: Family Medicine; Internal Medicine; Internal Medicine Nephrology; Nurse Practitioner Acute Care; Physician Assistant; Physician Assistant Medical; Admitting Provider Student in an Organized Health Care Education/Training Program; Emergency Provider Internal Medicine; PCP Physician Assistant; Visit Provider Hospitalist
PROC: 05HB33Z Insertion of Infusion Device into Right Basilic Vein, Percutaneous Approach (ICD-10-PCS; principal; 2022-11-12 13:50)
DX: A41.9 Sepsis, unspecified organism (principal); N17.0 Acute kidney failure with tubular necrosis; E87.21 Acute metabolic acidosis; I48.91 Unspecified atrial fibrillation; D69.59 Other secondary thrombocytopenia; N13.6 Pyonephrosis; F31.81 Bipolar II disorder; E86.1 Hypovolemia; E87.6 Hypokalemia; B95.61 Methicillin susceptible Staphylococcus aureus infection as the cause of diseases classified elsewhere; N40.0 Benign prostatic hyperplasia without lower urinary tract symptoms; Z86.73 Personal history of transient ischemic attack (TIA), and cerebral infarction without residual deficits; Z79.899 Other long term (current) drug therapy
CPT/HCPCS: 36410; 36415; 70450; 70496; 70498; 71045; 72158; 76775; 80048; 80053; 80076; 80178; 80202; 80307; 81001; 82248; 82550; 82565; 82947; 83010; 83605; 83615; 83690; 83735; 83880; 84300; 84443; 84484; 85007; 85025; 85027; 85610; 85730; 86021; 86160; 87040; 87077; 87086; 87147; 87186; 87205; 93005; 93306; 94640; 97110; 97116; 97162; 97530; 99285; A9585; C1751; J0690; J0696; J1940; J3370; J3371; Q9957; Q9967

== ENCOUNTER 2024-08-18 17:43 | Emergency (ER) | payer MEDICARE, SELFPAY ==
--- NOTE | ~2024-08-18 | XR_ITS ---
CLINICAL HISTORY: cough 1 view chest x-ray Comparison: 11/10/2022 Findings: No consolidation or effusion. Heart size is normal. No acute fracture. IMPRESSION: 1. No acute findings. This document has been electronically signed by: Jana Villalta MD on 08/18/2024 18:44:13
[2024-08-18 17:58] VITALS: BP 125/45; BP 142/100; PULSE 63; PULSE 88; RESP 20; TEMP 38.2; O2SAT 95; O2SAT 98; BMI 38.4
--- NOTE | 2024-08-18 18:02 | ED_ITS ---
HPI - General Adult General Chief complaint: General Medical Stated complaint: weakness, N/V x1 day Time Seen by Provider: 08/18/24 17:51 Source: patient Mode of arrival: EMS Limitations: no limitations History of Present Illness ED Provider: HPI narrative: Patient's history of bipolar disorder, hypotension, atrial fibrillation, MSSA bacteremia due to UTI in 11/17 comes here as been congested coughing for last 2 days apparently patient flew to [place] to see his son for any came back in noticed congestion low-grade temperature and chills coughing a lot mostly with mucopurulent phlegm on arrival temperature was 100.8 degrees feels weak and exhausted slightly nausea also no vomiting or diarrhea Related Data Home Medications ?Medication ?Instructions ?Recorded ?Confirmed lamotrigine 25 mg tablet 50 mg PO DAILY 11/03/22 11/03/22 venlafaxine 75 mg capsule,extended 225 mg PO DAILY 11/03/22 11/03/22 release 24 hr Previous Rx's ?Medication ?Instructions ?Recorded apixaban 5 mg tablet (Eliquis) 5 mg PO BID #30 tabs 11/14/22 docusate sodium 100 mg capsule 100 mg PO BEDTIME #30 caps 11/14/22 doxazosin 2 mg tablet 4 mg PO BEDTIME #30 tabs 11/14/22 metoprolol tartrate 50 mg tablet 50 mg PO BID #30 tabs 11/14/22 codeine 10 mg-guaifenesin 100 mg/5 10 ml PO Q6H PRN cough #237 mL 08/18/24 mL oral liquid oseltamivir 75 mg capsule (Tamiflu) 75 mg PO BID 5 days #10 caps 08/18/24 Allergies Allergy/AdvReac Type Severity Reaction Status Date / Time Penicillins Allergy Unknown Unknown Verified 08/18/24 18:00 Review of Systems 2 Review of Systems: Yes all other systems are reviewed and are negative PMFSH Past Medical History Medical History Weak urinary stream Gram-positive bacteremia Lacunar infarction Atrial fibrillation Bipolar II disorder major depressive with melancholic features BPH (benign prostatic hyperplasia) HTN (hypertension) Surgical History History of hernia repair Social History Social History Household Members: None Housing: Apartment Do you presently have visiting nurse or other home services: Yes Unable to assess alcohol history related to: Unable to respond Alcohol intake: never Patient Tobacco Use Status: Never used Tobacco Smoked in Last 30 Days: No e-Cigarette/Vaping Use: Never Used Second Hand Smoke Exposure: No Advance Directives: Yes Advance Directives on File: Yes Advance Directives Date on File: 11/16/22 Do you have a plan to hurt others: No Plan service: No Current occupational status: other Sexual orientation: Straight/Heterosexual Physical Exam ED Vital Signs: Vital Signs - 24 hr 08/18/24 17:58 08/18/24 21:07 08/18/24 21:07 Temperature 100.8 F H 101.7 F H 101.7 F H Pulse Rate 63 94 94 Respiratory Rate 20 20 20 Blood Pressure 125/45 L 134/60 134/60 Pulse Oximetry 95 93 93 Oxygen Delivery Method Room Air Room Air Room Air BMI result Body Mass Index 38.4 Appearance: Alert. Oriented X3. No acute distress. Eyes: No pallor or icterus ENT: Pharynx normal. Oral Mucosa moist Neck: Normal inspection. Neck supple. CVS: Normal heart rate and rhythm. Pulses normal. Respiratory: No respiratory distress. Equal air entry bilateral, no wheezing/rales/rhonchi Abdomen: Soft and nontender. Bowel sounds are present, no mass palpable, no CVA tenderness Skin: Skin warm and dry. Normal skin color. Normal skin turgor. Extremities: No lower extremity edema. No calf tenderness Neuro: Oriented X 3. No motor deficit. Medications Administered Discontinued Medications Generic Name Dose Route Start Last Admin Trade Name Wayneq PRN Reason Stop Dose Admin Acetaminophen 650 mg 08/18/24 18:07 08/18/24 18:42 Acetaminophen 325 Mg Tablet PO 08/18/24 18:08 650 mg ONCE ONE Administration Sodium Chloride 1,000 mls @ 999 mls/hr 08/18/24 18:07 08/18/24 18:39 Ns IV 08/18/24 19:07 999 mls/hr .Q1H1M ONE Administration Ondansetron HCl 4 mg 08/18/24 18:09 08/18/24 18:42 Ondansetron Hcl 4 Mg/2 Ml Vial IVPUSH 08/18/24 18:10 4 mg ONCE ONE Administration Oseltamivir Phosphate 75 mg 08/18/24 19:55 08/18/24 20:12 Oseltamivir Phosphate 75 Mg Capsule PO 08/18/24 19:56 75 mg ONCE ONE Administration Medical Decision Making Medical Decision Making [facility] Narrative: Patient with URI symptoms positive for influenza A will give him Tamiflu and cough syrup chest x-ray negative patient is sent home with family Lab Data [facility] Lab Attestation statement: I reviewed the patient's lab results. 08/18/24 19:59 08/18/24 19:09 Labs: Lab Results 08/18/24 08/18/24 08/18/24 Range/Units 18:36 19:09 19:59 WBC 8.1 (4.8-10.8) X10*3/uL RBC 4.63 (4.60-5.80) X10*6/uL Hgb 14.7 (14.0-18.0) g/dl Hct 43.3 (42.0-52.0) % MCV 93.5 (80.0-98.0) fL MCH 31.7 (27.0-33.0) pg MCHC 33.9 (31.0-36.0) g/dl RDW 12.8 (11.0-16.0) % Plt Count 124 L D (160-400) X10*3/uL MPV 11.2 (9.4-12.4) fL Immature Gran % (Auto) 0.4 (0.0-0.4) % Neut % (Auto) 84.8 H (45-73) % Lymph % (Auto) 5.1 L (20-40) % [place] % (Auto) 9.1 (2-11) % Eos % (Auto) 0.4 (0-4) % Baso % (Auto) 0.2 (0-2) % Lymph # (Auto) 0.4 L (1.2-4.9) X10*3/uL [place] # (Auto) 0.7 (0.1-1.2) X10*3/uL Eos # (Auto) 0.0 (0.0-0.4) X10*3/uL Baso # (Auto) 0.0 (0.0-0.2) X10*3/uL Abs Immat Gran (auto) 0.03 (0.00-0.03) X10*3/uL Absolute Neuts (auto) 6.8 (2.0-8.3) x10*3/uL Absolute Nucleated RBC 0.000 (0.0-0.012) X10*3/uL Nucleated RBC % (auto) 0.0 (0.0-0.2) /100WBC Sodium 138 (135-145) mmol/L Potassium 3.8 (3.3-5.1) mmol/L Chloride 106 (96-108) mmol/L Carbon Dioxide 24 (22-29) mmol/L Anion Gap 12 (12-20) BUN 20 H (9-16) mg/dL Creatinine 1.13 (0.5-1.4) mg/dL Estim Creat Clear Calc 80.6 Estimated GFR > 60 Random Glucose 125 H (60-115) mg/dL Calcium 9.0 D (8.4-10.2) mg/dL Total Bilirubin 1.0 (0.0-1.0) mg/dL AST 67 H (5-37) U/L ALT 71 H (0-40) U/L Alkaline Phosphatase 57 (39-117) U/L Total Protein 7.7 (6.5-8.0) g/dL Albumin 3.7 (3.5-5.0) g/dL Influenza Type A (PCR) POSITIVE A (Negative) Influenza Type B (PCR) NEGATIVE (Negative) RSV RNA Qual (PCR) NEGATIVE (Negative) SARS-CoV-2 RNA (RT-PCR) NEGATIVE (Negative) Discharge Plan Discharge Clinical Impression: Influenza A Patient Disposition: Home, Self-Care Instructions: Influenza (ED) Additional Instructions: Drink plenty of fluids Tylenol for fever Tamiflu as prescribed Cough drops as prescribed Follow with your PCP if not better Prescriptions: New oseltamivir [Tamiflu] 75 mg capsule 75 mg PO BID 5 Days Qty: 10 0RF codeine-guaifenesin 10-100 mg/5 mL liquid 10 ml PO Q6H PRN (Reason: cough) Qty: 237 0RF No Action venlafaxine 75 mg capsule,extended release 24hr 225 mg PO DAILY lamotrigine 25 mg tablet 50 mg PO DAILY Eliquis 5 mg Tablet 5 mg PO BID Qty: 30 0RF metoprolol tartrate 50 mg Tablet 50 mg PO BID Qty: 30 0RF Protocol: Hold for SBP/HR < HOLD for SBP < : 90 HOLD for HR < : 60 docusate sodium 100 mg Capsule 100 mg PO BEDTIME Qty: 30 0RF doxazosin 2 mg Tablet 4 mg PO BEDTIME Qty: 30 0RF Protocol: Hold for SBP< HOLD for SBP < : 90 Interventions: ED Discharge Assessment Last Done: 08/18/24 21:07 Discharge Date/Time: 08/18/24 21:22 Print Language: Panamanian
--- NOTE | 2024-08-18 18:14 | ECG_ITS ---
Test Reason : a fib Blood Pressure : */* mmHG Vent. Rate : 83 BPM Atrial Rate : 83 BPM P-R Int : 164 ms QRS Dur : 130 ms QT Int : 376 ms P-R-T Axes : 9 -23 -13 degrees QTcB Int : 441 ms Sinus rhythm with Premature supraventricular complexes and with frequent Premature ventricular complexes Right bundle branch block Minimal voltage criteria for LVH, may be normal variant ( R in aVL ) Inferior infarct (cited on or before 21-Apr-2022) Anterolateral infarct , age undetermined Abnormal ECG When compared with ECG of 03-Nov-2022 19:19, Sinus rhythm has replaced Atrial fibrillation Vent. rate has decreased by 82 bpm Questionable change in QRS duration Referred By: Gerald Vasquez Electronically Signed By: GERRI ALCAZAR
[2024-08-18] MEDS: 0.9 % Sodium Chloride 1,000 ML 999 ML IV (18:39)
[2024-08-18] MEDS: Acetaminophen 325 MG TABLET 650 MG PO (18:42)
[2024-08-18] MEDS: ondansetron HCL 4 MG/2 ML VIAL IVPUSH (18:42)
--- NOTE | 2024-08-18 18:46 | MHC.EDTECH ---
ekg, bloodwork and SARS swab obtained and sent to the lab
[2024-08-18 19:22] LABS: Influenza A PCR POSITIVE (Negative); Influenza B PCR NEGATIVE (Negative); Resp Syncy Virus RNA Qual PCR NEGATIVE (Negative); SARS COV2 PCR INHOUSE NEGATIVE (Negative)
[2024-08-18 19:32] LABS: Alanine Aminotransferase 71 U/L (0-40); Albumin Level 3.7 g/dL (3.5-5.0); Alkaline Phosphatase 57 U/L (39-117); Anion Gap 12 (12-20); Aspartate Amino Transferase 67 U/L (5-37); Blood Urea Nitrogen 20 mg/dL (9-16); Carbon Dioxide 24 mmol/L (22-29); Chloride 106 mmol/L (96-108); Creatinine Clr Calc Pharmacy 80.6; Estimated Glomerular Filt Rate > 60; Glucose Random 125 mg/dL (60-115); Potassium 3.8 mmol/L (3.3-5.1); Sodium 138 mmol/L (135-145); Total Protein 7.7 g/dL (6.5-8.0)
[2024-08-18] MEDS: Oseltamivir Phosphate 75 MG CAPSULE PO (20:12)
[2024-08-18 20:30] LABS: Basophils Percent Auto 0.2 % (0-2); Eosinophils Percent Auto 0.4 % (0-4); Hematocrit 43.3 % (42.0-52.0); Hemoglobin 14.7 g/dl (14.0-18.0); Imm Gran Abs Auto 0.03 X10*3/uL (0.00-0.03); Imm Gran Pct Auto 0.4 % (0.0-0.4); Lymphocytes Absolute Auto 0.4 X10*3/uL (1.2-4.9); Lymphocytes Percent Auto 5.1 % (20-40); Mean Corpuscular HGB Conc 33.9 g/dl (31.0-36.0); Mean Corpuscular Hemoglobin 31.7 pg (27.0-33.0); Mean Corpuscular Volume 93.5 fL (80.0-98.0); Mean Platelet Volume 11.2 fL (9.4-12.4); Monocytes Absolute Auto 0.7 X10*3/uL (0.1-1.2); Monocytes Percent Auto 9.1 % (2-11); Neutrophils Absolute Auto 6.8 x10*3/uL (2.0-8.3); Neutrophils Percent Auto 84.8 % (45-73); Platelet Count 124 X10*3/uL (160-400); Red Blood Count 4.63 X10*6/uL (4.60-5.80); Red Cell Distribution Width 12.8 % (11.0-16.0); White Blood Count 8.1 X10*3/uL (4.8-10.8)
[2024-08-18 20:31] LABS: MANUAL DIFF FLAG NO
[2024-08-18 21:07] VITALS: BP 134/60; PULSE 94; RESP 20; TEMP 38.7; O2SAT 93
== END 2024-08-18 21:22 | disposition home or self-care (01) ==
PROVIDERS: Emergency Provider Internal Medicine; PCP Registered Nurse
DX: J10.1 Influenza due to other identified influenza virus with other respiratory manifestations (principal); R11.2 Nausea with vomiting, unspecified; R53.1 Weakness; I48.91 Unspecified atrial fibrillation; R05.9 Cough, unspecified; I45.10 Unspecified right bundle-branch block; Z03.818 Encounter for observation for suspected exposure to other biological agents ruled out; Z79.899 Other long term (current) drug therapy
CPT/HCPCS: 0241U; 71045; 80053; 85025; 93005; 96374; 99284; 99285; J2405

== ENCOUNTER → 2024-08-18 18:08 | Outpatient (BNV) | payer BC, SELFPAY | PROVIDERS: Emergency Provider Internal Medicine; Visit Provider Radiology Diagnostic Radiology | DX: R05.9 Cough, unspecified (principal) | CPT/HCPCS: 71045 ==

== ENCOUNTER → 2024-08-18 18:14 | Outpatient (BNV) | payer MEDICARE, SELFPAY | PROVIDERS: Emergency Provider Internal Medicine; PCP Registered Nurse; Visit Provider Internal Medicine | DX: I49.1 Atrial premature depolarization (principal); I49.3 Ventricular premature depolarization; I45.10 Unspecified right bundle-branch block; I25.2 Old myocardial infarction | CPT/HCPCS: 93010 ==

== ENCOUNTER 2024-11-04 18:15 | Emergency (ER) | payer MEDICARE, BC, SELFPAY ==
--- NOTE | ~2024-11-04 | XR_ITS ---
CLINICAL HISTORY: weakness 2 view chest x-ray Comparison: CR - XR CHEST 1V - 08/18/24 18:23 EST Findings: No consolidation or effusion. There is enlargement of the cardiopericardial silhouette. No acute fracture. IMPRESSION: 1. No acute findings. Cardiomegaly. This document has been electronically signed by: Tyra Motta MD on 11/04/2024 20:08:51
--- NOTE | ~2024-11-04 | CT_ITS ---
CLINICAL HISTORY: abd pain, distention, constipation CT abdomen and pelvis with contrast Comparison: None Findings: There is mild bibasilar atelectasis. There is coronary artery calcification. There is mild hepatic steatosis. The gallbladder, pancreas, spleen, and adrenal glands are unremarkable. There are several bilateral renal cysts. There are a few small bilateral nonobstructing renal stones. The appendix is normal. There is a moderate amount of stool in the colon. There is no bowel obstruction. There is no free fluid or free air. There are small bilateral fat containing inguinal hernias. The prostate is enlarged. The bladder is moderately distended. There is a small right posterolateral bladder diverticulum. There are no enlarged lymph nodes. The aorta is normal in diameter. There are degenerative changes of the lumbar spine. There is no fracture or suspicious lytic or sclerotic lesion. IMPRESSION: 1. Enlarged prostate with moderately distended bladder and a small bladder diverticulum suggestive of chronic bladder outlet obstruction. 2. Moderate amount of stool in the colon. No bowel obstruction. 3. Additional chronic findings as above. This document has been electronically signed by: Jonathan Cox MD on 11/05/2024 00:42:53
[2024-11-04 18:25] VITALS: BP 136/79; BP 140/80; PULSE 64; PULSE 70; RESP 16; TEMP 36.7; O2SAT 95; O2SAT 99; BMI 35.2
--- NOTE | 2024-11-04 18:39 | ED_ITS ---
HPI - General Adult General Chief complaint: Weakness Stated complaint: weakness in legs Time Seen by Provider: 11/04/24 18:38 Source: patient and RN notes reviewed Limitations: other (Forgetful) History of Present Illness HPI narrative: 69-year-old male who has a history of bipolar, AFib on Eliquis, previous CVA, hypertension, presents from home for evaluation of weakness. Patient was discharged from [facility] last night and according to EMS has remained on the couch throughout the entire night. Patient confirms this that he was at [facility] for ?septicemia? and then was at [facility] for mental health support. Patient states he lives home alone. He also reports that he is ?deconditioned? and has remained on the couch throughout the night. He does admit to having incontinence of urine. Patient states that he is unsure when he last moved his bowels. He is passing flatus. He has had decreased p.o. intake. Denies any nausea or vomiting. History is limited at this time. Related Data Home Medications ?Medication ?Instructions ?Recorded ?Confirmed amlodipine 5 mg tablet 5 mg PO DAILY 11/05/24 11/05/24 escitalopram oxalate 20 mg tablet 20 mg PO DAILY 11/05/24 11/05/24 lamotrigine 100 mg tablet 100 mg PO DAILY 11/05/24 11/05/24 olanzapine 10 mg tablet 10 mg PO BEDTIME 11/05/24 11/05/24 tamsulosin 0.4 mg capsule 0.8 mg PO DAILY 11/05/24 11/05/24 trazodone 100 mg tablet 100 mg PO BEDTIME PRN Sleep 11/05/24 11/05/24 Allergies Allergy/AdvReac Type Severity Reaction Status Date / Time Penicillins Allergy Unknown Unknown Verified 11/04/24 18:29 Review of Systems 2 Constitutional: Constitutional: Denies chills, Denies fever(s) and Denies headache(s) ENT: Denies headache(s) Cardiovascular: Cardiovascular: Denies chest pain, Denies palpitations, Denies dyspnea, Denies dyspnea on exertion and Denies orthopnea Respiratory: Respiratory: Denies cough, Denies dyspnea and Denies dyspnea on exertion Gastrointestinal: Gastrointestinal: Reports abdominal pain, Denies melena, Denies hematochezia, Reports change in bowel habits, Reports constipation, Denies diarrhea, Denies nausea and Denies vomiting Genitourinary: Genitourinary: Denies difficulty urinating, Denies dysuria and Denies urinary urgency Musculoskeletal: Musculoskeletal: Denies back pain, Denies muscle weakness and Denies numbness Integumentary/Breasts: Skin/Breast: Denies rash Neurologic: Denies headache(s), Denies focal weakness and Denies numbness Psychiatric: Psychiatric: Denies depression Endocrine: Endocrine: Denies palpitations PMFSH Past Medical History Medical History Weak urinary stream Gram-positive bacteremia Lacunar infarction Atrial fibrillation Bipolar II disorder major depressive with melancholic features BPH (benign prostatic hyperplasia) HTN (hypertension) Surgical History History of hernia repair Social History Social History Household Members: None Housing: Apartment Do you presently have visiting nurse or other home services: Yes Unable to assess alcohol history related to: Unknown Alcohol intake: never Patient Tobacco Use Status: Never used Tobacco Smoked in Last 30 Days: No e-Cigarette/Vaping Use: Never Used Second Hand Smoke Exposure: No Use of substances other than those prescribed or required for medical reasons: Unknown Advance Directives: Yes Advance Directives on File: Yes Advance Directives Date on File: 11/16/22 service: No Current occupational status: other Sexual orientation: Straight/Heterosexual Physical Exam ED Vital Signs: Vital Signs - 24 hr 11/06/24 16:00 11/06/24 20:42 11/07/24 05:44 Temperature 97.5 F 97.9 F 98.1 F Pulse Rate 71 69 70 Respiratory Rate 20 16 17 Blood Pressure 142/73 H 119/70 129/81 Pulse Oximetry 94 93 93 Oxygen Delivery Method Room Air Room Air Room Air 11/07/24 07:58 Temperature 98.2 F Pulse Rate 63 Respiratory Rate 16 Blood Pressure 139/71 Pulse Oximetry 93 Oxygen Delivery Method Room Air BMI result Body Mass Index 35.2 Const General: alert, awake and Physically active Eyes Other: Pupils equal round reactive to light Resp Other: Lung sounds clear throughout. No wheezes rales or rhonchi GI Other: Diastasis recti is noted. Hypoactive bowel sounds throughout. Soft. Mild diffuse tenderness. No peritoneal signs. Extrem Other: No calf tenderness or pedal edema bilaterally Course Course Course Narrative: November 04, 2024, 8:30 p.m. labs pending at this time. Received documents from [facility]. Patient was admitted on October 08 for sepsis due to pyelonephritis caused by 1.2 cm stone at the left UPJ. Complicated with MSSA bacteremia. Blood cultures were ultimately positive for gram-positive cocci. TTE without any evidence of vegetations. Ancef for 14 days as inpatient. He had a ureteral stent placed at that time. He was then discharged to [facility] for further psychiatric care. Labs, CT and UA are pending at this time. 8:40 p.m. patient signed out in stable condition to Chasidy Stuart PA-C with labs and imaging pending. Reevaluation(s) Reevaluation #1: I Argelia Bull PA-C have accepted care of the patient and signed out pending imaging and final disposition which is likely case management and rehab. Reevaluation #2: CT abdomen and pelvis:IMPRESSION: 1. Enlarged prostate with moderately distended bladder and a small bladder diverticulum suggestive of chronic bladder outlet obstruction. 2. Moderate amount of stool in the colon. No bowel obstruction. 3. Additional chronic findings as above. We will order a bowel regimen for the patient, placing orders for PT case management.Time: 01:31 Date: 11/05/24 Provider: DIMITRI Bautista Patient in physician observation for case management needs. No acute events reported overnight.? No current issues or complaints. VS stable. Patient is pending placement at facility/pending PT/CM eval. Will continue to monitor. Time: 01:30 Reevaluation #3: Time: 15:23 Date: 11/07/24 Provider: DIMITRI Don Physician observation ended at 1523. Patient has been cleared for [facility].. vital signs are stable. Patient does not require inpatient level of care at this time and can be discharged to short-term rehab. Medications Administered Generic Name Dose Route Start Last Admin Trade Name Freq PRN Reason Stop Dose Admin Amlodipine Besylate 5 mg 11/07/24 09:00 11/07/24 09:28 Amlodipine Besylate 5 Mg Tablet PO 5 mg DAILY EFFIE Administration Protocol Escitalopram Oxalate 20 mg 11/07/24 09:00 11/07/24 09:28 Escitalopram Oxalate 20 Mg Tablet PO 20 mg DAILY EFFIE Administration Lamotrigine 100 mg 11/07/24 09:00 11/07/24 09:28 Lamotrigine 100 Mg Tablet PO 100 mg DAILY EFFIE Administration Olanzapine 10 mg 11/06/24 21:00 11/06/24 21:17 Olanzapine 10 Mg Tablet PO 10 mg BEDTIME EFFIE Administration Polyethylene Glycol 17 gm 11/07/24 11:45 11/07/24 12:30 Polyethylene Glycol 3350 17 Gm Powd.Pack PO 17 gm DAILY EFFIE Administration Discontinued Medications Generic Name Dose Route Start Last Admin Trade Name Freq PRN Reason Stop Dose Admin Bisacodyl 10 mg 11/05/24 01:31 11/05/24 03:05 Bisacodyl 5 Mg Tablet. PO 11/05/24 01:32 10 mg ONCE ONE Administration Bisacodyl 10 mg 11/07/24 11:41 11/07/24 12:41 Bisacodyl 10 Mg Supp.Rect MS 11/07/24 11:42 Not Given ONCE ONE Diatrizoate Meglum/Diatrizoate Sod 30 ml 11/04/24 21:10 11/04/24 21:10 Diatrizoate Meglumine, Sodium 30 Ml Solution PO 11/04/24 21:11 30 ml ONCE ONE Administration Docusate Sodium 100 mg 11/07/24 11:41 11/07/24 12:30 Docusate Sodium 100 Mg Capsule PO 11/07/24 11:42 100 mg ONCE ONE Administration Sodium Chloride 1,000 mls @ 999 mls/hr 11/04/24 19:00 11/04/24 21:45 Ns IV 11/04/24 20:00 Infused .Q1H1M EFFIE Infusion Iohexol 85 ml 11/04/24 23:49 11/04/24 23:50 Iohexol 350 Mg/Ml 100 Ml Infus..Btl IV 11/04/24 23:50 85 ml ONCE ONE Administration Magnesium Hydroxide 30 ml 11/05/24 01:32 11/05/24 03:05 Milk Of Magnesia 30 Ml Oral.Susp PO 11/05/24 01:33 30 ml ONCE ONE Administration Medical Decision Making Medical Decision Making MDM Narrative: 69-year-old male with a history of AFib on Eliquis, hypertension, recent inpatient admission has reported by the patient as well as with time at [facility] for mental health evaluation. Patient states despite being discharged home yesterday, November 03 he spent the entire day on the couch and feels deconditioned. He is also reporting not moving his bowels and is unsure when he last move them. Patient is hemodynamically stable at this time. Check labs, CT of the abdomen and pelvis, UA and EKG. Concern for constipation or possible bowel obstruction. Differential Diagnosis Differential Diagnoses: The differential diagnosis associated with the presentation includes Bowel obstruction Constipation Colitis Dehydration Metabolic abnormality Admission/Observation Consideration of admission/observation: Escalation of care including admission/observation considered Lab Data MDM Lab Attestation statement: I reviewed the patient's lab results. 11/04/24 19:09 11/04/24 20:33 Labs: Lab Results 11/04/24 11/04/24 11/04/24 Range/Units 19:09 19:12 20:33 WBC 6.9 (4.8-10.8) X10*3/uL RBC 4.47 L (4.60-5.80) X10*6/uL Hgb 14.4 (14.0-18.0) g/dl Hct 41.7 L (42.0-52.0) % MCV 93.3 (80.0-98.0) fL MCH 32.2 (27.0-33.0) pg MCHC 34.5 (31.0-36.0) g/dl RDW 13.1 (11.0-16.0) % Plt Count 239 D (160-400) X10*3/uL MPV 10.4 (9.4-12.4) fL Immature Gran % (Auto) 0.3 (0.0-0.4) % Neut % (Auto) 65.3 (45-73) % Lymph % (Auto) 20.8 (20-40) % [place] % (Auto) 8.8 (2-11) % Eos % (Auto) 4.2 H (0-4) % Baso % (Auto) 0.6 (0-2) % Lymph # (Auto) 1.4 (1.2-4.9) X10*3/uL [place] # (Auto) 0.6 (0.1-1.2) X10*3/uL Eos # (Auto) 0.3 (0.0-0.4) X10*3/uL Baso # (Auto) 0.0 (0.0-0.2) X10*3/uL Abs Immat Gran (auto) 0.02 (0.00-0.03) X10*3/uL Absolute Neuts (auto) 4.5 (2.0-8.3) x10*3/uL Absolute Nucleated RBC 0.000 (0.0-0.012) X10*3/uL Nucleated RBC % (auto) 0.0 (0.0-0.2) /100WBC Sodium 141 (135-145) mmol/L Potassium 3.8 (3.3-5.1) mmol/L Chloride 109 H (96-108) mmol/L Carbon Dioxide 21 L (22-29) mmol/L Anion Gap 15 (12-20) BUN 19 H (9-16) mg/dL Creatinine 0.91 (0.5-1.4) mg/dL Estim Creat Clear Calc 95.8 Estimated GFR > 60 Random Glucose 102 (60-115) mg/dL Lactic Acid 0.9 (0.5-2.0) mmol/L Calcium 9.4 (8.4-10.2) mg/dL Total Bilirubin 1.0 (0.0-1.0) mg/dL AST 42 H (5-37) U/L ALT 26 (0-40) U/L Alkaline Phosphatase 62 (39-117) U/L Total Creatine Kinase 134 (38-174) U/L Troponin I High Sens < 2.7 D (<3.5-35.0) ng/L B-Natriuretic Peptide 18 (<100) pg/mL Total Protein 7.6 (6.5-8.0) g/dL Albumin 3.7 (3.5-5.0) g/dL Lipase 18 (8-78) U/L Urine Color Urine Appearance Urine pH (5.0-9.0) Ur Specific [place] (1.005-1.025) Urine Protein (Neg-Trace) mg/dL Urine Glucose (UA) (Negative) mg/dL Urine Ketones (Negative) mg/dL Urine Blood (Negative) Urine Nitrite (Negative) Ur Leukocyte Esterase (Negative) Urine RBC (0-2) /HPF Urine WBC (0-5) /HPF Ur Squamous Epith Cells (0-2) /HPF Urine Bacteria (None Seen) Hyaline Casts (0-2) /LPF Influenza Type A (PCR) (Negative) Influenza Type B (PCR) (Negative) RSV RNA Qual (PCR) (Negative) SARS-CoV-2 RNA (RT-PCR) (Negative) 11/04/24 11/05/24 Range/Units 23:33 11:43 WBC (4.8-10.8) X10*3/uL RBC (4.60-5.80) X10*6/uL Hgb (14.0-18.0) g/dl Hct (42.0-52.0) % MCV (80.0-98.0) fL MCH (27.0-33.0) pg MCHC (31.0-36.0) g/dl RDW (11.0-16.0) % Plt Count (160-400) X10*3/uL MPV (9.4-12.4) fL Immature Gran % (Auto) (0.0-0.4) % Neut % (Auto) (45-73) % Lymph % (Auto) (20-40) % [place] % (Auto) (2-11) % Eos % (Auto) (0-4) % Baso % (Auto) (0-2) % Lymph # (Auto) (1.2-4.9) X10*3/uL [place] # (Auto) (0.1-1.2) X10*3/uL Eos # (Auto) (0.0-0.4) X10*3/uL Baso # (Auto) (0.0-0.2) X10*3/uL Abs Immat Gran (auto) (0.00-0.03) X10*3/uL Absolute Neuts (auto) (2.0-8.3) x10*3/uL Absolute Nucleated RBC (0.0-0.012) X10*3/uL Nucleated RBC % (auto) (0.0-0.2) /100WBC Sodium (135-145) mmol/L Potassium (3.3-5.1) mmol/L Chloride (96-108) mmol/L Carbon Dioxide (22-29) mmol/L Anion Gap (12-20) BUN (9-16) mg/dL Creatinine (0.5-1.4) mg/dL Estim Creat Clear Calc Estimated GFR Random Glucose (60-115) mg/dL Lactic Acid (0.5-2.0) mmol/L Calcium (8.4-10.2) mg/dL Total Bilirubin (0.0-1.0) mg/dL AST (5-37) U/L ALT (0-40) U/L Alkaline Phosphatase (39-117) U/L Total Creatine Kinase (38-174) U/L Troponin I High Sens (<3.5-35.0) ng/L B-Natriuretic Peptide (<100) pg/mL Total Protein (6.5-8.0) g/dL Albumin (3.5-5.0) g/dL Lipase (8-78) U/L Urine Color Yellow Urine Appearance Clear Urine pH 6.5 (5.0-9.0) Ur Specific [place] 1.020 (1.005-1.025) Urine Protein Negative (Neg-Trace) mg/dL Urine Glucose (UA) Negative (Negative) mg/dL Urine Ketones Trace (Negative) mg/dL Urine Blood Negative (Negative) Urine Nitrite Negative (Negative) Ur Leukocyte Esterase Trace H (Negative) Urine RBC 0-2 (0-2) /HPF Urine WBC 0-5 (0-5) /HPF Ur Squamous Epith Cells 0-2 (0-2) /HPF Urine Bacteria None Seen (None Seen) Hyaline Casts 0-2 (0-2) /LPF Influenza Type A (PCR) NEGATIVE (Negative) Influenza Type B (PCR) NEGATIVE (Negative) RSV RNA Qual (PCR) NEGATIVE (Negative) SARS-CoV-2 RNA (RT-PCR) NEGATIVE (Negative) Independent Interpretation I performed an independent interpretation of an: EKG Radiology Impression Discussion of test interpretation with radiology: I have reviewed the radiologist's reading. Radiologist Impression: [address] [address] XRay Report Signed Patient: Prateek Saeed MR#: [id number] : 1955 Acct:[id number] Age/Sex: 69 / M ADM Date: 11/04/24 Loc: .ED Attending Dr: Ordering Physician: Art Benjamin Date of Service: 11/04/24 Procedure(s): XR chest 2V Accession Number(s): [id number] cc: Physician,Unknown ; Art Benjamin~ CLINICAL HISTORY: weakness 2 view chest x-ray Comparison: CR - XR CHEST 1V - 08/18/24 18:23 EST Findings: No consolidation or effusion. There is enlargement of the cardiopericardial silhouette. No acute fracture. IMPRESSION: 1. No acute findings. Cardiomegaly. This document has been electronically signed by: Tyra Motta MD on 11/04/2024 20:08:51 Dictated By: Tyra Motta MD Signed By: <Electronically signed by Tyra Motta MD in OV> 11/04/242009 DD/ 07 TD/TT: 11/04/242007 Cardiopulmonary Technologist: External Record Review External record reviewed: Prior outpatient labs Records requested from [facility] Discharge Plan Discharge Clinical Impression: Weakness, Constipation Patient Disposition: [facility] In[facility] Transfer Details: TO: [facility] Instructions: Constipation (DC), Weakness (ED) Additional Instructions: Your lab workup was unremarkable. Your CT scan showed constipation. Take all of your medications as prescribed If you develop new or worsening symptoms call 911 or come back to the ER for further evaluation. Prescriptions: No Action olanzapine 10 mg tablet 10 mg PO BEDTIME amlodipine 5 mg tablet 5 mg PO DAILY tamsulosin 0.4 mg capsule 0.8 mg PO DAILY trazodone 100 mg tablet 100 mg PO BEDTIME PRN (Reason: Sleep) lamotrigine 100 mg tablet 100 mg PO DAILY escitalopram oxalate 20 mg tablet 20 mg PO DAILY Referrals: [facility] [Outside] Harinder Dobson FNP-ARINA [Primary Care Provider] - Print Language: Kittitian
--- NOTE | 2024-11-04 18:53 | ECG_ITS ---
Test Reason : weakness Blood Pressure : */* mmHG Vent. Rate : 64 BPM Atrial Rate : 64 BPM P-R Int : 178 ms QRS Dur : 130 ms QT Int : 426 ms P-R-T Axes : 17 -19 -27 degrees QTcB Int : 439 ms Normal sinus rhythm Right bundle branch block Minimal voltage criteria for LVH, may be normal variant ( R in aVL ) Inferior infarct T wave abnormality, consider anterolateral ischemia Abnormal ECG When compared with ECG of 18-Aug-2024 18:23, No significant changes seen Referred By: Art Benjamin Electronically Signed By: GERRI ALCAZAR
[2024-11-04] MEDS: 0.9 % Sodium Chloride 1,000 ML 999 ML IV (19:18)
[2024-11-04 19:25] LABS: MANUAL DIFF FLAG NO
[2024-11-04 19:26] LABS: Basophils Percent Auto 0.6 % (0-2); Eosinophils Absolute Auto 0.3 X10*3/uL (0.0-0.4); Eosinophils Percent Auto 4.2 % (0-4); Hematocrit 41.7 % (42.0-52.0); Hemoglobin 14.4 g/dl (14.0-18.0); Imm Gran Abs Auto 0.02 X10*3/uL (0.00-0.03); Imm Gran Pct Auto 0.3 % (0.0-0.4); Lymphocytes Absolute Auto 1.4 X10*3/uL (1.2-4.9); Lymphocytes Percent Auto 20.8 % (20-40); Mean Corpuscular HGB Conc 34.5 g/dl (31.0-36.0); Mean Corpuscular Hemoglobin 32.2 pg (27.0-33.0); Mean Corpuscular Volume 93.3 fL (80.0-98.0); Mean Platelet Volume 10.4 fL (9.4-12.4); Monocytes Absolute Auto 0.6 X10*3/uL (0.1-1.2); Monocytes Percent Auto 8.8 % (2-11); Neutrophils Absolute Auto 4.5 x10*3/uL (2.0-8.3); Neutrophils Percent Auto 65.3 % (45-73); Platelet Count 239 X10*3/uL (160-400); Red Blood Count 4.47 X10*6/uL (4.60-5.80); Red Cell Distribution Width 13.1 % (11.0-16.0); White Blood Count 6.9 X10*3/uL (4.8-10.8)
[2024-11-04 19:41] LABS: Lactic Acid 0.9 mmol/L (0.5-2.0)
[2024-11-04 19:52] LABS: Troponin-I High Sensitivity < 2.7 ng/L (<3.5-35.0)
[2024-11-04 20:09] LABS: B Type Natriuretic Peptide 18 pg/mL (<100)
[2024-11-04 20:22] VITALS: BP 156/80; PULSE 66; RESP 20; TEMP 36.7; O2SAT 96
[2024-11-04 21:03] LABS: Alanine Aminotransferase 26 U/L (0-40); Albumin Level 3.7 g/dL (3.5-5.0); Alkaline Phosphatase 62 U/L (39-117); Anion Gap 15 (12-20); Aspartate Amino Transferase 42 U/L (5-37); Blood Urea Nitrogen 19 mg/dL (9-16); Calcium 9.4 mg/dL (8.4-10.2); Carbon Dioxide 21 mmol/L (22-29); Chloride 109 mmol/L (96-108); Creatinine Clr Calc Pharmacy 95.8; Estimated Glomerular Filt Rate > 60; Glucose Random 102 mg/dL (60-115); Lipase 18 U/L (8-78); Potassium 3.8 mmol/L (3.3-5.1); Sodium 141 mmol/L (135-145); Total Protein 7.6 g/dL (6.5-8.0)
[2024-11-04] MEDS: Diatrizoate Meglumine, Sodium 30 ML SOLUTION PO (21:10)
[2024-11-04 22:25] VITALS: BP 136/77; PULSE 67; RESP 16; TEMP 36.7; O2SAT 94
[2024-11-04 23:38] LABS: Appearance Urine Clear; Color Urine Yellow; Glucose Urine UA Negative (Negative); Leukocyte Esterase Urine Trace (Negative); Nitrite Urine Negative (Negative); PH 6.5 (5.0-9.0); UMIC TRIGGER UA YES; Urine Blood Negative (Negative); Urine Ketones Trace mg/dL (Negative); Urine Protein Negative (Neg-Trace)
[2024-11-04 23:40] LABS: Bacteria Urine None Seen (None Seen); Hyaline Casts Urine 0-2 /LPF (0-2); RBC Urine 0-2 /HPF (0-2); Squamous Epithelial Cell Urine 0-2 /HPF (0-2); WBC Urine 0-5 /HPF (0-5)
[2024-11-04] MEDS: iohexoL 350 MG/ML 100 ML INFUS..BTL 85 ML IV (23:50)
[2024-11-05] MEDS: Milk of Magnesia 30 ML ORAL.SUSP PO (03:05)
[2024-11-05] MEDS: bisacodyL 5 MG TABLET.DR 10 MG PO (03:05)
[2024-11-05 06:46] VITALS: BP 141/81; PULSE 60; RESP 18; TEMP 36.5; O2SAT 95
--- NOTE | 2024-11-05 07:05 | PC.NURSE ---
pt incont of urine x2, assist with washing and bed change
--- NOTE | 2024-11-05 09:18 | PC.NURSE ---
Placed male purewick placed. Pt states he has poor PO intake. Pt also states that when he eats he gets an urgent feeling like he needs to have a bowel movement and pee. States this has been going on a long time.
--- NOTE | 2024-11-05 11:30 | PC.NURSE ---
Patient is a 69yo M with bipolar depression presenting with FTT. PMH: LE weakness, rhabdomyolysis with VINEET, new-onset AF/RVR, UTI with severe sepsis BCx 2 of 2 sets positive for GPCs in clusters. Alert and oriented. Respirations even and non-labored. Abdomen large, soft, non-tender with positive bowel souunds. c/o rectal pain. Purewick intact and draining yellow urine. Positive pedal pulses with no edema. Case management involved.
[2024-11-05 11:41] VITALS: BP 138/77; PULSE 72; RESP 16; TEMP 36.5; O2SAT 92
[2024-11-05 12:41] LABS: Influenza A PCR NEGATIVE (Negative); Influenza B PCR NEGATIVE (Negative); Resp Syncy Virus RNA Qual PCR NEGATIVE (Negative); SARS COV2 PCR INHOUSE NEGATIVE (Negative)
--- NOTE | 2024-11-05 13:50 | MHC.CM.ED ---
Addendum entered by Glo Díaz 11/05/24 15:06: [facility] able to offer a bed pending physical therapy eval. Addendum entered by Glo Díaz 11/05/24 13:52: Copy of HCP verified to be on file. PCP verified as Harinder Aiken at [facility] in [place]. Original Note: Received case management consult overnight. Patient came to the ER due to weakness. Work up essentially negative. Physical therapy eval ordered and unavailable until Monday 11/06. Met with patient in regards to discharge planning. Patient was inpatient at [facility] from 10/08-10/26. Patient was transferred to [facility] 11/04. Patient returned home and was too weak to get off the couch. Patient aware physical therapy eval unavailable until tomorrow. Patient has been to [facility] in the past and is agreeable to referral there. If [facility] does not have a bed available, patient understands referral will be broadcasted locally. If STR is recommended, [facility] PASRR Level 2 will be needed when SNF is found. Continue to monitor for d/c needs.
[2024-11-05 14:00] VITALS: BP 120/65; PULSE 85; RESP 18; TEMP 36.5; O2SAT 93
--- NOTE | 2024-11-05 14:34 | PHA.MEDREC ---
Addendum entered by Maureen Vitale RPh 11/05/24 14:38: reviewed by [facility]. Original Note: Pharmacy Consult ? Medication Reconciliation Pharmacy has completed the medication reconciliation. Spoke with patient to confirm. He was able to recognize names of the medications but unable to verify doses. He said his friend picked up his medications for him at [facility] after being discharged and he has started taking them at home. He said he uses the trazodone as needed for sleep. He reports he took his medications last night.
[2024-11-05 16:00] VITALS: BP 133/70; PULSE 70; RESP 18; TEMP 36.7; O2SAT 93
[2024-11-05 18:00] VITALS: BP 126/60; PULSE 81; RESP 20; TEMP 36.7; O2SAT 92
[2024-11-06 00:54] VITALS: BP 141/88; PULSE 74; RESP 18; TEMP 36.7; O2SAT 93
[2024-11-06 07:46] VITALS: BP 149/89; PULSE 90; RESP 20; TEMP 36.9; O2SAT 95
[2024-11-06 08:27] VITALS: BP 149/89; PULSE 90; O2SAT 95
--- NOTE | 2024-11-06 14:43 | PC.NURSE ---
report given to CHASITY Briscoe in overflow
[2024-11-06 15:16] VITALS: BP 141/81; PULSE 71; RESP 16; TEMP 36.9; O2SAT 93
--- NOTE | 2024-11-06 15:39 | MHC.CM.PN ---
STR RECOMMENDED, [facility] ACCEPTING LEVEL I SUBMITTED, WILL NEED LEVEL II PT AWARE HE WILL LIKELY TRANSPORT TOMLORROW DUE TO LEVEL II PENDING AND AMBULANCE AVAILABILITY
--- NOTE | 2024-11-06 15:57 | PC.NURSE ---
This RN assumes care of patient at this time. Moved from ED 25 to Overflow 3. Patient is alert/oriented x4. Poor mobility/ambulation. Male purewick changed, connected to wall suction. Head of bed elevated for patient comfort. Had bowel movement shortly after arrival to [facility] ED. Vital signs obtained & entered into EMAR. Call jovel within reach. No additional needs at this time. Care ongoing by this RN.
[2024-11-06 16:00] VITALS: BP 142/73; PULSE 71; RESP 20; TEMP 36.4; O2SAT 94
[2024-11-06 20:42] VITALS: BP 119/70; PULSE 69; RESP 16; TEMP 36.6; O2SAT 93
[2024-11-06] MEDS: OLANZapine 10 MG TABLET PO (21:17)
--- NOTE | 2024-11-06 23:22 | PC.NURSE ---
Assumed care of patient at 1900. Patient is alert and oriented x4. Offers no complaints, vitals stable, l/s clear, abd large but soft. Patient repositioned, bedtime medication administered without difficulty. Callbell within reach, bed alarm on.
--- NOTE | 2024-11-07 03:31 | PC.NURSE ---
This film writer assumed care of this Pt at 0300. Pt appears to be sleeping, equal, non labored respirations. Plan of care on going.
[2024-11-07 05:44] VITALS: BP 129/81; PULSE 70; RESP 17; TEMP 36.7; O2SAT 93
[2024-11-07 07:58] VITALS: BP 139/71; PULSE 63; RESP 16; TEMP 36.8; O2SAT 93
[2024-11-07] MEDS: lamoTRIgine 100 MG TABLET PO (09:28)
[2024-11-07] MEDS: Escitalopram Oxalate 20 MG TABLET PO (09:28)
[2024-11-07] MEDS: amLODIPine Besylate 5 MG TABLET PO (09:28)
--- NOTE | 2024-11-07 10:06 | PC.NURSE ---
Assumed care of pt at 0700. Pt A&Ox4, respirations even and unlabored. Bedbath provided by techs this AM. Pt is compliant with meals and medications - takes pills whole with water, independent with meals. Spoke with pt's son on the telephone, he is requesting pt be seen by psych prior to discharge from [facility] because pt was recently discharged from [place]. Provider aware. Plan of care ongoing.
[2024-11-07] MEDS: polyethylene glycoL 3350 17 GM POWD.PACK PO (12:30)
[2024-11-07] MEDS: Docusate Sodium 100 MG CAPSULE PO (12:30)
--- NOTE | 2024-11-07 13:00 | PC.NURSE ---
Pts son Yusra called with concerns about his fathers mental health. Pt reports a recent admission and discharge at [facility], and felt that the patient wasnt ready/jayleen. He was aware that he was projected to [facility] for STR and not placement for psychiatry care. He did speak at length with Case Management today as well. The son was encouraged to engage with LM about his care plan. I reported to Yusra that his father has not demonstrated any concerning behaviors while boarding here in the ED.
--- NOTE | 2024-11-07 13:44 | MHC.CM.ED ---
Patient remains in ER overflow. Received voicemail from patient's son/HCP, Yusra requesting a return telephone call. Spoke with Yusra via telephone at [phone]. Yusra requesting psych eval for patient. Yusra feels patient is not well and delusional. Also feels patient is not able to care for himself because he refused medication on Wednesday. T/W explained patient has denied SI/HI and has been cooperative with care. Also explained patient is allowed to decline medication and make his own decisions. Yusra upset but verbalized understanding. [facility] PASRR Level obtained. Sent to [facility]. Patient can leave at 330pm. Rachel VICTORIA booked. Patient, Katy GASPAR and Fely MOSLEY aware. Patient's son/HCP, Yusra made aware via telephone. Yusra verbalizes understanding. Continue to monitor for d/c needs.
[2024-11-07 15:29] VITALS: BP 152/83; PULSE 83; RESP 16; TEMP 36.6; O2SAT 92
== END 2024-11-07 15:30 ==
PROVIDERS: Physician Assistant; Physician Assistant Medical; Emergency Provider Emergency Medicine Emergency Medical Services; PCP Registered Nurse
DX: K59.00 Constipation, unspecified (principal); R53.1 Weakness; R14.0 Abdominal distension (gaseous); I45.10 Unspecified right bundle-branch block; R94.31 Abnormal electrocardiogram [ECG] [EKG]; R26.81 Unsteadiness on feet; R11.0 Nausea; R10.2 Pelvic and perineal pain; Z79.899 Other long term (current) drug therapy; Z03.818 Encounter for observation for suspected exposure to other biological agents ruled out
CPT/HCPCS: 0241U; 36415; 71046; 74177; 80053; 81001; 82550; 83605; 83690; 83880; 84484; 85025; 93005; 96360; 96361; 97162; 99285; Q9967

== ENCOUNTER → 2024-11-04 18:53 | Outpatient (BNV) | payer MEDICARE, BC, SELFPAY | PROVIDERS: Emergency Provider Emergency Medicine Emergency Medical Services; Visit Provider Internal Medicine | DX: I45.10 Unspecified right bundle-branch block (principal) | CPT/HCPCS: 93010 ==

== ENCOUNTER → 2024-11-04 18:58 | Outpatient (BNV) | payer MEDICARE, BC, SELFPAY | PROVIDERS: Emergency Provider Emergency Medicine Emergency Medical Services; Visit Provider Nuclear Medicine | DX: N32.89 Other specified disorders of bladder (principal) | CPT/HCPCS: 74177 ==